=== PATIENT | female | born 1940 | race Caucasian/White ===

== ENCOUNTER → 2017-07-26 08:55 | Outpatient (CLI) | payer MEDICARE, SELFPAY ==
[2017-07-20 14:29] VITALS: BP 117/77; BMI 33.0
== END ==
PROVIDERS: Family Provider Family Medicine; PCP Family Medicine; Visit Provider Nurse Practitioner Acute Care
DX: Z98.890 Other specified postprocedural states (principal)
CPT/HCPCS: 93308; Q9957; A4216; C8924

== ENCOUNTER → 2017-07-27 20:00 | Outpatient (CLI) | payer MEDICARE, SELFPAY | PROVIDERS: Family Provider Family Medicine; PCP Family Medicine; Visit Provider Nurse Practitioner Acute Care | DX: G47.33 Obstructive sleep apnea (adult) (pediatric) (principal) | CPT/HCPCS: 95811 ==

== ENCOUNTER → 2017-08-03 08:45 | Outpatient (CLI) | payer MEDICARE, SELFPAY | PROVIDERS: Family Provider Family Medicine; PCP Family Medicine; Visit Provider Nurse Practitioner Acute Care | DX: G47.33 Obstructive sleep apnea (adult) (pediatric) (principal) | CPT/HCPCS: 98960; G0463 ==

== ENCOUNTER → 2017-10-19 07:23 | Outpatient (CLI) | payer MEDICARE, SELFPAY ==
--- NOTE | 2017-10-19 07:29 | CT_ITS ---
STUDY: CT CHEST/THORAX WITHOUT CONTRAST REASON FOR EXAM: Female, 77 years old. Nodule and shortness of breath. RADIATION DOSAGE (If Supplied By Facility): CTDIvol = ( 15.45 ) mGy, DLP = ( 526.70 ) mGycm TECHNIQUE: Transaxial imaging was performed without the administration of intravenous contrast material. Multiplanar coronal and sagittal images were reformatted. Individualized dose optimization techniques were used for this CT. COMPARISON: CT chest/thorax without IV contrast April 26, 2017. FINDINGS: 5-6 mm noncalcified nodule again seen in the right superior sulcus (series 2 image 16, series 602 image 148) with a segmental zone of prominent peripheral interstitial densities consistent with chronic change. These are also again seen in the other lung segments as well. . There is 3 mm thickening along the anterior minor fissure on series 2 image 46, series 6 on image 80, series 6 and image 83. No new site of consolidation. There is no demonstrated pleural abnormality. The heart size is upper normal. There are calcifications of the coronary arteries. Stable 1.8 x 1.7 x 0.9 cm precarinal lymph node as well as a few right paratracheal mediastinal lymph nodes measuring up to 11.5 mm greatest diameter. There are nonspecific borderline enlarged lymph nodes in the hilar regions, left infrahilar node measuring 13 mm in greatest diameter. Normal unenhanced pulmonary arteries. There is stable atherosclerotic calcification of the aortic arch and descending thoracic aorta. There are stable multi-level degenerative changes of the lower thoracic spine. Suggestion of a mid lumbar dextroscoliosis outside the [id number] There is no demonstrated abnormality of the visualized upper abdomen. CT/Chest without Contrast IMPRESSION: 1. Stable chronic peripheral interstitial changes as well as stable noncalcified nodule in the right superior sulcus. Follow-up is suggested in 18-24 months. 2. No new infiltrate or pleural effusion. 3. Stable nonspecific to borderline enlarged mediastinal and hilar lymph nodes, likely reactive. 4. Atherosclerotic calcifications of the coronary arteries and thoracic aorta again noted. Electronically Signed: Dharmesh Wasserman MD at 12:33 EDT , Service support ,
--- NOTE | 2017-10-19 10:36 | PFTCOMP ---
COMPLETE PULMONARY FUNCTION TEST INTERPRETATION Brief HPI: Patient is a 77 year old female, currently under the care of Dr. Zhou, who presents to [facility] for complete pulmonary function tests secondary to diagnosis of ILD. Respiratory therapist reports good effort and reproducible results. Interpretation: Forced expiration spirometry shows no large airways obstructive ventilatory defect with an FEV1 of 84% predicted. There is no significant bronchodilator response by ATS criteria. Spirograms are of good quality and plateau normally. The respiratory flow volume loop shows a normal pattern. Lung volumes by body plethysmography show a decreased total lung capacity at 3.5 L, 77% predicted. All other lung volumes are reduced symmetrically. Diffusion capacity by carbon monoxide is at the lower limit of normal at 63% predicted. The airway resistance is normal. Compared to previous pulmonary function tests from 04/26/2017, there has been a significant reduction in FVC and FEV1. Impression: Irreversible mild restrictive ventilatory defect with a symmetric reduction diffusing capacity consistent with patient's diagnosis of ILD. There has been some worsening over the last 6 months.
--- NOTE | 2017-10-19 10:39 | PFTCOMP_ITS ---
COMPLETE PULMONARY FUNCTION TEST INTERPRETATION Brief HPI: Patient is a 77 year old female, currently under the care of Dr. Zhou , who presents to [facility] for complete pulmonary function tests secondary to diagnosis of ILD. Respiratory therapist reports good effort and reproducible results. Interpretation: Forced expiration spirometry shows no large airways obstructive ventilatory defect with an FEV1 of 84% predicted. There is no significant bronchodilator response by ATS criteria. Spirograms are of good quality and plateau normally. The respiratory flow volume loop shows a normal pattern. Lung volumes by body plethysmography show a decreased total lung capacity at 3.5 L, 77% predicted. All other lung volumes are reduced symmetrically. Diffusion capacity by carbon monoxide is at the lower limit of normal at 63% predicted. The airway resistance is normal. Compared to previous pulmonary function tests from 04/26/2017, there has been a significant reduction in FVC and FEV1. Impression: Irreversible mild restrictive ventilatory defect with a symmetric reduction diffusing capacity consistent with patient's diagnosis of ILD. There has been some worsening over the last 6 months.
== END ==
PROVIDERS: Family Provider Family Medicine; PCP Family Medicine; Visit Provider Internal Medicine Critical Care Medicine
DX: J84.9 Interstitial pulmonary disease, unspecified (principal)
CPT/HCPCS: 71250; 94060; 94726; 94729

== ENCOUNTER 2017-12-14 08:08 | Outpatient (RCR) | payer MEDICARE, SELFPAY ==
--- NOTE | 2017-12-14 08:11 | PR.DATECOV_ITS ---
Dates of Coverage Times for Dates Of Coverage; All dates of coverage are for physician supervision /medical and scientific illustrator for during the times of 08:00 AM through 4:30 PM. Effective Feb 18, 2013 our hours will be changing to 8:00 to 4:30 on Tuesday, Tuesday and Tuesday. First Date of the Month: 12/14/17 Last Date of the Month: 12/17/17
--- NOTE | 2017-12-14 08:11 | PCM.PR.DAT ---
Dates of Coverage Times for Dates Of Coverage; All dates of coverage are for physician supervision/medical hospital sales for during the times of 08:00 AM through 4:30 PM. Effective Feb 18, 2013 our hours will be changing to 8:00 to 4:30 on Tuesday, Tuesday and Tuesday. First Date of the Month: 12/18/17 Last Date of the Month: 01/17/18
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
--- NOTE | 2017-12-14 08:32 | PR.ITP_ITS ---
General Information - General Information Admitting Diagnosis: Restrictive lunfg disease w/asthma component - PFT FEV1:: 1.51 - 80% predicted FVC:: 1.79 - 71% predicted FEV1/FVC%:: 84 - irreversible mild restricitive ventilatory defect w/reduction diffusing capacity - Education/Goals Barriers to Learning: Vision Impairment Individual Counseling: Initial Assessment: Dyspnea control techniques at rest, activity, and ADLs, Inhaled and respiratory medications, Nutrition & weight management, Safe travel Patient Goals: Breathe better: Initial Assessment, Increase endurance/stamina: Initial Assessment, Return to recreation/hobby: Initial Assessment - Be able to aslo travel & walk on trips., Improve weight: Initial Assessment Exercise - Initial Assessment - Visit Date of Eval: 12/14/17 - Problem/Goals Problems: Knowledge deficit exercise guidelines, Knowledge deficit exercise safety - Exercise Prescription Mode:: Treadmill, Rower, Airdyne, NuStep Frequency (x/week): 3 Duration:: 30 MET LEVEL:: 2 HR (bpm):: 106 - THRR 92-106 - Plan Plan and Plan to Review:: Benefits of exercise, Core components of exercise, How to measure dyspnea level, How to monitor dyspnea level, Exercise intensity, Exercise safety guideline, Home exercise guidelines, Theresa: 3-4/11-13 Disease Management - Initial - Problems/Goals-Bronchial Hygiene Bronchial Hygiene Goals:: Pt demonstrates effective cough, effective secretion clearance., Pt describes signs and symptoms of infection. - Initial Assessment SpO2:: 93 FiO2:: 21 DME:: [employer] DME Does pt report taking home meds as prescribed?: Yes Medications: Yes MDI, Yes DPI, No Spacer, N/A NEB Patient Reports:: No cough Psychosocial - Initial Assess - Problems/Goals Problems: Impaired Q.O.L. Psychosocial Goals: Improved Q.O.L. - Psychosocial Test Depression:: Impaired QOL Referred to MD for counseling:: No - Plan Reviewed screening results: Yes Instructions given regarding:: Benefits of exercise, Relaxation techniques, Training in coping strategies Tobacco - Initial Assessment - Program Goals Tobacco Program Goals: Complete smoking cessation. Attend education classes. Improve Knowledge Test score - Stage of Change Stages of Change:: Action - Learning Barriers Learning Barriers: Vision, Ready to Learn - Family Support Do you have family support?: Yes - Tobacco Use Tobacco Use: Non-smoker - Intervention Education Schedule Given:: Yes - Education Gave Education Materials For:: Pulmonary Disease, Risk Factors, Breathing Techniques, Medical Compliance, Pulmonary A&P, Exacerbation Signs & Symptoms, Stress & Relaxation Nutrition/Wt Mgmt - Initial - Problems/Goals Problems: Overweight Goals: Wt Loss 1-2 lbs per week - Weight Management Knowledge Deficit Management of:: Overweight Admit Height:: 5 ft 3 in Admit Weight:: 188 lb Admit BMI:: 33.3 - Diabetes Diabetes:: No Insulin: No Do you monitor your blood sugar at home?: No - Intervention Referral to dietitian:: Yes - Patient would like to have a strucutured diet program to lose weight gained Referral to Diabetic Clinic:: No Will attend diet classes:: Yes - Plan Nutrition Plan: Yes Review BMI or WC & identify target wt & strategies for wt control, Yes Nutrition education class:, Yes Weight control education class: Patient Health Questionnaire Initial Assessment 1. Little interest or pleasure in doing things: More than half the days 2. Feeling down, depressed, or hopeless: Not at all 3. Trouble falling or staying asleep, or sleeping too much: Several days 4. Feeling tired or having little energy: Nearly every day 5. Poor appetite or overeating: Several days 6. Feeling bad about yourself -- or that you are a failure or have let yourself or your family down: Not at all 8. Moving or speaking so slowly that other people could have noticed. Or the opposite - being so fidgety or restless that you have been moving around a lot more than usual: Not at all How difficult have these problems made it for you to do your work, take care of things at home, or get along with other people?: Somewhat difficult Total Score: 7 COPD Knowledge Test Initial COPD is a lung disease that:: Makes it hard to breathe & gets worse over time In the [place] the term COPD describes 2 main lung conditions:: Emphysema & pulmonary hypertension The most common lung irritant that causes COPD is:: Allergies Common signs and symptoms of COPD include:: An ongoing cough/cough that produces a large amount of mucus, & SOB If you have COPD, what steps can you take?: All of the above Swelling of the ankles is common in COPD:: True Fatigue [tiredness] is common in COPD:: True Wheezing is common in COPD:: True Crushing chest pain is common in COPD:: False Rapid weight loss is common in COPD:: False Breathlessness is a normal response to exercise: True Exercise should be avoided if it makes you short of breath: False All bronchodilators act within 10 minutes: True A spacer device increases the medication to the lungs: True Annual flu vaccine is recommended for pts w/lung disease: True COPD Knowledge Test Total Score:: 11 COPD Assessment Test [CAT] - Questions Never cough = 0, Cough all the time = 5: 1 No phlegm = 0, Chest full of phlegm = 5: 0 No chest tightness = 0, Chest very tight = 5: 0 No breathless w/exertion = 0, Very breathless w/exertion = 5: 5 No limitations w/activity = 0, Very limited w/activity = 5: 4 Confident leaving home = 0, Not at all confident = 5: 1 Sleep soundly = 0, Don't sleep soundly = 5: 1 Lots of energy = 0, No energy at all = 5: 5 Total CAT score:: 17 Self-Efficacy Initial Assessment We would like to know how confident you are in doing certain activities. Please select your confidence level for:: Select your confidence level for the following using the scale 1-10 where 1 is not at all confident and 10 is totally confident. Your score is the average of all 6 responses. Fatigue: How confident are you that you can keep the fatigue caused by your disease from interfering with the things you want to do? Select Number: 2 Physical Discomfort or Pain: How confident are you that you can keep the physical discomfort or pain of your disease from interfering with the things you want to do? Select Number: 2 Emotional Distress: How confident are you that you can keep the emotional distress caused by your disease from interfering with the things you want to do? Select Number: 6 Other Symptoms or Health Problems: How confident are you that you can keep other symptoms or health problems from interfering with the things you want to do? Select Number: 3 Different Tasks and Activities: How confident are you that you can do the different tasks and activities needed to manage your health condition so as to reduce your need to see a doctor? Select Number: 5 Medication: How confident are you that you can do things other than just taking medication to reduce how much your illness affects your everyday life? Select Number: 6 Total Score:: 4 Nutrition Survey - Nutrition Survey Instructions Scoring Instructions: Scoring is as follows: Yes = 1 points. No = 0 point. Patient score that is >/=12 is considered to be at potential nutritional risk and could benefit from a referral to a registered dietitian. - Nutrition Survey Initial Have you lost >10 lbs over the past 2 months without trying?: No Are you following a special diet at home for diabetes, low fat, or low salt?: Yes Are you interested in meeting with a dietitian for help understanding your diet? : Yes Do you eat less than 3 meals a day?: Yes Do you eat fatty meats (jama, sausage, ribs, etc), fried foods, desserts, large amounts of salad dressings, margarine, butter, or cheese most days?: Yes Do you have food allergies? [Enter types in comment field]: No Do you eat in restaurants more than 3 times a week?: Yes Do you season food with salt, seasoning salt, or garlic salt?: Yes Do you used canned, boxed, frozen meals, or soups, seasoning packets?: Yes - Does use salt to season only when cooking; no table salt Total Score:: 7
[2017-12-14 08:47] VITALS: BP 112/58; PULSE 85; RESP 16; TEMP 37.1; O2SAT 93; BMI 33.8
[2017-12-14 09:15] VITALS: O2SAT 93; BMI 33.3
== END 2017-12-17 23:59 ==
LOC: PR 08:08
PROVIDERS: Family Provider Family Medicine; PCP Family Medicine; Visit Provider Family Medicine
DX: J84.9 Interstitial pulmonary disease, unspecified (principal)
CPT/HCPCS: 97150; G0239

== ENCOUNTER 2018-01-13 08:00 | Outpatient (RCR) | payer MEDICARE, SELFPAY ==
[2017-12-18 01:14] VITALS: BP 112/58; PULSE 85; RESP 16; TEMP 37.1; O2SAT 93
--- NOTE | 2018-01-10 09:00 | PCM.PR.DAT ---
Dates of Coverage Times for Dates Of Coverage; All dates of coverage are for physician supervision/medical language specialist for during the times of 08:00 AM through 4:30 PM. Effective Feb 18, 2013 our hours will be changing to 8:00 to 4:30 on Tuesday, Tuesday and Tuesday. First Date of the Month: 01/18/18 Last Date of the Month: 02/17/18
--- NOTE | 2018-01-10 09:09 | PR.ITP_ITS ---
General Information - Education/Goals Patient Goals: Breathe better: 30-Day Assessment, Increase endurance/stamina: 30 -Day Assessment, Return to recreation/hobby: 30-Day Assessment Exercise - 30-Day Assessment - Exercise Prescription Mode:: Treadmill, NuStep, Arm Ergometer Frequency (x/week): 3 Duration:: 30 Aerobic Exercise [30-60 min 3-7x/week]:: Progressing Target heart rate: 92-106 Theresa-13 MET Level:: 2.5 - Home Exercise Home Exercise:: No Disease Management - 30-Day - Medications Medication list reviewed:: Yes Taking medications 100% of the time:: Met - Bronchial Hygiene Bronchial Hygiene Plan: Yes Pt demo correct for device - instructed use of SMI and IMT devices; returned demonstration Psychosocial - 30-Day - Assessment Reassessment: Management of stress & depression, Demonstrate coping strategies Tobacco - 30-Day Assessment - Program Goals Tobacco Program Goals: Complete smoking cessation. Attend education classes. Improve Knowledge Test score - Stage of Change Stages of Change:: Action - Learning Barriers Learning Barriers: Participates in education - Family Support Do you have family support?: Yes - Tobacco Use Tobacco Use: Non-smoker - Intervention Education Schedule Given:: Yes - Education Gave Education Materials For:: Pulmonary Disease, Risk Factors, Breathing Techniques, Medical Compliance, Pulmonary A&P, Exacerbation Signs & Symptoms, Stress & Relaxation Nutrition/Wt Mgmt - 30-Day - Weight Management Weight Assessment:: Wt stable Weight:: 191 lb - BMI 32.5 Weight Goals Progress:: Not progressing Patient Health Questionnaire 30-Day Re-eval Assessment 1. Little interest or pleasure in doing things: Several days 2. Feeling down, depressed, or hopeless: Not at all 3. Trouble falling or staying asleep, or sleeping too much: Not at all 4. Feeling tired or having little energy: More than half the days 5. Poor appetite or overeating: Not at all 6. Feeling bad about yourself -- or that you are a failure or have let yourself or your family down: Not at all 7. Trouble concentrating on things, such as reading the newspaper or watching television: Not at all 8. Moving or speaking so slowly that other people could have noticed. Or the opposite - being so fidgety or restless that you have been moving around a lot more than usual: Not at all Total Score: 3 COPD Assessment Test [CAT] - Questions Never cough = 0, Cough all the time = 5: 1 No phlegm = 0, Chest full of phlegm = 5: 0 No chest tightness = 0, Chest very tight = 5: 0 No breathless w/exertion = 0, Very breathless w/exertion = 5: 4 No limitations w/activity = 0, Very limited w/activity = 5: 3 Confident leaving home = 0, Not at all confident = 5: 1 Sleep soundly = 0, Don't sleep soundly = 5: 1 Lots of energy = 0, No energy at all = 5: 3 Total CAT score:: 13 Self-Efficacy 30-Day Re-eval Assessment We would like to know how confident you are in doing certain activities. Please select your confidence level for:: Select your confidence level for the following using the scale 1-10 where 1 is not at all confident and 10 is totally confident. Your score is the average of all 6 responses. Fatigue: How confident are you that you can keep the fatigue caused by your disease from interfering with the things you want to do? Select Number: 5 Physical Discomfort or Pain: How confident are you that you can keep the physical discomfort or pain of your disease from interfering with the things you want to do? Select Number: 5 Emotional Distress: How confident are you that you can keep the emotional distress caused by your disease from interfering with the things you want to do? Select Number: 7 Other Symptoms or Health Problems: How confident are you that you can keep other symptoms or health problems from interfering with the things you want to do? Select Number: 4 Different Tasks and Activities: How confident are you that you can do the different tasks and activities needed to manage your health condition so as to reduce your need to see a doctor? Select Number: 6 Medication: How confident are you that you can do things other than just taking medication to reduce how much your illness affects your everyday life? Select Number: 7 Total Score:: 5
== END 2018-01-17 23:59 ==
LOC: PR 08:00
PROVIDERS: Family Provider Family Medicine; PCP Family Medicine; Visit Provider Family Medicine
DX: J84.9 Interstitial pulmonary disease, unspecified (principal)
CPT/HCPCS: 97150; G0239

== ENCOUNTER 2018-01-23 08:31 | Outpatient (RCR) | payer MEDICARE, SELFPAY | END 2018-02-17 23:59 | LOC: NS 08:31 | PROVIDERS: Family Provider Family Medicine; PCP Family Medicine; Visit Provider Family Medicine | DX: E66.9 Obesity, unspecified (principal); R06.09 Other forms of dyspnea; J84.9 Interstitial pulmonary disease, unspecified; G47.33 Obstructive sleep apnea (adult) (pediatric); Z71.3 Dietary counseling and surveillance | CPT/HCPCS: 97802; 97803 ==

== ENCOUNTER → 2018-01-27 07:16 | Outpatient (CLI) | payer MEDICARE, SELFPAY ==
[2018-01-27 10:04] LABS: Absolute Lymphocyte Count 2.06 X10^3/ul (0.83-4.51); Basophil# 0.02 X10^3/uL; Basophil% 0.3 % (0-1); Hematocrit 41.9 % (37-47); Lymphocyte # 2.06 X10^3/ul (4.0); Lymphocyte % 34.2 % (19-41); Mean Corp Hgb Conc 33.4 g/gl (32-36); Mean Corpuscular Hgb 29.7 pg (27.0-32.0); Mean Corpuscular Volume 88.8 fL (81-99); Mean Platelet Vol. 11.1 fl (6.2-12.0); Monocyte# 0.63 X10^3/uL; Monocyte% 10.4 % (0-10); Neutrophil # 3.02 X10^3/uL (2.7-7.7); Neutrophil % 50.1 % (47-70); Platelet Count 164 K/mm3 (150-450); RBC Distribution Width CV 13.8 % (11.6-14.6); RBC Distribution Width SD 44.8 fl (35.1-43.9); Red Blood Count 4.72 M/mm3 (4.2-5.4)
[2018-01-27 10:05] LABS: POSITIVE COUNT NO; POSITIVE DIFFERENTIAL NO; POSITIVE MORPHOLOGY NO
[2018-01-27 12:20] LABS: ALB/GLOB Ratio 0.9 RATIO (0.9-2.4); AST(SGOT) 22 U/L (15-37); Alanine Aminotransfer ALT/SGPT 25 U/L (13-56); Albumin, Serum 3.6 g/dL (3.2-5.0); Alkaline Phosphatase 79 U/L (45-117); Anion Gap 8 (5-15); BUN 15 mg/dL (7-18); BUN/Creat Ratio 17.3 RATIO (10-20); Calcium,Total 8.9 mg/dL (8.5-10.1); Chloride 108 mmol/L (98-107); Cholesterol 235 mg/dL (200); Creatinine, Serum 0.87 mg/dL (0.55-1.02); EST Glomerular Filtration Rate 67 mL/min (>60); Est Glom Filt Rate - Afr Amer 81 mL/min (>60); Globulin 4.1 g/dL (2.2-4.2); Glucose 98 mg/dL (74-106); High Density Lipoprotein 52 mg/dL; Potassium 4.2 mmol/L (3.5-5.1); Protein, Total 7.7 g/dL (6.4-8.2); Sodium Level 143 mmol/L (136-145); Thyroid Stim Hormone (TSH) 1.19 uIU/mL (0.358-3.74); Triglycerides 146 mg/dL; Very Low Density Lipoprotein 29 mg/dL (5-40)
== END ==
PROVIDERS: Family Provider Family Medicine; PCP Family Medicine; Visit Provider Family Medicine
DX: E78.5 Hyperlipidemia, unspecified (principal); J45.30 Mild persistent asthma, uncomplicated; E03.9 Hypothyroidism, unspecified
CPT/HCPCS: 36415; 80053; 80061; 84443; 85025

== ENCOUNTER → 2018-02-03 10:00 | Outpatient (CLI) | payer MEDICARE, SELFPAY | PROVIDERS: Family Provider Family Medicine; PCP Family Medicine; Visit Provider Nurse Practitioner Acute Care | DX: G47.33 Obstructive sleep apnea (adult) (pediatric) (principal) ==

== ENCOUNTER 2018-02-17 08:00 | Outpatient (RCR) | payer MEDICARE, SELFPAY ==
[2018-01-18 01:09] VITALS: BP 112/58; PULSE 85; RESP 16; TEMP 37.1; O2SAT 93
--- NOTE | 2018-02-10 10:22 | PR.DATECOV_ITS ---
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 Effective Feb 18, 2013 our hours will be changing to 8:00 to 4:30 on Tuesday, Tuesday and Tuesday. First Date of the Month: 02/18/18 Last Date of the Month: 03/19/18
--- NOTE | 2018-02-10 10:27 | PR.ITP_ITS ---
Exercise - 60-Day Assessment - Current Level Mode:: Treadmill, Airdyne, NuStep, Arm Ergometer Frequency (x/week): 3 Duration:: 35 Aerobic Exercise [30-60 min 3-7x/week]:: Progressing Target heart rate: 92-106 Theresa-13 MET Level:: 3.5 - Home Exercise Home Exercise:: No Disease Management - 60-Day - Medications Medication list reviewed:: Yes Taking medications 100% of the time:: Met Medication reassessment: Yes Pt demonstrates correct technique timing for MDI, Yes Pt demonstrates correct technique timing for DPI, Yes Pt demonstrates correct technique timing for NEB, Yes Pt demonstrates correct technique timing for spacer - return use of spacer - Bronchial Hygiene Bronchial Hygiene Plan: Yes Pt demonstrates correctly for effective cough, Yes Pt demo correct for device - return use of acapella, Yes Pt demo correct for hand hygiene, Yes Pt demo correct for verbalize when to call MD Psychosocial - 60-Day - Assessment Depression reassess: Management of stress: Progressing, Management of depression : Progressing, Practicing interventions: Progressing Tobacco - 60-Day Assessment - Program Goals Tobacco Program Goals: Complete smoking cessation. Attend education classes. Improve Knowledge Test score - Stage of Change Stages of Change:: Action - Learning Barriers Learning Barriers: Participates in education - Family Support Do you have family support?: Yes - Tobacco Use Tobacco Use: Non-smoker Do you use smokeless tobacco?: No - Intervention Smoking Cessation Referral:: No Individual Education/Counseling:: No Education Schedule Given:: Yes - Education Gave Education Materials For:: Pulmonary Disease, Risk Factors, Breathing Techniques, Medical Compliance, Pulmonary A&P, Exacerbation Signs & Symptoms, Stress & Relaxation Nutrition/Wt Mgmt - 60-Day - Weight Management Weight:: 191 lb Weight Goals Progress:: Progressing Patient Health Questionnaire 60-Day Re-eval Assessment 1. Little interest or pleasure in doing things: Not at all 2. Feeling down, depressed, or hopeless: Not at all 3. Trouble falling or staying asleep, or sleeping too much: Not at all 4. Feeling tired or having little energy: Several days 5. Poor appetite or overeating: Not at all 6. Feeling bad about yourself -- or that you are a failure or have let yourself or your family down: Not at all 7. Trouble concentrating on things, such as reading the newspaper or watching television: Not at all 8. Moving or speaking so slowly that other people could have noticed. Or the opposite - being so fidgety or restless that you have been moving around a lot more than usual: Not at all 9. Thoughts that you would be better off , or of hurting yourself in some way: Not at all How difficult have these problems made it for you to do your work, take care of things at home, or get along with other people?: Not difficult at all Total Score: 1 COPD Assessment Test [CAT] - Questions Never cough = 0, Cough all the time = 5: 0 No phlegm = 0, Chest full of phlegm = 5: 0 No breathless w/exertion = 0, Very breathless w/exertion = 5: 3 No limitations w/activity = 0, Very limited w/activity = 5: 2 Confident leaving home = 0, Not at all confident = 5: 1 Sleep soundly = 0, Don't sleep soundly = 5: 1 Lots of energy = 0, No energy at all = 5: 2 Self-Efficacy 60-Day Re-eval Assessment We would like to know how confident you are in doing certain activities. Please select your confidence level for:: Select your confidence level for the following using the scale 1-10 where 1 is not at all confident and 10 is totally confident. Your score is the average of all 6 responses. Fatigue: How confident are you that you can keep the fatigue caused by your disease from interfering with the things you want to do? Select Number: 7 Physical Discomfort or Pain: How confident are you that you can keep the physical discomfort or pain of your disease from interfering with the things you want to do? Select Number: 7 Emotional Distress: How confident are you that you can keep the emotional distress caused by your disease from interfering with the things you want to do? Select Number: 9 Other Symptoms or Health Problems: How confident are you that you can keep other symptoms or health problems from interfering with the things you want to do? Select Number: 6 Different Tasks and Activities: How confident are you that you can do the different tasks and activities needed to manage your health condition so as to reduce your need to see a doctor? Select Number: 8 Medication: How confident are you that you can do things other than just taking medication to reduce how much your illness affects your everyday life? Select Number: 9 Total Score:: 7
== END 2018-02-17 23:59 ==
LOC: PR 08:00
PROVIDERS: Family Provider Family Medicine; PCP Family Medicine; Visit Provider Family Medicine
DX: J84.9 Interstitial pulmonary disease, unspecified (principal); E66.9 Obesity, unspecified; R06.09 Other forms of dyspnea; G47.33 Obstructive sleep apnea (adult) (pediatric); Z71.3 Dietary counseling and surveillance
CPT/HCPCS: 97150; 97802; G0239

== ENCOUNTER 2018-02-27 08:34 | Outpatient (RCR) | payer MEDICARE, SELFPAY | END 2018-03-19 23:59 | LOC: NS 08:34 | PROVIDERS: Family Provider Family Medicine; PCP Family Medicine; Visit Provider Family Medicine | DX: E66.9 Obesity, unspecified (principal); R06.09 Other forms of dyspnea; J84.9 Interstitial pulmonary disease, unspecified; G47.33 Obstructive sleep apnea (adult) (pediatric); Z71.3 Dietary counseling and surveillance | CPT/HCPCS: 97803 ==

== ENCOUNTER → 2018-03-06 12:07 | Outpatient (CLI) | payer MEDICARE, SELFPAY ==
--- NOTE | 2018-03-06 12:10 | BI_ITS ---
MAMMOGRAPHY - BILATERAL SCREENING REASON FOR EXAM: Female, 77 years old. Routine annual screening examination. PERTINENT HISTORY: Personal history of breast cancer. Prior left lumpectomy and radiation therapy. Aunt with breast cancer. TECHNIQUE: Digital bilateral breast jane (3D mammographic acquisition) in the CC and MLO projections. 2-D mediolateral oblique (MLO) and craniocaudad (CC) views of both breasts were obtained. CAD: Full Field Digital Mammography with Computer Added Detection was performed. COMPARISON: Comparison is made with prior study June 02, 2017 and March 01, 2016. FINDINGS: Breast Composition: There are scattered areas of fibroglandular density. Stable deformity of the left breast with architectural distortion in the upper lateral portion of the left breast secondary to prior lumpectomy. This is unchanged. Surgical clips are seen in the left axillary region. No other significant abnormalities are identified. There has been no significant change since the prior study. BI/SCREENING MAMM (CAD), BILAT IMPRESSION: Stable bilateral screening mammogram. Yearly follow-up mammogram recommended. (A) ASSESSMENT CATEGORY: BIRADS Category 2: Benign. A letter regarding these results will be sent to the patient by the facility within 30 days. Approximately 10% of breast cancers are not detected by mammography. A normal mammogram should not delay biopsy of a clinically suspicious abnormality. [id number] Electronically Signed: Oliverio Hung MD at 14:08 EDT Tel [phone], Service support ,
== END ==
PROVIDERS: Family Provider Family Medicine; PCP Family Medicine; Visit Provider Internal Medicine Hematology & Oncology
DX: Z12.31 Encounter for screening mammogram for malignant neoplasm of breast (principal); Z85.3 Personal history of malignant neoplasm of breast
CPT/HCPCS: 77063; 77067

== ENCOUNTER 2018-03-10 08:00 | Outpatient (RCR) | payer MEDICARE, SELFPAY ==
[2018-02-18 01:14] VITALS: BP 112/58; PULSE 85; RESP 16; TEMP 37.1; O2SAT 93
--- NOTE | 2018-03-14 11:42 | PR.DATECOV_ITS ---
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 Effective Feb 18, 2013 our hours will be changing to 8:00 to 4:30 on Tuesday, Tuesday and Tuesday. First Date of the Month: 03/20/18 Last Date of the Month: 04/19/18
--- NOTE | 2018-03-14 11:42 | PCM.PR.TP ---
Exercise - Final Assessment - Exercise Prescription Mode:: Treadmill, Airdyne, NuStep, Arm Ergometer Frequency (x/week): 3 Duration:: 35 Aerobic Exercise [30-60 min 3-7x/week]:: Met Further followup [see D/C Summary]:: No Target heart rate: 92-106 Mx HR 97 Theresa-13 MET Level:: 4.5 - Home Exercise Home Exercise:: Yes Frequency: daily Time (minutes):: 30 - walking other activities Disease Management - Final - Medications Medication reassessment: Yes Pt demonstrates correct technique timing for MDI, Yes Pt demonstrates correct technique timing for DPI, Yes Pt demonstrates correct technique timing for NEB, Yes Pt demonstrates correct technique timing for spacer - returned demonstration use spacer/MDI - Bronchial Hygiene Bronchial Hygiene Plan: Yes Pt demonstrates correctly for effective cough, Yes Pt demo correct for device - returned use of PEP thereapy device, Yes Pt demo correct for improved hydration, Yes Pt demo correct for hand hygiene, Yes Pt demo correct for verbalize when to call MD - verbalizes signs symptoms of exacerbation Psychosocial - Final Assess - Assessment Depression reassess: Management of stress: Met, Management of depression: Met, Practicing interventions: Met Tobacco - Final Assessment - Program Goals Tobacco Program Goals: Complete smoking cessation. Attend education classes. Improve Knowledge Test score - Stage of Change Stages of Change:: Action - Learning Barriers Learning Barriers: Participates in education, Change in behavior - Family Support Do you have family support?: Yes - Tobacco Use Tobacco Use: Non-smoker Do you use smokeless tobacco?: No - Intervention Education Schedule Given:: Yes - Education Education Goal Reached?: Yes Nutrition/Wt Mgmt - Final - Weight Management Final Weight Assessment: Wt stable Weight:: 189 lb - 2 # loss this 30-days Weight Goals Progress:: Progressing Patient Health Questionnaire Discharge Assessment 1. Little interest or pleasure in doing things: Not at all 2. Feeling down, depressed, or hopeless: Not at all 3. Trouble falling or staying asleep, or sleeping too much: Not at all 4. Feeling tired or having little energy: Not at all 5. Poor appetite or overeating: Not at all 6. Feeling bad about yourself -- or that you are a failure or have let yourself or your family down: Not at all 7. Trouble concentrating on things, such as reading the newspaper or watching television: Not at all 8. Moving or speaking so slowly that other people could have noticed. Or the opposite - being so fidgety or restless that you have been moving around a lot more than usual: Not at all 9. Thoughts that you would be better off , or of hurting yourself in some way: Not at all How difficult have these problems made it for you to do your work, take care of things at home, or get along with other people?: Not difficult at all Total Score: 0 COPD Knowledge Test Discharge COPD is a lung disease that:: Makes it hard to breathe & gets worse over time In the [place] the term COPD describes 2 main lung conditions:: Emphysema & chronic bronchitis The most common lung irritant that causes COPD is:: Cigarette smoke Common signs and symptoms of COPD include:: An ongoing cough/cough that produces a large amount of mucus, & SOB If you have COPD, what steps can you take?: All of the above Swelling of the ankles is common in COPD:: False Fatigue [tiredness] is common in COPD:: True Wheezing is common in COPD:: True Crushing chest pain is common in COPD:: False Rapid weight loss is common in COPD:: True Breathlessness is a normal response to exercise: True Exercise should be avoided if it makes you short of breath: False All bronchodilators act within 10 minutes: False A spacer device increases the medication to the lungs: True Annual flu vaccine is recommended for pts w/lung disease: True COPD Knowledge Test Total Score:: 14 COPD Assessment Test [CAT] - Questions Never cough = 0, Cough all the time = 5: 1 No phlegm = 0, Chest full of phlegm = 5: 2 No chest tightness = 0, Chest very tight = 5: 2 No breathless w/exertion = 0, Very breathless w/exertion = 5: 3 No limitations w/activity = 0, Very limited w/activity = 5: 2 Confident leaving home = 0, Not at all confident = 5: 3 Sleep soundly = 0, Don't sleep soundly = 5: 1 Lots of energy = 0, No energy at all = 5: 4 Total CAT score:: 18 Self-Efficacy Discharge Assessment We would like to know how confident you are in doing certain activities. Please select your confidence level for:: Select your confidence level for the following using the scale 1-10 where 1 is not at all confident and 10 is totally confident. Your score is the average of all 6 responses. Fatigue: How confident are you that you can keep the fatigue caused by your disease from interfering with the things you want to do? Select Number: 9 Physical Discomfort or Pain: How confident are you that you can keep the physical discomfort or pain of your disease from interfering with the things you want to do? Select Number: 10 Emotional Distress: How confident are you that you can keep the emotional distress caused by your disease from interfering with the things you want to do? Select Number: 10 Other Symptoms or Health Problems: How confident are you that you can keep other symptoms or health problems from interfering with the things you want to do? Select Number: 10 Different Tasks and Activities: How confident are you that you can do the different tasks and activities needed to manage your health condition so as to reduce your need to see a doctor? Select Number: 10 Medication: How confident are you that you can do things other than just taking medication to reduce how much your illness affects your everyday life? Select Number: 10 Total Score:: 9 Nutrition Survey - Nutrition Survey Instructions Scoring Instructions: Scoring is as follows: Yes = 1 points. No = 0 point. Patient score that is >/=12 is considered to be at potential nutritional risk and could benefit from a referral to a registered dietitian. - Nutrition Survey Discharge Have you lost >10 lbs over the past 2 months without trying?: No Are you following a special diet at home for diabetes, low fat, or low salt?: No Are you interested in meeting with a dietitian for help understanding your diet?: No Do you eat less than 3 meals a day?: No Do you eat fatty meats (jama, sausage, ribs, etc), fried foods, desserts, large amounts of salad dressings, margarine, butter, or cheese most days?: Yes - very rarely bt do eat on occasion Do you have food allergies? [Enter types in comment field]: No Do you eat in restaurants more than 3 times a week?: No Do you season food with salt, seasoning salt, or garlic salt?: No Do you used canned, boxed, frozen meals, or soups, seasoning packets?: Yes Total Score:: 2
== END 2018-03-19 23:59 ==
LOC: PR 08:00
PROVIDERS: Family Provider Family Medicine; PCP Family Medicine; Visit Provider Family Medicine
DX: J84.9 Interstitial pulmonary disease, unspecified (principal); E66.9 Obesity, unspecified; R06.09 Other forms of dyspnea; G47.33 Obstructive sleep apnea (adult) (pediatric); Z71.3 Dietary counseling and surveillance
CPT/HCPCS: 97150; 97803; G0239

== ENCOUNTER → 2018-03-23 11:02 | Outpatient (CLI) | payer MEDICARE, SELFPAY ==
--- NOTE | 2018-03-23 13:37 | PFTCOMP_ITS ---
COMPLETE PULMONARY FUNCTION TEST INTERPRETATION Brief HPI: Patient is a 77 year old female, currently under the care of Dr. Zhou, who presents to [facility] for complete pulmonary function tests secondary to diagnosis of asthma. Respiratory therapist reports good effort and reproducible results. Interpretation: Forced expiration spirometry shows no large airways obstructive ventilatory defect with an FEV1 of 84% predicted. There is no significant bronchodilator response by ATS criteria. Spirograms are of good quality and plateau normally. The respiratory flow volume loop shows a normal pattern. Lung volumes by body plethysmography show a decreased total lung capacity at 3.71 L, 82% predicted. All other lung volumes are within normal limits. Diffusion capacity by carbon monoxide is at the lower limit of normal at 68% predicted. The airway resistance is normal. Compared to previous pulmonary function tests from October 19, 2017, there has been no significant change. Impression: Mild restrictive ventilatory defect with a symmetric reduction in diffusing capacity. There is been very little change compared to previous.
== END ==
PROVIDERS: Family Provider Family Medicine; PCP Family Medicine; Referring Provider Internal Medicine Critical Care Medicine; Visit Provider Internal Medicine Critical Care Medicine
DX: J45.909 Unspecified asthma, uncomplicated (principal); R93.89 Abnormal findings on diagnostic imaging of other specified body structures
CPT/HCPCS: 94060; 94726; 94729

== ENCOUNTER → 2018-03-24 09:36 | Outpatient (CLI) | payer MEDICARE, SELFPAY | PROVIDERS: Family Provider Family Medicine; PCP Family Medicine; Visit Provider Nurse Practitioner Acute Care | DX: Z00.00 Encounter for general adult medical examination without abnormal findings (principal) ==

== ENCOUNTER 2018-03-27 08:00 | Outpatient (RCR) | payer MEDICARE, SELFPAY ==
[2018-03-20 00:57] VITALS: BP 112/58; PULSE 85; RESP 16; TEMP 37.1; O2SAT 93
== END 2018-04-19 23:59 ==
LOC: PR 08:00
PROVIDERS: Family Provider Family Medicine; PCP Family Medicine; Referring Provider Family Medicine; Visit Provider Family Medicine
DX: J84.9 Interstitial pulmonary disease, unspecified (principal); E66.9 Obesity, unspecified; R06.09 Other forms of dyspnea; G47.33 Obstructive sleep apnea (adult) (pediatric); Z71.3 Dietary counseling and surveillance
CPT/HCPCS: 97150; 97803; G0239

== ENCOUNTER 2018-04-17 14:00 | Outpatient (RCR) | payer MEDICARE, SELFPAY | END 2018-04-19 23:59 | LOC: NS 14:00 | PROVIDERS: Family Provider Family Medicine; PCP Family Medicine; Visit Provider Family Medicine | DX: E66.9 Obesity, unspecified (principal); R06.09 Other forms of dyspnea; J84.9 Interstitial pulmonary disease, unspecified; G47.33 Obstructive sleep apnea (adult) (pediatric); Z71.3 Dietary counseling and surveillance | CPT/HCPCS: 97803 ==

== ENCOUNTER 2018-05-01 15:08 | Outpatient (RCR) | payer MEDICARE, SELFPAY | END 2018-05-19 23:59 | LOC: NS 15:08 | PROVIDERS: Family Provider Family Medicine; PCP Family Medicine; Visit Provider Family Medicine | DX: E66.9 Obesity, unspecified (principal); R06.09 Other forms of dyspnea; J84.9 Interstitial pulmonary disease, unspecified; G47.33 Obstructive sleep apnea (adult) (pediatric); Z71.3 Dietary counseling and surveillance | CPT/HCPCS: 97803 ==

== ENCOUNTER 2018-05-22 12:52 | Outpatient (RCR) | payer MEDICARE, SELFPAY ==
[2018-05-20 01:05] VITALS: BMI 33.0
== END 2018-06-19 23:59 ==
LOC: NS 12:52
PROVIDERS: Family Provider Family Medicine; PCP Family Medicine; Visit Provider Family Medicine
DX: E66.9 Obesity, unspecified (principal); R06.09 Other forms of dyspnea; J84.9 Interstitial pulmonary disease, unspecified; G47.33 Obstructive sleep apnea (adult) (pediatric); Z71.3 Dietary counseling and surveillance
CPT/HCPCS: 97803

== ENCOUNTER → 2018-07-04 08:01 | Outpatient (CLI) | payer MEDICARE, SELFPAY ==
[2018-05-20 01:05] VITALS: BMI 33.0
[2018-07-04 10:20] LABS: Hemoglobin A1c 5.7 % (4.2-6.3)
[2018-07-04 10:24] LABS: Vitamin B12 529 pg/mL (211-911)
[2018-07-04 10:55] LABS: AST(SGOT) 18 U/L (15-37); Alanine Aminotransfer ALT/SGPT 27 U/L (13-56); Albumin, Serum 3.7 g/dL (3.2-5.0); Alkaline Phosphatase 70 U/L (45-117); Anion Gap 8 (5-15); BUN 15 mg/dL (7-18); BUN/Creat Ratio 19.5 RATIO (10-20); Chloride 107 mmol/L (98-107); Cholesterol 222 mg/dL (200); Creatinine, Serum 0.77 mg/dL (0.55-1.02); EST Glomerular Filtration Rate 77 mL/min (>60); Est Glom Filt Rate - Afr Amer 93 mL/min (>60); Ferritin 223 ng/mL (8-252); Free T3 2.4 pg/mL (2.18-3.98); Globulin 3.8 g/dL (2.2-4.2); Glucose 91 mg/dL (74-106); High Density Lipoprotein 57 mg/dL; Iron 99 ug/dL (50-170); Iron Binding Capacity,Total 308 ug/dL (250-450); PERCENT IRON SATURATION 32.1 % (15.0-55.0); Potassium 3.8 mmol/L (3.5-5.1); Protein, Total 7.5 g/dL (6.4-8.2); Sodium Level 141 mmol/L (136-145); Thyroid Stim Hormone (TSH) 1.07 uIU/mL (0.358-3.74); Triglycerides 192 mg/dL; Very Low Density Lipoprotein 38 mg/dL (5-40)
== END ==
PROVIDERS: Family Provider Family Medicine; PCP Family Medicine; Visit Provider Family Medicine
DX: E78.5 Hyperlipidemia, unspecified (principal); R25.1 Tremor, unspecified; E03.9 Hypothyroidism, unspecified
CPT/HCPCS: 36415; 80053; 80061; 82607; 82728; 82746; 83036; 83540; 83550; 84439; 84443; 84481

== ENCOUNTER 2018-07-18 09:30 | Outpatient (RCR) | payer MEDICARE, SELFPAY ==
[2018-05-20 01:05] VITALS: BMI 33.0
== END 2018-07-18 23:59 | disposition home or self-care (01) ==
LOC: NS 09:30
PROVIDERS: Family Provider Family Medicine; PCP Family Medicine; Visit Provider Family Medicine
DX: E66.9 Obesity, unspecified (principal); R06.09 Other forms of dyspnea; J84.9 Interstitial pulmonary disease, unspecified; G47.33 Obstructive sleep apnea (adult) (pediatric); Z71.3 Dietary counseling and surveillance
CPT/HCPCS: 97803

== ENCOUNTER 2018-11-21 06:24 | Day surgery (SDC) | payer MEDICARE, SELFPAY ==
[2018-10-25 10:37] VITALS: BMI 33.0
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
[2018-11-21] VITALS (7 sets, daily range): BP systolic 97–147; BP diastolic 54–77; PULSE 71–77; RESP 16–18; TEMP 36.4–36.8; O2SAT 97–100; BMI 32.9
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
[2018-11-21] MEDS: levoFLOXacin IV 500 MG/100 ML BAG 100 MG IV (07:30)
[2018-11-21] MEDS: Mupirocin Ointment 22gm Tube 1 APPLIC (10:15)
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
--- NOTE | 2018-11-21 10:45 | DCINST_ITS ---
You will use the following diet at home:: No restrictions Discharge Activity: May Shower - in two days. May shower in (days): 2 May resume sexual activity in: No Restrictions Weight Bearing Status: Weight bearing as tolerated Call your doctor if your incision/area has: Continuous Slow Oozing, Sudden Increased Bleeding, Increased Pain/ Swelling, Increased Redness, Foul Smelling Discharge, Swelling at the incision site Call your doctor if you observe: Fever of 101 or Higher, Coldness, Increased Pain, Shortness of breath, Chest pain, Calf discomfort, Uncontrolled pain Suture Line Care: - - apply antibiotic ointment to suture line daily. Change Dressing in (Days):: 2 - dry dressings daily. Cleanse incision/area with: - - may get incisions wet in the shower in two days. Allergies/Adverse Reactions: Allergies clindamycin Adverse Reaction (Intermediate, Verified 11/15/18 09:36) DIZZY, DIARRHEA Medications to take at Discharge Levothyroxine [Synthroid] 137 mcg PO DAILY 10/11/14 Sertraline HCl [Zoloft] 150 mg PO DAILY 10/11/14 Cholecalciferol (VIT D3) [Vitamin D3] 2,000 unit PO DAILY 07/17/15 Multivitamin [Daily Multiple Vitamin] 1 ea PO DAILY 07/17/15 Acetaminophen [Tylenol] 975 mg PO QHS 09/10/16 albuterol sulfate HFA 90 mcg/actuation aerosol inhaler 2 puff INHALATION Q4H PRN #1 device 08/23/17 Beclomethasone Diprop Inhaler [Qvar 80 Mcg Inhaler] 2 puff INHALATION BID 12/14/17 Ferrous Gluconate [Iron] 236 mg PO DAILY 12/14/17 [place]-3 Fatty Acids/Fish Oil [Fish Oil 1,000 mg Capsule] 1 ea PO DAILY 12/14/17 beclomethasone diprop 80 mcg/actuation HFA breath activated aerosol 2 puff INHALATION Q12H #10.6 g 06/16/18 Loratadine/Pseudoephedrine [Claritin-D 12 Hour Tablet] 1 each PO DAILY 11/15/18 Psyllium Husk [Fiber Therapy] 0.52 gm PO DAILY 11/15/18 Ursodiol [Sandee] 250 mg PO TID 11/15/18 Fluconazole [Diflucan] 100 mg PO DAILY #14 tab 11/21/18 Lactobacillus Acidophilus/Fos [Acidophilus Probiotic Tablet] 1 ea PO BID #60 tab 11/21/18 Levofloxacin 500 mg PO DAILY #30 tab 11/21/18 Oxycodone HCl/Acetaminophen [Percocet 5/325] 1 - 2 tab PO 4X/DAY PRN PRN 7 Days #50 tab 11/21/18 The following prescriptions were given: Fluconazole [Diflucan] 100 mg PO DAILY #14 tab Levofloxacin 500 mg PO DAILY #30 tab Oxycodone HCl/Acetaminophen [Percocet 5/325] 1 - 2 tab PO 4X/DAY PRN PRN 7 Days #50 tab PRN Reason: Pain Lactobacillus Acidophilus/Fos [Acidophilus Probiotic Tablet] 1 ea PO BID #60 tab Primary Care Physician: Roger Jernigan MD [Primary Care Provider] - Test Results: Test results from this visit will be discussed in further detail at your follow- up appointment, if applicable. Please Follow Up With: Juan Francisco Driscoll MD When: one week. call [phone] for appt. Proposed Discharge Date: 11/21/18
== END 2018-11-21 12:40 | disposition home or self-care (01) ==
LOC: SDC 06:25 → AC 06:30
PROVIDERS: Family Provider Family Medicine; PCP Family Medicine; Referring Provider Surgery; Visit Provider Surgery
PROC: (CPT 14001; principal; 2018-11-21 07:50)
DX: L98.412 Non-pressure chronic ulcer of buttock with fat layer exposed (principal); L90.5 Scar conditions and fibrosis of skin; T21.0 Burn of unspecified degree of trunk; D64.9 Anemia, unspecified; E03.9 Hypothyroidism, unspecified; M19.90 Unspecified osteoarthritis, unspecified site; J45.909 Unspecified asthma, uncomplicated; G47.33 Obstructive sleep apnea (adult) (pediatric); F32.9 Major depressive disorder, single episode, unspecified; E66.9 Obesity, unspecified; Z68.32 Body mass index [BMI] 32.0-32.9, adult; Z88.1 Allergy status to other antibiotic agents; Z79.899 Other long term (current) drug therapy; Z78.0 Asymptomatic menopausal state; Z85.3 Personal history of malignant neoplasm of breast
CPT/HCPCS: 14001; 87070; 87075; 87102; 87176; 87205; 87206; 88305; 88311; 88331; J7120; J2405

== ENCOUNTER 2018-12-05 13:53 | Outpatient (RCR) | payer MEDICARE, SELFPAY ==
[2018-11-28 10:11] VITALS: BMI 32.9
[2018-12-05 14:10] VITALS: BP 133/78; PULSE 63; RESP 18; TEMP 36.3; BMI 32.9
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
== END 2018-12-17 23:59 ==
LOC: WC 13:53
PROVIDERS: Visit Provider Nurse Practitioner Family
DX: L98.412 Non-pressure chronic ulcer of buttock with fat layer exposed (principal); L90.5 Scar conditions and fibrosis of skin; L94.2 Calcinosis cutis; L98.8 Other specified disorders of the skin and subcutaneous tissue; I27.20 Pulmonary hypertension, unspecified; Z79.899 Other long term (current) drug therapy; T21.0 Burn of unspecified degree of trunk; T79.8XXS Other early complications of trauma, sequela; X08.8XXS Exposure to other specified smoke, fire and flames, sequela
CPT/HCPCS: 99214; G0463

== ENCOUNTER → 2018-12-07 09:12 | Outpatient (CLI) | payer MEDICARE, SELFPAY ==
[2018-12-05 14:10] VITALS: BMI 32.9
--- NOTE | 2018-12-07 09:17 | RAD_ITS ---
STUDY: X-RAY CHEST REASON FOR EXAM: Female, 78 years old. Hyperbaric oxygen therapy TECHNIQUE: PA and lateral views of the chest. COMPARISON: Prior study of 03/14/2017 FINDINGS: There is a fine interstitial fibrotic pattern of the lungs predominantly involving the lung bases. There is no demonstrated pleural abnormality. Normal size heart. Normal mediastinum and thu. Normal visualized pulmonary arteries. There are calcified plaques of the aortic arch. The bones are osteopenic. There are mild degenerative changes of the thoracic spine. There is a mild thoracolumbar levoscoliosis. Normal visualized ribs, clavicles, and shoulders. There is no demonstrated abnormality of the visualized soft tissue structures of the upper abdomen. RAD/Chest PA and Lateral IMPRESSION: Fine interstitial fibrotic pattern of the lungs predominantly involving the lung bases. Calcified plaques of the aortic arch. Generalized osteopenia. Mild degenerative changes of the thoracic spine. Thoracolumbar levoscoliosis. Surgical clips are seen in the left axilla. Electronically Signed: Ramana Amato MD at 17:10 EDT , Service support ,
== END ==
PROVIDERS: Family Provider Family Medicine; PCP Family Medicine; Referring Provider Nurse Practitioner Family; Visit Provider Nurse Practitioner Family
DX: J84.10 Pulmonary fibrosis, unspecified (principal)
CPT/HCPCS: 71046

== ENCOUNTER 2019-01-01 10:15 | Outpatient (RCR) | payer MEDICARE, SELFPAY ==
[2018-12-18 01:08] VITALS: BP 133/78; PULSE 63; RESP 18; TEMP 36.3
[2018-12-18 09:16] VITALS: BP 123/76; PULSE 61; RESP 16; TEMP 36; BMI 32.9
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
[2019-01-01 11:07] VITALS: BP 156/71; PULSE 59; RESP 18; TEMP 35.6; BMI 32.9
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
[2019-01-15 08:33] VITALS: BP 132/92; PULSE 64; RESP 18; TEMP 36.4; BMI 32.9
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
== END 2019-01-17 23:59 ==
LOC: WC 10:15
PROVIDERS: Family Provider Family Medicine; PCP Family Medicine; Visit Provider Nurse Practitioner Family
DX: L98.412 Non-pressure chronic ulcer of buttock with fat layer exposed (principal); L90.5 Scar conditions and fibrosis of skin; L94.2 Calcinosis cutis; L98.8 Other specified disorders of the skin and subcutaneous tissue; T21.0 Burn of unspecified degree of trunk; T85.898A Other specified complication of other internal prosthetic devices, implants and grafts, initial encounter; X08.8XXS Exposure to other specified smoke, fire and flames, sequela
CPT/HCPCS: 11042; 11045; 99213; G0463

== ENCOUNTER → 2019-01-15 09:00 | Outpatient (CLI) | payer MEDICARE, SELFPAY ==
[2019-01-15 12:08] VITALS: BMI 32.4
== END ==
PROVIDERS: Family Provider Family Medicine; PCP Family Medicine; Referring Provider Surgery; Visit Provider Surgery
DX: L97.829 Non-pressure chronic ulcer of other part of left lower leg with unspecified severity (principal)
CPT/HCPCS: 87070; 87075; 87077; 87186; 87205

== ENCOUNTER 2019-02-12 08:30 | Outpatient (RCR) | payer MEDICARE, SELFPAY ==
[2019-01-15 12:08] VITALS: BMI 32.4
[2019-01-18 01:02] VITALS: BP 132/92; PULSE 64; RESP 18; TEMP 36.4
[2019-01-22 08:30] VITALS: BP 127/66; PULSE 63; RESP 16; TEMP 36.4; BMI 32.4
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
[2019-02-12 08:27] VITALS: BP 144/79; PULSE 60; RESP 18; TEMP 36.2; BMI 32.4
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
== END 2019-02-17 23:59 ==
LOC: WC 08:30
PROVIDERS: Family Provider Family Medicine; PCP Family Medicine; Visit Provider Nurse Practitioner Family
DX: L98.412 Non-pressure chronic ulcer of buttock with fat layer exposed (principal); L94.2 Calcinosis cutis; L90.5 Scar conditions and fibrosis of skin; L98.8 Other specified disorders of the skin and subcutaneous tissue; T21.0 Burn of unspecified degree of trunk; X08.8XXS Exposure to other specified smoke, fire and flames, sequela
CPT/HCPCS: 11042; 11045

== ENCOUNTER → 2019-03-08 12:25 | Outpatient (CLI) | payer MEDICARE, SELFPAY ==
[2018-12-28 08:46] VITALS: BMI 32.4
[2019-02-12 08:27] VITALS: BMI 32.4
[2019-02-26 08:32] VITALS: BMI 32.4
[2019-03-08 12:44] VITALS: PULSE 64; PULSE 75; PULSE 79; PULSE 83; PULSE 84; PULSE 85; PULSE 90; O2SAT 94; O2SAT 95; O2SAT 96; O2SAT 97; O2SAT 98
--- NOTE | 2019-03-08 12:46 | CPS ---
Pt had shortness of breath starting at minute 3 that continued until the end of the test. Patient state that her SOB has increased since her last 6 minute walk.
--- NOTE | 2019-03-08 14:03 | BI_ITS ---
MAMMOGRAPHY - BILATERAL SCREENING REASON FOR EXAM: Female, 78 years old. Routine annual screening examination. PERTINENT HISTORY: Personal history of breast cancer. Prior left lumpectomy with radiation therapy. Aunt with breast cancer. TECHNIQUE: Digital bilateral breast angela (3D mammographic acquisition) in the CC and MLO projections. 2-D mediolateral oblique (MLO) and craniocaudad (CC) views of both breasts were obtained. CAD: Full Field Digital Mammography with Computer Added Detection was performed. COMPARISON: Comparison is made with prior study dated March 06, 2018 and March 03, 2017. FINDINGS: Breast Composition: There are scattered areas of fibroglandular density. There are no dominant masses or suspicious calcifications. The patient is status post lumpectomy in the upper lateral aspect of the left breast with resultant architectural distortion and skin thickening. Surgical clips are seen in the left axillary region. There has been no change since prior study. No other significant abnormalities are identified. There has been no significant change since the prior study. BI/SCREEN MAMM (CAD) W/ANGELA BILAT IMPRESSION: Stable bilateral screening mammogram. Yearly follow-up mammogram recommended. (A) ASSESSMENT CATEGORY: BIRADS Category 2: Benign. A letter regarding these results will be sent to the patient by the facility within 30 days. Approximately 10% of breast cancers are not detected by mammography. A normal mammogram should not delay biopsy of a clinically suspicious abnormality. [id number] Electronically Signed: Oliverio Hung, at 15:29 EDT , Service support ,
--- NOTE | 2019-03-08 14:04 | BD_ITS ---
STUDY: DUAL ENERGY X-RAY ABSORPTIOMETRY / DXA REASON FOR EXAM: Female, 78 years old. The patient is postmenopausal. Loss of height. TECHNIQUE: Bone Mineral Density (BMD) measurements of lumbar spine and bilateral hips were obtained. COMPARISON: None. FINDINGS: Lumbar Spine (L1-L4): g/cm2 (1.271) / T-score (0.9) / Z-score (2.7) Findings are suggestive of normal bone density with a low fracture risk. Left Femur Total: g/cm2 (0.904) / T-score (-0.8) / Z-score (1.2) Left Femoral Neck: g/cm2 (0.870) / T-score (-1.2) / Z-score (1.0) Right Femur Total: g/cm2 (0.935) / T-score (-0.6) / Z-score (1.5) Right Femoral Neck: g/cm2 (1.010) / T-score (-0.2) / Z-score (2.0) BD/Dexa Bone Density Study IMPRESSION: The patient is considered osteopenic as outlined below according to World Robert Organization (WHO) criteria with a low fracture risk. Reference Information: The T-score is the number of standard deviations above or below the standard which is normal for young adults at their peak bone mineral density. The World Health Organization (WHO) interprets the T-scores as follows: Above -1 Normal bone density Between -1 and -2.5 Osteopenia Equal to / or below -2.5 Osteoporosis As a practical clinical guideline, osteopenia may be graded as follows: Mild -1 through -1.5 Moderate -1.6 through -2.0 Severe -2.1 through -2.4 The Z-score is the number of standard deviations above or below age-matched controls. A Z-score of less than -1.5 would be considered abnormal. References: 1. NIH Osteoporosis and Related Bone Diseases http://www.osteo.org 2. International Society for Clinical Densitometry http://www.iscd.org 3. National Osteoporosis Foundation http://www.nof.org Electronically Signed: Oliverio Hung, at 15:11 EDT , Service support ,
--- NOTE | 2019-03-12 08:26 | PCM.PSN.6M ---
PSN 6 Minute Walk Test - 6 Minute Walk Test 6 Minute Walk Test: 6 Minute Walk Test PSN:6-Minute Walk Test Start: 03/08/19 12:43 Freq: Status: Active Protocol: RESP.6MINW Document 03/08/19 12:44 SMB (Rec: 03/08/19 12:48 SMB [id number]) 6 Minute Walk Test Date Performed 03/08/19 Time Performed 12:31 Height 5 ft 3 in Weight: 185 lb Weight in Pounds 185.[address]: Omid Zhou Assistive device used: None Pre-test Oxygen Delivery Method Room Air Pulse Ox (%) 97 Pulse Rate (60-100 beats/min) 79 Dyspnea Theresa Scale (0-10) 0.5 Exertion Theresa Scale (6-20) 11 1st minute Oxygen Delivery Method Room Air Pulse Ox (%) 94 Pulse Rate (60-100 beats/min) 64 2nd minute Oxygen Delivery Method Room Air Pulse Ox (%) 94 Pulse Rate (60-100 beats/min) 84 3rd minute Oxygen Delivery Method Room Air Pulse Ox (%) 95 Pulse Rate (60-100 beats/min) 83 4th minute Oxygen Delivery Method Room Air Pulse Ox (%) 98 Pulse Rate (60-100 beats/min) 90 5th minute Oxygen Delivery Method Room Air Pulse Ox (%) 97 Pulse Rate (60-100 beats/min) 85 6th minute Oxygen Delivery Method Room Air Pulse Ox (%) 96 Pulse Rate (60-100 beats/min) 90 Post-test Oxygen Delivery Method Room Air Pulse Ox (%) 97 Pulse Rate (60-100 beats/min) 75 Dyspnea Theresa Scale (0-10) 3 Exertion Theresa Scale (6-20) 13 Full Laps Walked 15 Partial Lap, Number of Tiles Walked 21 Total Distance Walked (ft) 906 03/08/19 12:46 Cardiopulmonary Services by Clau Todd Pt had shortness of breath starting at minute 3 that continued until the end of the test. Patient state that her SOB has increased since her last 6 minute walk. Initialized on 03/08/19 12:46 - END OF NOTE - Interpretation Interpretation: The patient ambulated 906 feet over the course of 6 minutes beginning on room air without assistive devices or breaks. Pretesting oxygen saturation was noted to be 97% on room air. With ambulation, the janette oxygen saturation was 94%. There was no significant exertional oxygen desaturation. - Recommendations Recommendations: There is no indication for the use of supplemental oxygen at this time.
== END ==
PROVIDERS: Family Provider Family Medicine; PCP Family Medicine; Referring Provider Internal Medicine Critical Care Medicine; Visit Provider Family Medicine
DX: Z12.31 Encounter for screening mammogram for malignant neoplasm of breast (principal); Z78.0 Asymptomatic menopausal state; M85.80 Other specified disorders of bone density and structure, unspecified site; J84.9 Interstitial pulmonary disease, unspecified; Z85.3 Personal history of malignant neoplasm of breast; Z80.3 Family history of malignant neoplasm of breast
CPT/HCPCS: 77063; 77067; 77080; 94618

== ENCOUNTER 2019-03-12 08:30 | Outpatient (RCR) | payer MEDICARE, SELFPAY ==
[2019-02-18 00:51] VITALS: BP 144/79; PULSE 60; RESP 18; TEMP 36.2
[2019-02-26 08:32] VITALS: BP 138/72; PULSE 59; RESP 16; TEMP 35.9; BMI 32.4
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
[2019-03-12 08:46] VITALS: BP 143/82; PULSE 63; RESP 16; TEMP 36; BMI 32.4
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
== END 2019-03-19 23:59 ==
LOC: WC 08:30
PROVIDERS: Family Provider Family Medicine; PCP Family Medicine; Visit Provider Nurse Practitioner Family
DX: T21.0 Burn of unspecified degree of trunk (principal); X08.8XXS Exposure to other specified smoke, fire and flames, sequela; L98.412 Non-pressure chronic ulcer of buttock with fat layer exposed
CPT/HCPCS: 11042

== ENCOUNTER 2019-04-16 08:30 | Outpatient (RCR) | payer MEDICARE, SELFPAY ==
[2019-03-20 00:48] VITALS: BP 143/82; PULSE 63; RESP 16; TEMP 36
[2019-03-20 11:11] VITALS: BMI 32.8
[2019-03-26 13:57] VITALS: RESP 16; BMI 32.8
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
[2019-04-16 08:25] VITALS: BP 129/93; PULSE 61; RESP 18; TEMP 36.5; BMI 32.8
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
== END 2019-04-19 23:59 ==
LOC: WC 08:30
PROVIDERS: Family Provider Family Medicine; PCP Family Medicine; Visit Provider Nurse Practitioner Family
DX: T21.0 Burn of unspecified degree of trunk (principal); X08.8XXS Exposure to other specified smoke, fire and flames, sequela; L98.412 Non-pressure chronic ulcer of buttock with fat layer exposed; L90.5 Scar conditions and fibrosis of skin
CPT/HCPCS: 11042

== ENCOUNTER → 2019-04-20 07:50 | Outpatient (CLI) | payer MEDICARE, SELFPAY ==
[2019-04-16 08:25] VITALS: BMI 32.8
--- NOTE | 2019-04-20 07:52 | CT_ITS ---
STUDY: CT PELVIS WITH CONTRAST REASON FOR EXAM: Female, 78 years old. Left groin pain. RADIATION DOSAGE (If Supplied By Facility): CTDIvol = ( 24.54 ) mGy, DLP = ( 1108.66 ) mGycm TECHNIQUE: Transaxial imaging of the pelvis was performed without oral contrast. IV/Oral Isovue 300 100 was administered intravenously. Individualized dose optimization techniques were used for this CT. COMPARISON: None. FINDINGS: Normal urinary bladder. Small benign-appearing bilateral inguinal lymph nodes. Normal visualized small intestine. There are multiple colonic diverticula of the sigmoid colon consistent with chronic diverticulosis. There is no pelvic fluid. There is no pelvic lymphadenopathy or mass lesion. There is diffuse atherosclerotic calcification of the pelvic arteries. Normal abdominal wall. There are diffuse degenerative changes of the visualized lumbar spine. Dextroscoliosis. CT/Pelvis WITH IV Contrast IMPRESSION: Scattered sigmoid diverticula. Electronically Signed: Oliverio Hung, at 13:48 EDT , Service support ,
== END ==
PROVIDERS: Family Provider Family Medicine; PCP Family Medicine; Referring Provider Surgery; Visit Provider Surgery
DX: R10.32 Left lower quadrant pain (principal)
CPT/HCPCS: 72193; Q9967

== ENCOUNTER 2019-05-07 08:43 | Outpatient (RCR) | payer MEDICARE, SELFPAY ==
[2019-04-20 00:47] VITALS: BP 129/93; PULSE 61; RESP 18; TEMP 36.5
[2019-05-07 08:43] VITALS: BP 141/75; PULSE 67; RESP 16; TEMP 37.3; BMI 32.8
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
== END 2019-05-19 23:59 ==
LOC: WC 08:43
PROVIDERS: Family Provider Family Medicine; PCP Family Medicine; Visit Provider Nurse Practitioner Family
DX: T21.0 Burn of unspecified degree of trunk (principal); X08.8XXS Exposure to other specified smoke, fire and flames, sequela; L98.412 Non-pressure chronic ulcer of buttock with fat layer exposed
CPT/HCPCS: 11042

== ENCOUNTER → 2019-05-28 13:57 | Outpatient (CLI) | payer MEDICARE, SELFPAY ==
[2019-05-21 08:31] VITALS: BMI 32.8
[2019-05-28 15:33] LABS: Absolute Lymphocyte Count 1.93 X10^3/uL (0.83-4.51); Absolute Neutrophil Count 4.6 X10^3/uL (2.0-7.7); Basophil# 0.05 X10^3/uL; Basophil% 0.6 % (0-1); Eosinophil# 0.31 X10^3/uL; Hematocrit 42.9 % (37-47); Hemoglobin 14.1 g/dL (12.0-15.0); Lymphocyte # 1.93 X10^3/ul (4.0); Lymphocyte % 24.7 % (19-41); Mean Corp Hgb Conc 32.9 g/dL (32-36); Mean Corpuscular Hgb 29.4 pg (27.0-32.0); Mean Corpuscular Volume 89.4 fL (81-99); Mean Platelet Vol. 11.2 fl (6.2-12.0); Monocyte# 0.86 X10^3/uL; NRBC Flagged by Analyzer 0 % (0-5); Neutrophil # 4.64 X10^3/uL (2.7-7.7); Neutrophil % 59.6 % (47-70); Platelet Count 191 K/mm3 (150-450); RBC Distribution Width CV 13.2 % (11.6-14.6); RBC Distribution Width SD 43.5 fl (35.1-43.9); White Blood Count 7.8 K/mm3 (4.4-11.0)
[2019-05-28 15:55] LABS: ALB/GLOB Ratio 0.9 RATIO (0.9-2.4); AST(SGOT) 18 U/L (15-37); Alanine Aminotransfer ALT/SGPT 23 U/L (13-56); Albumin, Serum 3.5 g/dL (3.2-5.0); Alkaline Phosphatase 79 U/L (45-117); Anion Gap 3 (5-15); BUN 17 mg/dL (7-18); Calcium,Total 8.7 mg/dL (8.5-10.1); Chloride 110 mmol/L (98-107); Creatinine, Serum 0.94 mg/dL (0.55-1.02); EST Glomerular Filtration Rate 60 mL/min (>60); Est Glom Filt Rate - Afr Amer 73 mL/min (>60); Globulin 3.9 g/dL (2.2-4.2); Glucose 69 mg/dL (74-106); Magnesium 2.1 mg/dL (1.6-2.6); Potassium 4.2 mmol/L (3.5-5.1); Protein, Total 7.4 g/dL (6.4-8.2); Sodium Level 140 mmol/L (136-145)
== END ==
PROVIDERS: Family Provider Family Medicine; PCP Family Medicine; Visit Provider Family Medicine
DX: I49.3 Ventricular premature depolarization (principal)
CPT/HCPCS: 36415; 80053; 83735; 85025

== ENCOUNTER 2019-06-04 08:30 | Outpatient (RCR) | payer MEDICARE, SELFPAY ==
[2019-05-20 00:39] VITALS: BP 141/75; PULSE 67; RESP 16; TEMP 37.3
[2019-05-21 08:31] VITALS: BP 160/93; PULSE 74; RESP 18; TEMP 36; BMI 32.8
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
[2019-06-04 08:50] VITALS: BP 137/54; PULSE 69; RESP 18; TEMP 36.6; BMI 32.8
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
== END 2019-06-19 23:59 ==
LOC: WC 08:30
PROVIDERS: Family Provider Family Medicine; PCP Family Medicine; Visit Provider Nurse Practitioner Family
DX: L98.412 Non-pressure chronic ulcer of buttock with fat layer exposed (principal); T21.0 Burn of unspecified degree of trunk; X08.8XXS Exposure to other specified smoke, fire and flames, sequela; L94.2 Calcinosis cutis; T86.828 Other complications of skin graft (allograft) (autograft)
CPT/HCPCS: 11042

== ENCOUNTER 2019-06-11 06:25 | Day surgery (SDC) | payer MEDICARE, SELFPAY ==
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
[2019-06-05 15:02] VITALS: BMI 32.8
--- NOTE | 2019-06-11 | GASB_PTH ---
PATIENT: GARTH REAVES LOC: EN U#:[id number] AGE/SX: 79/F ROOM: RE06/11/[address]: Dr. Jessica Hanley MD : 1940 BED: DIS: 06/11/2019 SPEC #: [id number] RECD: 06/11/19 12:12 STATUS: JANET VINOD #: [id number] JUNIE: 06/11/19 00:[address]: Jessica Hanley DEPT: SURGICAL PATHOLOGY RECD BY: Maximo Germain ENTERED: 06/11/19 12:13 SP TYPE: Gastric Bx OTHR DR: Dr. Roger Jernigan MD Tissues: A - Gastric mucous membrane B - Gastric mucous membrane C - Sigmoid colon biopsy Procedures: Special Stain Group II Surgery Specimen Level IV Alcian Blue/PAS (control) HEADER OPERATION: Colonoscopy, EGD ([facility] [place]) PRE-OP DIAGNOSIS: Melena TISSUE SUBMITTED: A - Antrum biopsy for histo and H. pylori, B - GE junction biopsy, C - Sigmoid polyp biopsy MICROSCOPIC DIAGNOSIS A. Antrum, biopsy: Mild gastritis. See microscopic description and comment. B. GE junction, biopsy: A fragment of gastric mucosa with mild chronic inflammation and congestion. Intestinal metaplasia (goblet cell metaplasia) is not identified. A minute lymphoid aggregate, favor benign. See comment. C. Sigmoid polyp, biopsy: Fragments of colonic mucosa, no pathologic diagnosis. SJ:tona 06/12/19 COMMENT A. The results of immunohistochemistry for Helicobacter pylori will be reported separately ([id number]). B. Alcian blue/PAS stain with matched control is used in the evaluation of the specimen. MICROSCOPIC DESCRIPTION Slides are reviewed. A. The specimen shows fragments of gastric mucosa with chronic inflammatory cell infiltrates in the lamina propria consisting of lymphocytes and plasma cells, consistent with mild chronic gastritis. GROSS DESCRIPTION A - Received in fixative is one container labeled with the patient's name and designated antrum biopsy. The specimen consists of one irregular fragment of light moore soft tissue that measures 0.3 x 0.2 x 0.1 cm. The specimen is totally submitted in one cassette. B - Received in fixative is one container labeled with the patient's name and designated GE junction biopsy. The specimen consists of one irregular fragment of light moore soft tissue that measures 0.2 x 0.2 x 0.1 cm. The specimen is totally submitted in one cassette. C - Received in fixative is one container labeled with the patient's name and designated sigmoid polyp biopsy. The specimen consists of two irregular fragments of light moore soft tissue that in aggregate measure 0.4 x 0.3 x 0.1 cm. The specimen is totally submitted in one cassette. / SJ:rg 06/11/19 TC:3 CPT: 23339 x3, 10380
[2019-06-11 06:58] VITALS: BP 158/60; PULSE 65; RESP 16; TEMP 36.9; O2SAT 96; BMI 32.2
[2019-06-11] MEDS: Lactated Ringers 1,000 ML 100 ML IV (07:05)
--- NOTE | 2019-06-11 07:30 | IMM_PTH ---
PATIENT: GARTH REAVES LOC: EN U#:[id number] AGE/SX: 79/F ROOM: RE06/11/[address]: Dr. Jessica Hanley MD : 1940 BED: DIS: 06/11/2019 SPEC #: [id number] RECD: 06/11/19 12:28 STATUS: JANET REQ #: [id number] JUNIE: 06/11/19 07:[address]: Jessica Hanley DEPT: IMMUNOHISTOCHEMISTRY RECD BY: Leena Ye ENTERED: 06/11/19 12:29 SP TYPE: IMMUNO OTHR DR: Dr. Roger Jernigan MD Tissues: A - Stomach, NOS Procedures: H Pylori (initial) PHYSICIAN & INSTITUTION [place] [address] SPECIMEN INFORMATION: Tissue Source: A - Antrum biopsy Clinical Info: Melena Specimen Number: [id number] CPT code: 43257 METHODOLOGY: Deparaffinized sections of prefer/formalin-fixed tissue or PAP/DQ stained slides are incubated with monoclonal/polyclonal antibodies/oligonucleotide probes. Localization is made via biotin free immunoperoxidase method. Appropriate controls are performed and reacted as expected. Results on target cell population are indicated in the following table: RESULTS: ANTIBODY / CLONE RESULT Block A H Pylori (polyclonal) negative These tests were developed and their performance characteristics determined by [facility]. They may not have been cleared or approved by the U.S. Food and Drug Administration. The FDA has determined that such clearance or approval is not necessary. INTERPRETATION: A. Antrum biopsy: Negative for Helicobacter pylori organisms. SJ:tona 06/12/19
--- NOTE | 2019-06-11 08:13 | OP.EGD_ITS ---
Patient Name: Katelin Conley Procedure Date: 06/11/2019 7:08 AM Date of : 1940 Age: 79 Procedure: Upper GI endoscopy Indications: Melena Providers: Jessica Hanley MD Referring MD: Roger Jernigan Medicines: Monitored Anesthesia Care Patient Profile: This is an 79 year old female. Complications: No immediate complications. Procedure: Pre-Anesthesia Assessment: - Prior to the procedure, a History and Physical was performed, and patient medications and allergies were reviewed. The patient's tolerance of previous anesthesia was also reviewed. The risks and benefits of the procedure and the sedation options and risks were discussed with the patient. All questions were answered, and informed consent was obtained. Prior Anticoagulants: The patient has taken no previous anticoagulant or antiplatelet agents. ASA Grade Assessment: III - A patient with severe systemic disease. After reviewing the risks and benefits, the patient was deemed in satisfactory condition to undergo the procedure. After obtaining informed consent, the endoscope was passed under direct vision. Throughout the procedure, the patient's blood pressure, pulse, and oxygen saturations were monitored continuously. The gastroscope was introduced through the mouth, and advanced to the second part of duodenum. The upper GI endoscopy was accomplished without difficulty. The patient tolerated the procedure well. Scope In: 7:40:08 AM Scope Out: 7:44:33 AM Total Procedure Duration Time 0 hours 4 minutes 25 seconds Findings: The Z-line was variable. Biopsies were taken with a cold forceps for histology. Striped moderately erythematous mucosa without bleeding was found in the gastric antrum. Biopsies were taken with a cold forceps for histology. Biopsies were taken with a cold forceps for Helicobacter pylori cultures. The examined duodenum was normal. Impression: - Z-line variable. Biopsied. - Erythematous mucosa in the antrum. Biopsied. - Normal examined duodenum. Recommendation: - Await pathology results. - Discharge patient to home. - Resume previous diet. - Use Protonix (pantoprazole) 40 mg PO daily. - Use sucralfate tablets 1 gram PO QID for 2 weeks. - Continue present medications. Procedure Code(s): --- Professional --- 88759, Esophagogastroduodenoscopy, flexible, transoral; with biopsy, single or multiple Diagnosis Code(s): --- Professional --- K22.8, Other specified diseases of esophagus K31.89, Other diseases of stomach and duodenum K92.1, Melena (includes Hematochezia) CPT copyright 2017 [employer]. All rights reserved. The codes documented in this report are preliminary and upon tapper operator review may be revised to meet current compliance requirements. MD Jessica Crocker MD 06/11/2019 8:12:32 AM This report has been signed electronically. Number of Addenda: 0 Note Initiated On: 06/11/2019 7:08 AM
[2019-06-11 08:15] VITALS: BP 137/62; BP 158/60; PULSE 68; RESP 18; O2SAT 100
[2019-06-11 08:16] VITALS: BP 124/110; BP 158/60; PULSE 67; RESP 18; TEMP 36.4; O2SAT 97
--- NOTE | 2019-06-11 08:17 | OP.COLON_ITS ---
Patient Name: Katelin Conley Procedure Date: 06/11/2019 7:45 AM Date of : 1940 Age: 79 Procedure: Colonoscopy Indications: High risk colon cancer surveillance: Personal history of colonic polyps, Incidental - Melena Providers: Jessica Hanley MD Referring MD: Roger Jernigan Medicines: Monitored Anesthesia Care Patient Profile: This is an 79 year old female. Last Colonoscopy: 2 years. Complications: No immediate complications. Procedure: Pre-Anesthesia Assessment: - Prior to the procedure, a History and Physical was performed, and patient medications and allergies were reviewed. The patient's tolerance of previous anesthesia was also reviewed. The risks and benefits of the procedure and the sedation options and risks were discussed with the patient. All questions were answered, and informed consent was obtained. Prior Anticoagulants: The patient has taken no previous anticoagulant or antiplatelet agents. ASA Grade Assessment: III - A patient with severe systemic disease. After reviewing the risks and benefits, the patient was deemed in satisfactory condition to undergo the procedure. After I obtained informed consent, the scope was passed under direct vision. Throughout the procedure, the patient's blood pressure, pulse, and oxygen saturations were monitored continuously. The colonoscope was introduced through the anus and advanced to the cecum, identified by the appendiceal orifice, ileocecal valve and palpation. The colonoscopy was performed without difficulty. The patient tolerated the procedure well. The quality of the bowel preparation was good. Scope In: 7:47:48 AM Scope Withdrawal Time 0 hours 11 minutes 48 seconds Scope Out: 8:07:29 AM Total Procedure Duration Time 0 hours 19 minutes 41 seconds Findings: Hemorrhoids were found on perianal exam. A less than 5 mm polyp was found in the sigmoid colon. The polyp was sessile. The polyp was removed with a cold biopsy forceps. Resection and retrieval were complete. Many small-mouthed diverticula were found in the sigmoid colon and descending colon. The exam was otherwise without abnormality on direct and retroflexion views. Impression: - Hemorrhoids found on perianal exam. - One less than 5 mm polyp in the sigmoid colon, removed with a cold biopsy forceps. Resected and retrieved. - Diverticulosis in the sigmoid colon and in the descending colon. - The examination was otherwise normal on direct and retroflexion views. Recommendation: - Discharge patient to home. - Resume previous diet. - Continue present medications. - Await pathology results. - Repeat colonoscopy in 3 - 5 years for surveillance based on pathology results. Procedure Code(s): --- Professional --- 16467, Colonoscopy, flexible; with biopsy, single or multiple Diagnosis Code(s): --- Professional --- Z86.010, Personal history of colonic polyps K64.9, Unspecified hemorrhoids D12.5, Benign neoplasm of sigmoid colon K57.30, Diverticulosis of large intestine without perforation or abscess without bleeding CPT copyright 2017 [employer]. All rights reserved. The codes documented in this report are preliminary and upon maori physiotherapist review may be revised to meet current compliance requirements. MD Jessica Crocker MD 06/11/2019 8:16:45 AM This report has been signed electronically. Number of Addenda: 0 Note Initiated On: 06/11/2019 7:45 AM
[2019-06-11 08:20] VITALS: BP 138/67; BP 158/60; PULSE 66; RESP 18; O2SAT 99
[2019-06-11 08:26] VITALS: BP 144/62; BP 158/60; PULSE 65; RESP 18; TEMP 36.3; O2SAT 100
[2019-06-11 08:48] VITALS: BP 158/60
== END 2019-06-11 09:06 | disposition home or self-care (01) ==
LOC: EN 06:26 → AC 06:27
PROVIDERS: Family Provider Family Medicine; PCP Family Medicine; Referring Provider Family Medicine; Visit Provider Surgery
PROC: 0DJD8ZZ Inspection of Lower Intestinal Tract, Via Natural or Artificial Opening Endoscopic (ICD-10-PCS; CPT 45378; principal; 2019-06-11 07:25)
DX: K22.8 Other specified diseases of esophagus (principal); K29.70 Gastritis, unspecified, without bleeding; K92.1 Melena; Z86.010 Personal history of colon polyps; K64.9 Unspecified hemorrhoids; D12.5 Benign neoplasm of sigmoid colon; K57.30 Diverticulosis of large intestine without perforation or abscess without bleeding; D64.9 Anemia, unspecified; J98.4 Other disorders of lung; F32.9 Major depressive disorder, single episode, unspecified; E03.9 Hypothyroidism, unspecified; G47.33 Obstructive sleep apnea (adult) (pediatric); M19.90 Unspecified osteoarthritis, unspecified site; E66.9 Obesity, unspecified; Z68.33 Body mass index [BMI] 33.0-33.9, adult; Z79.899 Other long term (current) drug therapy; Z85.3 Personal history of malignant neoplasm of breast
CPT/HCPCS: 43239; 45380; 88305; 88313; 88342; J7120

== ENCOUNTER 2019-06-25 08:37 | Outpatient (RCR) | payer MEDICARE, SELFPAY ==
[2019-06-20 00:32] VITALS: BP 137/54; PULSE 69; RESP 18; TEMP 36.6
[2019-06-25 08:35] VITALS: BP 124/61; PULSE 63; RESP 18; TEMP 36.5; BMI 32.2
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
== END 2019-07-20 23:59 ==
LOC: WC 08:37
PROVIDERS: Family Provider Family Medicine; PCP Family Medicine; Visit Provider Nurse Practitioner Family
DX: Z09 Encounter for follow-up examination after completed treatment for conditions other than malignant neoplasm (principal); L90.5 Scar conditions and fibrosis of skin; Z79.899 Other long term (current) drug therapy
CPT/HCPCS: 99212; G0463

== ENCOUNTER → 2019-08-28 12:01 | Outpatient (CLI) | payer MEDICARE, SELFPAY ==
[2019-06-27 08:47] VITALS: BMI 32.9
[2019-08-20 13:17] VITALS: BMI 32.9
== END ==
PROVIDERS: PCP Family Medicine; Referring Provider Surgery; Visit Provider Surgery
DX: Z01.818 Encounter for other preprocedural examination (principal)

== ENCOUNTER 2019-12-04 05:54 | Day surgery (SDC) | payer MEDICARE, SELFPAY ==
[2019-11-05 10:32] VITALS: BMI 32.9
[2019-11-30 10:09] VITALS: BMI 32.9
[2019-12-03 17:13] LABS: Probe Check PASS; Specimen Processing Control PASS
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
[2019-12-04 06:17] VITALS: BP 172/78; PULSE 61; RESP 16; O2SAT 98; BMI 33.5
[2019-12-04] MEDS: Lactated Ringers 1,000 ML 100 ML IV (06:36)
[2019-12-04] MEDS: levoFLOXacin IV 500 MG/100 ML BAG 100 MG IV (07:26)
[2019-12-04] MEDS: Mupirocin Ointment 22gm Tube 1 APPLIC (08:24)
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
[2019-12-04 08:38] VITALS: BP 171/83; BP 172/78; PULSE 83; RESP 16; TEMP 36.4; O2SAT 96
[2019-12-04 08:45] VITALS: BP 168/74; BP 172/78; PULSE 82; RESP 16; O2SAT 96
--- NOTE | 2019-12-04 08:59 | PCM.DC ---
You will use the following diet at home:: No restrictions, Other - encourage nutritional supplementation with protein to help the healing process. Discharge Activity: May not drive while taking narcotic pain medications., May Shower - in two days. May shower in (days): 2 May resume sexual activity in: No Restrictions Weight Bearing Status: Weight bearing as tolerated Call your doctor if your incision/area has: Continuous Slow Oozing, Sudden Increased Bleeding, Increased Pain/ Swelling, Increased Redness, Foul Smelling Discharge, Swelling at the incision site Call your doctor if you observe: Fever of 101 or Higher, Coldness, Increased Pain, Shortness of breath, Chest pain, Calf discomfort, Uncontrolled pain Suture Line Care: - - After the operative dressing removed in two days, then apply antibiotic ointment to suture line after coming out of shower. Change Dressing in (Days):: 2 - antibiotic ointment to suture line followed by dry gauze. Cleanse incision/area with: - - may get incision wet in the shower in two days. Allergies/Adverse Reactions: Allergies clindamycin Adverse Reaction (Intermediate, Verified 11/30/19 10:08) DIZZY, DIARRHEA Medications to take at Discharge Levothyroxine [Synthroid] 137 mcg PO DAILY 10/11/14 albuterol sulfate 90 mcg/actuation aerosol inhaler 2 puff INHALATION Q4H PRN #1 device 08/23/17 Loratadine/Pseudoephedrine [Claritin-D 12 Hour Tablet] 1 ea PO DAILY PRN 11/15/18 ferrous gluconate 256 mg (28 mg iron) tablet 28 mg PO TUTH 04/13/19 sertraline 100 mg tablet 150 mg PO DAILY 04/13/19 Acetaminophen [Tylenol 8 Hour] 650 mg PO QHS 07/20/19 beclomethasone dipropionate 80 mcg/actuation HFA breath activated aerosol 2 inh INHALATION Q12H #10.6 g 09/03/19 pantoprazole 20 mg tablet,delayed release 20 mg PO DAILY #30 tab 11/05/19 Fluconazole [Diflucan] 100 mg PO DAILY #3 tab 12/04/19 Lactobacillus Acidophilus/Fos [Acidophilus Probiotic Tablet] 1 ea PO BID #15 tab 12/04/19 Oxycodone HCl/Acetaminophen [Percocet 5/325] 1 tab PO Q4H PRN PRN 7 Days #40 tab 12/04/19 levoFLOXacin tablet [Levaquin tablet] 500 mg PO DAILY #7 tab 12/04/19 The following prescriptions were given: Lactobacillus Acidophilus/Fos [Acidophilus Probiotic Tablet] 1 ea PO BID #15 tab Transmission Status: Pending to [facility] Fluconazole [Diflucan] 100 mg PO DAILY #3 tab Transmission Status: Pending to [facility] levoFLOXacin tablet [Levaquin tablet] 500 mg PO DAILY #7 tab Transmission Status: Pending to [facility] Oxycodone HCl/Acetaminophen [Percocet 5/325] 1 tab PO Q4H PRN PRN 7 Days #40 tab PRN Reason: Pain Score 4-5/10 Transmission Status: Sent to [facility] Primary Care Physician: Roger Jernigan MD [Primary Care Provider] - Test Results: Test results from this visit will be discussed in further detail at your follow-up appointment, if applicable. Please Follow Up With: Juan Francisco Driscoll MD When: one week. call [phone] for appt. Proposed Discharge Date: 12/04/19
[2019-12-04 09:00] VITALS: BP 151/61; BP 172/78; PULSE 73; RESP 16; O2SAT 97
[2019-12-04 09:14] VITALS: BP 146/55; BP 172/78; PULSE 71; RESP 16; TEMP 36.6; O2SAT 96
[2019-12-04] MEDS: oxyCODONE 5 MG Tablet PO (09:41)
[2019-12-04] MEDS: Acetaminophen 325 MG Tablet PO (09:41)
[2019-12-04 10:07] VITALS: BP 148/58; BP 172/78; PULSE 66; RESP 16; TEMP 37; O2SAT 99
== END 2019-12-04 10:14 | disposition home or self-care (01) ==
LOC: SDC 05:55 → AC 05:56
PROVIDERS: Anesthesiology; PCP Family Medicine; Referring Provider Surgery; Visit Provider Surgery
PROC: (CPT 13160; principal; 2019-12-04 07:15)
DX: L98.8 Other specified disorders of the skin and subcutaneous tissue (principal); L98.412 Non-pressure chronic ulcer of buttock with fat layer exposed; L90.5 Scar conditions and fibrosis of skin; T21.0 Burn of unspecified degree of trunk; X08.8XXS Exposure to other specified smoke, fire and flames, sequela; L94.2 Calcinosis cutis; Z11.59 Encounter for screening for other viral diseases; I44.0 Atrioventricular block, first degree; D64.9 Anemia, unspecified; E03.9 Hypothyroidism, unspecified; K21.9 Gastro-esophageal reflux disease without esophagitis; J45.909 Unspecified asthma, uncomplicated; G47.33 Obstructive sleep apnea (adult) (pediatric); M19.90 Unspecified osteoarthritis, unspecified site; F32.9 Major depressive disorder, single episode, unspecified; E66.9 Obesity, unspecified; Z68.33 Body mass index [BMI] 33.0-33.9, adult; Z88.1 Allergy status to other antibiotic agents; Z79.51 Long term (current) use of inhaled steroids; Z79.899 Other long term (current) drug therapy
CPT/HCPCS: 00300; 13160; 15002; 87070; 87075; 87102; 87176; 87205; 87206; 87635; 88304; 88331; G2023; J7120; J2405; U0003

== ENCOUNTER → 2019-12-20 08:53 | Outpatient (CLI) | payer MEDICARE, SELFPAY ==
[2019-06-27 08:47] VITALS: BMI 32.9
[2019-12-19 09:36] VITALS: BMI 33.5
--- NOTE | 2019-12-21 09:30 | PFT ---
INTRODUCTION: The patient is an 79-year-old female that presents for pulmonary function studies secondary to a diagnosis of idiopathic pulmonary fibrosis. Respiratory therapy reports good patient effort. Bronchodilators were used during testing. INTERPRETATION: Forced expiration spirometry demonstrates no evidence of a large airways obstructive ventilatory defect. There was no significant response to aerosolized bronchodilators. Spirograms are of good quality and plateau normally. Body plethysmography was performed and reveals a decreased TLC to 3.45 L, 76% of predicted, indicative of a mild restrictive ventilatory impairment. Diffusing capacity by single breath CO is reduced at 67% of predicted. IMPRESSION: Mild restrictive ventilatory impairment with symmetric reduction in diffusing capacity.
== END ==
PROVIDERS: Family Provider Family Medicine; PCP Family Medicine; Referring Provider Internal Medicine Critical Care Medicine; Visit Provider Internal Medicine Critical Care Medicine
DX: J84.9 Interstitial pulmonary disease, unspecified (principal)
CPT/HCPCS: 94060; 94726; 94729

== ENCOUNTER → 2020-02-29 08:04 | Outpatient (CLI) | payer MEDICARE, SELFPAY ==
[2020-01-16 10:31] VITALS: BMI 33.5
[2020-02-29 10:12] LABS: Hematocrit 42.6 % (37-47); Mean Corp Hgb Conc 32.9 g/dL (32-36); Mean Corpuscular Hgb 29.1 pg (27.0-32.0); Mean Corpuscular Volume 88.6 fL (81-99); Mean Platelet Vol. 11.5 fl (6.2-12.0); Platelet Count 196 K/mm3 (150-450); RBC Distribution Width CV 13.2 % (11.6-14.6); RBC Distribution Width SD 43.1 fl (35.1-43.9); Red Blood Count 4.81 M/mm3 (4.2-5.4); White Blood Count 6.9 K/mm3 (4.4-11.0)
[2020-02-29 10:34] LABS: Vitamin D,25 Hydroxy 39.3 ng/mL
[2020-02-29 10:40] LABS: ALB/GLOB Ratio 0.9 RATIO (0.9-2.4); AST(SGOT) 26 U/L (15-37); Alanine Aminotransfer ALT/SGPT 32 U/L (13-56); Albumin, Serum 3.6 g/dL (3.2-5.0); Alkaline Phosphatase 87 U/L (45-117); Anion Gap 6 (5-15); BUN 12 mg/dL (7-18); BUN/Creat Ratio 14.7 RATIO (10-20); Chloride 107 mmol/L (98-107); Cholesterol 261 mg/dL (200); Creatinine, Serum 0.82 mg/dL (0.55-1.02); EST Glomerular Filtration Rate 72 mL/min (>60); Est Glom Filt Rate - Afr Amer 87 mL/min (>60); Globulin 3.9 g/dL (2.2-4.2); Glucose 96 mg/dL (74-106); High Density Lipoprotein 45 mg/dL; Potassium 4.1 mmol/L (3.5-5.1); Protein, Total 7.5 g/dL (6.4-8.2); Sodium Level 140 mmol/L (136-145); T4 Free Direct 1.22 ng/dL (0.76-1.46); Thyroid Stim Hormone (TSH) 0.08 uIU/mL (0.358-3.74); Triglycerides 317 mg/dL; Very Low Density Lipoprotein 63 mg/dL (5-40)
== END ==
PROVIDERS: PCP Family Medicine; Referring Provider Family Medicine; Visit Provider Family Medicine
DX: E78.5 Hyperlipidemia, unspecified (principal); E03.9 Hypothyroidism, unspecified; E55.9 Vitamin D deficiency, unspecified
CPT/HCPCS: 36415; 80053; 80061; 82306; 84439; 84443; 85027

== ENCOUNTER → 2020-03-10 10:54 | Outpatient (CLI) | payer MEDICARE, SELFPAY ==
[2020-01-16 10:31] VITALS: BMI 33.5
--- NOTE | 2020-03-10 10:54 | BI_ITS ---
MAMMOGRAPHY - BILATERAL SCREENING REASON FOR EXAM: Female, 79 years old. Routine annual screening examination. PERTINENT HISTORY: Personal history of breast cancer. Prior left lumpectomy and radiation treatment. Bilateral breast reduction surgery. Aunt with breast cancer. TECHNIQUE: Digital bilateral breast angela (3D mammographic acquisition) in the CC and MLO projections. 2-D mediolateral oblique (MLO) and craniocaudad (CC) views of both breasts were obtained. CAD: Full Field Digital Mammography with Computer Added Detection was performed. COMPARISON: Comparison is made with prior examination dated 03/08/2019 and 03/06/2018. FINDINGS: Breast Composition: There are scattered areas of fibroglandular density. There are no dominant masses or suspicious calcifications. Once again, there is evidence of architectural distortion and skin thickening in the upper lateral portion of the left breast. This is in keeping with the prior lumpectomy. Surgical clips are once again seen in the left axillary region. No other significant abnormalities are identified. There has been no significant change since the prior study. BI/SCREEN MAMM (CAD) W/ANGELA BILAT IMPRESSION: Stable bilateral screening mammogram. Yearly follow-up mammogram recommended. (A) ASSESSMENT CATEGORY: BIRADS Category 2: Benign. A letter regarding these results will be sent to the patient by the facility within 30 days. Approximately 10% of breast cancers are not detected by mammography. A normal mammogram should not delay biopsy of a clinically suspicious abnormality. [id number] Electronically Signed: Oliverio Hung, at 12:37 EDT , Service support ,
== END ==
PROVIDERS: PCP Family Medicine; Referring Provider Internal Medicine Hematology & Oncology; Visit Provider Internal Medicine Hematology & Oncology
DX: Z12.31 Encounter for screening mammogram for malignant neoplasm of breast (principal); Z85.3 Personal history of malignant neoplasm of breast
CPT/HCPCS: 77063; 77067

== ENCOUNTER → 2020-05-23 08:37 | Outpatient (CLI) | payer MEDICARE, SELFPAY ==
[2020-03-17 14:18] VITALS: BMI 33.7
[2020-05-23 10:35] LABS: ALB/GLOB Ratio 0.9 RATIO (0.9-2.4); AST(SGOT) 22 U/L (15-37); Alanine Aminotransfer ALT/SGPT 31 U/L (13-56); Albumin, Serum 3.6 g/dL (3.2-5.0); Alkaline Phosphatase 90 U/L (45-117); Anion Gap 7 (5-15); BUN 13 mg/dL (7-18); BUN/Creat Ratio 15.1 RATIO (10-20); Calcium,Total 8.9 mg/dL (8.5-10.1); Chloride 109 mmol/L (98-107); Cholesterol 197 mg/dL (200); Creatinine, Serum 0.86 mg/dL (0.55-1.02); EST Glomerular Filtration Rate 67 mL/min (>60); Est Glom Filt Rate - Afr Amer 81 mL/min (>60); Globulin 3.9 g/dL (2.2-4.2); Glucose 108 mg/dL (74-106); High Density Lipoprotein 50 mg/dL; Protein, Total 7.5 g/dL (6.4-8.2); Sodium Level 140 mmol/L (136-145); T4 Total, Thyroxin 7.2 ug/dL (4.8-13.9); Thyroid Stim Hormone (TSH) 0.29 uIU/mL (0.358-3.74); Triglycerides 265 mg/dL; Very Low Density Lipoprotein 53 mg/dL (5-40)
== END ==
PROVIDERS: PCP Family Medicine; Referring Provider Family Medicine; Visit Provider Family Medicine
DX: E78.5 Hyperlipidemia, unspecified (principal)
CPT/HCPCS: 36415; 80053; 80061; 84436; 84443

== ENCOUNTER 2020-07-17 06:54 | Outpatient (RCR) | payer MEDICARE, SELFPAY ==
[2020-03-17 14:18] VITALS: BMI 33.7
== END 2020-07-17 23:59 ==
LOC: IMMUN 06:54
PROVIDERS: PCP Family Medicine; Visit Provider Family Medicine
DX: Z23 Encounter for immunization (principal)
CPT/HCPCS: 0011A; 0012A; 91301

== ENCOUNTER → 2020-09-19 12:23 | Outpatient (CLI) | payer MEDICARE, SELFPAY ==
[2020-08-21 09:06] VITALS: BMI 32.1
[2020-09-19 12:30] VITALS: PULSE 74; PULSE 80; PULSE 88; PULSE 91; PULSE 92; O2SAT 93; O2SAT 94; O2SAT 95; O2SAT 96
--- NOTE | 2020-09-20 06:05 | PCM.PSN.6M ---
PSN 6 Minute Walk Test - 6 Minute Walk Test 6 Minute Walk Test: 6 Minute Walk Test PSN:6-Minute Walk Test Start: 09/19/20 12:44 Freq: Status: Active Protocol: RESP.6MINW Document 09/19/20 12:30 [facility] (Rec: 09/19/20 12:47 [facility] [id number]) 6 Minute Walk Test Date Performed 09/19/20 Time Performed 12:30 Height 5 ft 3 in Weight: 79.379 kg Weight in Pounds 175.[address]: Omid Zhou Assistive device used: None Pre-test Oxygen Delivery Method Room Air Pulse Ox (%) 96 Pulse Rate (60-100 beats/min) 74 Dyspnea Theresa Scale (0-10) 0 Exertion Theresa Scale (6-20) 6 1st minute Oxygen Delivery Method Room Air Pulse Ox (%) 95 Pulse Rate (60-100 beats/min) 88 2nd minute Oxygen Delivery Method Room Air Pulse Ox (%) 94 Pulse Rate (60-100 beats/min) 91 Number of Rests Taken 1 3rd minute Oxygen Delivery Method Room Air Pulse Ox (%) 94 Pulse Rate (60-100 beats/min) 91 Reported Symptoms Increased Work of Breathing 4th minute Oxygen Delivery Method Room Air Pulse Ox (%) 93 Pulse Rate (60-100 beats/min) 91 Reported Symptoms Increased Work of Breathing 5th minute Oxygen Delivery Method Room Air Pulse Ox (%) 94 Pulse Rate (60-100 beats/min) 92 Reported Symptoms Increased Work of Breathing 6th minute Oxygen Delivery Method Room Air Pulse Ox (%) 94 Pulse Rate (60-100 beats/min) 92 Dyspnea Theresa Scale (0-10) 3 Exertion Theresa Scale (6-20) 13 Reported Symptoms Increased Work of Breathing Post-test Oxygen Delivery Method Room Air Pulse Ox (%) 95 Pulse Rate (60-100 beats/min) 80 Full Laps Walked 12 Partial Lap, Number of Tiles Walked 10 Total Distance Walked (ft) 718 - Interpretation Interpretation: The patient was able to ambulate 718 feet over the course of 6 minutes on room air with no assistive devices and 1 break. The patient experienced no significant desaturation or tachycardia. These findings are consistent with a musculoskeletal limitation exercise tolerance. - Recommendations Recommendations: No supplemental oxygen is indicated at this time.
== END ==
PROVIDERS: PCP Family Medicine; Referring Provider Internal Medicine Critical Care Medicine; Visit Provider Internal Medicine Critical Care Medicine
DX: J84.9 Interstitial pulmonary disease, unspecified (principal)
CPT/HCPCS: 94618

== ENCOUNTER → 2020-10-21 08:22 | Outpatient (CLI) | payer MEDICARE, SELFPAY ==
[2020-08-21 09:06] VITALS: BMI 32.1
--- NOTE | 2020-10-21 08:24 | CT_ITS ---
STUDY: CT CHEST WITHOUT CONTRAST REASON FOR EXAM: Female, 80 years old. ILD with progressive dyspnea HRCT RADIATION DOSAGE (If Supplied By Facility): CTDIvol = ( 11.62 ) mGy, DLP = ( 422.54 ) mGycm TECHNIQUE: Transaxial imaging was performed without the administration of intravenous contrast material. Multiplanar coronal and sagittal images were reformatted. Individualized dose optimization techniques were used for this CT. COMPARISON: Comparison is made with prior study dated 10/19/2017. FINDINGS: Stable increased interstitial markings in both lungs with the subpleural scarring. This is unchanged. There is no demonstrated pleural abnormality. There are calcifications of the coronary arteries. There are multiple small lymph nodes within the mediastinum, which are normal in size and morphology most compatible with reactive lymph hyperplasia. Normal hilar regions. Normal unenhanced pulmonary arteries. There is atherosclerotic calcification of the aortic arch with tortuosity and elongation of the aortic arch and descending thoracic aorta. There are multi-level degenerative changes of the thoracic spine. There is no demonstrated abnormality of the visualized upper abdomen. CT/Chest without Contrast IMPRESSION: Stable chronic interstitial scarring. Electronically Signed: Oliverio Hung MD at 13:17 EDT , Service support ,
== END ==
PROVIDERS: PCP Family Medicine; Referring Provider Internal Medicine Critical Care Medicine; Visit Provider Internal Medicine Critical Care Medicine
DX: J84.9 Interstitial pulmonary disease, unspecified (principal)
CPT/HCPCS: 71250

== ENCOUNTER → 2021-01-27 08:11 | Outpatient (CLI) | payer MEDICARE, SELFPAY ==
[2021-01-20 06:19] VITALS: BMI 31.2
[2021-01-27 10:03] LABS: Absolute Lymphocyte Count 1.99 X10^3/uL (0.83-4.51); Basophil# 0.05 X10^3/uL; Basophil% 0.8 % (0-1); Eosinophils% 6.7 % (0-5); Hematocrit 40.1 % (37-47); Hemoglobin 13.3 g/dL (12.0-15.0); Lymphocyte # 1.99 X10^3/ul (0.83-4.51); Lymphocyte % 33.3 % (19-41); Mean Corp Hgb Conc 33.2 g/dL (32-36); Mean Corpuscular Volume 90.3 fL (81-99); Mean Platelet Vol. 11.3 fl (6.2-12.0); Monocyte# 0.52 X10^3/uL; Monocyte% 8.7 % (0-10); NRBC Flagged by Analyzer 0 % (0-5); Neutrophil # 3.01 X10^3/uL (2.7-7.7); Neutrophil % 50.3 % (47-70); Platelet Count 196 K/mm3 (150-450); RBC Distribution Width CV 13.5 % (11.6-14.6); Red Blood Count 4.44 M/mm3 (4.2-5.4)
[2021-01-27 10:26] LABS: ALB/GLOB Ratio 0.9 RATIO (0.9-2.4); AST(SGOT) 18 U/L (15-37); Alanine Aminotransfer ALT/SGPT 27 U/L (13-56); Albumin, Serum 3.6 g/dL (3.2-5.0); Alkaline Phosphatase 76 U/L (45-117); Anion Gap 6 (5-15); BUN 16 mg/dL (7-18); Calcium,Total 8.9 mg/dL (8.5-10.1); Chloride 109 mmol/L (98-107); Cholesterol 190 mg/dL (200); Creatinine, Serum 0.89 mg/dL (0.55-1.02); EST Glomerular Filtration Rate 64 mL/min (>60); Est Glom Filt Rate - Afr Amer 78 mL/min (>60); Globulin 3.9 g/dL (2.2-4.2); Glucose 107 mg/dL (74-106); High Density Lipoprotein 46 mg/dL; Magnesium 2.3 mg/dL (1.6-2.6); Potassium 4.3 mmol/L (3.5-5.1); Protein, Total 7.5 g/dL (6.4-8.2); Sodium Level 140 mmol/L (136-145); T4 Free Direct 0.94 ng/dL (0.76-1.46); Thyroid Stim Hormone (TSH) 0.46 uIU/mL (0.358-3.74); Triglycerides 278 mg/dL; Very Low Density Lipoprotein 56 mg/dL (5-40)
== END ==
PROVIDERS: PCP Family Medicine; Referring Provider Family Medicine; Visit Provider Family Medicine
DX: E78.5 Hyperlipidemia, unspecified (principal); E03.9 Hypothyroidism, unspecified; K59.1 Functional diarrhea
CPT/HCPCS: 36415; 80053; 80061; 83735; 84439; 84443; 85025

== ENCOUNTER → 2021-03-11 11:24 | Outpatient (CLI) | payer MEDICARE, SELFPAY ==
[2021-01-20 06:19] VITALS: BMI 31.2
--- NOTE | 2021-03-11 11:26 | BI_ITS ---
MAMMOGRAPHY - BILATERAL SCREENING REASON FOR EXAM: Female, 80 years old. Routine annual screening examination. PERTINENT HISTORY: Personal history of breast cancer. Prior left lumpectomy with radiation therapy. Prior bilateral breast reduction surgery. Aunt with breast cancer. TECHNIQUE: Digital bilateral breast angela (3D mammographic acquisition) in the CC and MLO projections. 2-D mediolateral oblique (MLO) and craniocaudad (CC) views of both breasts were obtained. CAD: Full Field Digital Mammography with Computer Added Detection was performed. COMPARISON: Comparison is made with prior study dated 03/10/2020 and 03/08/2019. FINDINGS: Breast Composition: There are scattered areas of fibroglandular density. There are no dominant masses or suspicious calcifications. The patient is status post lumpectomy in the upper lateral aspect of the left breast with resultant postoperative scarring and breast deformity and skin thickening. This is unchanged. No other significant abnormalities are identified. There has been no significant change since the prior study. BI/SCRN MAMM (CAD)W/ANGELA BILAT IMPRESSION: Stable bilateral screening mammogram. Yearly follow-up mammogram recommended. (A) ASSESSMENT CATEGORY: BIRADS Category 2: Benign. A letter regarding these results will be sent to the patient by the facility within 30 days. Approximately 10% of breast cancers are not detected by mammography. A normal mammogram should not delay biopsy of a clinically suspicious abnormality. [id number] Electronically Signed: Oliverio Hung MD at 12:21 EDT , Service support ,
== END ==
PROVIDERS: PCP Family Medicine; Referring Provider Internal Medicine Hematology & Oncology; Visit Provider Internal Medicine Hematology & Oncology
DX: Z12.31 Encounter for screening mammogram for malignant neoplasm of breast (principal); Z85.3 Personal history of malignant neoplasm of breast
CPT/HCPCS: 77063; 77067

== ENCOUNTER → 2022-02-02 | Outpatient (CLI) | payer MEDICARE, SELFPAY ==
--- NOTE | 2022-02-02 10:49 | RAD_ITS ---
STUDY: X-RAY - LUMBOSACRAL SPINE REASON FOR EXAM: Female, 81 years old. Low back pain TECHNIQUE: 6 view(s) of the lumbosacral spine were obtained. COMPARISON: None FINDINGS: Normal lumbar lordosis. Moderate dextroscoliosis of the thoracolumbar spine is centered on L3. There is a 10 mm rightward listhesis of L4 on L5. Multilevel slight degenerative spondylolisthesis. This does not significantly change in flexion or extension. There is diffuse demineralization with multi-level endplate spondylosis. Normal disc space heights. Normal bilateral sacral ala, sacroiliac joints, and visualized sacrum. Sacral stimulator noted. Distal aortic calcification. RAD/L/S Spine w Bend Min 6 Vw IMPRESSION: Extensive degenerative change of the lumbar spine detailed above. No definite finding of dynamic instability, though evaluation is complicated by bone demineralization. Electronically Signed: Que Ventura MD at 5:57 EDT ,
[2022-02-02 12:40] LABS: Absolute Neutrophil Count 4.9 X10^3/uL (2.0-7.7); Basophil# 0.06 X10^3/uL; Basophil% 0.8 % (0-1); Eosinophil# 0.32 X10^3/uL; Hematocrit 43.5 % (37-47); Hemoglobin 14.4 g/dL (12.0-15.0); Mean Corp Hgb Conc 33.1 g/dL (32-36); Mean Corpuscular Hgb 30.3 pg (27.0-32.0); Mean Corpuscular Volume 91.6 fL (81-99); Mean Platelet Vol. 11.5 fl (6.2-12.0); Monocyte# 0.72 X10^3/uL; Monocyte% 9.1 % (0-10); NRBC Flagged by Analyzer 0 % (0-5); Neutrophil # 4.89 X10^3/uL (2.7-7.7); Neutrophil % 61.8 % (47-70); Platelet Count 191 K/mm3 (150-450); RBC Distribution Width CV 13.3 % (11.6-14.6); RBC Distribution Width SD 45.5 fl (35.1-43.9); Red Blood Count 4.75 M/mm3 (4.2-5.4); White Blood Count 7.9 K/mm3 (4.4-11.0)
[2022-02-02 13:15] LABS: Vitamin B12 421 pg/mL (211-911)
[2022-02-02 13:40] LABS: ALB/GLOB Ratio 0.9 RATIO (0.9-2.4); AST(SGOT) 20 U/L (15-37); Alanine Aminotransfer ALT/SGPT 26 U/L (13-56); Albumin, Serum 3.8 g/dL (3.2-5.0); Alkaline Phosphatase 89 U/L (45-117); Anion Gap 6 (5-15); BUN 14 mg/dL (7-18); BUN/Creat Ratio 15.4 RATIO (10-20); Calcium,Total 8.9 mg/dL (8.5-10.1); Chloride 106 mmol/L (98-107); Cholesterol 202 mg/dL (200); Creatinine, Serum 0.91 mg/dL (0.55-1.02); EST Glomerular Filtration Rate 63 mL/min (>60); Est Glom Filt Rate - Afr Amer 76 mL/min (>60); Globulin 4.3 g/dL (2.2-4.2); Glucose 91 mg/dL (74-106); High Density Lipoprotein 50 mg/dL; Iron 113 ug/dL (50-170); Protein, Total 8.1 g/dL (6.4-8.2); Sodium Level 139 mmol/L (136-145); T4 Free Direct 1.23 ng/dL (0.76-1.46); Thyroid Stim Hormone (TSH) 1.19 uIU/mL (0.358-3.74); Triglycerides 225 mg/dL; Very Low Density Lipoprotein 45 mg/dL (5-40)
== END | disposition home or self-care (01) ==
PROVIDERS: PCP Family Medicine; Referring Provider Family Medicine; Visit Provider Family Medicine
DX: E03.9 Hypothyroidism, unspecified (principal); J84.9 Interstitial pulmonary disease, unspecified; E78.5 Hyperlipidemia, unspecified; D50.0 Iron deficiency anemia secondary to blood loss (chronic); M43.16 Spondylolisthesis, lumbar region
CPT/HCPCS: 36415; 72114; 80053; 80061; 82607; 82746; 83540; 84439; 84443; 85025

== ENCOUNTER → 2022-02-04 | Outpatient (CLI) | payer MEDICARE, SELFPAY ==
--- NOTE | 2022-02-05 05:42 | PFTCOMP_ITS ---
COMPLETE PULMONARY FUNCTION TEST INTERPRETATION Brief HPI: Patient is an 81-year-old female, currently under the care of Dr. Zhuo, who presents to [facility] for complete pulmonary function tests secondary to diagnosis of interstitial lung disease. Respiratory therapist reports good effort and reproducible results. Interpretation: Forced expiration spirometry shows no large airways obstructive ventilatory defect with an FEV1 of 78% predicted. There is no significant bronchodilator response by strict ATS criteria. Spirograms are of good quality and plateau normally. The respiratory flow volume loop shows a normal pattern. Lung volumes by body plethysmography show a slightly decreased total lung capacity at 3.5 L, 78% predicted. All other lung volumes are within normal limits. Diffusion capacity by carbon monoxide is decreased at 57% predicted. The airway resistance is slightly elevated. Compared to previous pulmonary function tests from 12/20/2019, there is been a significant reduction in DLCO by 18%. Impression: Mild restrictive ventilatory defect with a disproportionate reduction in diffusing capacity with slight worsening compared to previous study.
== END | disposition home or self-care (01) ==
PROVIDERS: PCP Family Medicine; Referring Provider Internal Medicine Critical Care Medicine; Visit Provider Internal Medicine Critical Care Medicine
DX: J84.9 Interstitial pulmonary disease, unspecified (principal)
CPT/HCPCS: 94060; 94726; 94729

== ENCOUNTER → 2022-02-09 | Outpatient (CLI) | payer MEDICARE, SELFPAY ==
[2022-02-09 13:12] VITALS: PULSE 72; PULSE 77; PULSE 82; PULSE 87; PULSE 89; PULSE 90; O2SAT 93; O2SAT 94; O2SAT 95; O2SAT 96; O2SAT 97
--- NOTE | 2022-02-10 10:35 | PCM.PSN.6M ---
PSN 6 Minute Walk Test 6 Minute Walk Test 6 Minute Walk Test: 6 Minute Walk Test PSN:6-Minute Walk Test Start: 02/09/22 13:12 Freq: Status: Active Protocol: RESP.6MINW Document 02/09/22 13:12 [facility] (Rec: 02/09/22 13:16 [facility] [id number]) 6 Minute Walk Test Date Performed 02/09/22 Time Performed 13:00 Height 5 ft 3 in Weight: 179 lb Weight in Pounds 179.[address]: Omid Zhou Assistive device used: None Pre-test Oxygen Delivery Method Room Air Pulse Ox (%) 97 Pulse Rate (60-100 beats/min) 72 Dyspnea Theresa Scale (0-10) 2 Reported Symptoms Increased Work of Breathing 1st minute Oxygen Delivery Method Room Air Pulse Ox (%) 96 Pulse Rate (60-100 beats/min) 82 Dyspnea Theresa Scale (0-10) 4 Number of Rests Taken 2 Reported Symptoms Increased Work of Breathing 2nd minute Oxygen Delivery Method Room Air Pulse Ox (%) 95 Pulse Rate (60-100 beats/min) 87 Dyspnea Theresa Scale (0-10) 4 Number of Rests Taken 1 Reported Symptoms Increased Work of Breathing 3rd minute Oxygen Delivery Method Room Air Pulse Ox (%) 94 Pulse Rate (60-100 beats/min) 90 Dyspnea Theresa Scale (0-10) 5 Number of Rests Taken 1 Reported Symptoms Increased Work of Breathing 4th minute Oxygen Delivery Method Room Air Pulse Ox (%) 95 Pulse Rate (60-100 beats/min) 89 Dyspnea Theresa Scale (0-10) 5 Number of Rests Taken 1 Reported Symptoms Increased Work of Breathing 5th minute Oxygen Delivery Method Room Air Pulse Ox (%) 93 Pulse Rate (60-100 beats/min) 90 Dyspnea Theresa Scale (0-10) 5 Number of Rests Taken 1 Reported Symptoms Increased Work of Breathing 6th minute Oxygen Delivery Method Room Air Pulse Ox (%) 94 Pulse Rate (60-100 beats/min) 89 Dyspnea Theresa Scale (0-10) 7 Number of Rests Taken 1 Reported Symptoms Increased Work of Breathing Post-test Oxygen Delivery Method Room Air Pulse Ox (%) 97 Pulse Rate (60-100 beats/min) 77 Dyspnea Theresa Scale (0-10) 3 Reported Symptoms Increased Work of Breathing Full Laps Walked 9 Partial Lap, Number of Tiles Walked 14 Total Distance Walked (ft) 545 Interpretation Interpretation: The patient ambulated 545 feet over the course of 6 minutes beginning on room air without assistive devices. Pretesting oxygen saturation was noted to be 97% on room air. With ambulation, the janette oxygen saturation was 93%. This testing indicated the presence of impaired walk distance along with significant exertional oxygen desaturation. Recommendations Recommendations: There is no indication for the use of supplemental oxygen at this time. However, close interval follow-up is recommended, given the degree of oxygen desaturation noted during this study.
== END | disposition home or self-care (01) ==
LOC: PSN 12:45
PROVIDERS: PCP Family Medicine; Referring Provider Internal Medicine Critical Care Medicine; Visit Provider Internal Medicine Critical Care Medicine
DX: J84.9 Interstitial pulmonary disease, unspecified (principal)
CPT/HCPCS: 94618

== ENCOUNTER 2022-02-19 08:40 | Observation (INO) | payer MEDICARE, SELFPAY ==
[2022-02-19] VITALS (8 sets, daily range): BP systolic 86–128; BP diastolic 50–66; PULSE 65–78; RESP 14–20; TEMP 36.6–36.8; O2SAT 93–99; BMI 31.6; BMI 31.5
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
[2022-02-19 09:55] LABS: Bedside Glucose 103 mg/dL (74-106)
[2022-02-19 10:25] LABS: Bedside Glucose 100 mg/dL (74-106)
--- NOTE | 2022-02-19 11:51 | EKG12_ITS ---
Test Reason : HYPOTENSION Blood Pressure : / mmHG Vent. Rate : 068 BPM Atrial Rate : 068 BPM P-R Int : 236 ms QRS Dur : 100 ms QT Int : 450 ms P-R-T Axes : 061 003 070 degrees QTc Int : 478 ms Sinus rhythm with 1st degree A-V block Otherwise normal ECG Confirmed by TING CADENA, AYESHA ([id number]), research editor JYOTI SINGH ([id number]) on 02/23/2022 8:56:49 AM Referred By: Confirmed By:BRANDON MAGUIRE MD
[2022-02-19 12:15] LABS: Basophil# 0.05 X10^3/uL; Basophil% 0.6 % (0-1); Eosinophil# 0.23 X10^3/uL; Hematocrit 37.9 % (37-47); Hemoglobin 12.7 g/dL (12.0-15.0); Lymphocyte % 23.1 % (19-41); Mean Corp Hgb Conc 33.5 g/dL (32-36); Mean Corpuscular Volume 89.4 fL (81-99); Mean Platelet Vol. 11.7 fl (6.2-12.0); Monocyte# 0.68 X10^3/uL; Monocyte% 8.7 % (0-10); NRBC Flagged by Analyzer 0 % (0-5); Neutrophil # 4.99 X10^3/uL (2.7-7.7); Neutrophil % 64.2 % (47-70); Platelet Count 157 K/mm3 (150-450); RBC Distribution Width CV 13.4 % (11.6-14.6); RBC Distribution Width SD 43.8 fl (35.1-43.9); Red Blood Count 4.24 M/mm3 (4.2-5.4); White Blood Count 7.8 K/mm3 (4.4-11.0)
[2022-02-19 12:27] LABS: Anion Gap 6 (5-15); BUN 17 mg/dL (7-18); BUN/Creat Ratio 20.4 RATIO (10-20); Calcium,Total 8.6 mg/dL (8.5-10.1); Chloride 111 mmol/L (98-107); Creatinine, Serum 0.83 mg/dL (0.55-1.02); EST Glomerular Filtration Rate 69 mL/min (>60); Est Glom Filt Rate - Afr Amer 84 mL/min (>60); Estimated Creatinine Clearance 42.48 ml/min; Glucose 74 mg/dL (74-106); Potassium 3.9 mmol/L (3.5-5.1); Sodium Level 143 mmol/L (136-145)
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
--- NOTE | 2022-02-19 12:45 | CM.ED ---
Addendum entered by Diamond Georges 02/19/22 13:33: SKY updated [employer] Managing Broker Lizeth regarding this contact. Diamond AGUAYO Original Note: SKY was advised by the that patient will be admitted as she needs to be monitored as she took her 's medication. 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 SKY met with patient and her . Patient and her have been living in independent living at [facility] for 1 + years. Patient said that they have help at Independent Living if needed. Patient said that the help was available this morning and that is why I am here. Patient has an emergency alert button. SW reviewed [facility] or [facility] and patient said that she feels that she has good support. Patient said that she is calling her daughter, who lives in [place], and her daughter will care for patient's she was planning to come this weekend anyway. Patient's other children reside in [facility] and [facility]. No other concerns or issues voiced. Patient voiced she feels she has appropriate support and is independent at home. SKY updated MD Diamond AGUAYO
--- NOTE | 2022-02-19 12:58 | NURSING ---
106 NIKKY ACCIDENTAL INGESTION, HYPOTENSION
[2022-02-19] MEDS: 0.9% Normal Saline 1,000 ML 200 ML IV (13:38)
[2022-02-19 14:01] LABS: Bedside Glucose 88 mg/dL (74-106)
[2022-02-19 15:30] LABS: Bedside Glucose 96 mg/dL (74-106)
--- NOTE | 2022-02-19 17:06 | DCINST_ITS ---
Discharge Instructions Diet Discharge Diet: No restrictions Dressing / Incision Call your doctor if you observe: Fainting spells Follow Up Care Test Results: Test results from this visit will be discussed in further detail at your follow- up appointment, if applicable. Discharge Plan Admission Admit Date/Time: 02/19/22 12:24 Primary Reason for Your Visit: accidental ingestion of medications Attending Provider: Roger Dixon Primary Care Provider: Roger Jernigan Discharge Orders/Prescriptions Prescriptions: Continued ferrous gluconate 256 mg (28 mg iron) tablet 256 mg (28 mg iron) tablet 65 mg PO DAILY levothyroxine 125 MCG tablet 125 mcg PO DAILY pravastatin 20 MG tablet 20 mg PO DAILY magnesium 250 mg Tablet 250 mg PO DAILY solifenacin 10 mg tablet 10 mg PO QPM Label Comments: take 1 tablet by mouth once daily Vitamin D3 tablet 2,000 mg DAILY Held sertraline 100 mg tablet 150 mg PO DAILY Hold Instructions: Resume on 02/20/22. Label Comments: mood Referrals / Follow Up: Roger Jernigan MD [Primary Care Provider] - Disposition Disposition (needs filled in before D/C Order can be placed): Home, Self Care
--- NOTE | 2022-02-19 17:08 | DS.PCM_ITS ---
Providers Date of Admission: 02/19/22 Primary Care Physician: Dr. Roger Jernigan MD Reason For Visit: UNINTENTIONAL DRUG INGESTION Diagnosis Discharge Diagnosis (1) Drug ingestion, accidental: Status: Acute Code(s): T50.901A - Poisoning by unspecified drugs, medicaments and biological substances, accidental (unintentional), initial encounter Plan: Include Lisinopril 40 mg, alfuzosin 10 mg, metformin 500 mg, apixaban 2.5 mg, glimepiride 2 mg and Prozac. For the lisinopril: Blood pressure was transiently low but appears to be stable at this time. Given the large lisinopril dose I think it is prudent to monitor the patient and administer IV fluids. For the metformin and glimepiride: Monitor blood sugar every 2 hours For the Prozac: Patient does take sertraline. I have low suspicion for serotonin syndrome while she is here. IV fluids and monitor. Patient seems very remorseful about this event. Patient seems very organized and just had a lapse in judgment. I do not feel that this will be a recurrent issue for her in the future. Patient reevaluated at 1700. Patient's had no hypoglycemia, no hypotension. She denies feeling dizzy. I feel the patient can be discharged home. I have encouraged patient for today to be very liberal with her diet including eating salty foods and having sweets or ice cream. Plan Disposition: To home Medications at Discharge Home Medications ferrous gluconate 256 mg (28 mg iron) tablet 65 mg PO DAILY iron 04/13/19 sertraline 100 mg tablet 150 mg PO DAILY depression 04/13/19 levothyroxine 125 mcg tablet 125 mcg PO DAILY thyroid 03/17/20 pravastatin 20 mg tablet 20 mg PO DAILY cholesterol 03/17/20 Vitamin D3 2,000 mg DAILY supplement 02/19/22 magnesium 250 mg tablet 250 mg PO DAILY supplement 02/19/22 solifenacin 10 mg tablet 10 mg PO QPM bladder 02/19/22 Hospital Course Operations None Procedures None Summary of Care Provided Minutes Spent on Discharge: 36 Hospital Course: An 81-year-old female who accidentally took her 's medications. Patient was monitored in the hospital and had transient hypotensive in the emergency room. Patient was brought and observed. Patient had no issues and she is feeling fine. Patient is very cognizant and this was accidental but oversight as she is managing her medications plus her 's medications. I do not feel that this will be an issue moving forward. Weight / BMI Weight Weight: 80.739 kg Body Mass Index (BMI) 31.5 ABG / Lab / Microbiology Data Result Diagrams: 02/19/22 12:03 02/19/22 12:03 Laboratory: Laboratory Results - last 24 hr 02/19/22 09:34: POC Glucose 103 02/19/22 10:07: POC Glucose 100 02/19/22 12:03: WBC 7.8, RBC 4.24, Hgb 12.7, Hct 37.9, MCV 89.4, MCH 30.0, MCHC 33.5, RDW Std Deviation 43.8, RDW Coeff of Nishi 13.4, Plt Count 157, MPV 11.7, Immature Gran % (Auto) 0.400, Neut % (Auto) 64.2, Lymph % (Auto) 23.1, [place] % (Auto) 8.7, Eos % (Auto) 3.0, Baso % (Auto) 0.6, Absolute Neuts (auto) 5.0, Absolute Lymphs (auto) 1.80, Nucleated RBC % 0 02/19/22 12:03: Sodium 143, Potassium 3.9, Chloride 111 H, Carbon Dioxide 26.0, Anion Gap 6, BUN 17, Creatinine 0.83, Estim Creat Clear Calc 42.48, Est GFR ( MDRD) Af Amer 84, Est GFR (MDRD) Non-Af 69, BUN/Creatinine Ratio 20.4 H, Glucose 74, Calcium 8.6 02/19/22 13:40: POC Glucose 88 02/19/22 15:10: POC Glucose 96 D/C Instructions Discharge Diet: No restrictions Call your doctor if you observe: Fainting spells Meaningful Use Info Meaningful Use Diagnoses (Choose all that apply): None applicable Discharge Plan Admission Admit Date/Time: 02/19/22 12:24 Primary Reason for Your Visit: accidental ingestion of medications Attending Provider: Roger Dixon Primary Care Provider: Roger Jernigan Discharge Orders/Prescriptions Prescriptions: Continued ferrous gluconate 256 mg (28 mg iron) tablet 256 mg (28 mg iron) tablet 65 mg PO DAILY levothyroxine 125 MCG tablet 125 mcg PO DAILY pravastatin 20 MG tablet 20 mg PO DAILY magnesium 250 mg Tablet 250 mg PO DAILY solifenacin 10 mg tablet 10 mg PO QPM Label Comments: take 1 tablet by mouth once daily Vitamin D3 tablet 2,000 mg DAILY Held sertraline 100 mg tablet 150 mg PO DAILY Hold Instructions: Resume on 02/20/22. Label Comments: mood Referrals / Follow Up: Roger Jernigan MD [Primary Care Provider] - Disposition Disposition (needs filled in before D/C Order can be placed): Home, Self Care Charges/Coding Visit Charges OBSV E&M: 80562 Observ/hosp same date L3
== END 2022-02-19 17:40 | disposition home or self-care (01) ==
LOC: ED 12:24 → MS3 12:40
PROVIDERS: Emergency Provider Emergency Medicine; PCP Family Medicine
DX: T50.901A Poisoning by unspecified drugs, medicaments and biological substances, accidental (unintentional), initial encounter (principal); I95.9 Hypotension, unspecified; T38.3X1A Poisoning by insulin and oral hypoglycemic [antidiabetic] drugs, accidental (unintentional), initial encounter; T46.4X1A Poisoning by angiotensin-converting-enzyme inhibitors, accidental (unintentional), initial encounter; T44.8X1A Poisoning by centrally-acting and adrenergic-neuron-blocking agents, accidental (unintentional), initial encounter; Z79.899 Other long term (current) drug therapy; E03.9 Hypothyroidism, unspecified; G47.33 Obstructive sleep apnea (adult) (pediatric); M19.90 Unspecified osteoarthritis, unspecified site; J45.909 Unspecified asthma, uncomplicated; E66.9 Obesity, unspecified; Z68.31 Body mass index [BMI] 31.0-31.9, adult
CPT/HCPCS: 80048; 82962; 85025; 93005; 96360; 96361; 99218; 99285; J7030; J7040; G0378

== ENCOUNTER → 2022-03-16 | Outpatient (CLI) | payer MEDICARE, SELFPAY ==
--- NOTE | 2022-03-16 13:41 | BI_ITS ---
MAMMOGRAPHY - BILATERAL SCREENING REASON FOR EXAM: Female, 81 years old. Routine annual screening examination. PERTINENT HISTORY: Personal history of breast cancer. Prior left lumpectomy and radiation treatment. Prior bilateral breast reduction surgery. Aunt with breast cancer. TECHNIQUE: Digital bilateral breast angela (3D mammographic acquisition) in the CC and MLO projections. 2-D mediolateral oblique (MLO) and craniocaudad (CC) views of both breasts were obtained. CAD: Full Field Digital Mammography with Computer Added Detection was performed. COMPARISON: Comparison is made with prior study dated 03/11/2021 and 03/10/2020. FINDINGS: Breast Composition: There are scattered areas of fibroglandular density. Stable architectural distortion with skin thickening in the upper lateral aspect of the left breast and compared with prior lumpectomy and radiation treatment. No other significant abnormalities are identified. There has been no significant change since the prior study. BI/SCRN MAMM (CAD)W/ANGELA BILAT IMPRESSION: Stable bilateral screening mammogram. Yearly follow-up mammogram recommended. (A) ASSESSMENT CATEGORY: BIRADS Category 2: Benign. A letter regarding these results will be sent to the patient by the facility within 30 days. Approximately 10% of breast cancers are not detected by mammography. A normal mammogram should not delay biopsy of a clinically suspicious abnormality. [id number] Electronically Signed: Oliverio Hung MD at 14:26 EDT ,
== END | disposition home or self-care (01) ==
LOC: OPBI 13:40
PROVIDERS: PCP Family Medicine; Visit Provider Internal Medicine Hematology & Oncology
DX: Z12.31 Encounter for screening mammogram for malignant neoplasm of breast (principal); Z85.3 Personal history of malignant neoplasm of breast; Z80.3 Family history of malignant neoplasm of breast
CPT/HCPCS: 77063; 77067

== ENCOUNTER → 2022-03-19 | Outpatient (CLI) | payer MEDICARE, SELFPAY ==
--- NOTE | 2022-03-19 09:52 | ECHOD_ITS ---
Reason For Study: DYSPNEA/SOB Procedure This was a 2D Doppler, Color Flow transthoracic echocardiogram. The exam was of adequate technical quality. Exam performed in department. Left Ventricle Normal LV size. Left ventricular systolic function is normal. The estimated ejection fraction is 65 %. Diastolic function is indeterminate. No regional wall motion abnormalities noted. Right Ventricle Normal RV size. Normal systolic function. Atria The left atrium is moderately enlarged. Normal right atrium. No doppler evidence for ASD. Mitral Valve There is no mitral annular calcification. Normal mitral valve. Trivial mitral valve insufficiency. Tricuspid Valve Normal tricuspid valve. Mild tricuspid valve insufficiency. Right ventricular systolic pressure estimated to be 31 mmHg. Aortic Valve Trisinus/trileaflet aortic valve. Normal aortic valve. Pulmonic Valve The pulmonic valve is not well visualized. Great Vessels Normal sized aortic root. Pericardium/Pleural No pericardial effusion. MMode/2D Measurements & Calculations LVIDd: 4.0 cm IVSd: 0.96 cm Ao root diam: 3.2 cm LVIDs: 2.5 cm LVPWd: 0.86 cm RVDd: 3.3 cm FS: 39.4 % LAV(MOD-bp): 77.8 ml LVAd ap4: 20.7 cm2 SV(MOD-sp4): 26.8 ml LAV(MOD-bp) Indexed: 42.5 ml/m2 LVLd ap4: 7.1 cm LAV(MOD-sp2): 70.8 ml EDV(MOD-sp4): 49.6 ml LAV(MOD-sp4): 83.0 ml EDV(sp4-el): 51.6 ml LVAs ap4: 12.6 cm2 LVLs ap4: 6.2 cm ESV(MOD-sp4): 22.7 ml ESV(sp4-el): 21.7 ml EF(MOD-sp4): 54.1 % EF(sp4-el): 57.9 % SV(sp4-el): 29.9 ml LA A4 area: 25.3 cm2 LA dimension(2D): 3.9 cm RA A4 area: 11.7 cm2 Time Measurements MV dec time: 0.25 sec Doppler Measurements & Calculations MV E max mina: 71.6 cm/sec Lat Peak E' Mina: 9.5 cm/sec Med Peak E' Mina: 6.1 cm/sec MV A max mina: 88.7 cm/sec E/E' lat: 7.5 E/E' med: 11.7 MV E/A: 0.81 MV V2 max: 91.7 cm/sec Ao V2 max: 148.7 cm/sec MV max P.4 mmHg MV dec slope: 290.9 cm/sec2 Ao max P.9 mmHg MV V2 mean: 60.9 cm/sec Ao V2 mean: 106.1 cm/sec MV mean P.6 mmHg Ao mean P.2 mmHg MV V2 VTI: 34.3 cm Ao V2 VTI: 37.7 cm LV V1 max: 118.7 cm/sec PA V2 max: 117.2 cm/sec TR max mina: 237.8 cm/sec LV V1 max P.6 mmHg PA V2 mean: 77.4 cm/sec TR max P.6 mmHg LV V1 mean P.3 mmHg LV V1 mean: 85.8 cm/sec LV V1 VTI: 29.2 cm ECHO/Echo Complete Interpretation Summary Left ventricular systolic function is normal. The estimated ejection fraction is 65 %. The left atrium is moderately enlarged. Trivial mitral valve insufficiency. Mild tricuspid valve insufficiency. Right ventricular systolic pressure estimated to be 31 mmHg. Diastolic function is indeterminate. Ordering Physician: Janet Fraser Referring Physician: Janet Fraser Performed By: Angelia Felix RCS
== END | disposition home or self-care (01) ==
PROVIDERS: PCP Family Medicine; Referring Provider Nurse Practitioner Acute Care; Visit Provider Nurse Practitioner Acute Care
DX: R06.02 Shortness of breath (principal)
CPT/HCPCS: 93306

== ENCOUNTER → 2022-03-25 | Outpatient (CLI) | payer MEDICARE, SELFPAY ==
--- NOTE | 2022-03-25 16:01 | CT_ITS ---
INDICATION: Suspected pulmonary fibrosis. 81-year-old female. EXAMINATION: CT CHEST WITHOUT CONTRAST - TECHNIQUE: Helically acquired images were obtained of the chest. A radiation dose optimization technique was used for this scan. IV Contrast dosage and agent: None. COMPARISON: CT chest October 19, 2017. CT chest October 21, 2020. FINDINGS: LUNGS, PLEURA AND LARGE AIRWAYS: No focal breakage or effusions. No pneumothorax. Peripheral fibrosis throughout both lungs which has progressed since the prior studies. There is bronchiectasis right middle lobe, lingular segment and bilateral lower lobe . Bronchiectasis to a much lesser extent in the right upper lobe. Bronchiectasis has not significantly changed since the prior examinations. THYROID: No thyroid lesions. HEART AND PERICARDIUM: Heart size is normal. No pericardial effusion. CORONARY ARTERIES: Coronary artery calcification VESSELS: Thoracic aorta is not dilated. Scattered atherosclerotic calcification of the thoracic aorta. MEDIASTINUM AND ALAN: 1.6 x 0.8 cm pretracheal lymph node. Esophagus is unremarkable. No hiatal hernia. UPPER ABDOMEN: No acute pathology. BONES: No suspicious lytic or blastic abnormality. CT/Chest without Contrast IMPRESSION: Chronic interstitial lung disease which has progressed since the prior studies. Electronically Signed: Franklyn Malik MD at 7:05 EDT Reading Location ID and State: [id number] / , Service support ,
== END | disposition home or self-care (01) ==
LOC: CT 16:00
PROVIDERS: PCP Family Medicine; Referring Provider Nurse Practitioner Acute Care; Visit Provider Nurse Practitioner Acute Care
DX: J84.9 Interstitial pulmonary disease, unspecified (principal)
CPT/HCPCS: 71250

== ENCOUNTER → 2022-07-19 | Outpatient (CLI) | payer MEDICARE, SELFPAY ==
--- NOTE | 2022-07-19 13:56 | RAD_ITS ---
EXAM: XR CHEST, 2 VIEWS CLINICAL INDICATION: cough TECHNIQUE: Frontal and lateral views of the chest. This report was created using [employer] report generation technology. COMPARISON: December 07, 2018 FINDINGS: LUNGS AND PLEURAL SPACES: Progressively worsening fibrotic changes involving the periphery of the lungs, worse at the lung bases bilaterally. Dilated central pulmonary arteries suggest pulmonary hypertension. No dense consolidation. No pleural effusion or pneumothorax. HEART: Fullness of the cardiac silhouette as before. MEDIASTINUM: Central airways and mediastinal contour are unremarkable. BONES/JOINTS: Diffuse osteopenia. S-shaped curvature of the spine. No suspicious lytic or sclerotic lesions of bone. SOFT TISSUES: Unremarkable. VASCULATURE: Atherosclerotic calcifications of the nonenlarged thoracic aortic arch. RAD/Chest PA and Lateral IMPRESSION: 1. Since 2019, worsening fibrotic changes involving the periphery of the lungs, worse at the lung bases bilaterally. 2. No consolidating pneumonia. 3. Ancillary findings as above. Electronically Signed: Shan Hargrove MD at 23:32 EST ,
== END | disposition home or self-care (01) ==
LOC: MTRAD 13:54
PROVIDERS: PCP Family Medicine; Referring Provider Nurse Practitioner Family; Visit Provider Nurse Practitioner Family
DX: R05.9 Cough, unspecified (principal)
CPT/HCPCS: 71046

== ENCOUNTER → 2022-09-27 | Outpatient (CLI) | payer MEDICARE, SELFPAY ==
--- NOTE | 2022-09-28 05:51 | PFTCOMP_ITS ---
COMPLETE PULMONARY FUNCTION TEST INTERPRETATION Brief HPI: Patient is an 82-year-old female, currently under the care of Dr. Zhou, who presents to [facility] for complete pulmonary function tests secondary to diagnosis of ILD. Respiratory therapist reports good effort and reproducible results. Interpretation: Forced expiration spirometry shows no large airways obstructive ventilatory defect with an FEV1 of 86% predicted. There is no significant bronchodilator response by strict ATS criteria. Spirograms are of good quality and plateau normally. The respiratory flow volume loop shows a normal pattern. Lung volumes by body plethysmography show a mildly decreased total lung capacity at 3.41 L, 76% predicted. All other lung volumes are reduced symmetrically. Diffusion capacity by carbon monoxide is decreased at 63% predicted. The airway resistance is slightly elevated. Compared to previous pulmonary function tests from 02/04/2022, there has been no significant change. Impression: Mild restrictive ventilatory defect with a disproportionate reduction in diffusion capacity, but no significant change compared to January 2022
== END | disposition home or self-care (01) ==
LOC: PSN 10:36
PROVIDERS: PCP Family Medicine; Referring Provider Internal Medicine Critical Care Medicine; Visit Provider Internal Medicine Critical Care Medicine
DX: J84.9 Interstitial pulmonary disease, unspecified (principal)
CPT/HCPCS: 94060; 94726; 94729

== ENCOUNTER → 2022-09-29 | Outpatient (CLI) | payer MEDICARE, SELFPAY ==
[2022-09-29 12:53] VITALS: PULSE 74; PULSE 80; PULSE 88; PULSE 89; PULSE 93; PULSE 95; PULSE 97; O2SAT 93; O2SAT 95; O2SAT 96; O2SAT 98
--- NOTE | 2022-09-30 05:38 | PCM.PSN.6M ---
PSN 6 Minute Walk Test 6 Minute Walk Test 6 Minute Walk Test: 6 Minute Walk Test PSN:6-Minute Walk Test Start: 09/29/22 12:53 Freq: Status: Active Protocol: RESP.6MINW Document 09/29/22 12:53 LANDON (Rec: 09/29/22 12:55 LANDON [id number]) 6 Minute Walk Test Date Performed 09/29/22 Time Performed 12:30 Height 5 ft 3 in Weight: 78.925 kg Weight in Pounds 174.[address]: Omid Zhou Assistive device used: None Pre-test Oxygen Delivery Method Room Air Pulse Ox (%) 98 Pulse Rate (60-100 beats/min) 74 Dyspnea Theresa Scale (0-10) 0 Exertion Theresa Scale (6-20) 6 1st minute Oxygen Delivery Method Room Air Pulse Ox (%) 95 Pulse Rate (60-100 beats/min) 88 2nd minute Oxygen Delivery Method Room Air Pulse Ox (%) 95 Pulse Rate (60-100 beats/min) 88 3rd minute Oxygen Delivery Method Room Air Pulse Ox (%) 95 Pulse Rate (60-100 beats/min) 89 4th minute Oxygen Delivery Method Room Air Pulse Ox (%) 93 Pulse Rate (60-100 beats/min) 93 5th minute Oxygen Delivery Method Room Air Pulse Ox (%) 96 Pulse Rate (60-100 beats/min) 95 6th minute Oxygen Delivery Method Room Air Pulse Ox (%) 93 Pulse Rate (60-100 beats/min) 97 Dyspnea Theresa Scale (0-10) 5 Exertion Theresa Scale (6-20) 14 Post-test Oxygen Delivery Method Room Air Pulse Ox (%) 96 Pulse Rate (60-100 beats/min) 80 Full Laps Walked 12 Partial Lap, Number of Tiles Walked 12 Total Distance Walked (ft) 720 Interpretation Interpretation: The patient was able to ambulate 720 feet over the course of 6 minutes on room air with no assistive devices or breaks. The patient experienced significant desaturation from a baseline of 98% to as low as 93%. No significant tachycardia was noted. These findings are consistent with a musculoskeletal limitation exercise tolerance. Recommendations Recommendations: No supplemental oxygen is indicated at this time.
== END | disposition home or self-care (01) ==
LOC: PSN 12:32
PROVIDERS: PCP Family Medicine; Referring Provider Internal Medicine Critical Care Medicine; Visit Provider Internal Medicine Critical Care Medicine
DX: J84.9 Interstitial pulmonary disease, unspecified (principal)
CPT/HCPCS: 94618

== ENCOUNTER → 2022-12-01 | Outpatient (CLI) | payer MEDICARE, SELFPAY ==
[2022-12-01 10:36] LABS: Absolute Lymphocyte Count 1.65 X10^3/uL (0.83-4.51); Absolute Neutrophil Count 3.8 X10^3/uL (2.0-7.7); Basophil# 0.06 X10^3/uL; Basophil% 0.9 % (0-1); Eosinophil# 0.48 X10^3/uL; Eosinophils% 7.2 % (0-5); Hematocrit 42.5 % (37-47); Hemoglobin 13.8 g/dL (12.0-15.0); Lymphocyte # 1.65 X10^3/ul (0.83-4.51); Lymphocyte % 24.7 % (19-41); Mean Corp Hgb Conc 32.5 g/dL (32-36); Mean Corpuscular Hgb 29.4 pg (27.0-32.0); Mean Corpuscular Volume 90.4 fL (81-99); Mean Platelet Vol. 11.5 fl (6.2-12.0); Monocyte# 0.66 X10^3/uL; Monocyte% 9.9 % (0-10); NRBC Flagged by Analyzer 0 % (0-5); Neutrophil # 3.82 X10^3/uL (2.7-7.7); Platelet Count 195 K/mm3 (150-450); RBC Distribution Width CV 13.2 % (11.6-14.6); RBC Distribution Width SD 43.7 fl (35.1-43.9); White Blood Count 6.7 K/mm3 (4.4-11.0)
[2022-12-01 11:02] LABS: Vitamin D,25 Hydroxy 33.8 ng/mL
[2022-12-01 11:13] LABS: ALB/GLOB Ratio 0.9 RATIO (0.9-2.4); AST(SGOT) 20 U/L (15-37); Alanine Aminotransfer ALT/SGPT 27 U/L (13-56); Albumin, Serum 3.5 g/dL (3.2-5.0); Alkaline Phosphatase 74 U/L (45-117); Anion Gap 6 (5-15); BUN 18 mg/dL (7-18); BUN/Creat Ratio 18.8 RATIO (10-20); Calcium,Total 8.9 mg/dL (8.5-10.1); Chloride 112 mmol/L (98-107); Cholesterol 182 mg/dL (200); Creatinine, Serum 0.96 mg/dL (0.55-1.02); EST Glomerular Filtration Rate 59 mL/min (>60); Est Glom Filt Rate - Afr Amer 71 mL/min (>60); Free T3 2.4 pg/mL (2.18-3.98); Globulin 3.7 g/dL (2.2-4.2); Glucose 123 mg/dL (74-106); High Density Lipoprotein 49 mg/dL; Potassium 4.5 mmol/L (3.5-5.1); Protein, Total 7.2 g/dL (6.4-8.2); Sodium Level 142 mmol/L (136-145); T4 Free Direct 1.17 ng/dL (0.76-1.46); Thyroid Stim Hormone (TSH) 1.64 uIU/mL (0.358-3.74); Triglycerides 230 mg/dL; Very Low Density Lipoprotein 46 mg/dL (5-40)
== END | disposition home or self-care (01) ==
LOC: MFPLAB 08:50
PROVIDERS: PCP Family Medicine; Visit Provider Family Medicine
DX: G47.33 Obstructive sleep apnea (adult) (pediatric) (principal); E03.9 Hypothyroidism, unspecified; E55.9 Vitamin D deficiency, unspecified
CPT/HCPCS: 36415; 80053; 80061; 82306; 84439; 84443; 84481; 85025

== ENCOUNTER → 2022-12-07 | Outpatient (CLI) | payer MEDICARE, SELFPAY ==
--- NOTE | 2022-12-07 13:29 | BD_ITS ---
STUDY: DUAL ENERGY X-RAY ABSORPTIOMETRY / DXA REASON FOR EXAM: Female, 82 years old. [id number] TECHNIQUE: Bone Mineral Density (BMD) measurements of lumbar spine and bilateral hips were obtained. COMPARISON: Comparison is made with prior study dated March 08, 2019. FINDINGS: Lumbar Spine (L1-L4): g/cm2 (1.101) / T-score (0.5) / Z-score (3.4) Findings are suggestive of normal bone density with a low fracture risk. Left Femur Total: g/cm2 (0.777) / T-score (-1.4) / Z-score (1.0) Left Femoral Neck: g/cm2 (0.632) / T-score (-2.0) / Z-score (0.6) Right Femur Total: g/cm2 (0.823) / T-score (-1.0) / Z-score (1.3) Right Femoral Neck: g/cm2 (0.844) / T-score (0.0) / Z-score (2.5) The T-Scores on the most recent prior examination were: Lumbar Spine (L1-L4): There has been worsening of bone density since the previous examination. Left Femur Total: which represents a worsening of 7.6%. Right Femur Total: which represents a worsening of 5.6%. BD/Dexa Bone Density Study IMPRESSION: The patient is considered osteopenic as outlined below according to World Robert Organization (WHO) criteria with a moderate fracture risk. There has been worsening of bone density since the previous examination. Reference Information: The T-score is the number of standard deviations above or below the standard which is normal for young adults at their peak bone mineral density. The World Health Organization (WHO) interprets the T-scores as follows: Above -1 Normal bone density Between -1 and -2.5 Osteopenia Equal to / or below -2.5 Osteoporosis As a practical clinical guideline, osteopenia may be graded as follows: Mild -1 through -1.5 Moderate -1.6 through -2.0 Severe -2.1 through -2.4 The Z-score is the number of standard deviations above or below age-matched controls. A Z-score of less than -1.5 would be considered abnormal. References: 1. NIH Osteoporosis and Related Bone Diseases www osteo.org 2. International Society for Clinical Densitometry www iscd.org 3. National Osteoporosis Foundation www nof.org Electronically Signed: Oliverio Hung MD at 12:50 EDT ,
== END | disposition home or self-care (01) ==
LOC: OPBD 13:21
PROVIDERS: PCP Family Medicine; Referring Provider Family Medicine; Visit Provider Family Medicine
DX: M81.0 Age-related osteoporosis without current pathological fracture (principal); Z78.0 Asymptomatic menopausal state
CPT/HCPCS: 77080

== ENCOUNTER → 2023-01-07 | Outpatient (CLI) | payer MEDICARE, SELFPAY | END | disposition home or self-care (01) | LOC: SL 20:07 | PROVIDERS: PCP Family Medicine; Referring Provider Nurse Practitioner Acute Care; Visit Provider Nurse Practitioner Acute Care | DX: G47.33 Obstructive sleep apnea (adult) (pediatric) (principal) | CPT/HCPCS: 95810 ==

== ENCOUNTER → 2023-03-17 | Outpatient (CLI) | payer MEDICARE, SELFPAY ==
--- NOTE | 2023-03-17 09:49 | BI_ITS ---
MAMMOGRAPHY - BILATERAL SCREENING REASON FOR EXAM: Female, 82 years old. Routine annual screening examination. PERTINENT HISTORY: Personal history of breast cancer. History of prior left lumpectomy with radiation and chemotherapy. Prior bilateral breast reduction surgery. TECHNIQUE: Digital bilateral breast angela (3D mammographic acquisition) in the CC and MLO projections. 2-D mediolateral oblique (MLO) and craniocaudad (CC) views of both breasts were obtained. CAD: Full Field Digital Mammography with Computer Added Detection was performed. COMPARISON: Comparison is made with prior study to March 16, 2022 and March 11, 2021. FINDINGS: Breast Composition: There are scattered areas of fibroglandular density. There are no dominant masses or suspicious calcifications. Once again, the patient is status post lumpectomy in the upper lateral aspect of the left breast with resultant postoperative scarring and breast deformity with overlying skin thickening. No other significant abnormalities are identified. There has been no significant change since the prior study. BI/SCRN MAMM (CAD)W/ANGELA BILAT IMPRESSION: Stable bilateral screening mammogram. Yearly follow-up mammogram recommended. (A) ASSESSMENT CATEGORY: BIRADS Category 2: Benign. A letter regarding these results will be sent to the patient by the facility within 30 days. Approximately 10% of breast cancers are not detected by mammography. A normal mammogram should not delay biopsy of a clinically suspicious abnormality. [id number] Electronically Signed: Oliverio Hung MD at 10:48 EDT ,
== END | disposition home or self-care (01) ==
LOC: OPBI 09:48
PROVIDERS: PCP Family Medicine; Referring Provider Internal Medicine Hematology & Oncology; Visit Provider Internal Medicine Hematology & Oncology
DX: Z12.31 Encounter for screening mammogram for malignant neoplasm of breast (principal)
CPT/HCPCS: 77063; 77067

== ENCOUNTER → 2023-07-04 | Outpatient (CLI) | payer MEDICARE, SELFPAY ==
--- OUTSIDE RECORDS SUMMARY | 2023-07-04 10:24 | XMS RPT_ITS | CCD ---
Author Name Unknown Address [address] [place] [address] Organization [facility] Care Team Providers Care Community Relations Police Lieutenant Name Role Phone Juan Francisco Driscoll MD Unavailable MAX JERNIGAN Primary Care Unavailable FREDRICK VILLEGAS Admitting Unavailable FREDRICK VILLEGSA Attending Unavailable DIANN DALTON Consulting Unavailable RHIANNA JOHNSON Consulting Unavailable BROOKLYN ARREAGA Consulting Unavailable MAX JERNIGAN Primary Care Unavailable FREDRICK VILLEGAS Admitting Unavailable FREDRICK VILLEGAS Attending Unavailable MK CANELA Consulting Unavailable MAX JERNIGAN Primary Care Unavailable BROOKLYN WOOD Admitting Unavailable BROOKLYN WOOD Attending Unavailable Max Jernigan MD Primary Care Provider Allergies Allergy Classification Reported Allergen(s) Allergy Type Date of Onset Reaction(s) Facility (2 sources) clindamycin Drug Allergy 5 Diarrhea [facility] Work Phone: (1 source) levoFLOXacin Drug Allergy 7 left shoulder pain [facility] Work Phone: (1 source) Dust Propensity to adverse reactions 8 [facility] (1 source) soy beans [Other] Propensity to adverse reactions 8 [facility] Medications Completed/Discontinued Medications Medication Drug Class(es) Dates Sig (Normalized) Sig (Original) acetaminophen 325 mg oral tablet (2 sources) Start: 07-14-2016 take 1 tablet by mouth once daily TYLENOL 325 MG TABS One tablet by mouth daily ACETAMINOPHEN [id number] Austyn Edmonds MD Problems Active Problems Problem Classification Problem Date Documented Da te Episodic/Chronic Anxiety disorders (1 source) Anxiety disorder, unspecified; Translations: [ANXIETY DISORDER UNSPECIFIED] Onset: 2 Chronic Asthma (1 source) Asthma-chronic obstructive pulmonary disease overlap syndrome; Translations: [COPD with asthma] Onset: 6 07-18-2015 Chronic Cancer of breast (1 source) Carcinoma of breast ; Translations: [Malignant neoplasm of unspecified site of left female breast] Onset: 4 12-19-2012 Chronic Cancer of breast (1 source) Personal history of malignant neoplasm of breast; Translations: [PERS HX MALIGNANT NEOPLASM BREAST] Onset: 2 Episodic Cardiac dysrhythmias (1 source) Multiple premature ventricular complexes; Translations: [Ventricular premature depolarization] Onset: 6 07-18-2015 Chronic Chronic ulcer of skin (1 source) Chronic ulcer of skin; Translations: [Non-pressure chronic ulcer of buttock with fat layer exposed] Onset: 6 07-22-2015 Chronic Conduction disorders (1 source) Atrioventricular block, first degree; Translations: [Atrioventricular block, first degree] Onset: 7 07-14-2016 Chronic Deficiency and other anemia (1 source) Anemia, unspecified; Translations: [ANEMIA UNSPECIFIED] Onset: 2 Episodic Disorders of lipid metabolism (2 sources) Hyperlipidemia, unspecified; Translations: [Hypercholesterolemia] Onset: 6 07-18-2015 Chronic Esophageal disorders (1 source) Gastro-esophageal reflux disease without esophagitis; Translations: [GERD WITHOUT ESOPHAGITIS] Onset: 2 Chronic Genitourinary symptoms and ill-defined conditions (3 sources) Mixed incontinence; Translations: [Urge incontinence] Onset: 2 Chronic Mood disorders (1 source) Mood disorders; Translations: [DEPRESSION UNSPECIFIED] Onset: 2 Other aftercare (1 source) Other snf (current) drug therapy; Translations: [OTH SNF CURRENT DRUG THERAPY] Onset: 2 Episodic Other connective tissue disease (1 source) Presence of artificial knee joint, bilateral; Translations: [PRESENCE ARTIFICIAL KNEE JNT BILAT] Onset: 2 Chronic Other gastrointestinal disorders (3 sources) Full incontinence of feces; Translations: [FULL INCONTINENCE OF FECES] Onset: 2 Episodic Other gastrointestinal disorders (1 source) Incontinence of feces; Translations: [Full incontinence of feces] 05-01-2020 Episodic Other gastrointestinal disorders (1 source) Altered bowel function; Translations: [Change in bowel habit] 05-01-2020 Episodic Other skin disorders (1 source) Calcinosis cutis; Translations: [CALCINOSIS CUTIS] Onset: 2 Episodic Prolapse of female genital organs (1 source) Rectocele; Translations: [RECTOCELE] Onset: 2 Chronic Residual codes; unclassified (1 source) Obstructive sleep apnea (adult) (pediatric); Translations: [OBSTRUCTIVE SLEEP APNEA] Onset: 2 Chronic Residual codes; unclassified (1 source) Personal history of irradiation; Translations: [PERSONAL HISTORY OF IRRADIATION] Onset: 2 Episodic Thyroid disorders (1 source) Hypothyroidism, unspecified; Translations: [HYPOTHYROIDISM UNSPECIFIED] Onset: 2 Chronic Unclassified (2 sources) Body mass index (BMI) 33.0-33.9, adult; Translations: [Body mass index (BMI) 32.0-32.9, adult] Onset: 7 07-13-2016 Chronic Unclassified (1 source) Preoperative cardiovascular examination ; Translations: [Encounter for preprocedural cardiovascular examination] Onset: 7 07-14-2016 Unclassified (1 source) Screening mammography ; Translations: [Encounter for screening mammogram for malignant neoplasm of breast] Onset: 6 01-22-2016 Past or Other Problems Problem Classification Problem Date Documented Da te Episodic/Chronic Abdominal hernia (1 source) Paraesophageal hernia; Translations: [Diaphragmatic hernia without obstruction or gangrene] Onset: 6 05-19-2016 Episodic Vargas (3 sources) Burn of unspecified degree of buttock, sequela; Translations: [Late effect of vargas of other specified sites] Onset: 5 12-26-2016 Episodic Complications of surgical procedures or medical care (4 sources) Other complications of procedures, not elsewhere classified, subsequent encounter; Translations: [Other complications of procedures, not elsewhere classified, initial encounter] Onset: 6 10-06-2015 Episodic Gastrointestinal hemorrhage (1 source) Melena; Translations: [Melena] Onset: 7 02-03-2017 Episodic Medical examination/evaluation (1 source) Encounter for preprocedural cardiovascular examination; Translations: [Encounter for preprocedural cardiovascular examination] Onset: 7 07-13-2016 Episodic Open wounds of extremities (1 source) Open wound of lower limb; Translations: [Unspecified open wound, unspecified hip, initial encounter] Onset: 8 06-05-2008 Episodic Open wounds of head; neck; and trunk (1 source) Open wound of buttock with complication; Translations: [Open wound of buttock, complicated] Onset: 5 01-05-2015 Episodic Other aftercare (1 source) Encounter for other specified surgical aftercare; Translations: [Encounter for other specified surgical aftercare] Onset: 5 12-12-2014 Episodic Other gastrointestinal disorders (1 source) Dysphagia; Translations: [Dysphagia, unspecified] Onset: 6 05-19-2016 Episodic Other skin disorders (9 sources) Degenerative skin disorder; Translations: [Other specified disorders of the skin and subcutaneous tissue] Onset: 5 12-26-2016 Episodic Unclassified (2 sources) Electrocardiogram abnormal; Translations: [Abnormal electrocardiogram [ECG] [EKG]] Onset: 8 07-13-2016 Episodic Unclassified (1 source) Family history of ischemic heart disease and other diseases of the circulatory system; Translations: [Family history of ischemic heart disease and other diseases of the circulatory system] Onset: 7 07-13-2016 Episodic Results Test Name Value Interpretation Reference Range [facility] Vital Signs Date Time Vital Sign Value Performing Clinician Elie fletcher 03-31-2017 14:46-0400 BMI (Body Mass Index) 32.99 kg/m2 [facility] Work Phone: 03-31-2017 14:46-0400 Body Temperature 97.4 [degF] [facility] Work Phone: 03-31-2017 14:46-0400 BP Diastolic 79 mm[Hg] [facility] Work Phone: 03-31-2017 14:46-0400 BP Systolic 143 mm[Hg] Juan Francisco Driscoll MD [facility] Work Phone: 03-31-2017 14:46-0400 BSA (Body Surface Area) 1.9 m2 Juan Francisco Driscoll MD [facility] Work Phone: 03-31-2017 14:46-0400 Height 161.29 cm Juan Francisco Driscoll MD [facility] Work Phone: 03-31-2017 14:46-0400 Pulse (Heart Rate) 71 /min [facility] Work Phone: 03-31-2017 14:46-0400 Respiratory Rate 20 /min Juan Francisco Driscoll MD [facility] Work Phone: 03-31-2017 14:46-0400 Weight 85.82 kg Juan Francisco Driscoll MD [facility] Work Phone: 05-19-2016 10:50-0500 Height 161.29 cm Juan Francisco Driscoll MD [facility] Work Phone: 05-19-2016 10:50-0500 Weight 82.73 kg Juan Francisco Driscoll MD [facility] Work Phone: 03-05-2016 12:52-0400 Body Temperature 97.81 [degF] Juan Francisco Driscoll MD [facility] Work Phone: Encounters Encounter Date Encounter Type Care Provider Facility Start: 11-09-2021 End: 11-09-2021 ambulatory [facility] Start: 10-26-2021 End: 10-26-2021 ambulatory [facility] Delia [facility] Start: 10-22-2021 [facility]counter [facility] other [facility]ced[facility]: 10-21-2021 End: 10-22-2021 ambulatory [facility] Start: 05-01-2020 End: 05-01-2020 Subsequent hospital visit by physician Xr [facility] Procedures Date Procedure Procedure Detail Performing Clinician Start: 05-01-2020 Radiologic exam abdo men 1 view Ekta Monisha [employer] Work Phone: Start: 02-10-2017 End: 03-28-2017 Follow Up Appt 2 weeks Juan Francisco Driscoll MD Start: 01-27-2017 End: 02-03-2017 Follow Up Appt 2 weeks Juan Francisco Driscoll MD Start: 01-19-2017 End: 02-03-2017 Follow up Appt 1 week Juan Francisco Driscoll MD Start: 01-10-2017 End: 01-22-2017 Follow up Appt 1 week Juan Francisco Driscoll MD Start: 01-03-2017 End: 01-22-2017 Follow up Appt 1 week Juan Francisco Driscoll MD Start: 10-27-2016 End: 12-28-2016 Follow Up Appt Other Juan Francisco Driscoll MD Start: 07-14-2016 End: 07-14-2016 Ecg routine ecg w/least 12 lds w/i&r Austyn Edmonds MD Start: 07-14-2016 End: 07-20-2016 Echocardiography Austyn Edmonds MD Start: 07-14-2016 End: 07-20-2016 Nuclear stress test -Pina De La Rosa MD Start: 05-19-2016 End: 02-03-2017 Follow Up Appt Other Jessica Villatoro Work Phone: Start: 03-09-2016 End: 03-09-2016 *CMP Complete Metabolic Panel Wilmar Cathy Yordan ALEXANDRA Start: 12-24-2015 End: 02-06-2016 Follow Up Appt Other Juan Francisco Driscoll MD Start: 11-12-2015 End: 12-28-2016 Follow Up Appt 1 month Juan Francisco Driscoll MD Start: 10-27-2015 End: 12-28-2016 Follow up Appt 3 weeks Juan Francisco Driscoll MD Start: 10-06-2015 End: 10-27-2015 Follow up Appt 3 weeks Juan Francisco Driscoll MD Start: 09-17-2015 End: 10-27-2015 Follow up Appt 3 weeks Juan Francisco Driscoll MD Start: 09-03-2015 End: 09-07-2015 Bacteria identified in Wound by Culture Juan Francisco Driscoll MD Start: 09-03-2015 End: 10-27-2015 Follow Up Appt 2 weeks Juan Francisco Driscoll MD Start: 08-19-2015 End: 10-27-2015 Follow Up Appt 2 weeks Juan Francisco Driscoll MD Start: 08-07-2015 End: 10-27-2015 Follow Up Appt 2 weeks Juan Francisco Driscoll MD Start: 07-28-2015 End: 10-27-2015 Follow Up Appt 2 weeks Juan Francisco Driscoll MD Start: 12-19-2014 End: 01-24-2015 Follow up Appt 1 week Juan Francisco Driscoll MD Start: 12-04-2014 End: 01-24-2015 Follow Up Appt Other Juan Francisco Driscoll MD Plan of Treatment Date Care Activity Detail Author Start: 02-18-2023 Covid-19 Vaccine ( season) Covid-19 Vaccine ( season) [facility] Start: 02-18-2023 Influenza vaccination Influenza Vaccine (#1) [facility] Start: 06-20-2022 Advance Directive Discussion Advance Directive Discussion [facility] Start: 06-20-2022 Depression Assessment Depression Assessment [facility] Start: 07-21-2019 Diabetes Screening Diabetes Screening [facility] Start: 03-31-2017 End: 04-10-2017 Follow Up Appt Other Follow Up Appt Other [facility] Work Phone: Start: 03-18-2017 End: 04-10-2017 Follow Up Appt 2 weeks Follow Up Appt 2 weeks [facility] Work Phone: Start: 03-03-2017 End: 03-08-2016 *CBC with Differential *CBC with Differential [facility] Work Phone: Start: 03-03-2017 End: 03-08-2016 *CMP Complete Metabolic Panel *CMP Complete Metabolic Panel [facility] Work Phone: Start: 02-24-2017 End: 04-10-2017 Follow Up Appt 2 weeks Follow Up Appt 2 weeks [facility] Work Phone: Start: 02-10-2017 End: 03-28-2017 Follow Up Appt 2 weeks Follow Up Appt 2 weeks [facility] Work Phone: Start: 02-01-2017 End: 02-03-2017 Colonoscopy flx dx w/collj spec when pfrmd Colonoscopy [facility] Work Phone: Start: 02-01-2017 End: 02-03-2017 Esophagogastroduodenoscopy transoral diagnostic Upper gastrointestinal endoscopy [facility] Work Phone: Start: 02-01-2017 End: 02-03-2017 Follow Up Appt Other Follow Up Appt Other [facility] Work Phone: Start: 01-27-2017 End: 02-03-2017 Follow Up Appt 2 weeks Follow Up Appt 2 weeks [facility] Work Phone: Start: 01-19-2017 End: 01-19-2017 Bacterica wound culture *CUW - Culture, Wound (Aerobic) [facility] Work Phone: Start: 01-19-2017 End: 02-03-2017 Follow up Appt 1 week Follow up Appt 1 week [facility] Work Phone: Start: 01-10-2017 End: 01-22-2017 Follow up Appt 1 week Follow up Appt 1 week [facility] Work Phone: Start: 01-03-2017 End: 01-22-2017 Follow up Appt 1 week Follow up Appt 1 week [facility] Work Phone: Start: 10-27-2016 End: 12-28-2016 Follow Up Appt Other Follow Up Appt Other [facility] Work Phone: Start: 07-14-2016 End: 07-14-2016 Ecg routine ecg w/least 12 lds w/i&r EKG (In office) [facility] Work Phone: Start: 07-14-2016 End: 07-15-2016 Echocardiography Echocardiogram (complete) [facility] Work Phone: Start: 07-14-2016 End: 07-15-2016 Nuclear stress test -Lexiscan Nuclear stress test -Lexiscan [facility] Work Phone: Start: 05-19-2016 End: 05-19-2016 Esophagogastroduodenoscopy transoral diagnostic Upper gastrointestinal endoscopy [facility] Work Phone: Start: 05-19-2016 End: 02-03-2017 Follow Up Appt Other Follow Up Appt Other [facility] Work Phone: Start: 05-19-2016 End: 06-04-2016 Primary Care Physician Primary Care Physician Max Jernigan, [facility], [address] [place] [address], [address] [facility] Work Phone: Start: 03-09-2016 End: 01-21-2016 *CBC with Differential *CBC with Differential [facility] Work Phone: Start: 03-09-2016 End: 03-09-2016 *CMP Complete Metabolic Panel *CMP Complete Metabolic Panel [facility] Work Phone: Start: 03-01-2016 End: 01-22-2016 Mammogram, screening Mammogram-Bilateral, Screening, Bilateral [facility] Work Phone: Start: 12-24-2015 End: 02-06-2016 Follow Up Appt Other Follow Up Appt Other [facility] Work Phone: Start: 11-12-2015 End: 12-28-2016 Follow Up Appt 1 month Follow Up Appt 1 month [facility] Work Phone: Start: 10-27-2015 End: 12-28-2016 Follow up Appt 3 weeks Follow up Appt 3 weeks [facility] Work Phone: Start: 10-06-2015 End: 10-27-2015 Follow up Appt 3 weeks Follow up Appt 3 weeks [facility] Work Phone: Start: 09-17-2015 End: 10-27-2015 Follow up Appt 3 weeks Follow up Appt 3 weeks [facility] Work Phone: Start: 09-03-2015 End: 09-07-2015 Bacterica wound culture *CUW - Culture, Wound (Aerobic) [facility] Work Phone: Start: 09-03-2015 End: 10-27-2015 Follow Up Appt 2 weeks Follow Up Appt 2 weeks [facility] Work Phone: Start: 08-19-2015 End: 10-27-2015 Follow Up Appt 2 weeks Follow Up Appt 2 weeks [facility] Work Phone: Start: 08-07-2015 End: 10-27-2015 Follow Up Appt 2 weeks Follow Up Appt 2 weeks [facility] Work Phone: Start: 07-28-2015 End: 10-27-2015 Follow Up Appt 2 weeks Follow Up Appt 2 weeks [facility] Work Phone: Start: 03-06-2015 End: 01-23-2015 *CBC with Differential *CBC with Differential [facility] Work Phone: Start: 12-19-2014 End: 01-24-2015 Follow up Appt 1 week Follow up Appt 1 week [facility] Work Phone: Start: 12-04-2014 End: 01-24-2015 Follow Up Appt Other Follow Up Appt Other [facility] Work Phone: Start: 2003 Bone Density Screening Bone Density Screening [facility] Start: 1998 RSV Vaccine (1 - 1-dose 60+ series) RSV Vaccine (1 - 1-dose 60+ series) [facility] Start: 1957 Urine microalbumin profile DTaP,Tdap,Td Vaccine (1 - Tdap) [facility] Start: 1956 Spirometry Spirometry [facility] Patient Education Medications [facility] Work Phone: Immunizations Immunization Date Immunization Notes Care Provider Fa nicki 03-18-2021 influenza virus vacc ine, unspecified formulation Xr Twin [facility] Payers Date Payer Category Payer Medicare [employer] MEDICARE A ETNA MEDICARE PPO [id number] 2014-Present [phone] [address] [place] [address] PPO [id number] 1961 Medicare [id number] 1940 Unknown [id number] 1940 Unknown [id number] 1940 Unknown [id number] Social History Date Type Detail Facility Start: 12-16-2011 Tobacco smoking stat [facility] Never smoked tobacco [facility] Work Phone: Start: 12-16-2011 Tobacco use and exposure Smokeless tobacco non-user [facility] Work Phone: Start: 05-01-2020 Alcohol intake Current drinke r of alcohol (finding) [facility] Start: 05-01-2020 History of Social function [facility] Start: 05-01-2020 Tobacco use panel [facility] Start: 1940 Sex Assigned At Not on file [facility] Start: 04-01-2020 End: 05-01-2020 Exposure to SARS-CoV-2 (event) Not sure [facility] Clinical Notes 05-01-2020 to 05-20-2021 Maddison Jay (Rt), Tech - 05/01/2020 11:00 AM EST Note Date & Type Note Facility 05-20-2021 Note HNO ID: [id number] Author: Kim Chicas APRN.[facility] Service: ? Author Type: Nurse Practitioner Type: Progress Notes Filed: 05/20/2021 10:15 AM Note Text: HPI Katelin Reaves is a 81 year old female who presents today for CC exposure conor positive covid case on Tuesday. But was around the person for the whole prior week for thanksgiving. .Patient presents with: Acute Visit: asymptomatic; + COVID exposure PAST MEDICAL HISTORY Diagnosis Date - Esophageal reflux - Neoplasm of unspecified nature of breast LEFT - Other and unspecified hyperlipidemia - Other specified anemias - Sleep apnea - Unspecified hypothyroidism PAST SURGICAL HISTORY Procedure Laterality Date - ANALGESIA,EPIDURAL,LABOR AND x2 - CATARACT SURGERY, COMPLEX 2012 Bilateral - DANDC, DIAG AND/OR THERAPEUTIC - EGD W/O BRSH SPECIMEN W/BX 05/25/2016 - LAPS RPR PARAESPHGL HRNA INCL FUNDPLSTY W/MESH 07/20/2016 - MANOMETRY ESOPHAGEAL 06/09/2016 - PAST SURGICAL HISTORY OF RIGHT KNEE - PAST SURGICAL HISTORY OF SKIN GRAFT BACK - PAST SURGICAL HISTORY OF arthroscopic knee - PAST SURGICAL HISTORY OF bilat shoulders - PAST SURGICAL HISTORY OF scar repairs - PAST SURGICAL HISTORY OF calcium removal - PAST SURGICAL HISTORY OF TLK 2008 - PAST SURGICAL HISTORY OF 2004 Lt breast lumpectomy - REM LESIO TRUNK,ARM,LEG 1.1 -2.0CM 08/09/2008 right buttock and right thigh - REM LESIO TRUNK,ARM,LEG 1.1 -2.0CM 10-8-10 LEFT BUTTOCK - REM LESION NEC,HND,SCAL,FEET,GENITALIA 1.1-2.0CM 01/06/12 x3 - REM LESION TRUNK,ARM,LEG > 4.0CM 618-08 RIGHT THIGH - REM LESION TRUNK,ARM,LEG > 4.0CM 10-8-10 RIGHT BUTTOCK - TOTAL KNEE REPLACEMENT Right 2000 - TOTAL KNEE REPLACEMENT Left 2007 ALLERGIES Clindamycin, Dust, and Soy Beans [Other] MEDICATIONS polyethylene glycol 3350 (MIRALAX) 17 gram/dose powder Take 17 g by mouth once daily. pravastatin (PRAVACHOL) 20 mg tablet Take 20 mg by mouth once daily. azelastine (ASTELIN) 0.1% nasal spray Use 1 [place] in each nostril twice daily. levothyroxine (SYNTHROID) 137 mcg tablet Take 125 mcg by mouth daily before breakfast. Taking 125 mcg sertraline (ZOLOFT) 100 mg tablet Take 150 mg by mouth once daily. Taking 1 and 1/2 tabs daily ACETAMINOPHEN (TYLENOL ORAL) Take 650 mg by mouth as needed. Magnesium 250 mg tab Take 250 mg by mouth once daily. CHOLECALCIFEROL, VITAMIN D3, (CHOLECALCIFEROL, VITD3,, BULK,) 2,400 unit/mL liqd 5 Drops once daily. PROAIR HFA 90 mcg/actuation inhaler Inhale 1 Puff as instructed every 4 hours as needed. Multivitamin capsule Take 1 capsule by mouth once daily. FLUTICASONE PROPIONATE (FLUTICASONE NASAL) Use 2 Sprays in the nose once daily. L. gasseri-B. bifidum-B longum (Legal Egg) 1.5 billion cell cap Take 1 capsule by mouth once daily. KELP ORAL Take 1 tablet by mouth once daily. Psyllium Seed-Sucrose (METAMUCIL, SUGAR,) powd Take 1 Tablespoonful by mouth as needed. OMEGA-3/DHA/EPA/FISH OIL (FISH OIL HIGH POTENCY ORAL) Take by mouth once daily. LORATADINE/PSEUDOEPHEDRINE (CLARITIN-D 12 HOUR ORAL) Take by mouth once daily. ESTROGENS, CONJUGATED (PREMARIN VAGINAL) Use vaginally twice a week. FAMILY HISTORY Problem Relation Age of Onset - Breast Cancer Maternal Aunt - Cancer Paternal Grandmother luekemia - Cancer Maternal Grandfather stomach - Heart Mother HI - Heart Father HI Social History Tobacco Use - Smoking status: Never Smoker - Smokeless tobacco: Never Used Substance Use Topics - Alcohol use: Yes Comment: occ wine - Drug use: No ASSESSMENT/PLAN: 1. Exposure to COVID-19 virus - ICD9: V01.79, ICD10: Z20.822 - COVID WITH FLUA+B, ROUTINE Heart RRR, lungs clear all farias. Denies any symptoms at this time. covid tested per request. Kim Chicas APRN.[facility] 01-27-2021 Note HNO ID: [id number] Author: Shreyas Gene, PT Service: ? Author Type: Physical Therapist Type: Progress Notes Filed: 01/27/2021 1:44 PM Note Text: Episode Visit Count: 10 Therapist That Will Oversee The Plan Of Care: Shreyas Mills Start of Care Date: 09/25/20 Onset Date: 09/26/15 Plan of Care Certification Date: 12/17/20 Next Certification Due Date: 03/11/21 Patient Identified by Name and Date of : Yes RE[facility]ABIL[facility]ORTS THERAPY PHYSICAL THERAPY DISCONTINUANCE OF CARE PLAN OF CARE UPDATE: Assessment: Katelin Reaves is discontinued from Physical Therapy services due to Patient/Clinician mutual decision to discontinue current plan of care. Patient was made aware of a closer PFPT option and with personal factors such as primary caregiver for and long drive to current PT, both patient and PT agreeable on discharging POC at this time. See treatment section for further recommendations. Patient was seen for 10 visits from Start of Care Date: 09/25/20 to 01/27/2021 and treatment included: Neuromuscular re-education, Manual therapy and Self-residential management. I believe that patient will maintain functional gains made in this EOC with continued adherence to HEP. Goals for Episode of Care: created on 09/25/20 through 03/11/21 Updated: 01/27/21 Incontinence: Patient to demonstrate independence with HEP: MET Patient to urinate every 2-4 hours: MET, 3-4x a day Urinate 0-1 times per night: MET, 0-1x Increase strength of pelvic floor to Power: 3/5: Not Met, 2/5 to 3-/5 Endurance: 10: MET 10 reps in 10 seconds: Not Met, 6/10 relaxation coordination remaining difficult at this time Decrease pad use to 1 pads / day to show reduced need for changes from leaking: NEARLY MET most days only needing 1 pad Patient able to cough, sneeze, lift and/or exercise without leaking: MET Patient to demonstrate less leaks with urge: MET Patient reports increased water intake to 6-8 glasses / day: MET Decrease frequency of stool leakage to 1 times per month: NEARLY MET, minimal leak just 1x/week on average Patient reports increased fiber up to 25-35 grams per day to regulate bowels: MET, consistently inc firmness in stool consistency Patient demonstrates ability to perform diaphragmatic breathing / relaxation: MET Patient demonstrates ability to correctly isolate pelvic floor muscles : MET Patient reports increased ability to fully empty bladder / bowels: MET Patient reports stool of firmer consistency to combat incontinence: [facility] Goal #4: Increase pelvic muscle awareness / isolation.: [facility] Patient Goals: improve bowel incontinence SUBJECTIVE: . Patient arrives this date states that recent f/u with MD resulted in her finding that PFPT was offered at her Independent living facility. Due to convenience and need for taking care of her she feels that this may be a good option for her to further work on PF strengthening going forward. She states that she has made a lot of progress thus far. Pain: Pain Pain Level: 0 PROMIS Scales T-scores: mean of general population = 50. 5 points is clinically meaningfully difference Percentiles provide an indication of how the patient's score ranks in relation to the general population. Higher percentile rankings indicate better function/quality of life. 50th percentile is the average of the general population and indicates half of respondents had a worse score. T-scores: mean of general population = 50. 5 points is clinically meaningfully difference Percentiles provide an indication of how the patient's score ranks in relation to the general population. Higher percentile rankings indicate better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
[2023-07-04 12:27] LABS: Absolute Lymphocyte Count 1.47 X10^3/uL (0.83-4.51); Absolute Neutrophil Count 3.9 X10^3/uL (2.0-7.7); Basophil# 0.06 X10^3/uL; Basophil% 0.9 % (0-1); Eosinophil# 0.57 X10^3/uL; Eosinophils% 8.6 % (0-5); Hematocrit 44.7 % (37-47); Hemoglobin 14.1 g/dL (12.0-15.0); Lymphocyte # 1.47 X10^3/ul (0.83-4.51); Lymphocyte % 22.2 % (19-41); Mean Corp Hgb Conc 31.5 g/dL (32-36); Mean Corpuscular Hgb 28.9 pg (27.0-32.0); Mean Corpuscular Volume 91.6 fL (81-99); Mean Platelet Vol. 11.7 fl (6.2-12.0); Monocyte# 0.64 X10^3/uL; Monocyte% 9.7 % (0-10); NRBC Flagged by Analyzer 0 % (0-5); Neutrophil # 3.85 X10^3/uL (2.7-7.7); Neutrophil % 58.3 % (47-70); POSITIVE COUNT YES; Platelet Count 176 K/mm3 (150-450); RBC Distribution Width CV 13.6 % (11.6-14.6); RBC Distribution Width SD 46.2 fl (35.1-43.9); Red Blood Count 4.88 M/mm3 (4.2-5.4); White Blood Count 6.6 K/mm3 (4.4-11.0)
[2023-07-04 12:41] LABS: Differential Comment SCANNED; Differential Indicated SCAN CRITERIA MET
[2023-07-04 13:07] LABS: Vitamin B12 388 pg/mL (211-911)
[2023-07-04 14:16] LABS: ALB/GLOB Ratio 0.8 RATIO (0.9-2.4); AST(SGOT) 22 U/L (15-37); Alanine Aminotransfer ALT/SGPT 24 U/L (13-56); Albumin, Serum 3.4 g/dL (3.2-5.0); Alkaline Phosphatase 76 U/L (45-117); Anion Gap 9 (5-15); BUN 17 mg/dL (7-18); BUN/Creat Ratio 18.4 RATIO (10-20); Calcium,Total 8.8 mg/dL (8.5-10.1); Chloride 111 mmol/L (98-107); Creatinine, Serum 0.92 mg/dL (0.55-1.02); EST Glomerular Filtration Rate 61 mL/min (>60); Est Glom Filt Rate - Afr Amer 74 mL/min (>60); Ferritin 326 ng/mL (8-252); Glucose 103 mg/dL (74-106); Magnesium 2.3 mg/dL (1.6-2.6); Protein, Total 7.4 g/dL (6.4-8.2); Sodium Level 143 mmol/L (136-145)
== END | disposition home or self-care (01) ==
LOC: MFPLAB 09:56
PROVIDERS: PCP Family Medicine; Visit Provider Family Medicine
DX: R53.83 Other fatigue (principal); J84.9 Interstitial pulmonary disease, unspecified; D12.6 Benign neoplasm of colon, unspecified
CPT/HCPCS: 36415; 80053; 82607; 82728; 82746; 83735; 85025; 86140

== ENCOUNTER → 2023-09-15 | Outpatient (CLI) | payer MEDICARE, SELFPAY ==
--- NOTE | 2023-09-15 14:04 | CT_ITS ---
STUDY: CT MAXILLOFACIAL SINUSES REASON FOR EXAM: Female, 83 years old. L FACIAL PAIN RADIATION DOSAGE (If Supplied By Facility): CTDIvol = ( 33.06 ) mGy, DLP = ( 742.94 ) mGycm TECHNIQUE: The patient was scanned in a multi detector CT scanner. High resolution axial imaging was performed without the administration of intravenous contrast material. Sagittal and coronal images were reconstructed. Individualized dose optimization techniques were used for this CT. COMPARISON: None. FINDINGS: Benign-appearing submental lymph nodes. Marked degree of a facet joint osteoarthritis and hypertrophy of the C3-C4 vertebrae. FRONTAL SINUSES: Normal aeration, without mucosal inflammatory disease. ETHMOIDAL SINUSES: Normal aeration, without mucosal inflammatory disease. MAXILLARY SINUSES: Normal aeration, without mucosal inflammatory disease. There has been partial resection of the superior medial wall of the left maxillary sinus. SPHENOIDAL SINUSES: Mild opacities in the posterior aspect of the sphenoid sinuses bilaterally more prominent on the left side. There is patency of the bilateral maxillary infundibuli with normal uncinate processes, ethmoid bullae, and hiatus semilunaris. Normal bilateral middle turbinates. Normal bilateral inferior turbinates. Normal midline nasal septum. There is patency of the bilateral nasal airways. The visualized osseous structures are normal. The visualized bilateral orbital contents are normal. CT/Sinus/Facial Bone IMPRESSION: Partial opacification of the sphenoid sinuses bilaterally worse on the left side. Electronically Signed: Oliverio Hung MD at 8:56 EDT ,
== END | disposition home or self-care (01) ==
LOC: CT 14:03
PROVIDERS: PCP Family Medicine; Referring Provider Otolaryngology; Visit Provider Otolaryngology
DX: G50.1 Atypical facial pain (principal)
CPT/HCPCS: 70486

== ENCOUNTER → 2024-01-02 | Outpatient (CLI) | payer MEDICARE, SELFPAY ==
[2024-01-02 13:30] LABS: Bacteria 0 SEEN /hpf (None Seen); Mucous, Urine 0 SEEN /hpf (<or=2+); Red Blood Cells-Urine 0 SEEN /hpf (0-5); Squamous Epithelial Cells - UA 0 SEEN /hpf (5-10); White Blood Cells 0 SEEN /hpf (0-5)
[2024-01-02 13:47] LABS: Color, Urine Yellow (Yellow); Glucose, Dipstick Normal (Normal); Ketone-Dipstick 5 mg/dl (Negative); Leukocyte Esterase-Dipstick 25 /ul (Negative); Nitrite-Dipstick Negative (Negative); Occult Blood-Urine 25 /ul (Negative); Protein-Dipstick 15 mg/dl (Negative); Specific Gravity, Urine 1.015 (1.002-1.030); Urine Bilirubin Dipstick Negative (Negative); Urine Clarity Sl. Cloudy (Clear); Urine Urobilinogen 1 mg/dl (Normal)
== END | disposition home or self-care (01) ==
LOC: LABSPEC 13:21
PROVIDERS: PCP Family Medicine; Referring Provider Nurse Practitioner Family; Visit Provider Nurse Practitioner Family
DX: R30.0 Dysuria (principal)
CPT/HCPCS: 81001; 87086

== ENCOUNTER → 2024-03-06 | Outpatient (CLI) | payer MEDICARE, SELFPAY ==
[2024-03-06 15:53] LABS: T4 Free Direct 1.44 ng/dL (0.76-1.46); Thyroid Stim Hormone (TSH) 0.781 uIU/mL (0.358-3.740)
[2024-03-08 18:11] LABS: Deamidated Gliadin IgA 5 units (0-19); Deamidated Gliadin IgG 4 units (0-19); Endomysial Antibody IgA Negative (Negative); Immunoglobulin A 156 mg/dL (64-422); t-Transglutaminase IgA <2 U/mL (0-3)
== END | disposition home or self-care (01) ==
LOC: MFPLAB 11:59
PROVIDERS: PCP Family Medicine; Visit Provider Family Medicine
DX: E03.9 Hypothyroidism, unspecified (principal); R19.7 Diarrhea, unspecified
CPT/HCPCS: 36415; 82784; 83516; 84439; 84443; 86255

== ENCOUNTER → 2024-03-08 | Outpatient (CLI) | payer MEDICARE, SELFPAY ==
[2024-03-12 02:07] LABS: Pancreatic Elastase, Fecal 258 (>200)
== END | disposition home or self-care (01) ==
LOC: MFPLAB 15:50
PROVIDERS: PCP Family Medicine; Visit Provider Family Medicine
DX: R19.7 Diarrhea, unspecified (principal)
CPT/HCPCS: 82653

== ENCOUNTER → 2024-03-22 | Outpatient (CLI) | payer MEDICARE, SELFPAY ==
--- NOTE | 2024-03-22 11:47 | BI_ITS ---
MAMMOGRAPHY - BILATERAL SCREENING REASON FOR EXAM: Female, 83 years old. Routine annual screening examination. PERTINENT HISTORY: Personal history of breast cancer. Prior left lumpectomy and radiation treatment. Prior bilateral breast reduction surgery. TECHNIQUE: Digital bilateral breast angela (3D mammographic acquisition) in the CC and MLO projections. 2-D mediolateral oblique (MLO) and craniocaudad (CC) views of both breasts were obtained. CAD: Full Field Digital Mammography with Computer Added Detection was performed. COMPARISON: Comparison is made with prior study dated March 17, 2023 and March 16, 2022. FINDINGS: Breast Composition: There are scattered areas of fibroglandular density. There are no dominant masses or suspicious calcifications. Was again, the patient is status post lumpectomy in the upper lateral aspect of the left breast with resultant postoperative scarring and breast deformity. Surgical clips are seen in the left axilla. Overlying left breast skin thickening. No other significant abnormalities are identified. There has been no significant change since the prior study. BI/SCRN MAMM (CAD)W/ANGELA BILAT IMPRESSION: Stable bilateral screening mammogram. Yearly follow-up mammogram recommended. (A) ASSESSMENT CATEGORY: BIRADS Category 2: Benign. A letter regarding these results will be sent to the patient by the facility within 30 days. Approximately 10% of breast cancers are not detected by mammography. A normal mammogram should not delay biopsy of a clinically suspicious abnormality. [id number] Electronically Signed: Oliverio Hung MD at 13:19 EDT ,
== END | disposition home or self-care (01) ==
LOC: OPBI 11:47
PROVIDERS: PCP Family Medicine; Referring Provider Internal Medicine Hematology & Oncology; Visit Provider Internal Medicine Hematology & Oncology
DX: Z12.31 Encounter for screening mammogram for malignant neoplasm of breast (principal); Z85.3 Personal history of malignant neoplasm of breast
CPT/HCPCS: 77063; 77067

== ENCOUNTER → 2024-04-03 | Outpatient (CLI) | payer MEDICARE, SELFPAY | END | disposition home or self-care (01) | LOC: PSN 12:14 | PROVIDERS: PCP Family Medicine; Referring Provider Nurse Practitioner Acute Care; Visit Provider Nurse Practitioner Acute Care | DX: R06.02 Shortness of breath (principal) | CPT/HCPCS: 94060; 94726; 94729 ==

== ENCOUNTER → 2024-04-05 | Outpatient (CLI) | payer MEDICARE, SELFPAY | END | disposition home or self-care (01) | LOC: SL 10:35 | PROVIDERS: PCP Family Medicine; Referring Provider Nurse Practitioner Acute Care; Visit Provider Nurse Practitioner Acute Care | DX: G47.33 Obstructive sleep apnea (adult) (pediatric) (principal) | CPT/HCPCS: 95806 ==

== ENCOUNTER → 2024-04-19 | Outpatient (CLI) | payer MEDICARE, SELFPAY ==
[2024-04-19 12:56] VITALS: PULSE 74; PULSE 75; PULSE 76; PULSE 77; O2SAT 89; O2SAT 90; O2SAT 91; O2SAT 92; O2SAT 93
--- NOTE | 2024-04-19 13:01 | CPS ---
PATIENT HAS BACK PAIN WITH CONTINUED WALKING, SHE TOOK 2 SHORT REST PERIODS FOR THIS DURING TESTING. ENTIRE TEST DONE WITH PT ON ROOM AIR. PT WALKED 425FT.
--- NOTE | 2024-04-20 15:45 | WT_ITS ---
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 Assistive device used: None Pre-test Oxygen Delivery Method Room Air Pulse Ox (%) 92 Pulse Rate (60-100 beats/min) 75 Dyspnea Theresa Scale (0-10) 0 1st minute Oxygen Delivery Method Room Air Pulse Ox (%) 90 Pulse Rate (60-100 beats/min) 74 Dyspnea Theresa Scale (0-10) 0 Number of Rests Taken 0 2nd minute Oxygen Delivery Method Room Air Pulse Ox (%) 91 Pulse Rate (60-100 beats/min) 75 Dyspnea Theresa Scale (0-10) 0 Number of Rests Taken 0 3rd minute Oxygen Delivery Method Room Air Pulse Ox (%) 90 Pulse Rate (60-100 beats/min) 76 Dyspnea Theresa Scale (0-10) 1 Number of Rests Taken 1 4th minute Oxygen Delivery Method Room Air Pulse Ox (%) 89 Pulse Rate (60-100 beats/min) 75 Dyspnea Theresa Scale (0-10) 1 Number of Rests Taken 1 5th minute Oxygen Delivery Method Room Air Pulse Ox (%) 91 Pulse Rate (60-100 beats/min) 76 Dyspnea Theresa Scale (0-10) 1 Number of Rests Taken 0 6th minute Oxygen Delivery Method Room Air Pulse Ox (%) 90 Pulse Rate (60-100 beats/min) 77 Dyspnea Theresa Scale (0-10) 1 Number of Rests Taken 0 Post-test Oxygen Delivery Method Room Air Pulse Ox (%) 93 Pulse Rate (60-100 beats/min) 74 Dyspnea Theresa Scale (0-10) 0 Full Laps Walked 7 Partial Lap, Number of Tiles Walked 12 Total Distance Walked (ft) 425 04/19/24 13:01 Cardiopulmonary Services by rAeli Govea PATIENT HAS BACK PAIN WITH CONTINUED WALKING, SHE TOOK 2 SHORT REST PERIODS FOR THIS DURING TESTING. ENTIRE TEST DONE WITH PT ON ROOM AIR. PT WALKED 425FT. Initialized on 04/19/24 13:01 - END OF NOTE Interpretation Interpretation: The patient was noted to have a decreased baseline oxygen saturation of 92% on room air at rest. The patient then ambulated 425 feet over the course of 6 minutes on room air with the assistance of 2 breaks. Patient reports that breaks were secondary to back pain. Patient did have significant desaturation to as low as 89% with no significant tachycardia. These findings are consistent with a respiratory limitation exercise tolerance. Recommendations Recommendations: No supplemental oxygen is indicated at this time. However, patient will need to be followed closely given level of desaturation.
== END | disposition home or self-care (01) ==
LOC: PSN 12:24
PROVIDERS: PCP Family Medicine; Referring Provider Nurse Practitioner Acute Care; Visit Provider Nurse Practitioner Acute Care
DX: R06.02 Shortness of breath (principal)
CPT/HCPCS: 94618

== ENCOUNTER → 2024-04-30 | Outpatient (CLI) | payer MEDICARE, SELFPAY | END | disposition home or self-care (01) | PROVIDERS: PCP Family Medicine; Referring Provider Family Medicine; Visit Provider Family Medicine | DX: J18.9 Pneumonia, unspecified organism (principal) | CPT/HCPCS: 71046 ==

== ENCOUNTER 2024-06-08 14:32 | Emergency (ER) | payer MEDICARE, SELFPAY ==
[2024-06-08 14:33] VITALS: BP 133/100; PULSE 73; RESP 18; TEMP 36.5; O2SAT 94; BMI 28.7
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
[2024-06-08] MEDS: Diphth,Pertuss(Acell),Tet Vac 0.5 ML Vial IM (15:29)
[2024-06-08 15:32] VITALS: BP 154/80; PULSE 67; RESP 16; TEMP 36.7; O2SAT 97
== END 2024-06-08 15:45 | disposition home or self-care (01) ==
PROVIDERS: Emergency Provider Emergency Medicine; PCP Family Medicine; Visit Provider Emergency Medicine
DX: S00.33XA Contusion of nose, initial encounter (principal); S00.31XA Abrasion of nose, initial encounter; W01.0XXA Fall on same level from slipping, tripping and stumbling without subsequent striking against object, initial encounter; Z23 Encounter for immunization
CPT/HCPCS: 90471; 99282

== ENCOUNTER 2024-09-04 11:21 | Outpatient (CLI) | payer MEDICARE, SELFPAY ==
[2024-09-04 15:40] LABS: Erythrocyte Sedimentation Rate 7 mm/hr (0-30)
[2024-09-04 15:43] LABS: Absolute Lymphocyte Count 1.87 X10^3/uL (0.83-4.51); Basophil# 0.07 X10^3/uL; Basophil% 0.8 % (0-1); Eosinophil# 0.33 X10^3/uL; Eosinophils% 3.6 % (0-5); Hemoglobin 14.7 g/dL (12.0-15.0); Lymphocyte # 1.87 X10^3/ul (0.83-4.51); Lymphocyte % 20.5 % (19-41); Mean Corp Hgb Conc 32.7 g/dL (32-36); Mean Corpuscular Hgb 29.6 pg (27.0-32.0); Mean Corpuscular Volume 90.5 fL (81-99); Mean Platelet Vol. 11.6 fl (6.2-12.0); Monocyte# 0.87 X10^3/uL; Monocyte% 9.5 % (0-10); NRBC Flagged by Analyzer 0 % (0-5); Neutrophil # 5.97 X10^3/uL (2.7-7.7); Neutrophil % 65.4 % (47-70); Platelet Count 196 K/mm3 (150-450); RBC Distribution Width CV 13.6 % (11.6-14.6); RBC Distribution Width SD 45.1 fl (35.1-43.9); Red Blood Count 4.97 M/mm3 (4.2-5.4); White Blood Count 9.1 K/mm3 (4.4-11.0)
[2024-09-04 15:46] LABS: ALB/GLOB Ratio 1.2 RATIO (0.9-2.4); AST(SGOT) 18 U/L (<=31); Alanine Aminotransfer ALT/SGPT 10 U/L (<=34); Albumin, Serum 4.1 g/dL (3.4-4.8); Alkaline Phosphatase 78 U/L (35-104); Anion Gap 9 (5-15); BUN 18 mg/dL (4-19); BUN/Creat Ratio 19.3 RATIO (10-20); Calcium,Total 9.3 mg/dL (7.6-11.0); Carbon Dioxide 23.3 mmol/L (21.0-32.0); Chloride 108 mmol/L (98-108); Creatinine, Serum 0.91 mg/dL (0.70-1.20); EST Glomerular Filtration Rate 61 (>60); Globulin 3.4 g/dL (2.2-4.2); Glucose 70 mg/dL (70-99); Iron Binding Capacity,Total 246 ug/dL (250-450); Potassium 3.9 mmol/L (3.3-5.1); Protein, Total 7.5 g/dL (5.9-8.4); Sodium Level 141 mmol/L (133-145); Total Bilirubin 0.56 mg/dL (0.00-1.30); Vitamin B12 485 pg/mL (180-914)
[2024-09-04 16:08] LABS: FOLATES,SERUM (FOLIC ACID) 6.14 ng/mL (4.60-34.80)
[2024-09-04 19:16] LABS: CRP < 3.00 mg/L (0.0-3.0); Iron 82 ug/dL (50-170); Iron Binding Capacity,Unsat 164 ug/dL (228-428); PERCENT IRON SATURATION 33.3 % (13-59)
[2024-09-06 12:08] LABS: ANTINUCLEAR ANTIBODIES DIRECT Negative (Negative)
== END 2024-09-04 23:59 | disposition home or self-care (01) ==
LOC: MFPLAB 11:22
PROVIDERS: PCP Family Medicine; Referring Provider Family Medicine; Visit Provider Family Medicine
DX: J84.9 Interstitial pulmonary disease, unspecified (principal); R53.83 Other fatigue
CPT/HCPCS: 36415; 80053; 82607; 82746; 83540; 83550; 84443; 85025; 85652; 86038; 86140

== ENCOUNTER 2024-09-14 18:40 | Observation (INO) | payer MEDICARE, SELFPAY ==
[2024-09-14] VITALS (21 sets, daily range): BP systolic 102–139; BP diastolic 51–86; PULSE 85–107; RESP 18–44; TEMP 36.7–37.7; O2SAT 89–96; BMI 31.2
--- NOTE | 2024-09-14 19:16 | EKG12_ITS ---
Test Reason : DYSRHYTHMIA Blood Pressure : */* mmHG Vent. Rate : 97 BPM Atrial Rate : 97 BPM P-R Int : 186 ms QRS Dur : 106 ms QT Int : 400 ms P-R-T Axes : 58 2 80 degrees QTcB Int : 508 ms Normal sinus rhythm Cannot rule out Inferior infarct , age undetermined Abnormal ECG Confirmed by LYNN CADENA, ADA ([id number]), manager editorial BRISEYDA VEGA ([id number]) on 09/17/2024 9:22:22 AM Referred By: Confirmed By: ADA BAILEY MD
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
[2024-09-14] MEDS: Ipratropium/Albuterol Sulfate 3 ML AMPUL.NEB INHALATION (19:40)
[2024-09-14] MEDS: 0.9% Normal Saline (500mL Bag) 500 ML 1000 ML IV (19:56)
[2024-09-14] MEDS: MethylPREDNISolone 125 MG/2 ML Vial IV (19:56)
--- NOTE | 2024-09-14 20:05 | RAD_ITS ---
PROCEDURE: CHEST PA AND LATERAL 09/14/2024 REASON FOR EXAM: DYSPNEA TECHNIQUE: Frontal and lateral views of the chest. COMPARISON: 04/30/2024 FINDINGS: Patient is rotated to the left. Lower lung volume study. Coarse irregular chronic interstitial changes are similar in appearance. No significant interval change in appearance of the chest. No focal consolidation or pleural effusion identified. Cardiac and mediastinal contours appear within limits. Gaseous distention in the left upper quadrant may be stomach or possibly colon. Surgical clips again noted. RAD/Chest PA and Lateral IMPRESSION: Again note of chronic interstitial changes without acute appearing process iden tified. Gaseous distention in the left upper quadrant may be stomach or possibly colon. May benefit from nasogastric decompression, clinically correlate. Reading Location: [id number]
[2024-09-14 20:09] LABS: Absolute Neutrophil Count 12.4 X10^3/uL (2.0-7.7); Basophil# 0.02 X10^3/uL; Basophil% 0.2 % (0-1); Hematocrit 36.8 % (37-47); Lymphocyte % 1.5 % (19-41); Mean Corp Hgb Conc 35.3 g/dL (32-36); Mean Corpuscular Volume 84.8 fL (81-99); Mean Platelet Vol. 11.6 fl (6.2-12.0); Monocyte# 0.37 X10^3/uL; Monocyte% 2.8 % (0-10); NRBC Flagged by Analyzer 0 % (0-5); Neutrophil # 12.41 X10^3/uL (2.7-7.7); Neutrophil % 94.3 % (47-70); POSITIVE DIFFERENTIAL YES; Platelet Count 111 K/mm3 (150-450); RBC Distribution Width CV 13.1 % (11.6-14.6); RBC Distribution Width SD 40.6 fl (35.1-43.9); Red Blood Count 4.34 M/mm3 (4.2-5.4); White Blood Count 13.2 K/mm3 (4.4-11.0)
[2024-09-14 20:35] LABS: Anion Gap 15 (5-15); BUN 34 mg/dL (4-19); BUN/Creat Ratio 21.6 RATIO (10-20); Calcium,Total 8.6 mg/dL (7.6-11.0); Carbon Dioxide 17.9 mmol/L (21.0-32.0); Chloride 99 mmol/L (98-108); Creatinine, Serum 1.57 mg/dL (0.70-1.20); EST Glomerular Filtration Rate 32 (>60); Glucose 136 mg/dL (70-99); Potassium 3.1 mmol/L (3.3-5.1); Sodium Level 131 mmol/L (133-145)
[2024-09-14] MEDS: 0.9% Normal Saline (1000mL) 1,000 ML 999 ML IV (21:27)
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
[2024-09-14] MEDS: Potassium Chloride Oral Tablet 20 MEQ 60 MEQ PO (23:42)
[2024-09-15] VITALS (11 sets, daily range): BP systolic 103–139; BP diastolic 57–81; PULSE 62–77; RESP 16–20; TEMP 36.5–36.9; O2SAT 94–97; BMI 28.2; BMI 29.0
[2024-09-15 00:23] LABS: Magnesium 1.8 mg/dL (1.5-2.2)
[2024-09-15] MEDS: Ceftriaxone 1 GM/50 ML BAG IV ×2 (01:36→20:10)
[2024-09-15] MEDS: KCL 20MEQ in 0.9% NS 20 MEQ/1,000 ML IV.SOLN. 75 MEQ IV (01:40)
[2024-09-15] MEDS: Acetaminophen 325 MG Tablet 650 MG PO (01:43)
[2024-09-15 04:29] LABS: Absolute Lymphocyte Count 0.45 X10^3/uL (0.83-4.51); Absolute Neutrophil Count 21.3 X10^3/uL (2.0-7.7); Basophil# 0.05 X10^3/uL; Basophil% 0.2 % (0-1); Hematocrit 33.5 % (37-47); Hemoglobin 11.6 g/dL (12.0-15.0); Lymphocyte # 0.45 X10^3/ul (0.83-4.51); Mean Corp Hgb Conc 34.6 g/dL (32-36); Mean Corpuscular Volume 86.6 fL (81-99); Mean Platelet Vol. 12.1 fl (6.2-12.0); Monocyte# 0.49 X10^3/uL; Monocyte% 2.1 % (0-10); NRBC Flagged by Analyzer 0 % (0-5); Neutrophil # 21.25 X10^3/uL (2.7-7.7); Neutrophil % 93.1 % (47-70); POSITIVE DIFFERENTIAL YES; POSITIVE MORPHOLOGY YES; Platelet Count 107 K/mm3 (150-450); RBC Distribution Width CV 13.2 % (11.6-14.6); RBC Distribution Width SD 41.8 fl (35.1-43.9); Red Blood Count 3.87 M/mm3 (4.2-5.4); White Blood Count 22.8 K/mm3 (4.4-11.0)
[2024-09-15 05:31] LABS: Cholesterol 110 mg/dL (<=200); High Density Lipoprotein 40 mg/dL; Low Density Lipoprotein Calc. 47 mg/dL; Phosphorus 3.5 mg/dL (2.7-4.5); Triglycerides 114 mg/dL; Very Low Density Lipoprotein 23 mg/dL (5-40); cholesterol:hdl ratio screen 2.72
[2024-09-15 05:33] LABS: Differential Indicated SCAN CRITERIA MET
[2024-09-15 05:54] LABS: AST(SGOT) 22 U/L (<=31); Alanine Aminotransfer ALT/SGPT 12 U/L (<=34); Albumin, Serum 3.2 g/dL (3.4-4.8); Alkaline Phosphatase 84 U/L (35-104); Anion Gap 13 (5-15); BUN 34 mg/dL (4-19); BUN/Creat Ratio 22.2 RATIO (10-20); Calcium,Total 8.3 mg/dL (7.6-11.0); Carbon Dioxide 18.1 mmol/L (21.0-32.0); Chloride 102 mmol/L (98-108); Creatinine, Serum 1.51 mg/dL (0.70-1.20); EST Glomerular Filtration Rate 33 (>60); Globulin 3.2 g/dL (2.2-4.2); Glucose 202 mg/dL (70-99); Potassium 4.1 mmol/L (3.3-5.1); Protein, Total 6.4 g/dL (5.9-8.4); Sodium Level 133 mmol/L (133-145); Total Bilirubin 0.48 mg/dL (0.00-1.30)
[2024-09-15] MEDS: Enoxaparin 30 MG/0.3 ML Syringe SC (06:10)
[2024-09-15] MEDS: Levothyroxine 125 MCG Tablet PO (06:10)
--- NOTE | 2024-09-15 07:23 | PN.HOSP_ITS ---
Reason for Visit Reason for Visit: Diagnoses Obesity, class 1 (09/14/24) Dehydration (09/14/24) Hypokalemia (09/14/24) Obstructive sleep apnea (adult) (pediatric) (09/14/24) Pulmonary hypertension, unspecified (09/14/24) Moderate persistent asthma with (acute) exacerbation (09/14/24) Interstitial pulmonary disease, unspecified (09/14/24) Acute kidney failure, unspecified (09/14/24) Adverse effect of unspecified drugs, medicaments and biological substances, initial encounter (09/14/24) Subjective Subjective Breathing ok. Not on oxygen at home. Objective Data Objective Data Vital Signs: Vital Signs Temp Pulse Resp BP Pulse Ox O2 Del Method O2 Flow Rate 36.9 C 77 20 H 112/57 L 94 Nasal Cannula 2.5 09/15/24 00:54 09/15/24 00:54 09/15/24 00:54 09/15/24 00:54 09/15/24 01:28 09/15/24 01:28 09/15/24 01:28 Oxygen Flow Rate (L/min) 2.5 Oxygen Delivery Method Nasal Cannula Weight: 74.2 kg Body Mass Index (BMI) 29.0 Intake & Output: Intake and Output for Last 24 Hours 09/13/24 09/14/24 09/15/24 23:59 23:59 23:59 Intake Total 1500 / 1500 50 / 50 Balance 1500 / 1500 50 / 50 Lab / Micro Data 09/15/24 03:47 09/15/24 03:47 Labs: Laboratory Results - last 24 hr 09/14/24 19:28: WBC 13.2 H, RBC 4.34, Hgb 13.0, Hct 36.8 L, MCV 84.8, MCH 30.0, MCHC 35.3, RDW Std Deviation 40.6, RDW Coeff of Nishi 13.1, Plt Count 111 L, MPV 11.6, Immature Gran % (Auto) 1.200 H, Neut % (Auto) 94.3 H, Lymph % (Auto) 1.5 L , [place] % (Auto) 2.8, Eos % (Auto) 0.0, Baso % (Auto) 0.2, Absolute Neuts (auto) 12.4 H, Absolute Lymphs (auto) 0.20 L, Nucleated RBC % 0, Sodium 131 L, P otassium 3.1 L, Chloride 99, Carbon Dioxide 17.9 L, Anion Gap 15, BUN 34 H, C reatinine 1.57 H, Est GFR (MDRD) Non-Af 32 L, BUN/Creatinine Ratio 21.6 H, G lucose 136 H, Calcium 8.6, Magnesium 1.8 09/15/24 03:47: WBC 22.8 H, RBC 3.87 L, Hgb 11.6 L, Hct 33.5 L, MCV 86.6, MCH 30.0, MCHC 34.6, RDW Std Deviation 41.8, RDW Coeff of Nishi 13.2, Plt Count 107 L, MPV 12.1 H, Immature Gran % (Auto) 2.600 H, Neut % (Auto) 93.1 H, Lymph % (Auto) 2.0 L, [place] % (Auto) 2.1, Eos % (Auto) 0.0, Baso % (Auto) 0.2, Absolute Neuts (auto) 21.3 H, Absolute Lymphs (auto) 0.45 L, Nucleated RBC % 0, Sodium 133, Potassium 4.1, Chloride 102, Carbon Dioxide 18.1 L, Anion Gap 13, BUN 34 H, C reatinine 1.51 H, Estim Creat Clear Calc 25.80 L, Est GFR (MDRD) Non-Af 33 L, B UN/Creatinine Ratio 22.2 H, Glucose 202 H, Calcium 8.3, Phosphorus 3.5, Total Bilirubin 0.48, AST 22, ALT 12, Alkaline Phosphatase 84, Total Protein 6.4, A lbumin 3.2 L, Globulin 3.2, Albumin/Globulin Ratio 1.0, Triglycerides 114, Cholesterol 110, LDL Cholesterol, Calc 47, VLDL Cholesterol 23, HDL Cholesterol 40, Cholesterol/HDL Ratio 2.72, TSH 1.250 Micro: Microbiology 09/14/24 23:00 Mucosa - Nasopharyngeal Respiratory Panel (PCR) - Final 09/14/24 19:28 Mucosa - Nose SARS-CoV-2, Influenza & RSV (PCR) - Final Radiography Diagnostic Testing: Radiology Impression Chest X-Ray 09/14/24 20:05 IMPRESSION: Again note of chronic interstitial changes without acute appearing process identified. Gaseous distention in the left upper quadrant may be stomach or possibly colon. May benefit from nasogastric decompression, clinically correlate. Reading Location: [facility] Rhythm Strip Rhythm Strip: Sinus Rhythm Rate: 97 Ectopy: None Physical Exam Const alert and no apparent distress HEENT head/scalp atraumatic and moist oral mucous membranes Resp normal respiratory effort and no retractions Resp Narrative: bilaterally crackles. Cardio regular rate, regular rhythm, S1 normal heart sound and S2 normal heart sound GI normal to inspection, nondistended, normoactive bowel sounds, soft to palpation, non-tender and non-distended Extremity normal to inspection and full ROM Neuro Sensorium / Orientation: awake and alert Assessment & Plan Assessment/Plan (1) Acute asthma exacerbation: QUALIFIERS: Asthma persistence: persistent Asthma severity: m oderate Qualified Code(s): J45.41 - Moderate persistent asthma with (acute) exacerbation PLAN: Plus AE-ILD. CXR shows chronic changes, though it does show marked distention of the abdomen. Will check AXR. Respiratory panel negative. COVID/RSV/Influenza negative. Reviewed records from Dr. Zhou and Shannon Fraser. PLAN: Plan Chronic conditions: * hypothyroidism: levothyroxine * depression: sertraline * HLD: statin * UTI: bactrim held. CTX. VTE prophylaxis: LMWH. Charges/Coding Visit Charges Inpatient E&M: 79578 Subs Hosp L2
--- NOTE | 2024-09-15 08:05 | RAD_ITS ---
PROCEDURE: ABDOMEN SINGLE VIEW (PORTABLE) 09/15/2024 REASON FOR EXAM: 84-year-old female, ABDOMINAL DISTENTION TECHNIQUE: Single view abdomen. COMPARISON: Chest radiograph 1 day prior. FINDINGS: Bowel gas: Bowel gas pattern is normal. No evidence of bowel obstruction. Calcifications: No suspicious calcifications. Bones: There are degenerative changes of the spine. Other: Spinal stimulator with battery pack overlying the right lower quadrant. 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 RAD/Abdomen Single View (Portable) IMPRESSION: NO ACUTE FINDINGS Reading Location: [id number]
[2024-09-15] MEDS: Pantoprazole Sodium 40 MG Tablet PO (09:49)
[2024-09-15] MEDS: Multivitamin (Healthy Eyes) Capsule 1 CAP PO (09:49)
[2024-09-15] MEDS: Lactobacillis Acidophilus 1 CAP PO ×4 (09:49→20:10)
[2024-09-15] MEDS: MethylPREDNISolone 125 MG/2 ML Vial 60 MG IV ×2 (09:49→20:07)
[2024-09-15] MEDS: Pravastatin 20 MG Tablet PO (09:49)
[2024-09-15] MEDS: Sertraline 100 MG Tablet 150 MG PO (09:50)
[2024-09-15] MEDS: Zinc Sulfate 50 mg zinc (220 mg) ORAL capsule PO (09:50)
[2024-09-15] MEDS: Cholecalciferol (Vit D3) 125 MCG CAPSULE (5,000 UNITS) PO (09:50)
[2024-09-15] MEDS: 0.9% Saline Lock 10 ML Syringe IV ×3 (09:52→22:57)
--- NOTE | 2024-09-15 10:00 | CASEMGMT ---
RN CM Face to Face with patient for initial transition planning/care coordination assessment. RN CM introduced self and role at [facility]. Patient sitting in chair, alert and oriented, at bedside. Patient willing to participate in assessment and is able to answer all questions appropriately. Care providers, pharmacy, and demographics verified. Strata: 2 PCP: Delon Specialists: Isabella Zhou, automobile club information clerk; Urologist in [place] Preferred Pharmacy: [facility] Insurance: [facility] Prescription Benefit: yes Living Will/HPOA: yes, Faizan LNOK: , son, daughter Living Arrangements: Patient lives with in independent living at [facility] in a 2nd floor apartment with elevator. Patient states she is independent at home. Transportation: self, WVM, daughter DME/HHC: Patient states she has shower chair, raised toilet, cane, rollator at home. Will monitor for home oxygen, prefers [employer]. Patient has been to [facility] in the past. No previous HHC, will follow therapy. Patient wishes to discharge home, will monitor progress with therapy for possible HHC at discharge. Patient states she has no further needs or concerns at this time. CM to follow for discharge planning needs that may arise. Disposition Plan: Patient to discharge home with family support and follow-up plans in place. Will monitor for possible home oxygen and HHC. Clau WYATT, RN, CM
[2024-09-15] MEDS: Folic Acid 1 MG in 0.9% Normal Saline (50mL Bag) 50 ML 200 MG IV (11:17)
[2024-09-15] MEDS: Ferrous Sulfate 325 MG Tablet PO (12:25)
[2024-09-15] MEDS: Ascorbic Acid 500 MG Tablet 1000 MG PO ×2 (12:25→17:56)
--- NOTE | 2024-09-15 15:58 | CASEMGMT ---
AALIYAH ANDRADE reviewed progress with therapy. No therapy recommended. AALIYAH CM in to discuss needs at discharge. AALIYAH ANDRADE discussed no therapy recommended and patient declined HHC for herself but inquired about HHC for her . AALIYAH ANDRADE advised patient to follow-up with 's PCP to setup HHC. Patient voiced understanding and had no further questions.
[2024-09-15] MEDS: Tolterodine Tartrate 4 MG CAP.SA PO (20:09)
[2024-09-15] MEDS: MELATONIN 3 MG TABLET PO (22:57)
[2024-09-16] VITALS (8 sets, daily range): BP systolic 147–160; BP diastolic 78–80; PULSE 58–80; RESP 18–20; TEMP 36.3–36.4; O2SAT 90–98; BMI 29.9
[2024-09-16] MEDS: Enoxaparin 30 MG/0.3 ML Syringe SC (05:23)
[2024-09-16] MEDS: Levothyroxine 125 MCG Tablet PO (05:23)
[2024-09-16 07:13] LABS: Absolute Lymphocyte Count 0.54 X10^3/uL (0.83-4.51); Absolute Neutrophil Count 16.6 X10^3/uL (2.0-7.7); Basophil# 0.02 X10^3/uL; Basophil% 0.1 % (0-1); Hematocrit 38.1 % (37-47); Hemoglobin 12.7 g/dL (12.0-15.0); Lymphocyte # 0.54 X10^3/ul (0.83-4.51); Mean Corp Hgb Conc 33.3 g/dL (32-36); Mean Corpuscular Hgb 29.8 pg (27.0-32.0); Mean Corpuscular Volume 89.4 fL (81-99); Mean Platelet Vol. 12.3 fl (6.2-12.0); Monocyte# 0.93 X10^3/uL; Monocyte% 5.1 % (0-10); NRBC Flagged by Analyzer 0 % (0-5); Neutrophil # 16.61 X10^3/uL (2.7-7.7); Neutrophil % 91.2 % (47-70); POSITIVE DIFFERENTIAL YES; Platelet Count 135 K/mm3 (150-450); RBC Distribution Width CV 13.5 % (11.6-14.6); RBC Distribution Width SD 44.2 fl (35.1-43.9); Red Blood Count 4.26 M/mm3 (4.2-5.4); White Blood Count 18.2 K/mm3 (4.4-11.0)
[2024-09-16 07:38] LABS: Phosphorus 3.9 mg/dL (2.7-4.5)
--- NOTE | 2024-09-16 07:54 | PN.HOSP_ITS ---
Reason for Visit Reason for Visit: Diagnoses Obesity, class 1 (09/14/24) Dehydration (09/14/24) Hypokalemia (09/14/24) Obstructive sleep apnea (adult) (pediatric) (09/14/24) Pulmonary hypertension, unspecified (09/14/24) Moderate persistent asthma with (acute) exacerbation (09/14/24) Interstitial pulmonary disease, unspecified (09/14/24) Acute kidney failure, unspecified (09/14/24) Adverse effect of unspecified drugs, medicaments and biological substances, initial encounter (09/14/24) Subjective Subjective Breathing better. Objective Data Objective Data Vital Signs: Vital Signs Temp Pulse Resp BP Pulse Ox O2 Del Method O2 Flow Rate 36.3 C L 80 20 H 149/79 H 98 Room Air 2 09/16/24 05:17 09/16/24 05:17 09/16/24 05:17 09/16/24 05:17 09/16/24 05:17 09/16/24 05:23 09/15/24 20:16 Oxygen Flow Rate (L/min) 2 Oxygen Delivery Method Room Air Weight: 76.5 kg Body Mass Index (BMI) 29.9 Intake & Output: Intake and Output for Last 24 Hours 09/14/24 09/15/24 09/16/24 23:59 23:59 23:59 Intake Total 1500 / 1500 1510.2 / 1510.2 Balance 1500 / 1500 1510.2 / 1510.2 Lab / Micro Data 09/16/24 05:15 09/16/24 05:15 Labs: Laboratory Results - last 24 hr 09/16/24 05:15: WBC 18.2 H, RBC 4.26, Hgb 12.7, Hct 38.1, MCV 89.4, MCH 29.8, MCHC 33.3, RDW Std Deviation 44.2 H, RDW Coeff of Nishi 13.5, Plt Count 135 L, MPV 12.3 H, Immature Gran % (Auto) 0.600, Neut % (Auto) 91.2 H, Lymph % (Auto) 3.0 L , [place] % (Auto) 5.1, Eos % (Auto) 0.0, Baso % (Auto) 0.1, Absolute Neuts (auto) 16.6 H, Absolute Lymphs (auto) 0.54 L, Nucleated RBC % 0, Phosphorus 3.9 Micro: Microbiology 09/14/24 23:00 Mucosa - Nasopharyngeal Respiratory Panel (PCR) - Final 09/14/24 19:28 Mucosa - Nose SARS-CoV-2, Influenza & RSV (PCR) - Final Radiography Diagnostic Testing: Radiology Impression KUB X-Ray 09/15/24 08:05 IMPRESSION: NO ACUTE FINDINGS Reading Location: [facility] Rhythm Strip Rhythm Strip: Sinus Rhythm Rate: 97 Ectopy: None Physical Exam Const alert and no apparent distress HEENT head/scalp atraumatic and moist oral mucous membranes Resp normal respiratory effort, no retractions, no use of accessory muscles and clear to auscultation bilaterally Cardio regular rate, regular rhythm, S1 normal heart sound and S2 normal heart sound GI normal to inspection, nondistended, normoactive bowel sounds, soft to palpation, non-tender and non-distended Extremity normal to inspection and full ROM Neuro Sensorium / Orientation: awake and alert Assessment & Plan Assessment/Plan (1) Acute asthma exacerbation: QUALIFIERS: Asthma persistence: persistent Asthma severity: m oderate Qualified Code(s): J45.41 - Moderate persistent asthma with (acute) exacerbation PLAN: Plus AE-ILD. CXR shows chronic changes, though it does show marked distention of the abdomen. AXR unremarkable. Respiratory panel negative. COVID/RSV/Influenza negative. continue BDs and steroids. DC with 5-day course of prednisone. Ambulatory oxygen assessment: 95% at rest on room air. 90% with ambulation on room air. Therefore, no oxygen required. PLAN: Plan Chronic conditions: * hypothyroidism: levothyroxine * depression: sertraline * HLD: statin * UTI: bactrim held. CTX. VTE prophylaxis: LMWH.
[2024-09-16 07:59] LABS: Anion Gap 10 (5-15); BUN 32 mg/dL (4-19); BUN/Creat Ratio 26.3 RATIO (10-20); Calcium,Total 8.8 mg/dL (7.6-11.0); Carbon Dioxide 18.4 mmol/L (21.0-32.0); Chloride 111 mmol/L (98-108); EST Glomerular Filtration Rate 44 (>60); Estimated Creatinine Clearance 32.96 ml/min (50-250); Glucose 166 mg/dL (70-99); Sodium Level 140 mmol/L (133-145)
[2024-09-16] MEDS: Ascorbic Acid 500 MG Tablet 1000 MG PO (08:22)
[2024-09-16] MEDS: Multivitamin (Healthy Eyes) Capsule 1 CAP PO (08:23)
[2024-09-16] MEDS: Lactobacillis Acidophilus 1 CAP PO ×2 (08:23→13:37)
[2024-09-16] MEDS: Pantoprazole Sodium 40 MG Tablet PO (08:23)
[2024-09-16] MEDS: Pravastatin 20 MG Tablet PO (08:23)
[2024-09-16] MEDS: Zinc Sulfate 50 mg zinc (220 mg) ORAL capsule PO (08:24)
[2024-09-16] MEDS: MethylPREDNISolone 125 MG/2 ML Vial 60 MG IV (08:24)
[2024-09-16] MEDS: Sertraline 100 MG Tablet 150 MG PO (08:24)
[2024-09-16] MEDS: Cholecalciferol (Vit D3) 125 MCG CAPSULE (5,000 UNITS) PO (08:24)
[2024-09-16] MEDS: 0.9% Saline Lock 10 ML Syringe IV (08:27)
--- NOTE | 2024-09-16 10:19 | NURSING ---
downtime documentation 09/16/24 12am until 7am
[2024-09-16] MEDS: Ferrous Sulfate 325 MG Tablet PO (12:03)
--- NOTE | 2024-09-16 13:55 | DS.PCM_ITS ---
Providers Date of Admission: 09/14/24 Primary Care Physician: Dr. Roger Jernigan MD Reason For Visit: AE ASTHMA/ILD, RESPIRATORY INSUFFICIENCY Diagnosis Discharge Diagnosis (1) Acute asthma exacerbation: Status: Acute Code(s): J45.901 - Unspecified asthma with (acute) exacerbation Qualifiers: Asthma severity: moderate Asthma persistence: persistent Qualified Code(s): J45.41 - Moderate persistent asthma with (acute) exacerbation Plan: Plus AE-ILD. CXR shows chronic changes, though it does show marked distention of the abdomen. AXR unremarkable. Respiratory panel negative. COVID/RSV/Influenza negative. continue BDs and steroids. DC with 5-day course of prednisone. Ambulatory oxygen assessment: 95% at rest on room air. 90% with ambulation on room air. Therefore, no oxygen required. No new infiltrate, but cannot rule out underlying infection. Pt with marked leukocytosis (but no fever). Will discharge with Augmentin. Plan Chronic conditions: * hypothyroidism: levothyroxine * depression: sertraline * HLD: statin * UTI: bactrim held. CTX. VTE prophylaxis: LMWH. Medications at Discharge Home Medications sertraline 100 mg tablet 150 mg PO DAILY depression 04/13/19 levothyroxine 125 mcg tablet 125 mcg PO DAILY thyroid 03/17/20 pravastatin 20 mg tablet 20 mg PO .COMPLEX cholesterol 03/17/20 solifenacin 10 mg tablet 10 mg PO DINNER bladder 02/19/22 Oral appliance #1 ea 04/26/23 ferrous sulfate 325 mg (65 mg iron) tablet (Feosol) 325 mg PO DAILY REPLACEMENT 10/06/23 ithuhkxu-nbqkpkc-quum-lutein tablet See Rx Instructions PO DAILY REPLACEMENT 10/06/23 omeprazole 40 mg capsule,delayed release 40 mg PO QDAY STOMACH 03/26/24 fluticasone propionate 50 mcg/actuation nasal spray,suspension 1 - 2 spray intranasal DAILY ALLERGIES 09/15/24 amoxicillin 875 mg-potassium clavulanate 125 mg tablet 1 tab PO BID #10 tabs 09/16/24 prednisone 20 mg tablet 40 mg (2 x 20 mg) PO DAILY #10 tabs 09/16/24 Hospital Course Operations None Procedures None Summary of Care Provided Minutes Spent on Discharge: 32 Weight / BMI Weight Weight: 76.5 kg Body Mass Index (BMI) 29.9 ABG / Lab / Microbiology Data 09/16/24 05:15 09/16/24 05:15 Laboratory: Laboratory Results - last 24 hr 09/16/24 05:15: WBC 18.2 H, RBC 4.26, Hgb 12.7, Hct 38.1, MCV 89.4, MCH 29.8, MCHC 33.3, RDW Std Deviation 44.2 H, RDW Coeff of Nishi 13.5, Plt Count 135 L, MPV 12.3 H, Immature Gran % (Auto) 0.600, Neut % (Auto) 91.2 H, Lymph % (Auto) 3.0 L , [place] % (Auto) 5.1, Eos % (Auto) 0.0, Baso % (Auto) 0.1, Absolute Neuts (auto) 16.6 H, Absolute Lymphs (auto) 0.54 L, Nucleated RBC % 0, Sodium 140, Potassium 5.0, Chloride 111 H, Carbon Dioxide 18.4 L, Anion Gap 10, BUN 32 H, Creatinine 1.20, Estim Creat Clear Calc 32.96 L, Est GFR (MDRD) Non-Af 44 L, BUN/Creatinine Ratio 26.3 H, Glucose 166 H, Calcium 8.8, Phosphorus 3.9 Microbiology: Microbiology 09/14/24 23:00 Mucosa - Nasopharyngeal Respiratory Panel (PCR) - Final 09/14/24 19:28 Mucosa - Nose SARS-CoV-2, Influenza & RSV (PCR) - Final D/C Instructions Discharge Diet: No restrictions DC O2, CPAP, BIPAP Needs Home O2 Discharge instructions: No Meaningful Use Info Meaningful Use Meaningful Use Diagnoses (Choose all that apply): None applicable Ischemic Stroke Statin Dosing Therapy Reference: STATIN DOSE THERAPY REFERENCE: * Patients > 75 years receive moderate or high dose statin therapy. * Patients 75 years or YOUNGER should receive HIGH intensity statin dose unless contraindicated. You will be required to document reason for non-treatment if statin daily dose does not meet guidelines. HIGH DOSE STATIN THERAPY DAILY Atorvastatin > than or = to 40 mg Rosuvastatin > than or = to 20 mg Amlodipine + Atorvastatin > than or = to 2.5/40 mg Ezetimibe + Simvastatin 10/80 mg Simvastatin 80mg Discharge Plan Admission Admit Date/Time: 09/14/24 23:23 Primary Reason for Your Visit: Acute exacerbation of asthma. Attending Provider: Roger Dixon Primary Care Provider: Roger Jernigan Consulting Providers: Sha Yu Instructions Additional Instructions / Restrictions: You had an acute exacerbation of asthma complicated by your known interstitial lung disease (ILD). You responded to steroids and breathing treatments. Follow up with Janet Fraser for your follow up pulmonary appointment on 10/02/2024. Discharge Orders/Prescriptions Prescriptions: New prednisone 20 mg tablet 40 mg PO DAILY Qty: 10 0RF amoxicillin-pot clavulanate 875-125 mg tablet 1 tab PO BID Qty: 10 0RF Continued (DME) Oral appliance See Rx Instructions .ROUTE .MEDSUPPLY Qty: 1 0RF Rx Instructions: As directed ferrous sulfate [Feosol] 325 mg (65 mg iron) tablet 325 mg PO DAILY tdkcyigg-bsshsgi-uzom-lutein Tablet See Rx Instructions PO DAILY Rx Instructions: orally daily; omeprazole 40 mg capsule,delayed release(DR/EC) 40 mg PO QDAY sertraline 100 mg tablet 150 mg PO DAILY Patient Comments: mood levothyroxine 125 MCG tablet 125 mcg PO DAILY pravastatin 20 MG tablet 20 mg PO .COMPLEX Rx Instructions: 20 mg orally 1700; solifenacin 10 mg tablet 10 mg PO DINNER Patient Comments: take 1 tablet by mouth once daily fluticasone propionate 50 mcg/actuation spray,suspension 1 - 2 spray INTRANASAL DAILY Referrals / Follow Up: Roger Jernigan MD [Primary Care Provider] - Charges/Coding Visit Charges Inpatient E&M: 35476 Disch Hosp >30min
== END 2024-09-16 16:17 | disposition home or self-care (01) ==
LOC: ED 22:11 → MS3 23:54
PROVIDERS: Admitting Provider Internal Medicine; Emergency Provider Emergency Medicine; PCP Family Medicine
DX: J45.41 Moderate persistent asthma with (acute) exacerbation (principal); I27.20 Pulmonary hypertension, unspecified; J84.9 Interstitial pulmonary disease, unspecified; N17.9 Acute kidney failure, unspecified; E03.9 Hypothyroidism, unspecified; F32.A Depression, unspecified; D50.9 Iron deficiency anemia, unspecified; E66.9 Obesity, unspecified; E78.5 Hyperlipidemia, unspecified; E86.0 Dehydration; E87.6 Hypokalemia; G47.33 Obstructive sleep apnea (adult) (pediatric); R09.02 Hypoxemia; Z68.30 Body mass index [BMI] 30.0-30.9, adult; T36.8X5A Adverse effect of other systemic antibiotics, initial encounter; Z79.890 Hormone replacement therapy; Z79.899 Other long term (current) drug therapy; Z79.51 Long term (current) use of inhaled steroids; Z96.82 Presence of neurostimulator; N32.81 Overactive bladder; N39.0 Urinary tract infection, site not specified
CPT/HCPCS: 36415; 71046; 74018; 80048; 80053; 80061; 83735; 84100; 84443; 85025; 87077; 87086; 87088; 87186; 87631; 87633; 93005; 94640; 94668; 96361; 96365; 96366; 96368; 96372; 96375; 96376; 97116; 97162; 97166; 97530; 99221; 99252; 99285; A4216; G0378; G0463

== ENCOUNTER → 2024-09-14 | Outpatient (CLI) | payer MEDICARE, SELFPAY | END | disposition home or self-care (01) | LOC: LABSPEC 12:17 | PROVIDERS: PCP Family Medicine; Referring Provider Physician Assistant Surgical; Visit Provider Physician Assistant Surgical | DX: R30.0 Dysuria (principal) | CPT/HCPCS: 87086 ==

== ENCOUNTER → 2024-09-20 | Outpatient (CLI) | payer MEDICARE, SELFPAY ==
[2024-09-20 18:00] LABS: Hematocrit 45.9 % (37-47); Hemoglobin 15.2 g/dL (12.0-15.0); Mean Corp Hgb Conc 33.1 g/dL (32-36); Mean Corpuscular Hgb 29.1 pg (27.0-32.0); Mean Corpuscular Volume 87.8 fL (81-99); POSITIVE COUNT YES; POSITIVE MORPHOLOGY YES; Platelet Count 250 K/mm3 (150-450); RBC Distribution Width CV 13.5 % (11.6-14.6); RBC Distribution Width SD 43.2 fl (35.1-43.9); Red Blood Count 5.23 M/mm3 (4.2-5.4); White Blood Count 18.6 K/mm3 (4.4-11.0)
[2024-09-20 18:44] LABS: FOLATES,SERUM (FOLIC ACID) 8.14 ng/mL (4.60-34.80)
[2024-09-20 18:51] LABS: Ferritin 747 ng/mL (22-378); Vitamin B12 891 pg/mL (180-914)
[2024-09-20 18:57] LABS: AST(SGOT) 25 U/L (<=31); Alanine Aminotransfer ALT/SGPT 35 U/L (<=34); Albumin, Serum 3.5 g/dL (3.4-4.8); Alkaline Phosphatase 79 U/L (35-104); Anion Gap 11 (5-15); BUN 20 mg/dL (4-19); BUN/Creat Ratio 19.8 RATIO (10-20); Calcium,Total 8.7 mg/dL (7.6-11.0); Carbon Dioxide 23.6 mmol/L (21.0-32.0); Chloride 107 mmol/L (98-108); Creatinine, Serum 1.03 mg/dL (0.70-1.20); Differential Indicated MANUAL DIFF; EST Glomerular Filtration Rate 53 (>60); Globulin 3.5 g/dL (2.2-4.2); Glucose 148 mg/dL (70-99); Potassium 4.5 mmol/L (3.3-5.1); Sodium Level 142 mmol/L (133-145); Total Bilirubin 0.66 mg/dL (0.00-1.30)
[2024-09-20 22:07] LABS: Eosinophil 1 % (0-5); Lymphocyte 6 % (19-41); Metamyelocyte 5 % (0-1); Monocyte 3 % (0-10); Neutrophil-Segmented 85 % (47-70); Total Cells Counted 100 (MANUAL DIFF)
[2024-09-20 22:08] LABS: Platelet Estimate ADEQUATE (ADEQ); Platelet Morphology LARGE
[2024-09-20 22:09] LABS: Absolute Neutrophil Count 15.8 X10^3/uL (2.0-7.7)
[2024-09-20 22:10] LABS: Absolute Lymphocyte Count 1.11 X10^3/uL (0.83-4.51)
[2024-09-20 22:11] LABS: Pathologist Review May foll
== END | disposition home or self-care (01) ==
LOC: MFPLAB 16:51
PROVIDERS: PCP Family Medicine; Referring Provider Family Medicine; Visit Provider Family Medicine
DX: N17.9 Acute kidney failure, unspecified (principal); K92.1 Melena
CPT/HCPCS: 36415; 80053; 82607; 82728; 82746; 85025

== ENCOUNTER → 2024-12-04 | Outpatient (CLI) | payer MEDICARE, SELFPAY ==
[2024-12-04 18:04] LABS: Absolute Lymphocyte Count 1.87 X10^3/uL (0.83-4.51); Absolute Neutrophil Count 5.3 X10^3/uL (2.0-7.7); Basophil# 0.07 X10^3/uL; Basophil% 0.8 % (0-1); Eosinophil# 0.48 X10^3/uL; Eosinophils% 5.6 % (0-5); Hematocrit 42.4 % (37-47); Hemoglobin 13.8 g/dL (12.0-15.0); Lymphocyte # 1.87 X10^3/ul (0.83-4.51); Lymphocyte % 21.8 % (19-41); Mean Corp Hgb Conc 32.5 g/dL (32-36); Mean Corpuscular Hgb 29.5 pg (27.0-32.0); Mean Corpuscular Volume 90.6 fL (81-99); Mean Platelet Vol. 11.4 fl (6.2-12.0); Monocyte# 0.78 X10^3/uL; Monocyte% 9.1 % (0-10); NRBC Flagged by Analyzer 0 % (0-5); Neutrophil # 5.34 X10^3/uL (2.7-7.7); Neutrophil % 62.3 % (47-70); Platelet Count 227 K/mm3 (150-450); RBC Distribution Width CV 13.9 % (11.6-14.6); RBC Distribution Width SD 46.8 fl (35.1-43.9); Red Blood Count 4.68 M/mm3 (4.2-5.4); White Blood Count 8.6 K/mm3 (4.4-11.0)
[2024-12-04 18:37] LABS: ALB/GLOB Ratio 1.2 RATIO (0.9-2.4); AST(SGOT) 21 U/L (<=31); Alanine Aminotransfer ALT/SGPT 14 U/L (<=34); Alkaline Phosphatase 86 U/L (35-104); Anion Gap 11 (5-15); BUN 17 mg/dL (4-19); Calcium,Total 9.2 mg/dL (7.6-11.0); Chloride 105 mmol/L (98-108); Creatinine, Serum 0.97 mg/dL (0.70-1.20); EST Glomerular Filtration Rate 57 (>60); Globulin 3.3 g/dL (2.2-4.2); Glucose 114 mg/dL (70-99); Potassium 4.4 mmol/L (3.3-5.1); Protein, Total 7.3 g/dL (5.9-8.4); Sodium Level 141 mmol/L (133-145); Total Bilirubin 0.47 mg/dL (0.00-1.30)
== END | disposition home or self-care (01) ==
LOC: MFPLAB 14:36
PROVIDERS: PCP Family Medicine; Referring Provider Family Medicine; Visit Provider Family Medicine
DX: J45.30 Mild persistent asthma, uncomplicated (principal)
CPT/HCPCS: 36415; 80053; 85025

== ENCOUNTER 2024-12-20 14:04 | Outpatient (CLI) | payer MEDICARE, SELFPAY ==
--- NOTE | 2024-12-20 10:51 | LES_PTH ---
PATIENT: GARTH REAVES LOC: [facility] U#:[id number] AGE/SX: 84/F ROOM: RE12/20/[address]: Dr. Vinicius Carter MD : 1940 BED: DIS: 12/20/2024 SPEC #: [id number] RECD: 12/20/24 13:50 STATUS: JANET RELisbet #: [id number] JUNIE: 12/20/24 10:[address]: Vinicius Carter DEPT: SURGICAL PATHOLOGY RECD BY: Macho Perez ENTERED: 12/20/24 14:39 SP TYPE: Lesion OTHR DR: Dr. Roger Jernigan MD Tissues: A - Skin of buttock, NOS Procedures: Immunohistochemical Stains Surgery Specimen Level IV HEADER OPERATION: Excision right gluteal calcification PRE-OP DIAGNOSIS: Right gluteal calcification TISSUE SUBMITTED: A- Short superior, long lateral right gluteal calcification MICROSCOPIC DIAGNOSIS A. Gluteal region, right, calcific lesion, excision: - Cutaneous lymphatic malformation, benign. - Nodular fibrosis (Desmin negative) consistent with dermal scar. - Focal dystrophic calcification. MICROSCOPIC DESCRIPTION Slides are reviewed. All matched controls reacted appropriately. These tests were developed and their performance characteristics determined by [facility]. They may not have been cleared or approved by the [place] Food and Drug Administration. The FDA has determined that such clearance or approval is not necessary.? The above immunohistochemical/dualISH?markers are reviewed by the Pathologist. GROSS DESCRIPTION Received in formalin labeled with the patient's name and date of . Designated as right gluteal calcific lesion short superior long lateral is a 3.7 x 1.3 cm moore skin ellipse excised to a maximum depth of 0.2 cm and with orientation as follows:Short suture: designated as superior, redesignated as 12:00 per the grossing PA.Long suture: designated as lateral, redesignated as 3:00 per the grossing PA. There is a 0.3 x 0.3 cm slightly raised scab with surrounding blue surgical markings, located the following distances from the margins:12:00: 1.4 cm 3:00: 0.5 cm 6:00: 1.7 cm9:00: 0.3 cmDeep: 0.2 cm Ink archibald: 12:00 half (deep): Black3:00 (periphery): Green9:00 (periphery): Blue6:00 half (deep): [place] The specimen is serially sectioned from 12:00 to 6:00, and entirely submitted, sequentially submitted in 4 cassettes. [place] 12/20/2024 CPT:26732,15845
--- OUTSIDE RECORDS SUMMARY | 2024-12-20 23:18 | XMS RPT_ITS | CCD ---
[facility] Organization [facility] Care Team Providers Care Programming Internship Name Role Phone Juan Francisco Driscoll MD Unavailable MAX JERNIGAN Primary Care Unavailable SOUTH, KENDRA Admitting Unavailable SOUTH, KENDRA Attending Unavailable DIANN DALTON Consulting Unavailable EVER JOHNSON Consulting Unavailable BROOKLYN ARREAGA Consulting Unavailable MAX JERNIGAN Primary Care Unavailable SOUTH, KENDRA Admitting Unavailable SOUTH, KENDRA Attending Unavailable MK CANELA Consulting Unavailable MAX JERNIGAN Primary Care Unavailable ISRAEL, BROOKLYN E Admitting Unavailable JADE WOODIA E Attending Unavailable Dr. Max Jernigan Primary Care Provider [phone] Dr. Max Jernigan Referring Provider Dr. Omid Zhou Attending Provider Dr. Omid Zhou Referring Provider Dr. Omid Zhou Other Provider Dr. Manjit Jackson Attending Provider Dr. Clifton Salas Emergency Provider Dr. Max Dixon Attending Provider [phone] Evelio FACILITY MAINTENANCE SUPERVISOR, FACILITY MAINTENANCE SUPERVISOR-C Janet Attending Provider Dr. Yuliana Rodriguez Attending Provider Dr. Que Farmer Attending Provider Dr. Max Jernigan Primary Care Provider Dr. Max Jernigan Referring Provider Dr. Omid Zhou Attending Provider Dr. Max Jernigan Primary Care Provider [phone] Dr. Omid Zhou Referring Provider Dr. Omid Zhou Other Provider Dr. Manjit Jackson Attending Provider Dr. Max Jernigan Referring Provider Dr. Omid Zhou Attending Provider Dr. Jessica Hanley Attending Provider Delon CADENA, Max Bansal Primary Care Provider [phone] Max Jernigan Primary Care Provider [phone] Max Jernigan Referring Provider [phone] Dr. Yuliana Rodriguez Attending Provider Evelio FACILITY MAINTENANCE SUPERVISOR, FACILITY MAINTENANCE SUPERVISOR-C Janet Attending Provider Delon CADENA, Max Bansal Primary Care Provider [phone] RADHA RUIZ Attending Unavailable MAX JERNIGAN Primary Care Unavailable MAX JERNIGAN Primary Care Unavailable Dr. Max Jernigan MD Primary Care Provider Dr. Max Okeefe DO Attending Provider Dr. Max Okeefe DO Emergency Provider Dr. Max Jernigan MD Referring Provider Evelio CLEANING-C, Janet Attending Provider Dr. Max Jernigan MD Attending Provider Aleksandr Clifford Attending Provider Aleksandr Clifford Referring Provider [phone] Dr. Zaheer Savage MD Emergency Provider de Dr. Sha Queen DO Admit Provider Unavail able Dr. Sha Yu DO Attending Provider Unav ailable Dr. Sha Yu DO Other Provider Unavail able Dr. Max Dixon DO Attending Provider Dr. Max Dixon DO Other Provider Dr. Max Jernigan MD Primary Care Provider Dr. Max Jernigan MD Referring Provider [phone] Evelio FACILITY MAINTENANCE SUPERVISOR-C, Janet Attending Provider Dr. Vinicius Carter MD Attending Provider [place] FACILITY MAINTENANCE SUPERVISOR, Kirk Morgan Attending Unavailable [place] FACILITY MAINTENANCE SUPERVISOR, Kirk Morgan Referring Unavailable Jernigan, Max Primary Care Unavailable Aleksandr Clifford Attending Unavailable Aleksandr Clifford Referring Unavailable Jernigan, Max Primary Care Unavailable Jernigan, Max Referring Unavailable Fraser FACILITY MAINTENANCE SUPERVISOR, Janet Attending Unavailable Jernigan, Max Primary Care Unavailable Jernigan, Max Attending Unavailable Jernigan, Max Primary Care Unavailable Jernigan, Max Attending Unavailable Jernigan, Max Referring Unavailable Jernigan, Max Primary Care Unavailable IscjacintousYuliana Attending Unavailable Isckarus, Mansour Referring Unavailable Jernigan, Max Primary Care Unavailable Sha Yu Admitting Unavailable Sha Yu Consulting Unavailable Max Dixon Attending Unavailable Jernigan, Max Primary Care Unavailable Jernigan, Max Referring Unavailable Jernigan, Max Attending Unavailable Jernigan, Max Primary Care Unavailable Aleksandr Clifford Attending Unavailable Jernigan, Max Primary Care Unavailable Jernigan, Max Referring Unavailable Jernigan, Max Referring Unavailable Fredo Segura Attending Unavailable Jernigan, Max Primary Care Unavailable Talha YANES, Aleksandr Attending Unavailable Jernigan, Max Referring Unavailable Jernigan, Max Primary Care Unavailable Fraser FACILITY MAINTENANCE SUPERVISOR, Janet Attending Unavailable Jernigan, Max Referring Unavailable Jernigan, Max Primary Care Unavailable Fraser FACILITY MAINTENANCE SUPERVISOR, Janet Referring Unavailable Fraser FACILITY MAINTENANCE SUPERVISOR, Janet Attending Unavailable Jernigan, Max Primary Care Unavailable Max Okeefe Attending Unavailable Jernigan, Max Primary Care Unavailable Fraser FACILITY MAINTENANCE SUPERVISOR, Janet Referring Unavailable Fraser FACILITY MAINTENANCE SUPERVISOR, Janet Attending Unavailable Jernigan, Max Primary Care Unavailable Fraser FACILITY MAINTENANCE SUPERVISOR, Janet Referring Unavailable Fraser FACILITY MAINTENANCE SUPERVISOR, Janet Attending Unavailable Jernigan, Max Primary Care Unavailable Serena Hagan Attending Unavailable Serena Hagan Referring Unavailable Jernigan, Max Primary Care Unavailable Omid Zhou Attending Unavailable Fraser FACILITY MAINTENANCE SUPERVISOR, Janet Referring Unavailable Jernigan, Max Primary Care Unavailable Jernigan, Max Referring Unavailable Jernigan, Max Primary Care Unavailable Fraser FACILITY MAINTENANCE SUPERVISOR, Janet Attending Unavailable Vinicius Carter Attending Unavailable Jernigan, Max Referring Unavailable Jernigan, Max Primary Care Unavailable Vinicius Carter Attending Unavailable Jernigan, Max Referring Unavailable Jernigan, Max Primary Care Unavailable Jernigan, Max Referring Unavailable IsckarusYuliana Attending Unavailable Jernigan, Max Primary Care Unavailable Jernigan, Max Referring Unavailable Jernigan, Max Primary Care Unavailable Jernigan, Max Attending Unavailable China FACILITY MAINTENANCE SUPERVISORKirk Attending Unavailable Jernigan, Max Referring Unavailable Max Jernigan Primary Care Unavailable Manjit Jackson Attending Unavailable Evelio FACILITY MAINTENANCE SUPERVISOR, Janet Referring Unavailable Evelio FACILITY MAINTENANCE SUPERVISOR, Janet Consulting Unavailable Max Jernigan Primary Care Unavailable Sha Yu Consulting Unavailable Sha Yu Admitting Unavailable Max Dixon Attending Unavailable Max Jernigan Primary Care Unavailable Max Dixon Consulting Unavailable Sha Yu Attending Unavailable Max Jernigan Attending Unavailable Max Jernigan Primary Care Unavailable Allergies Allergy Classification Reported Allergen(s) Allergy Type Date of Onset Reaction(s) Facility (20 sources) clindamycin; Translations: [CLINDAMYCIN] Drug Allergy 08-08-19 15 Diarrhea [facility] Work Phone: (1 source) levoFLOXacin Drug Allergy 02-11-20 17 left shoulder pain [facility] Work Phone: (4 sources) Dust; Translations: [DUST] Propensity to adverse reactions 11-14-19 08 [facility] (3 sources) soy beans [Other] Propensity to adverse reactions 11-14-19 08 [facility] (1 source) OTHER; Translations: [OTHER] Propensity to adverse reactions (disorder) 11-14-19 08 [facility] (8 sources) Sulfamethoxazole Drug Allergy 09-15-19 25 Shortness of breath [facility] Comment on above: Asthma exacerbation (8 sources) Trimethoprim Drug Allergy 09-15-19 25 Shortness of breath [facility] Comment on above: Asthma exacerbation (1 source) Sulfamethoxazole Drug Allergy 12-15-19 25 [facility] (1 source) Trimethoprim Drug Allergy 12-15-19 25 [facility] Medications Current Medications Medication Drug Class(es) Dates Sig (Normalized) Sig (Original) 8 hr acetaminophen 650 mg extended release oral tablet (20 sources) Start: 07-20-2019 take 650 mg by mouth at bedtime Acetaminophen Active 650 MG PO AT BEDTIME July 20, 2019 1:00am Start: 09-10-2016 End: 06-27-2019 Acetaminophen 325 MG tablet Discontinued 1000 mg PO AT BEDTIME September 10, 2016 12:00am June 27, 2019 9:56am Start: 09-10-2016 End: 06-27-2019 take 1000 mg by mouth at bedtime Acetaminophen Discontinued 1000 MG PO AT BEDTIME September 10, 2016 12:00am June 27, 2019 9:56am Start: 07-14-2016 take 1 tablet by main th once daily TYLENOL 325 MG TABS One tablet by mouth daily ACETAMINOPHEN [id number] Austyn Edmonds MD ACETAMINOPHEN (T YLENOL ORAL) Take 650 mg by mouth as needed. Active Comment on above: Take 650 mg by mouth as needed. [id number] 200 actuat albuterol 0.09 mg/actuat metered dose inhaler (20 sources) beta2-Adrenergic Agonist Start: 12-25-2019 take 1 puff(s) by inhalation every four hours Albuterol Sulfate Active 2 PUFF INHALATION Q4H December 25, 2019 12:00am administer with spacer Start: 08-23-2017 End: 12-26-2019 Albuterol Sulfate 8.5 GM HFA aerosol inhaler Discontinued 2 NMA INHALATION Q4H as needed for shortness of breath or wheezing 1 August 23, 2017 3:01pm December 26, 2019 10:49am Start: 08-23-2017 End: 12-26-2019 take 1 puff(s) by inhalation every four hours Albuterol Sulfate Discontinued 2 PUFF INHALATION Q4H August 23, 2017 3:01pm December 26, 2019 10:49am Start: 07-14-2016 PROAIR HFA 108 (90 Base) MCG/ACT AERS inhale as needed ALBUTEROL SULFATE [id number] Austyn Edmonds MD Start: 12-06-2014 End: 08-23-2017 Albuterol Sulfate 8.5 GM HFA aerosol inhaler Discontinued 1 NMA INHALATION NEEDED as needed for Wheezing December 06, 2014 12:00am August 23, 2017 3:02pm Start: 12-06-2014 End: 08-23-2017 Albuterol Sulfate Discontinu ed 1 PUFF INHALATION NEEDED December 06, 2014 12:00am August 23, 2017 3:02pm Start: 05-28-2014 take 1 puff(s) by in halation every four hours as needed PROAIR HFA 90 mcg/actuation inhaler Inhale 1 Puff as instructed every 4 hours as needed. 05/28/2014 Active Comment on above: Inhale 1 Puff as ins tructed every 4 hours as needed. CHOLECALCIFEROL, VITAMIN D3, (CHOLECALCIFEROL, VITD3,, BULK,) 2,400 unit/mL liqd (3 sources) CHOLECALCIFEROL, VITAMIN D3, (CHOLECALCIFEROL, VITD3,, BULK,) 2,400 unit/mL liqd 5 Drops once daily. Active CHOLECALCIFEROL, VITAMIN D3, (CHOLECALCIFEROL, VITD3,, BULK,) 2,400 unit/mL liqd 5 Drops once daily. 0 Active Comment on above: 5 Drops once daily. doxycycline hyclate 100 mg oral capsule (1 source) Tetracycline-class Drug Start: 12-20-2024 take 1 capsule by mouth twice daily Doxycycline Hyclate 100 mg capsule Active 100 mg PO TWICE A DAY 10 5 0 December 20, 2024 12:00am December 24, 2024 12:00am estrogens, conjugated (jail) (5 sources) Estrogen ESTROGENS, CONJUGATED (PREMARIN VAGINAL) Use vaginally twice a week. Active ESTROGENS, CONJU GATED (PREMARIN VAGINAL) Use vaginally twice a week. 0 Active End: 07-13-2016 PREMARIN 0.625 MG/GM CREA Ap ply twice weekly ESTROGENS, CONJUGATED [id number] Ysabel Cornelius LPN Comment on above: Use vaginally twice a week. ferrous sulfate 325 mg oral tablet (9 sources) Start: take 1 tablet by mouth once daily Ferrous Sulfate (Feosol) 325 mg (65 mg iron) tablet Active 325 mg PO DAILY October 06, 2023 12:00am REPLACEMENT fluticasone propionate 0.05 mg/actuat metered dose nasal spray (20 sources) Corticosteroid Start: Fluticasone Propionate 50 mcg/actuation spray,suspension Active 1 - 2 NMA INTRANASAL DAILY September 15, 2024 12:00am ALLERGIES Start: 11-23-2022 End: 10-06-2023 Fluticasone Propionate 50 mc g/actuation spray,suspension Discontinued 2 NMA INTRANASAL November 23, 2022 12:00am October 06, 2023 2:53pm Start: 11-23-2022 Fluticasone Pr opionate Active 2 SPRAY INTRANASAL November 23, 2022 12:00am Start: 08-21-2020 take 1 spray(s) nasa l route once daily Fluticasone Propionate (Flonase Allergy Relief) 50 mcg/actuation spray,suspension Active 2 SPRAY INTRANASAL daily 15.8 August 21, 2020 1:00am administer into each nostril Start: 07-14-2016 FLUTICASONE TN OPIONATE 50 MCG/ACT SUSP (0.05mg/inh) 2 sprays each nostril once a day FLUTICASONE PROPIONATE [id number] Austyn Edmonds MD FLUTICASONE PROP IONATE (FLUTICASONE NASAL) Use 2 Sprays in the nose once daily. Active FLUTICASONE PROP IONATE (FLUTICASONE NASAL) Use 2 Sprays in the nose once daily. 0 Active Comment on above: Use 2 Sprays in the nose once daily. Fluticasone Prop 100 mcg (3 sources) Start: 03-17-2020 Fluticasone Prop 100 mcg Active 100 MCG NASAL DAILY March 17, 2020 12:00am Ezwhbmwprld-Pzevycqdg-D ilanter (4 sources) Start: 10-03-2024 Fluticasone-Umeclidin- Vilanter (Trelegy Ellipta) 200-62.5-25 mcg blister with device Active 1 NMA INHALATION daily October 03, 2024 12:00am Ipratropium (4 sources) Anticholinergic Start: 11-23-2022 Ipratropium [place] Active 2 SPRAY INTRANASAL November 22, 2022 11:00pm Start: 11-23-2022 Ipratropium Br omide Active 2 SPRAY INTRANASAL November 23, 2022 12:00am KELP ORAL (3 sources) take 1 tablet by mouth once bella y KELP ORAL Take 1 tablet by mouth once daily. Active take 1 tablet by mouth once bella y KELP ORAL Take 1 tablet by mouth once daily. 0 Active Comment on above: Take 1 tablet by main th once daily. L. gasseri-B. bifidum-B longum ([employer]) 1.5 billion cell cap (3 sources) L. gasseri-B. bi fidum-B longum ([employer]) 1.5 billion cell cap Take 1 capsule by mouth once daily. Active L. gasseri-B. bi fidum-B longum ([employer]) 1.5 billion cell cap Take 1 capsule by mouth once daily. 0 Active Comment on above: Take [address] [facility] once daily. Lactobac Acidoph-Fructooligos (17 sources) Start: 12-04-2019 Lactobac Acidoph-Fructooligos Active 1 EACH PO TWICE A DAY December 04, 2019 12:00am Start: 11-21-2018 End: 04-13-2019 Lactobac Acidoph-Fructooligo s Discontinued 1 EACH PO TWICE A DAY 60 November 20, 2018 11:00pm April 13, 2019 12:25pm Start: 11-21-2018 End: 04-13-2019 Lactobac Acidoph-Fructooligo s Discontinued 1 EACH PO TWICE A DAY 60 November 21, 2018 12:00am April 13, 2019 1:25pm Lactobacillus Combination No.9 (Adult 50 Plus Probiotic) 4 billion cell capsule (4 sources) Start: 10-02-2024 take 4 capsules by mouth once daily Lactobacillus Combination No.9 (Adult 50 Plus Probiotic) 4 billion cell capsule Active 4000 NMA PO daily October 02, 2024 12:00am administer with a meal 12 hr loratadine 5 mg / pseudoephedrine sulfate 120 mg extended release oral tablet (8 sources) alpha-Adrenerg ic Agonist Start: 11-15-2018 Loratadine-Pseudoep hedrine Active 1 EACH PO DAILY November 15, 2018 12:00am LORATADINE/PSEUD OEPHEDRINE (CLARITIN-D 12 HOUR ORAL) Take by mouth once daily. Active LORATADINE/PSEUD OEPHEDRINE (CLARITIN-D 12 HOUR ORAL) Take by mouth once daily. 0 Active End: 07-13-2016 take 1 tablet by mouth once daily CLARITIN-D 24 HOUR 10-240 MG [id number] O ne tablet by mouth daily LORATADINE-PSEUDOEPHEDRINE [id number] Ysabel Cornelius LPN Comment on above: Take by mouth once d aily. miSOPROStol 0.1 mg oral tablet (4 sources) Prostaglandin E1 Analog Start: 5 take 1 tablet by mouth three times daily Misoprostol 100 mcg tablet Active 100 ug PO THREE TIMES A DAY October 02, 2024 12:00am Agwjsrvd-Xxivsca-Hjk n-Lutein tablet (9 sources) Start: 4 Pxfgxjke-Rddsfnx-Lh on-Lutein tablet Active 0 PO DAILY October 06, 2023 12:00am REPLACEMENT orally daily; Start: 10-06-2023 Multivit-Merchandise [employer] by-Wwel-Bqsifn tablet Active 0 PO DAILY October 06, 2023 12:00am orally daily; Start: 10-06-2023 Multivit-Merchandise Executive fg-Sbbz-Qjmzic tablet Active {tbl} PO October 06, 2023 12:00am Multivitamin capsule (3 sources) take 1 capsule by mo uth once daily Multivitamin capsule Take 1 capsule by mouth once daily. Active take 1 capsule by mouth once amol ly Multivitamin capsule Take 1 capsule by mouth once daily. 0 Active Comment on above: Take 1 capsule by mo uth once daily. OMEGA-3/DHA/EPA/FISH OIL (FISH OIL HIGH POTENCY ORAL) (3 sources) OMEGA-3/DHA/EPA/ FISH OIL (FISH OIL HIGH POTENCY ORAL) Take by mouth once daily. Active OMEGA-3/DHA/EPA/ FISH OIL (FISH OIL HIGH POTENCY ORAL) Take by mouth once daily. 0 Active Comment on above: Take by mouth once d aily. omeprazole 40 mg delayed release oral capsule (10 sources) Proton Pump Inhibitor Start: 03-26-2024 take 1 capsule by mouth once daily Omeprazole 40 mg capsule,delayed release(DR/EC) Active 40 mg PO daily March 26, 2024 12:00am STOMACH Start: 07-14-2016 take 1 tablet by main once daily OMEPRAZOLE 40 MG CPDR One tablet by mouth daily OMEPRAZOLE [id number] Austyn Edmonds MD Oral appliance (11 sources) Start: 04-26-2023 Oral appliance Active 0 .ROUTE .MEDSUPPLY 1 0 April 26, 2023 1:00am Obstructive sleep apnea syndrome Obstructive sleep apnea (adult) (pediatric) As directed Start: 04-26-2023 Oral appliance Active 0 .ROUTE .MEDSUPPLY April 26, 2023 1:00am As directed Start: 04-26-2023 Oral appliance Active 0 .ROUTE .MEDSUPPLY April 26, 2023 12:00am As directed polyethylene glycol 3350 16512 mg powder for oral solution (2 sources) Osmotic Laxative Start: 05-23-2020 polyethylene glycol 3350 (MIRALAX) 17 gram/dose powder Take 17 g by mouth once daily. 850 g 1 05/23/2020 Active Comment on above: Take 17 g by mouth o nce daily. pravastatin sodium 20 mg oral tablet (20 sources) HMG-CoA Reductase Inhibitor Start: 03-17-2020 Pravastatin 20 MG tablet Active 20 mg PO .COMPLEX March 17, 2020 12:00am cholesterol 20 mg orally 1700; Comment on above: Take 20 mg by mouth once daily. Psyllium Seed-Sucrose (METAMUCIL, SUGAR,) powd (3 sources) Psyllium Seed-Stein crose (METAMUCIL, SUGAR,) powd Take 1 Tablespoonful by mouth as needed. Active Psyllium Seed-Stein crose (METAMUCIL, SUGAR,) powd Take 1 Tablespoonful by mouth as needed. 0 Active Comment on above: Take 1 Tablespoonful by mouth as needed. sertraline 100 mg oral tablet (20 sources) Serotonin Reuptake Inhibitor Start: 07-13-2016 SERTRALINE HCL 100 MG TABS One and one halg tablet by mouth daily SERTRALINE HCL [id number] Elisa Shields RN Start: 10-11-2014 End: 04-13-2019 Sertraline 100 mg tablet Act karin 150 mg PO DAILY April 13, 2019 1:26pm depression Start: 10-11-2014 End: 04-13-2019 take 150 mg by mouth once daily Sertraline Active 150 MG PO DAILY April 13, 2019 1:26pm On Hold: Resume on 02/20/22. take 0.5 tablet by m outh once daily sertraline (ZOLOFT) 100 mg tablet Take 150 mg by mouth once daily. Taking 1 and 1/2 tabs daily Active End: 05-19-2016 take 1 tablet by mouth once daily ZOLOFT 100 MG TABS One tablet by mouth daily SERTRALINE HCL [id number] Fabian Isabel Comment on above: Take 150 mg by mouth once daily. Taking 1 and 1/2 tabs daily solifenacin succinate 10 mg oral tablet (20 sources) Cholinergic Muscarinic Antagonist Start: 02-20-20 End: 04-11-20 take 1 tablet by mouth at dinner Solifenacin 10 mg tablet Active 10 mg PO WITH DINNER February 19, 2022 12:00am bladder Comment on above: Take 1 tablet by main th every afternoon. levothyroxine sodium 0.125 mg oral tablet (20 sources) l-Thyroxine Start: 03-17-20 take 1 tablet by mouth once daily Levothyroxine 125 MCG tablet Active 125 ug PO DAILY March 17, 2020 12:00am thyroid levothyroxine (S YNTHROID) 137 mcg tablet Take 125 mcg by mouth daily before breakfast. Taking 125 mcg Active take 1 tablet by mouth once bella y SYNTHROID 137 MCG TABS One tablet by mouth daily LEVOTHYROXINE SODIUM [id number] Ysabel Cornelius LPN Comment on above: Take 125 mcg by mout h daily before breakfast. Taking 125 mcg Completed/Discontinued Medications Medication Drug Class(es) Dates Sig (Normalized) Sig (Original) acetaminophen 325 mg / oxyCODONE hydrochloride 5 mg oral tablet (20 sources) Opioid Agonist Start: 12-04-2019 End: 12-11-2019 Oxycodone-Acetaminoph en 1 TABLET tablet Discontinued 1 {tbl} PO EVERY 4 HOURS NEEDED as needed for Pain Score 4-5/10 40 7 0 December 04, 2019 December 10, 2019 12:00am December 11, 2019 12:02am Other acute postprocedural pain 40 tabs (forty) Start: 12-04-2019 End: 12-11-2019 take 1 tablet by mouth every four hours as needed Oxycodone-Acetaminophen Discontinued 1 TABLET PO EVERY 4 HOURS NEEDED 40 7 December 04, 2019 December 11, 2019 12:02am 40 tabs (forty) Start: 11-21-2018 End: 11-28-2018 Oxycodone-Acetaminophen 1 TA BLET tablet Discontinued 1 - 2 {tbl} PO 4 TIMES DAILY NEEDED as needed for Pain 50 7 0 November 21, 2018 10:39am November 27, 2018 12:00am November 28, 2018 12:07am Other acute postprocedural pain 50 tabs (fifty) Start: 11-21-2018 End: 11-28-2018 take 1 tablet by mouth four times daily as needed Oxycodone-Acetaminophen Discontinued 1 - 2 TABLET PO 4 TIMES DAILY NEEDED 50 7 November 21, 2018 10:39am November 28, 2018 12:07am 50 tabs (fifty) Start: 09-17-2015 End: 11-12-2015 take 1 tablet by mouth twice daily as needed for pain PERCOCET 5-325 MG TABS One tablet by mouth twice daily as needed for pain OXYCODONE-ACETAMINOPHEN [id number] Juan Francisco Driscoll MD Start: 12-11-2014 End: 08-19-2015 take 1-2 tablets by mouth four times daily as needed for pain PERCOCET 5-325 MG TABS one to two tablet s by mouth four times daily as needed for pain OXYCODONE-ACETAMINOPHEN [id number] Екатерина Staton LPN amoxicillin (2 sources) Penicillin-class Antibacterial take 1 tablet by mouth four times daily AMOXICILLIN CAPS One tablet by mouth four times daily AMOXICILLIN CAPS [id number] Fabian Isabel End: 07-13-2016 take 1 tablet by mouth four times daily AMOXICILLIN CAPS One tablet by mouth four times daily AMOXICILLIN CAPS [id number] Elisa Shields RN amoxicillin 875 mg / clavulanate 125 mg oral tablet (20 sources) Penicillin-class Antibacterial Start: 09-16-2024 End: 10-02-2024 Amoxicillin-Pot Clavulanate 875-125 mg tablet Discontinued 1 {tbl} PO TWICE A DAY 10 September 16, 2024 12:00am October 02, 2024 1:25pm Start: 04-23-2024 End: 07-20-2024 Amoxicillin-Pot Clavulanate 875-125 mg tablet Discontinued 1 {tbl} PO TWICE A DAY 20 0 April 23, 2024 1:00am July 20, 2024 2:30pm Start: 12-30-2023 End: 01-09-2024 Amoxicillin-Pot Clavulanate 875-125 mg tablet Discontinued 1 {tbl} PO Q12H 20 10 0 December 30, 2023 12:00am January 08, 2024 12:00am January 09, 2024 12:05am Acute sinusitis, unspecified ascorbic acid 500 mg oral tablet (2 sources) End: 03-05-2016 take 1 tablet by mouth once daily VITAMIN C 500 MG TABS One tablet by mouth daily ASCORBIC ACID [id number] Wilmar Farr DO azelastine hydrochloride 0.137 mg/actuat metered dose nasal spray (20 sources) Histamine-1 Receptor Antagonist Start: 11-23-2022 End: 10-06-2023 Azelastine 137 mcg (0.1 %) aerosol,spray Discontinued 2 NMA INTRANASAL November 23, 2022 12:00am October 06, 2023 2:52pm Start: 11-23-2022 Azelastine Act karin 2 SPRAY INTRANASAL November 23, 2022 12:00am Start: 02-14-2020 End: 08-21-2020 Azelastine 0.15 % (205.5 mcg ) spray,non-aerosol Discontinued 1 NMA INTRANASAL TWICE A DAY 19 05February 15, 2020 2:38pm August 21, 2020 10:40am Chronic obstructive pulmonary disease, unspecified administer into each nostril Start: 02-14-2020 End: 08-21-2020 take 1 spray(s) nasal route twice daily Azelastine Discontinued 1 SPRAY INTRANASAL TWICE A DAY February 15, 2020 2:38pm August 21, 2020 10:40am administer into each nostril Comment on above: Use 1 [place] in each nostril twice daily. breath-actuated 120 actuat beclomethasone dipropionate 0.08 mg/actuat metered dose inhaler (20 sources) Corticosteroid Start: 020 End: 020 take 80 ug by inhalation every twelve hours Beclomethasone Dipropionate (Qvar Redihaler) 80 mcg/actuation HFA aerosol breath activated Discontinued 2 NMA INHALATION Q12H 10.6 6 September 03, 2019 12:00am December 25, 2019 9:44am Start: 06-16-2018 End: 03-14-2019 take 80 ug by inhalation every twelve hours Beclomethasone Dipropionate (Qvar Redihaler) 80 mcg/actuation HFA aerosol breath activated Discontinued 2 NMA INHALATION Q12H 10.6 6 February 01, 2019 10:36am March 14, 2019 11:08am Start: 06-16-2018 End: 03-14-2019 take 1 puff(s) by inhalation every twelve hours Beclomethasone Dipropionate (Qvar Redihaler) 80 mcg/actuation HFA aerosol breath activated Discontinued 2 PUFF INHALATION Q12H 10.6 February 01, 2019 10:36am March 14, 2019 11:08am Start: 12-14-2017 End: 09-03-2019 Beclomethasone Dipropionate 1 PUFF inhaler Discontinued 2 NMA INHALATION TWICE A DAY December 14, 2017 12:00am September 03, 2019 10:53am lungs Start: 12-14-2017 End: 09-03-2019 take 1 puff(s) by inhalation twice daily Beclomethasone Dipropionate Discontinued 2 PUFF INHALATION TWICE A DAY December 14, 2017 12:00am September 03, 2019 10:53am Start: 08-24-2017 End: 06-16-2018 take 80 ug by inhalation every twelve hours Beclomethasone Dipropionate (Qvar Redihaler) 80 mcg/actuation HFA aerosol breath activated Discontinued 2 NMA INHALATION Q12H 10.6 6 August 24, 2017 1:00am June 16, 2018 2:15pm Start: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 concentration (MCHC) determinationOrdered By: Max Jernigan on 12-04-2024 MCHC (RBC) [Mass/Vol] 32.5 g/dL 32-36 [facility] Mean platelet volume determi nationOrdered By: Max Jernigan on 12-04-2024 Platelet mean volume (Bld) [Entitic vol] 11.4 fL 6.2-12.0 [facility] Monocyte percentageOrdered B y: Max Jernigan on 12-04-2024 Monocytes/100 WBC (Bld) 9.1 % 0-10 [facility] Neutrophil percentageOrdered By: Max Jernigan on 12-04-2024 Neutrophils/100 WBC (Bld) 62.3 % 47-70 [facility] Nucleated red blood cell per centageOrdered By: Max Jernigan on 12-04-2024 Nucleated RBC/100 WBC (Bld) [Ratio] 0 % 0-5 [facility] Platelet countOrdered By: Cameron Jernigan on 12-04-2024 Platelets (Bld) [#/Vol] 227 10*3/uL 150-450 [facility] Potassium measurement (mass/ volume)Ordered By: Max Jernigan on 12-04-2024 Potassium (Unsp spec) [Mass/Vol] 4.4 mmol/L 3.3-5.1 [facility] RBC Auto (Bld) [#/Vol]Ordere d By: Max Jernigan on 12-04-2024 RBC (Bld) [#/Vol] 4.68 10*6/uL 4.2-5.4 [facility] Serum creatinine measurement (mass/volume)Ordered By: Max Jernigan on 12-04-2024 Creatinine [Mass/Vol] 0.97 mg/dL 0.70-1.20 [facility] Serum globulin measurementOr dered By: Max Jernigan on 12-04-2024 Globulin (S) [Mass/Vol] 3.3 g/dL 2.2-4.2 [facility] Serum glucose measurement (m ass/volume)Ordered By: Max Jernigan on 12-04-2024 Glucose [Mass/Vol] 114 mg/dL High 70-99 [facility] Serum or plasma alanine lyon otransferase (ALT) measurementOrdered By: Max Jernigan on 12-04-2024 ALT [Catalytic activity/Vol] 14 U/L <35 [facility] Serum or plasma albumin sonny urement (mass/volume)Ordered By: Max Jernigan on 12-04-2024 Albumin [Mass/Vol] 4.0 g/dL 3.4-4.8 [facility] Serum or plasma albumin/glob ulin mass ratioOrdered By: Max Jernigan on 12-04-2024 Albumin/Globulin [Mass ratio] 1.2 {ratio} 0.9-2.4 [facility] Serum or plasma alkaline anhtony sphatase measurementOrdered By: Max Jernigan on 12-04-2024 ALP [Catalytic activity/Vol] 86 U/L 35-104 [facility] Serum or plasma calcium sonny urement (mass/volume)Ordered By: Max Jernigan on 12-04-2024 Calcium [Mass/Vol] 9.2 mg/dL 7.6-11.0 [facility] Serum or plasma urea nitroge n measurement (mass/volume)Ordered By: Max Jernigan on 06-17-2025 Urea nitrogen [Mass/Vol] 17 mg/dL 4-19 [facility] Sodium levelOrdered By: Max Jernigan on 12-04-2024 Sodium [Moles/Vol] 141 mmol/L 133-145 [facility] Total proteinOrdered By: Lesvia rosa isela Delon on 12-04-2024 Protein [Mass/Vol] 7.3 g/dL 5.9-8.4 [facility] White blood cell (WBC) count Ordered By: Max Jernigan on 12-04-2024 WBC (Bld) [#/Vol] 8.6 10*3/uL 4.4-11.0 [facility] CBC W/Diff, Automatedon 09-19 PATH REV Reviewed Normal [facility] Comment on above: Result Comment: SEE REPORT IN PATIENT'S EMR AMENDED REPORT 10/09/24 1130 PATH REV previously reported as: October Performed By: #### L 100.0100 #### [facility] [address] [place], [address] Pulmonary Visit Reporton Pulmonary Visit Report [facility] [place] [address] [place] [address] OFFICE VISIT Date of Service: 10/02/24 MR#: [id number] Acct: [id number] Name: GARTH CONLEY Rep #: [id number] : 1940 Provider: HOA Fraser Age/Sex: 84/F [place] [facility] [place] Status: Signed Assessment and Plan Assessment and Plan (1) Asthma: Status: Chronic Qualifiers: Asthma complication type: uncomplicated Asthma persistence: intermittent Asthma severity: mild Qualified Code(s): J45.20 - Mild intermittent asthma, uncomplicated Plan: Deteriorated. The patient has had an exacerbation of her asthma since last office visit. She is now on some type of a daily inhaler, but she cannot recall the name of it. When she returns home, she will contact the office to give us an update on that inhaler. I have asked her to continue compliance with until her follow-up in 3 months. No additional testing at this time. I did encourage her to rinse her mouth out after each use. She conveys understanding. (2) MICHELLE (obstructive sleep apnea): Status: Chronic Plan: Deteriorated. At the last office visit it was suggested that the patient would benefit from an adjustment to her oral device. I asked her to contact the dentist and request an office visit. She did so, however was dismissed by the office staff. She believes she has an appointment for follow- up in November. I will attempted to contact the office myself with my concerns. We will follow-up here in the office in December to evaluate any changes that were made. I have asked her to continue to utilize the oral appliance as is until she is able to be seen by Gutierrez kendall. She is agreeable with this plan. (3) Interstitial lung disease: Status: Chronic Plan: Symptomatically stable. Continue to monitor. Consider repeating a 6-minute walk test or office walk test at the follow-up visit. Plan Details Follow Up: 12/18/24 ([facility]) HPI HPI Comments Details: This patient presents to the office today for follow-up of her obstructive sleep apnea and mild asthma. She is ambulatory and currently on room air. She was hospitalized at [facility] from September 14 through September 16, 2024 for acute exacerbation of asthma/ILD/respiratory insufficiency. She reported to the emergency department with complaints of shortness of breath. Chest x-ray only showed chronic changes. Respiratory panel was negative. She was treated with bronchodilators and systemic corticosteroids. She was discharged on 5-day course of prednisone and Augmentin. She did require supplemental oxygen while hospitalized, however was ambulated prior to being discharged and did not require additional supplemental oxygen. She is using an inhaler prescribed by her PCP. She can not recall the name. It is a moore disc. She uses nasal Saline daily. She is not on an antihistamine. She gets weekly allergy shots under the direction of ENT. She was advised to have an adjustment of her oral device after the last office visit. She was not able to convey this to the dentist office. She is only able to tolerate the oral device about half of the night. She was able to wear it all night last night. She was hospitalized last week for a UTI. She is having difficulty with dry mouth. She does have shortness of breath on exertion. The shortness of breath she had in the hospital has gotten better. She denies any cough, sputum production or hemoptysis. She is having some sinus drainage. She is not having any wheezing, chest tightness, chest pain or palpitations. She denies any fever, chills or body aches. Intake Vital Signs 07/20/24 13:30 10/02/24 08:07 Height 5 ft 3 in 5 ft 3 in Weight: 157 lb BMI 27.8 BP 100/62 Blood Pressure Location Rt brachial Position Sitting Respiration 20 H Pulse 68 Pulse Source Monitor Temp 97.1 F L Temperature Source Temporal Artery Pulse Oximetry (%) 96 Oxygen Delivery Method room air Intake Visit Reasons: 3 M FU Chief Complaint: Cystitis 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 Accompanied by: Self Allergies clindamycin Adverse Reaction (Intermediate, Verified 10/02/24 13:24) DIZZY, DIARRHEA sulfamethoxazole (From Bactrim) Adverse Reaction (Verified 10/02/24 13:24) Shortness of breath trimethoprim (From Bactrim) Adverse Reaction (Verified 10/02/24 13:24) Shortness of breath Medications ???Medication ???Instructions ???Recorded ???Confirmed ???Type sertraline 100 mg tablet 150 mg PO DAILY depression 9 10/02/24 History levothyroxine 125 mcg tablet 125 mcg PO DAILY thyroid 03/17/20 10/02/24 History pravastatin 20 mg tablet 20 mg PO .COMPLEX cholesterol 02/1910/02/24 History solifenacin 10 mg tablet 10 mg PO DINNER bladder 02/19/22 0 10/02/24 History Oral appliance #1 ea 04/26/23 10/02/24 R (more content not included)... Normal [facility] Absolute lymphocyte countOrd ered By: Max Jernigan on 09-20-2024 Lymphocytes Auto (Unsp spec) [#/Vol] 1.11 10*3/uL 0.83-4.51 [facility] Absolute neutrophil countOrd ered By: Max Jernigan on 09-20-2024 Neutrophils (Bld) [#/Vol] 15.8 10*3/uL High 2.0-7.7 [facility] Anion gap in Serum or Plasma Ordered By: Max Jernigan on 09-20-2024 Anion gap [Moles/Vol] 11 mmol/L 5-15 [facility] BUN/creatinine ratioOrdered By: Max Jernigan on 09-20-2024 Urea nitrogen/Creatinine [Mass ratio] 19.8 mg/mg 10-20 [facility] Bilirubin, totalOrdered By: Max Jernigan on 09-20-2024 Bilirubin [Mass/Vol] 0.66 mg/dL 0.00-1.30 [facility] Blood eosinophils/100 leukoc ytesOrdered By: Max Jernigan on 09-20-2024 Eosinophils/100 WBC (Bld) 1 % 0-5 [facility] Blood lymphocytes/100 leukoc ytesOrdered By: Max Jernigan on 09-20-2024 Lymphocytes/100 WBC (Bld) 6 % Low 19-41 [facility] Blood metamyelocytes/100 amanda kocytesOrdered By: Max Jernigan on 09-20-2024 Metamyelocytes/100 WBC (Bld) 5 % High 0-1 [facility] Blood monocytes/100 leukocyt esOrdered By: Max Jernigan on 09-20-2024 Monocytes/100 WBC (Bld) 3 % 0-10 [facility] Blood segmented neutrophils/ 100 leukocytesOrdered By: Max Jernigan on 09-20-2024 Segmented neutrophils/100 WBC (Bld) 85 % High 47-70 [facility] Carbon dioxide, total [Moles /volume] in Central venous bloodOrdered By: Max Jernigan on 09-20-2024 CO2 [Moles/Vol] 23.6 mmol/L 21.0-32.0 [facility] Cells counted Molgen (Bld/Ti ss) [#]Ordered By: Max Jernigan on 09-20-2024 Differential Total Cells Counted 100 MANUAL DIFF [facility] Chloride assayOrdered By: Cameron Jernigan on 09-20-2024 Chloride [Moles/Vol] 107 mmol/L 98-108 [facility] Comprehensive Metabolic Prof ilon 09-20-2024 Albumin [Mass/Vol] 3.5 g/dL Normal 3.4-4.8 [facility] Comment on above: Performed By: #### L 100.0100 #### [facility] [address] [place], [place] [address] [place], [address] Albumin/Globulin [Mass ratio] 1.0 {ratio} Normal 0.9-2.4 [facility] Comment on above: Performed By: #### L 100.0100 #### [facility] [address] [place], [address] ALK PHOS 79 U/L Normal 35-104 [facility] Comment on above: Performed By: #### L 100.0100 #### [facility] [address] [place], [address] ALT [Catalytic activity/Vol] 35 U/L Normal <=34 [facility] Comment on above: Performed By: #### L 100.0100 #### [facility] [address] [place], [address] AST [Catalytic activity/Vol] 25 U/L Normal <=31 [facility] Comment on above: Performed By: #### L 100.0100 #### [facility] [address] [place], [address] Bilirubin [Mass/Vol] 0.66 mg/dL Normal 0.00-1.30 [facility] Comment on above: Performed By: #### L 100.0100 #### [facility] [address] [place], [address] BUN/CRE 19.8 RATIO Normal 10-20 [facility] Comment on above: Performed By: #### L 100.0100 #### [facility] [address] [place], [address] Calcium [Mass/Vol] 8.7 mg/dL Normal 7.6-11.0 [facility] Comment on above: Performed By: #### L 100.0100 #### [facility] [address] [place], [address] Chloride [Moles/Vol] 107 mmol/L Normal 98-108 [facility] Comment on above: Performed By: #### L 100.0100 #### [facility] [address] [place], [address] CO2 [Moles/Vol] 23.6 mmol/L Normal 21.0-32.0 [facility] Comment on above: Performed By: #### L 100.0100 #### [facility] [address] [place], [address] Creatinine [Mass/Vol] 1.03 mg/dL Normal 0.70-1.20 [facility] Comment on above: Performed By: #### L 100.0100 #### [facility] [address] [place], [address] GAP 11 Normal 5-15 [facility] Comment on above: Performed By: #### L 100.0100 #### [facility] [address] [place], [address] GFR/1.73 sq M.predicted among non-blacks MDRD (S/P/Bld) [Vol rate/Area] 53 mL/min/{1.73_m2} Low >60 [facility] Comment on above: Result Comment: mL/m in/1.73m2 CKD-EPI Creatinine Equation (2020) Performed By: #### L 100.0100 #### [facility] [address] [place], [address] Globulin (S) [Mass/Vol] 3.5 g/dL Normal 2.2-4.2 [facility] Comment on above: Performed By: #### L 100.0100 #### [facility] [address] [place], [address] Glucose [Mass/Vol] 148 mg/dL High 70-99 [facility] Comment on above: Performed By: #### L 100.0100 #### [facility] [address] [place], [address] Potassium [Moles/Vol] 4.5 mmol/L Normal 3.3-5.1 [facility] Comment on above: Performed By: #### L 100.0100 #### [facility] [address] [place], [place], [id number] ([address] Sodium [Moles/Vol] 142 mmol/L Normal 133-145 [facility] Comment on above: Performed By: #### L 100.0100 #### [facility] [address] [place], [address] T PROT 7.0 g/dL Normal 5.9-8.4 [facility] Comment on above: Performed By: #### L 100.0100 #### [facility] [address] [place], [place], [id number] (214) Urea nitrogen [Mass/Vol] 20 mg/dL High 4-19 [facility] Comment on above: Performed By: #### L 100.0100 #### [facility] [address] [place], [place], [phone] ([address] Erythrocyte distribution wid th (RBC) [Ratio]Ordered By: Max Jernigan on 09-20-2024 Erythrocyte distribution width (RBC) [Entitic vol] 43.2 fL 35.1-43.9 [facility] Erythrocyte distribution wid th ratioOrdered By: Max Jernigan on 09-20-2024 Erythrocyte distribution width (RBC) [Ratio] 13.5 % 11.6-14.6 [facility] Erythrocyte distribution wid th standard deviationOrdered By: Max Jernigan on 09-20-2024 Erythrocyte distribution width (RBC) [Ratio] 43.2 fl 35.1-43.9 [facility] Ferritinon 09-20-2024 Ferritin [Mass/Vol] 747 ng/mL High 22-378 [facility] Comment on above: Performed By: #### L 100.0100 #### [facility] [address] [place], [place], [id number] ([address] Folate [Moles/Vol]Ordered By : Max Jernigan on 09-20-2024 Serum Folate 8.14 ng/mL 4.60-34.80 [facility] Folate [Moles/volume] in Ser um or PlasmaOrdered By: Max Jernigan on 09-20-2024 Folate [Moles/Vol] 8.14 ng/mL 4.60-34.80 [facility] Folates,Serum (Folic Acid)on 09-20-2024 FOLATES,SERUM 8.14 ng/mL Normal 4.60-34.80 [facility] Comment on above: Order Comment: N Performed By: #### L 100.0100 #### [facility] [address] [place], [address] GFR/1.73 sq M.predicted shaka g non-blacks MDRD (S/P/Bld) [Vol rate/Area]Ordered By: Max Jernigan on 09-20-2024 Estimated GFR (MDRD) Non-Af Amer 53 Low >60 [facility] Comment on above: mL/min/1.73m2 CKD-EP I Creatinine Equation (2020) Glomerular filtration rate ( GFR) estimation/1.73 sq m using serum, plasma, or whole bOrdered By: Max Jernigan on 09-20-2024 GFR/1.73 sq M.predicted among non-blacks MDRD (S/P/Bld) [Vol rate/Area] 53 mL/min/{1.73_m2} Low >60 [facility] Comment on above: mL/min/1.73m2 CKD-EP I Creatinine Equation (2020) Hematocrit Auto (Bld) [Volum e fraction]Ordered By: Max Jernigan on 09-20-2024 Hematocrit (Bld) [Volume fraction] 45.9 % 37-47 [facility] Hemoglobin measurementOrdere d By: Max Jernigan on 09-20-2024 Hemoglobin (Bld) [Mass/Vol] 15.2 g/dL High 12.0-15.0 [facility] Laboratory - Chemistry and C hemistry - challengeOrdered By: Max Jernigan on 09-20-2024 AST [Catalytic activity/Vol] 25 U/L <32 [facility] Lymphocytes Auto (Unsp spec) [#/Vol]Ordered By: Max Jernigan on 09-20-2024 Lymphocytes (Bld) [#/Vol] 1.11 10*3/uL 0.83-4.51 [facility] MCV (mean corpuscular volume ) determinationOrdered By: Max Jernigan on 09-20-2024 MCV (RBC) [Entitic vol] 87.8 fL 81-99 [facility] Mean corpuscular hemoglobin (MCH) determinationOrdered By: Max Jernigan on 09-20-2024 MCH (RBC) [Entitic mass] 29.1 pg 27.0-32.0 [facility] Mean corpuscular hemoglobin concentration (MCHC) determinationOrdered By: Max Jernigan on 09-20-2024 MCHC (RBC) [Mass/Vol] 33.1 g/dL 32-36 [facility] Mean platelet volume determi nationOrdered By: Max Jernigan on 09-20-2024 Platelet mean volume (Bld) [Entitic vol] 11.0 fL 6.2-12.0 [facility] Neutrophil percentageOrdered By: Max Jernigan on 09-20-2024 Neutrophils (%) (Auto) Not Reportable [facility] Pathologist review Mathew (Unsp spec) [Interp]Ordered By: Max Jernigan on 09-20-2024 Differential Pathologist's Review May foll [facility] Platelet countOrdered By: Cameron Jernigan on 09-20-2024 Platelets (Bld) [#/Vol] 250 10*3/uL 150-450 [facility] Platelet estimateOrdered By: Max Jernigan on 09-20-2024 Platelets LM Ql (Bld) ADEQUATE ADEQ [facility] Platelet morphologyOrdered B y: Max Jernigan on 09-20-2024 Platelet morphology finding Nom (Bld) LARGE [facility] Platelet morphology finding Nom (Bld)Ordered By: Max Jernigan on 09-20-2024 Platelet Morphology Comment LARGE [facility] Platelets LM Ql (Bld)Ordered By: Max Jernigan on 09-20-2024 Platelet Est[facility] Potassium (Unsp spec) [Mass/ Vol]Ordered By: Max Jernigan on 09-20-2024 Potassium [Moles/Vol] 4.5 mmol/L 3.3-5.1 [facility] Potassium measurement (mass/ volume)Ordered By: Max Jernigan on 09-20-2024 Potassium (Unsp spec) [Mass/Vol] 4.5 mmol/L 3.3-5.1 [facility] RBC Auto (Bld) [#/Vol]Ordere d By: Max Jernigan on 09-20-2024 RBC (Bld) [#/Vol] 5.23 10*6/uL 4.2-5.4 [facility] Review by pathologistOrdered By: Max Jernigan on 09-20-2024 Pathologist review Mathew (Unsp spec) [Interp] Reviewed [facility] Comment on above: Previous reported re sult: Becca nino Edited by: ILIANA on 10/09/24:1130SEE REPORT IN PATIENT'S EMR AMENDED REPORT 10/09/24 1130 PATH REV previously reported as: Becca nino Segmented neutrophils/100 WB C (Bld)Ordered By: Max Jernigan on 09-20-2024 Neutrophils/100 WBC (Bld) 85 % High 47-70 [facility] Serum creatinine measurement (mass/volume)Ordered By: Max Jernigan on 09-20-2024 Creatinine [Mass/Vol] 1.03 mg/dL 0.70-1.20 [facility] Serum globulin measurementOr dered By: Max Jernigan on 09-20-2024 Globulin (S) [Mass/Vol] 3.5 g/dL 2.2-4.2 [facility] Serum glucose measurement (m ass/volume)Ordered By: Max Jernigan on 09-20-2024 Glucose [Mass/Vol] 148 mg/dL High 70-99 [facility] Serum or plasma alanine lyon otransferase (ALT) measurementOrdered By: Max Jernigan on 09-20-2024 ALT [Catalytic activity/Vol] 35 U/L <35 [facility] Serum or plasma albumin sonny urement (mass/volume)Ordered By: Max Jernigan on 09-20-2024 Albumin [Mass/Vol] 3.5 g/dL 3.4-4.8 [facility] Serum or plasma albumin/glob ulin mass ratioOrdered By: Max Jernigan on 09-20-2024 Albumin/Globulin [Mass ratio] 1.0 {ratio} 0.9-2.4 [facility] Serum or plasma alkaline anthony sphatase measurementOrdered By: Max Jernigan on 09-20-2024 ALP [Catalytic activity/Vol] 79 U/L 35-104 [facility] Serum or plasma calcium sonny urement (mass/volume)Ordered By: Max Jernigan on 09-20-2024 Calcium [Mass/Vol] 8.7 mg/dL 7.6-11.0 [facility] Serum or plasma ferritin reta surement (mass/volume)Ordered By: Max Jernigan on 09-20-2024 Ferritin [Mass/Vol] 747 ng/mL High 22-378 [facility] Serum or plasma urea nitroge n measurement (mass/volume)Ordered By: Max Jernigan on 09-20-2024 Urea nitrogen [Mass/Vol] 20 mg/dL High 4-19 [facility] Sodium levelOrdered By: Max Jernigan on 09-20-2024 Sodium [Moles/Vol] 142 mmol/L 133-145 [facility] Total cell countOrdered By: Max Jernigan on 09-20-2024 Cells counted Molgen (Bld/Tiss) [#] 100 MANUAL DIFF [facility] Total proteinOrdered By: Lesvia Jernigan on 09-20-2024 Protein [Mass/Vol] 7.0 g/dL 5.9-8.4 [facility] Vitamin B12on 09-20-2024 Cobalamin (Vitamin B12) [Mass/Vol] 891 pg/mL Normal 180-914 [facility] Comment on above: Performed By: #### L 100.0100 #### [facility] Laboratory [address] [place] [address], [address] Vitamin B12 ser/plasOrdered By: Max Jernigan on 09-20-2024 Cobalamin (Vitamin B12) [Mass/Vol] 891 pg/mL 180-914 [facility] White blood cell (WBC) count Ordered By: Max Jernigan on 09-20-2024 WBC (Bld) [#/Vol] 18.6 10*3/uL High 4.4-11.0 [facility] Absolute lymphocyte countOrd ered By: Max Dixon on 09-16-2024 Lymphocytes Auto (Unsp spec) [#/Vol] 0.54 10*3/uL Low 0.83-4.51 [facility] Absolute neutrophil countOrd ered By: Max Dixon on 09-16-2024 Neutrophils (Bld) [#/Vol] 16.6 10*3/uL High 2.0-7.7 [facility] Anion gap in Serum or Plasma Ordered By: Max Dixon on 09-16-2024 Anion gap [Moles/Vol] 10 mmol/L 5-15 [facility] Automated lymphocyte count a s percentage of total leukocytesOrdered By: Max Dixon on 09-16-2024 Lymphocytes/100 WBC Auto (Unsp spec) 3.0 % Low 19-41 [facility] BUN/creatinine ratioOrdered By: Max Dixon on 09-16-2024 Urea nitrogen/Creatinine [Mass ratio] 26.3 mg/mg High 10-20 [facility] Basic Metabolic Profile (BMP )on 09-16-2024 BUN/CRE 26.3 RATIO High 10-20 [facility] Comment on above: Performed By: #### L 500.2500, L501.2300 #### [facility] Laboratory [address] [place], [address] Calcium [Mass/Vol] 8.8 mg/dL Normal 7.6-11.0 [facility] Comment on above: Performed By: #### L 500.2500, L501.2300 #### [facility] [address] [place], [address] Chloride [Moles/Vol] 111 mmol/L High 98-108 [facility] Comment on above: Performed By: #### L 500.2500, L501.2300 #### [facility] [address] [place], [address] CO2 [Moles/Vol] 18.4 mmol/L Low 21.0-32.0 [facility] Comment on above: Performed By: #### L 500.2500, L501.2300 #### [facility] [address] [place], [address] Creatinine [Mass/Vol] 1.20 mg/dL Normal 0.70-1.20 [facility] Comment on above: Performed By: #### L 500.2500, L501.2300 #### [facility] [address] [place], [address] ECRCL 32.96 ml/min Low 50-250 [facility] Comment on above: Performed By: #### L 500.2500, L501.2300 #### [facility] [address] [place], [address] GAP 10 Normal 5-15 [facility] Comment on above: Performed By: #### L 500.2500, L501.2300 #### [facility] Laboratory [address] [place], [address] GFR/1.73 sq M.predicted among non-blacks MDRD (S/P/Bld) [Vol rate/Area] 44 mL/min/{1.73_m2} Low >60 [facility] Comment on above: Result Comment: mL/m in/1.73m2 CKD-EPI Creatinine Equation (2020) Performed By: #### L 500.2500, L501.2300 #### [facility] [address] [place], [address] Glucose [Mass/Vol] 166 mg/dL High 70-99 [facility] Comment on above: Performed By: #### L 500.2500, L501.2300 #### [facility] [address] [place], [address] Potassium [Moles/Vol] 5.0 mmol/L Normal 3.3-5.1 [facility] Comment on above: Result Comment: Hemo lysis present, Results??could be affected. ?? Performed By: #### L 500.2500, L501.2300 #### [facility] [address] [place], [address] Sodium [Moles/Vol] 140 mmol/L Normal 133-145 [facility] Comment on above: Performed By: #### L 500.2500, L501.2300 #### [facility] [address] [place], [address] Urea nitrogen [Mass/Vol] 32 mg/dL High 4-19 [facility] Comment on above: Performed By: #### L 500.2500, L501.2300 #### [facility] [address] [place], [address] Basophil percentageOrdered B y: Max Castrochad on 09-16-2024 Basophils/100 WBC (Bld) 0.1 % 0-1 [facility] CBC W/Diff, Automatedon 08-20 0-2024 Absolute Lymph 0.54 X10 3/uL Low 0.83-4.51 [facility] Comment on above: Performed By: #### L 100.0100 #### [facility] [address] [place], [address] Absolute Neut 16.6 X10 3/uL High 2.0-7.7 [facility] Comment on above: Performed By: #### L 100.0100 #### [facility] [address] [place], [address] Basophils/100 WBC (Bld) 0.1 % Normal 0-1 [facility] Comment on above: Performed By: #### L 100.0100 #### [facility] [address] [place], [address] Eosinophils/100 WBC (Bld) 0.0 % Normal 0-5 [facility] Comment on above: Performed By: #### L 100.0100 #### [facility] [address] [place], [address] Erythrocyte distribution width (RBC) [Ratio] 13.5 % Normal 11.6-14.6 [facility] Comment on above: Performed By: #### L 100.0100 #### [facility] [address] [place], [address] Hematocrit (Bld) [Volume fraction] 38.1 % Normal 37-47 [facility] Comment on above: Performed By: #### L 100.0100 #### [facility] [address] [place], [address] Hemoglobin (Bld) [Mass/Vol] 12.7 g/dL Normal 12.0-15.0 [facility] Comment on above: Performed By: #### L 100.0100 #### [facility] [address] [place], [address] IG% 0.600 Normal 0.0-0.9 [facility] Comment on above: Result Comment: IG% - Immature Granulocytes (promyelocytes, myelocytes and metamyelocytes) > 1% indicates that a LEFT SHIFT is Present. Performed By: #### L 100.0100 #### [facility] [address] [place], [address] Lymphocytes/100 WBC (Bld) 3.0 % Low 19-41 [facility] Comment on above: Performed By: #### L 100.0100 #### [facility] [address] [place], [address] MCH (RBC) [Entitic mass] 29.8 pg Normal 27.0-32.0 [facility] Comment on above: Performed By: #### L 100.0100 #### [facility] [address] [place], [address] MCHC (RBC) [Mass/Vol] 33.3 g/dL Normal 32-36 [facility] Comment on above: Performed By: #### L 100.0100 #### [facility] [address] [place], [address] MCV (RBC) [Entitic vol] 89.4 fL Normal 81-99 [facility] Comment on above: Performed By: #### L 100.0100 #### [facility] [address] [place], [address] Monocytes/100 WBC (Bld) 5.1 % Normal 0-10 [facility] Comment on above: Performed By: #### L 100.0100 #### [facility] [address] [place], [address] Neutrophils/100 WBC (Bld) 91.2 % High 47-70 [facility] Comment on above: Performed By: #### L 100.0100 #### [facility] [address] [place], [address] Nucleated RBC (Bld) [#/Vol] 0 10*3/uL Normal 0-5 [facility] Comment on above: Performed By: #### L 100.0100 #### [facility] [address] [place], [address] Platelet mean volume (Bld) [Entitic vol] 12.3 fL High 6.2-12.0 [facility] Comment on above: Performed By: #### L 100.0100 #### [facility] [address] [place], [address] Platelets (Bld) [#/Vol] 135 10*3/uL Low 150-450 [facility] Comment on above: Performed By: #### L 100.0100 #### [facility] [address] [place], [address] RBC (Bld) [#/Vol] 4.26 10*6/uL Normal 4.2-5.4 [facility] Comment on above: Performed By: #### L 100.0100 #### [facility] [address] [place], [address] RDW SD 44.2 fl High 35.1-43.9 [facility] Comment on above: Performed By: #### L 100.0100 #### [facility] [address] [place], [address] WBC (Bld) [#/Vol] 18.2 10*3/uL High 4.4-11.0 [facility] Comment on above: Performed By: #### L 100.0100 #### [facility] [address] [place], [address] Carbon dioxide, total [Moles /volume] in Central venous bloodOrdered By: Max Dixon on 09-16-2024 CO2 [Moles/Vol] 18.4 mmol/L Low 21.0-32.0 [facility] Chloride assayOrdered By: Cameron Dixon on 09-16-2024 Chloride [Moles/Vol] 111 mmol/L High 98-108 [facility] Eosinophil percentageOrdered By: Max Dixon on 09-16-2024 Eosinophils/100 WBC (Bld) 0.0 % 0-5 [facility] Erythrocyte distribution wid th ratioOrdered By: Max Dixon on 09-16-2024 Erythrocyte distribution width (RBC) [Ratio] 13.5 % 11.6-14.6 [facility] Erythrocyte distribution wid th standard deviationOrdered By: Max Dixon on 09-16-2024 Erythrocyte distribution width (RBC) [Entitic vol] 44.2 fL High 35.1-43.9 [facility] Erythrocyte distribution width (RBC) [Ratio] 44.2 fl High 35.1-43.9 [facility] Estimation of creatinine erik aranceOrdered By: Max Dixon on 09-16-2024 Estimated Creatinine Clearance Calc 32.96 ml/min Low 50-250 [facility] GFR/1.73 sq M.predicted shaka g non-blacks MDRD (S/P/Bld) [Vol rate/Area]Ordered By: Max Dixon on 09-16-2024 Estimated GFR (MDRD) Non-Af Amer 44 Low >60 [facility] Comment on above: mL/min/1.73m2 CKD-EP I Creatinine Equation (2020) Glomerular filtration rate ( GFR) estimation/1.73 sq m using serum, plasma, or whole bOrdered By: Max Dixon on 09-16-2024 GFR/1.73 sq M.predicted among non-blacks MDRD (S/P/Bld) [Vol rate/Area] 44 mL/min/{1.73_m2} Low >60 [facility] Comment on above: mL/min/1.73m2 CKD-EP I Creatinine Equation (2020) Hematocrit Auto (Bld) [Volum e fraction]Ordered By: Max Dixon on 09-16-2024 Hematocrit (Bld) [Volume fraction] 38.1 % 37-47 [facility] Hemoglobin measurementOrdere d By: Max Dixon on 09-16-2024 Hemoglobin (Bld) [Mass/Vol] 12.7 g/dL 12.0-15.0 [facility] Immature granulocytes/100 WB C Auto (Bld)Ordered By: Max Dixon on 09-16-2024 Immature granulocytes/100 WBC (Bld) 0.600 % 0.0-0.9 [facility] Comment on above: IG% - Immature Granu locytes (promyelocytes, myelocytes and metamyelocytes) > 1% indicates that a LEFT SHIFT is Present. Lymphocytes Auto (Unsp spec) [#/Vol]Ordered By: Max Dixon on 09-16-2024 Lymphocytes (Bld) [#/Vol] 0.54 10*3/uL Low 0.83-4.51 [facility] Lymphocytes/100 WBC Auto (Un sp spec)Ordered By: Max Dixon on 09-16-2024 Lymphocytes/100 WBC (Bld) 3.0 % Low 19-41 [facility] MCV (mean corpuscular volume ) determinationOrdered By: Max Dixon on 09-16-2024 MCV (RBC) [Entitic vol] 89.4 fL 81-99 [facility] Mean corpuscular hemoglobin (MCH) determinationOrdered By: Max Dixon on 09-16-2024 MCH (RBC) [Entitic mass] 29.8 pg 27.0-32.0 [facility] Mean corpuscular hemoglobin concentration (MCHC) determinationOrdered By: Max Dixon on 09-16-2024 MCHC (RBC) [Mass/Vol] 33.3 g/dL 32-36 [facility] Mean platelet volume determi nationOrdered By: Max Dixon on 09-16-2024 Platelet mean volume (Bld) [Entitic vol] 12.3 fL High 6.2-12.0 [facility] Monocyte percentageOrdered B y: Max Dixon on 09-16-2024 Monocytes/100 WBC (Bld) 5.1 % 0-10 [facility] Neutrophil percentageOrdered By: Max Dixon on 09-16-2024 Neutrophils/100 WBC (Bld) 91.2 % High 47-70 [facility] Nucleated red blood cell per centageOrdered By: Max Dixon on 09-16-2024 Nucleated RBC/100 WBC (Bld) [Ratio] 0 % 0-5 [facility] Phosphoruson 09-16-2024 Phosphate [Mass/Vol] 3.9 mg/dL Normal 2.7-4.5 [facility] Comment on above: Performed By: #### L 500.2500, L501.2300 #### [facility] [address] [place], [address] Platelet countOrdered By: Cameron Dixon on 09-16-2024 Platelets (Bld) [#/Vol] 135 10*3/uL Low 150-450 [facility] Potassium (Unsp spec) [Mass/ Vol]Ordered By: Max Dixon on 09-16-2024 Potassium [Moles/Vol] 5.0 mmol/L 3.3-5.1 [facility] Comment on above: Hemolysis present, R esults could be affected. Potassium measurement (mass/ volume)Ordered By: Max Dixon on 09-16-2024 Potassium (Unsp spec) [Mass/Vol] 5.0 mmol/L 3.3-5.1 [facility] Comment on above: Hemolysis present, R esults could be affected. RBC Auto (Bld) [#/Vol]Ordere d By: Max Dixon on 09-16-2024 RBC (Bld) [#/Vol] 4.26 10*6/uL 4.2-5.4 [facility] Serum creatinine measurement (mass/volume)Ordered By: Max Dixon on 09-16-2024 Creatinine [Mass/Vol] 1.20 mg/dL 0.70-1.20 [facility] Serum glucose measurement (m ass/volume)Ordered By: Max Dixon on 09-16-2024 Glucose [Mass/Vol] 166 mg/dL High 70-99 [facility] Serum or plasma calcium sonny urement (mass/volume)Ordered By: Max Dixon on 09-16-2024 Calcium [Mass/Vol] 8.8 mg/dL 7.6-11.0 [facility] Serum or plasma urea nitroge n measurement (mass/volume)Ordered By: Max Dixon on 09-16-2024 Urea nitrogen [Mass/Vol] 32 mg/dL High 4-19 [facility] Serum phosphorus measurement Ordered By: Sha Queen on 09-16-2024 Phosphorus Level 3.9 mg/dL 2.7-4.5 [facility] Sodium levelOrdered By: Max Dixon on 09-16-2024 Sodium [Moles/Vol] 140 mmol/L 133-145 [facility] Urine Cultureon 09-16-2024 [facility] Escherichia coli Flushing Count >100,000 Escherichia coli: REACTION Ampicillin Islt SUSI <=2 Ampicillin+Sulbac Islt SUSI <=2 S Cefepime Islt SUSI <=0.12 S cefTRIAXone Islt SUSI <=0.25 S Ciprofloxacin Islt SUSI <=0.06 S B-Lactamase Extended Susc Islt NEG Gentamicin Islt SUSI <=1 S levoFLOXacin Islt SUSI <=0.12 S Meropenem Islt SUSI <=0.25 S Nitrofurantoin Islt SUSI <=16 S Pip+Tazo Islt SUSI <=4 S TMP SMX Islt SUSI <=20 S Normal [facility] Comment on above: Performed By: #### L 501.9520, L506.0400, L3410.2350 #### [facility] Laboratory [address] [place] [address]. [place], [address] White blood cell (WBC) count Ordered By: Max Dixon on 09-16-2024 WBC (Bld) [#/Vol] 18.2 10*3/uL High 4.4-11.0 [facility] Abdomen Single View (Portabl e)on 09-15-2024 Abdomen Single View (Portable) [facility] Imaging Services [address] [place], [place] [id number] Abdomen Single View (Portable) MR#: [id number] Acct: [id number] Name: GARTH CONLEY Rep #: [id number] : 1940 F 84 From: [place], [place] PCP: Dr. Max Jernigan MD Status: ADM IN Study: Abdomen Single View (Portable) Date of Exam: 0 09/15/24 Exam# [id number] Ordering Dr: Max Dixon DO PROCEDURE: ABDOMEN SINGLE VIEW (PORTABLE) 09/15/2024 REASON FOR EXAM: 84-year-old female, ABDOMINAL DISTENTION TECHNIQUE: Single view abdomen. COMPARISON: Chest radiograph 1 day prior. FINDINGS: Bowel gas: Bowel gas pattern is normal. No evidence of bowel obstruction. Calcifications: No suspicious calcifications. Bones: There are degenerative changes of the spine. Other: Spinal stimulator with battery pack overlying the right lower quadrant. 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 RAD/Abdomen Single View (Portable) IMPRESSION: NO ACUTE FINDINGS Reading Location: [facility] CC: Dr. Max Dixon DO; Dr. Max Jernigan MD Perforating Machine Operator: Signed Normal [facility] Bilirubin, totalOrdered By: Sha Queen on 09-15-2024 Bilirubin [Mass/Vol] 0.48 mg/dL 0.00-1.30 [facility] CBC W/Diff, Automatedon 08-19 Absolute Lymph 0.45 X10 3/uL Low 0.83-4.51 [facility] Comment on above: Performed By: #### L 501.9520, L506.0400, L3410.2350 #### [facility] [address] [place], [address] Absolute Neut 21.3 X10 3/uL High 2.0-7.7 [facility] Comment on above: Performed By: #### L 501.9520, L506.0400, L3410.2350 #### [facility] Laboratory [address] [place], [address] Basophils/100 WBC (Bld) 0.2 % Normal 0-1 [facility] Comment on above: Performed By: #### L 501.9520, L506.0400, L3410.2350 #### [facility] Laboratory [address] [place], [address] Eosinophils/100 WBC (Bld) 0.0 % Normal 0-5 [facility] Comment on above: Performed By: #### L 501.9520, L506.0400, L3410.2350 #### [facility] [address] [place], [address] Erythrocyte distribution width (RBC) [Ratio] 13.2 % Normal 11.6-14.6 [facility] Comment on above: Performed By: #### L 501.9520, L506.0400, L3410.2350 #### [facility] [address] [place], [address] Hematocrit (Bld) [Volume fraction] 33.5 % Low 37-47 [facility] Comment on above: Performed By: #### L 501.9520, L506.0400, L3410.2350 #### [facility] [address] [place], [address] Hemoglobin (Bld) [Mass/Vol] 11.6 g/dL Low 12.0-15.0 [facility] Comment on above: Performed By: #### L 501.9520, L506.0400, L3410.2350 #### [facility] [address] [place], [address] IG% 2.600 High 0.0-0.9 [facility] Comment on above: Result Comment: IG% - Immature Granulocytes (promyelocytes, myelocytes and metamyelocytes) > 1% indicates that a LEFT SHIFT is Present. Performed By: #### L 501.9520, L506.0400, L3410.2350 #### [facility] [address] [place], [address] Lymphocytes/100 WBC (Bld) 2.0 % Low 19-41 [facility] Comment on above: Performed By: #### L 501.9520, L506.0400, L3410.2350 #### [facility] [address] [place], [address] MCH (RBC) [Entitic mass] 30.0 pg Normal 27.0-32.0 [facility] Comment on above: Performed By: #### L 501.9520, L506.0400, L3410.2350 #### [facility] [address] [place], [address] MCHC (RBC) [Mass/Vol] 34.6 g/dL Normal 32-36 [facility] Comment on above: Performed By: #### L 501.9520, L506.0400, L3410.2350 #### [facility] [address] [place], [address] MCV (RBC) [Entitic vol] 86.6 fL Normal 81-99 [facility] Comment on above: Performed By: #### L 501.9520, L506.0400, L3410.2350 #### [facility] [address] [place], [address] Monocytes/100 WBC (Bld) 2.1 % Normal 0-10 [facility] Comment on above: Performed By: #### L 501.9520, L506.0400, L3410.2350 #### [facility] [address] [place], [address] Neutrophils/100 WBC (Bld) 93.1 % High 47-70 [facility] Comment on above: Performed By: #### L [id number], L506.0400, L3410.2350 #### [facility] [address] [place], [address] Nucleated RBC (Bld) [#/Vol] 0 10*3/uL Normal 0-5 [facility] Comment on above: Performed By: #### L [id number], L506.0400, L3410.2350 #### [facility] [address] [place], [address] Platelet mean volume (Bld) [Entitic vol] 12.1 fL High 6.2-12.0 [facility] Comment on above: Performed By: #### L [id number], L506.0400, L3410.2350 #### [facility] [address] [place], [address] Platelets (Bld) [#/Vol] 107 10*3/uL Low 150-450 [facility] Comment on above: Performed By: #### L [id number], L506.0400, L3410.2350 #### [facility] [address] [place], [address] RBC (Bld) [#/Vol] 3.87 10*6/uL Low 4.2-5.4 [facility] Comment on above: Performed By: #### L [id number], L506.0400, [id number] #### [facility] [address] [place], [address] RDW SD 41.8 fl Normal 35.1-43.9 [facility] Comment on above: Performed By: #### L [id number], L506.0400, [id number] #### [facility] [address] [place], [address] WBC (Bld) [#/Vol] 22.8 10*3/uL High 4.4-11.0 [facility] Comment on above: Performed By: #### L [id number], L506.0400, L3410.2350 #### [facility] [address] [place], [address] Calculated very low density lipoprotein (VLDL) cholesterol measurementOrdered By: Sha Queen on 09-15-2024 Calculated very low density lipoprotein (VLDL) cholesterol measurement 23 mg/dL - [facility] VLDL Cholesterol 23 mg/dL - [facility] Comprehensive Metabolic Prof ilon 09-15-2024 Albumin [Mass/Vol] 3.2 g/dL Low 3.4-4.8 [facility] Comment on above: Performed By: #### L 501.9520, L506.0400, L3410.2350 #### [facility] [address] [place], [address] Albumin/Globulin [Mass ratio] 1.0 {ratio} Normal 0.9-2.4 [facility] Comment on above: Performed By: #### L [id number], L506.0400, L3410.2350 #### [facility] [address] [place], [address] ALK PHOS 84 U/L Normal 35-104 [facility] Comment on above: Performed By: #### L [id number], L506.0400, [id number] #### [facility] [address] [place], [address] ALT [Catalytic activity/Vol] 12 U/L Normal <=34 [facility] Comment on above: Performed By: #### L [id number], L506.0400, L3410.2350 #### [facility] [address] [place], [address] AST [Catalytic activity/Vol] 22 U/L Normal <=31 [facility] Comment on above: Performed By: #### L [id number], L506.0400, L3410.2350 #### [facility] [address] [place], [address] Bilirubin [Mass/Vol] 0.48 mg/dL Normal 0.00-1.30 [facility] Comment on above: Performed By: #### L [id number], L506.0400, L3410.2350 #### [facility] [address] [place], [address] BUN/CRE 22.2 RATIO High 10-20 [facility] Comment on above: Performed By: #### L [id number], L506.0400, L3410.2350 #### [facility] [address] [place], [address] Calcium [Mass/Vol] 8.3 mg/dL Normal 7.6-11.0 [facility] Comment on above: Performed By: #### L [id number], L506.0400, L3410.2350 #### [facility] [address] [place], [address] Chloride [Moles/Vol] 102 mmol/L Normal 98-108 [facility] Comment on above: Performed By: #### L [id number], L506.0400, [id number] #### [facility] [address] [place], [address] CO2 [Moles/Vol] 18.1 mmol/L Low 21.0-32.0 [facility] Comment on above: Performed By: #### L [id number], L506.0400, L3410.2350 #### [facility] [address] [place], [address] Creatinine [Mass/Vol] 1.51 mg/dL High 0.70-1.20 [facility] Comment on above: Performed By: #### L [id number], L506.0400, L3410.2350 #### [facility] [address] [place], [address] ECRCL 25.80 ml/min Low 50-250 [facility] Comment on above: Performed By: #### L [id number], L506.0400, L3410.2350 #### [facility] [address] [place], [address] GAP 13 Normal 5-15 [facility] Comment on above: Performed By: #### L [id number], L506.0400, L3410.2350 #### [facility] [address] [place], [address] GFR/1.73 sq M.predicted among non-blacks MDRD (S/P/Bld) [Vol rate/Area] 33 mL/min/{1.73_m2} Low >60 [facility] Comment on above: Result Comment: mL/m in/1.73m2 CKD-EPI Creatinine Equation (2020) Performed By: #### L [id number], L506.0400, L3410.2350 #### [facility] [address] [place], [address] Globulin (S) [Mass/Vol] 3.2 g/dL Normal 2.2-4.2 [facility] Comment on above: Performed By: #### L [id number], L506.0400, L3410.2350 #### [facility] [address] [place], [address] Glucose [Mass/Vol] 202 mg/dL High 70-99 [facility] Comment on above: Performed By: #### L [id number], L506.0400, L3410.2350 #### [facility] [address] [place], [address] Potassium [Moles/Vol] 4.1 mmol/L Normal 3.3-5.1 [facility] Comment on above: Performed By: #### L [id number], L506.0400, L3410.2350 #### [facility] [address] [place], [address] Sodium [Moles/Vol] 133 mmol/L Normal 133-145 [facility] Comment on above: Performed By: #### L [id number], L506.0400, L3410.2350 #### [facility] [address] [place], [address] T PROT 6.4 g/dL Normal 5.9-8.4 [facility] Comment on above: Performed By: #### L [id number], L506.0400, L3410.2350 #### [facility] [address] [place], [address] Urea nitrogen [Mass/Vol] 34 mg/dL High 4-19 [facility] Comment on above: Performed By: #### L [id number], L506.0400, L3410.2350 #### [facility] [address] [place], [address] LDL calc ser/plasOrdered By: Sha Queen on 09-15-2024 Cholesterol in LDL [Mass/Vol] 47 mg/dL [facility] Comment on above: Rwdcpuumfg=894-241 m g/dL & Higher Ujll=966 mg/dL or greater LDL Cholesterol, Calculated 47 mg/dL [facility] Comment on above: Auomcuoqhv=884-724 m g/dL & Higher Cotr=137 mg/dL or greater Laboratory - Chemistry and C hemistry - challengeOrdered By: Sha Queen on 09-15-2024 AST [Catalytic activity/Vol] 22 U/L <32 [facility] Lipid Profileon 03-29-2025 CHOL:HDL 2.72 Normal [facility] Comment on above: Performed By: #### L [id number], L506.0400, L3410.2350 #### [facility] [address] [place], [address] Cholesterol [Mass/Vol] 110 mg/dL Normal <=200 [facility] Comment on above: Result Comment: Chol esterol level, Desirable <200 mg/dL Borderline high cholesterol 200-239 mg/dL High cholesterol >=240 mg/dL Recommendations of the NCEP Adult Treatment Panel for the following risk-cutoff thresholds for the [place] population. Performed By: #### L 501.9520, L506.0400, L3410.2350 #### [facility] [address] [place], [address] Cholesterol in HDL [Mass/Vol] 40 mg/dL Normal [facility] Comment on above: Result Comment: Ching onal Cholesterol Education Program (NCEP) guidelines: <40 mg/dL: Low HDL-cholesterol (major risk factor for CHD) >= 60 mg/dL: High HDL-cholesterol (negative risk factor for CHD) HDL-cholesterol is affected by a number of factors, e.g. smoking, exercise, hormones, sex and age. Performed By: #### L 501.9520, L506.0400, L3410.2350 #### [facility] [address] [place], [address] Cholesterol in LDL [Mass/Vol] 47 mg/dL Normal [facility] Comment on above: Result Comment: Bord huhroz=502-741 mg/dL Higher Rgpu=091 mg/dL or greater Performed By: #### L [id number], L506.0400, L3410.2350 #### [facility] [address] [place], [address] Cholesterol in VLDL [Mass/Vol] 23 mg/dL Normal 5-40 [facility] Comment on above: Performed By: #### L [id number], L506.0400, L3410.2350 #### [facility] [address] [place], [address] Triglyceride [Mass/Vol] 114 mg/dL Normal [facility] Comment on above: Result Comment: The drugs N-Acetylcysteine and Metamizole may falsely depress this assay. Normal range: <150 mg/dL Borderline High: 150-199 mg/dL High: 200-499 mg/dL Very High: >500 mg/dL Performed By: #### L [id number], L506.0400, L3410.2350 #### [facility] [address] [place], [address] Magnesiumon 09-15-2024 Magnesium [Mass/Vol] 1.8 mg/dL Normal 1.5-2.2 [facility] Comment on above: Performed By: #### L [id number], L506.0400, L3410.2350 #### [facility] [address] [place], [address] Phosphoruson 09-15-2024 Phosphate [Mass/Vol] 3.5 mg/dL Normal 2.7-4.5 [facility] Comment on above: Performed By: #### L [id number], L506.0400, L3410.2350 #### [facility] [address] [place], [address] RESPIRATORY PANEL MOLECULARo n 09-15-2024 RP PANEL ADENOVIRUS Not Detected INFLUENZA A Not Detected INFLUENZA A (SUBTYPE H1) Not Detected INFLUENZA A (SUBTYPE H3) Not Detected INFLUENZA B Not Detected HUMAN METAPHNEUMO Not Detected PARAINFLUENZA 1 Not Detected PARAINFLUENZA 2 Not Detected PARAINFLUENZA 3 Not Detected PARAINFLUENZA 4 Not Detected RHINOVIRUS Not Detected RSV A Not Detected RSV B Not Detected Normal [facility] Comment on above: Performed By: #### L 501.9520, L506.0400, L3410.2350 #### [facility] [address] [place], [address] Screening total cholesterol/ high density lipoprotein (HDL) cholesterol ratioOrdered By: Sha Queen on 09-15-2024 Cholesterol.total/Cho lesterol in HDL [Mass ratio] 2.72 {ratio} [facility] Serum globulin measurementOr dered By: Sha Queen on 09-15-2024 Globulin (S) [Mass/Vol] 3.2 g/dL 2.2-4.2 [facility] Serum or plasma alanine lyon otransferase (ALT) measurementOrdered By: Sha Queen on 09-15-2024 ALT [Catalytic activity/Vol] 12 U/L <35 [facility] Serum or plasma albumin sonny urement (mass/volume)Ordered By: Sha Queen on 09-15-2024 Albumin [Mass/Vol] 3.2 g/dL Low 3.4-4.8 [facility] Serum or plasma albumin/glob ulin mass ratioOrdered By: Sha Queen on 09-15-2024 Albumin/Globulin [Mass ratio] 1.0 {ratio} 0.9-2.4 [facility] Serum or plasma alkaline anthony sphatase measurementOrdered By: Sha Queen on 09-15-2024 ALP [Catalytic activity/Vol] 84 U/L 35-104 [facility] Serum or plasma cholesterol in HDL measurement (mass/volume)Ordered By: Sha Queen on 09-15-2024 Cholesterol in HDL [Mass/Vol] 40 mg/dL >40 [facility] Comment on above: National Cholesterol Education Program (NCEP) guidelines:<40 mg/dL: Low HDL-cholesterol (major risk factor for CHD)>= 60 mg/dL: High HDL-cholesterol (negative risk factor for CHD)HDL-cholesterol is affected by a number of factors, e.g. smoking, exercise, hormones, sex and age. Serum or plasma cholesterol measurement (mass/volume)Ordered By: Sha Queen on 09-15-2024 Cholesterol [Mass/Vol] 110 mg/dL <201 [facility] Comment on above: Cholesterol level, D esirable <200 mg/dLBorderline high cholesterol 200-239 mg/dLHigh cholesterol >=240 mg/dLRecommendations of the NCEP Adult Treatment Panel for the following risk-cutoff thresholds for the [place] population. TSH DL <= 0.005 mIU/L QnOrde red By: Sha Queen on 09-15-2024 Thyroid Stimulating Hormone (TSH) 1.250 uIU/mL 0.300-4.20 0 [facility] TSH Qn 1.250 uIU/mL 0.300-4.20 0 [facility] Thyroid Stim Hormone (TSH)on 09-15-2024 TSH 1.250 uIU/mL Normal 0.300-4.20 0 [facility] Comment on above: Performed By: #### L [id number], L506.0400, L3410.2350 #### [facility] [address] [place], [place], [address] Total proteinOrdered By: Gerald Queen on 09-15-2024 Protein [Mass/Vol] 6.4 g/dL 5.9-8.4 [facility] Triglycerides measurementOrd ered By: Sha Queen on 09-15-2024 Triglyceride [Mass/Vol] 114 mg/dL <199 [facility] Comment on above: The drugs N-Acetylcy steine and Metamizole may falsely depress this assay. Normal range: <150 mg/dLBorderline High: 150-199 mg/dLHigh: 200-499 mg/dLVery High: >500 mg/dL 12 Lead EKGon 09-14-2024 12 Lead EKG [facility] Cardiovascular Services [address] [place] [address] 12 Lead EKG 09/14/241953 MR#: [id number] Acct: [id number] Name: GARTH CONLEY Rep #: [id number] : 1940 84 From: Austyn Edmonds MD Attending Dr: Dr. Max Dixon, DO Status: DIS IN Ordering Dr: Zaheer Savage MD Date: 09/14/24 Location: [facility]3 Sex: F C Admitted: 09/14/24 Test Reason : DYSRHYTHMIA Blood Pressure : */* mmHG Vent. Rate : 97 BPM Atrial Rate : 97 BPM P-R Int : 186 ms QRS Dur : 106 ms QT Int : 400 ms P-R-T Axes : 58 2 80 degrees QTcB Int : 508 ms Normal sinus rhythm Cannot rule out Inferior infarct , age undetermined Abnormal ECG Confirmed by AUSTYN EDMONDS MD ([id number]), pictures editor BRISEYDA VEGA ([id number]) on 09/17/2024 9:22:22 AM Referred By: Confirmed By: AUSTYN EDMONDS MD 09/17/24921 Date Austyn Edmonds MD CC: Dr. Max Dixon DO; Dr. Max Jernigan MD; Dr. Zaheer Savage MD Signed Normal [facility] Absolute neutrophil countOrd ered By: Zaheer Savage on 09-14-2024 Neutrophils (Bld) [#/Vol] 12.4 10*3/uL High 2.0-7.7 [facility] Anion gap in Serum or Plasma Ordered By: Zaheer Savage on 09-14-2024 Anion gap [Moles/Vol] 15 mmol/L 5-15 [facility] BUN/creatinine ratioOrdered By: Zaheer Savage on 09-14-2024 Urea nitrogen/Creatinine [Mass ratio] 21.6 mg/mg High 10-20 [facility] Basic Metabolic Profile (BMP )on 09-14-2024 BUN/CRE 21.6 RATIO High 10- [facility] Comment on above: Performed By: #### L 503.0106, L506.0200 #### [facility] [address] [place], [address] Calcium [Mass/Vol] 8.6 mg/dL Normal 7.6-11.0 [facility] Comment on above: Performed By: #### L 503.0106, L506.0200 #### [facility] [address] [place], [address] Chloride [Moles/Vol] 99 mmol/L Normal 98-108 [facility] Comment on above: Performed By: #### L 503.0106, L506.0200 #### [facility] [address] [place], [address] CO2 [Moles/Vol] 17.9 mmol/L Low 21.0-32.0 [facility] Comment on above: Performed By: #### L 503.0106, L506.0200 #### [facility] [address] [place], [address] Creatinine [Mass/Vol] 1.57 mg/dL High 0.70-1.20 [facility] Comment on above: Performed By: #### L 503.0106, L506.0200 #### [facility] [address] [place], [address] GAP 15 Normal 5-15 [facility] Comment on above: Performed By: #### L 503.0106, L506.0200 #### [facility] [address] [place], [address] GFR/1.73 sq M.predicted among non-blacks MDRD (S/P/Bld) [Vol rate/Area] 32 mL/min/{1.73_m2} Low >60 [facility] Comment on above: Result Comment: mL/m in/1.73m2 CKD-EPI Creatinine Equation (2020) Performed By: #### L 503.0106, L506.0200 #### [facility] [address] [place], [address] Glucose [Mass/Vol] 136 mg/dL High 70-99 [facility] Comment on above: Performed By: #### L 503.0106, L506.0200 #### [facility] [address] [place], [address] Potassium [Moles/Vol] 3.1 mmol/L Low 3.3-5.1 [facility] Comment on above: Performed By: #### L 503.0106, L506.0200 #### [facility] [address] [place], [address] Sodium [Moles/Vol] 131 mmol/L Low 133-145 [facility] Comment on above: Performed By: #### L 503.0106, L506.0200 #### [facility] [address] [place], [address] Urea nitrogen [Mass/Vol] 34 mg/dL High 4-19 [facility] Comment on above: Performed By: #### L 503.0106, L506.0200 #### [facility] [address] [place], [address] Basophil percentageOrdered B y: Zaheer Savage on 09-14-2024 Basophils/100 WBC (Bld) 0.2 % 0-1 [facility] CBC W/Diff, Automatedon 08-19 Absolute Lymph 0.20 X10 3/uL Low 0.83-4.51 [facility] Comment on above: Performed By: #### L 503.0106, L506.0200 ####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 leukocyt esOrdered By: Dr. Jernigan on 12-01-2022 Monocytes/100 WBC (Bld) 9.9 % 0-10 [facility] Blood platelet mean volumeOr dered By: Dr. Jernigan on 12-01-2022 Platelet mean volume (Bld) [Entitic vol] 11.5 fL 6.2-12.0 [facility] Determination of erythrocyte mean corpuscular volume (MCV)Ordered By: Dr. Jernigan on 12-01-2022 MCV (RBC) [Entitic vol] 90.4 fL 81-99 [facility] Hematocrit Auto (Bld) [Volum e fraction]Ordered By: Dr. Jernigan on 12-01-2022 Hematocrit (Bld) [Volume fraction] 42.5 % 37-47 [facility] Laboratory - Chemistry and C hemistry - challengeOrdered By: Dr. Jernigan on 12-01-2022 ALP [Catalytic activity/Vol] 74 U/L 45-117 [facility] ALT [Catalytic activity/Vol] 27 U/L 13-56 [facility] CO2 [Moles/Vol] 24.0 mmol/L 21.0-32.0 [facility] Free T4 [Mass/Vol] 1.17 ng/dL 0.76-1.46 [facility] Globulin (S) [Mass/Vol] 3.7 g/dL 2.2-4.2 [facility] Urea nitrogen/Creatinine [Mass ratio] 18.8 mg/mg 10-20 [facility] Laboratory - Hematology and Cell countsOrdered By: Dr. Jernigan on 12-01-2022 Erythrocyte distribution width (RBC) [Entitic vol] 43.7 fL 35.1-43.9 [facility] Erythrocyte distribution width (RBC) [Ratio] 13.2 % 11.6-14.6 [facility] Immature granulocytes/100 WBC (Bld) 0.300 % 0.0-0.9 [facility] Comment on above: IG% - Immature Granu locytes (promyelocytes, myelocytes and metamyelocytes) > 1% indicates that a LEFT SHIFT is Present. MCH (RBC) [Entitic mass] 29.4 pg 27.0-32.0 [facility] Nucleated RBC/100 WBC (Bld) [Ratio] 0 % 0-5 [facility] MCHC Auto (RBC) [Mass/Vol]Or dered By: Dr. Jernigan on 12-01-2022 MCHC (RBC) [Mass/Vol] 32.5 g/dL 32-36 [facility] No Panel InformationOrdered By: Dr. Jernigan on 12-01-2022 Estimated GFR (MDRD) Amer 71 mL/min >60 [facility] Comment on above: GFR Calc Estimated GFR (MDRD) Non-Af Amer 59 mL/min >60 [facility] Comment on above: Non- GFR Calc Free Triiodothyronine (T3) pg/dL 2.4 pg/mL 2.18-3.98 [facility] Thyroid Stimulating Hormone (TSH) 1.64 uIU/mL 0.358-3.74 [facility] Vitamin D 25-Hydroxy 33.8 ng/mL [facility] Comment on above: Vitamin D 25(OH) Sta tus Range Deficiency <20 ng/mL (50nmol/L) Insufficiency 20 - 30 ng/mL (50 - 75 nmol/L) Sufficiency 30 - 100 ng/mL (75 - 250 nmol/L) Toxicity >100 ng/mL (>250 nmol/L) Platelets bldOrdered By: Dr. Jernigan on 12-01-2022 Platelets (Bld) [#/Vol] 195 10*3/uL 150-450 [facility] Serum or plasma albumin sonny urement (mass/volume)Ordered By: Dr. Jernigan on 12-01-2022 Albumin [Mass/Vol] 3.5 g/dL 3.2-5.0 [facility] Serum or plasma albumin/glob ulin mass ratioOrdered By: Dr. Jernigan on 12-01-2022 Albumin/Globulin [Mass ratio] 0.9 {ratio} 0.9-2.4 [facility] Serum or plasma calcium sonny urement (mass/volume)Ordered By: Dr. Jernigan on 12-01-2022 Calcium [Mass/Vol] 8.9 mg/dL 8.5-10.1 [facility] Serum or plasma cholesterol in HDL measurement (mass/volume)Ordered By: Dr. Jernigan on 12-01-2022 Cholesterol in HDL [Mass/Vol] 49 mg/dL >40 [facility] Comment on above: The drugs N-Acetylcy steine and Metamizole may falsely depress this assay. Reference Range HDL <40 mg/dL Low HDL Cholesterol HDL >or= 60 mg/dL High HDL Cholesterol Serum or plasma cholesterol in VLDL measurement (mass/volume)Ordered By: Dr. Jernigan on 12-01-2022 Cholesterol in VLDL [Mass/Vol] 46 mg/dL 5-40 [facility] Serum or plasma creatinine m easurement (mass/volume)Ordered By: Dr. Jernigan on 12-01-2022 Creatinine [Mass/Vol] 0.96 mg/dL 0.55-1.02 [facility] Comment on above: The validity of the calculated GFR & GFRAA in patients over 70 years has not been determined. Clinical correlation is essential. Serum or plasma low density lipoprotein (LDL) cholesterol measurement (mass/volume)Ordered By: Dr. Jernigan on 12-01-2022 Cholesterol in LDL [Mass/Vol] 87 mg/dL 0-130 [facility] Serum or plasma urea nitroge n measurement (mass/volume)Ordered By: Dr. Jernigan on 12-01-2022 Urea nitrogen [Mass/Vol] 18 mg/dL 7-18 [facility] Thin prep Papanicolaou smear with manual screeningOrdered By: Dr. Jernigan on 12-01-2022 Thin prep Papanicolaou smear with manual screening 20 U/L 15-37 [facility] Thin prep Papanicolaou smear with manual screening 6 5-15 [facility] Absolute lymphocyte counton 02-19-2022 Lymphocytes Auto (Unsp spec) [#/Vol] 1.80 10*3/uL 0.83-4.51 [facility] Work Phone: Basophil percentageon 2021 Basophils/100 WBC (Bld) 0.6 % 0-1 [facility] Work Phone: Chloride [Moles/Vol] 111 mmol/L 98-107 [facility] Work Phone: Eosinophils/100 WBC (Bld) 3.0 % 0-5 [facility] Work Phone: Glucose [Mass/Vol] 74 mg/dL 74-106 [facility] Work Phone: Neutrophils (Bld) [#/Vol] 5.0 10*3/uL 2.0-7.7 [facility] Work Phone: Neutrophils/100 WBC (Bld) 64.2 % 47-70 [facility] Work Phone: Potassium [Moles/Vol] 3.9 mmol/L 3.5-5.1 [facility] Work Phone: Sodium [Moles/Vol] 143 mmol/L 136-145 [facility] Work Phone: WBC (Bld) [#/Vol] 7.8 10*3/uL 4.4-11.0 [facility] Work Phone: Blood erythrocytes count (nu mber/volume)on 02-19-2022 RBC (Bld) [#/Vol] 4.24 10*6/uL 4.2-5.4 [facility] Work Phone: Blood hemoglobin measurement (mass/volume)on 02-19-2022 Hemoglobin (Bld) [Mass/Vol] 12.7 g/dL 12.0-15.0 [facility] Work Phone: Blood lymphocytes/100 leukoc yteson 02-19-2022 Lymphocytes/100 WBC (Bld) 23.1 % 19-41 [facility] Work Phone: Blood monocytes/100 leukocyt eson 02-19-2022 Monocytes/100 WBC (Bld) 8.7 % 0-10 [facility] Work Phone: Blood platelet mean volumeon 02-19-2022 Platelet mean volume (Bld) [Entitic vol] 11.7 fL 6.2-12.0 [facility] Work Phone: Determination of erythrocyte mean corpuscular volume (MCV)on 02-19-2022 MCV (RBC) [Entitic vol] 89.4 fL 81-99 [facility] Work Phone: Glucose Glucometer (BldC) [M ass/Vol]on 02-19-2022 Glucose [Mass/Vol] 96 mg/dL 74-106 [facility] Work Phone: Comment on above: MANAGEMENT OF PATIEN T CARE PER NURSING PROTOCOL Glucose [Mass/Vol] 100 mg/dL 74-106 [facility] Work Phone: Comment on above: MANAGEMENT OF PATIEN T CARE PER NURSING PROTOCOL Hematocrit Auto (Bld) [Volum e fraction]on 02-19-2022 Hematocrit (Bld) [Volume fraction] 37.9 % 37-47 [facility] Work Phone: Laboratory - Chemistry and C hemistry - challengeon 02-19-2022 CO2 [Moles/Vol] 26.0 mmol/L 21.0-32.0 [facility] Work Phone: Urea nitrogen/Creatinine [Mass ratio] 20.4 mg/mg 10-20 [facility] Work Phone: Laboratory - Hematology and Cell countson 02-19-2022 Erythrocyte distribution width (RBC) [Entitic vol] 43.8 fL 35.1-43.9 [facility] Work Phone: Erythrocyte distribution width (RBC) [Ratio] 13.4 % 11.6-14.6 [facility] Work Phone: Immature granulocytes/100 WBC (Bld) 0.400 % 0.0-0.9 [facility] Work Phone: Comment on above: IG% - Immature Granu locytes (promyelocytes, myelocytes and metamyelocytes) > 1% indicates that a LEFT SHIFT is Present. MCH (RBC) [Entitic mass] 30.0 pg 27.0-32.0 [facility] Work Phone: Nucleated RBC/100 WBC (Bld) [Ratio] 0 % 0-5 [facility] Work Phone: MCHC Auto (RBC) [Mass/Vol]on 02-19-2022 MCHC (RBC) [Mass/Vol] 33.5 g/dL 32-36 [facility] Work Phone: No Panel Informationon 02-19 Estimated Creatinine Clearance Calc 42.48 ml/min [facility] Work Phone: Estimated GFR (MDRD) Amer 84 mL/min >60 [facility] Work Phone: Comment on above: GFR Calc Estimated GFR (MDRD) Non-Af Amer 69 mL/min >60 [facility] Work Phone: Comment on above: Non- GFR Calc Platelets bldon 02-19-2022 Platelets (Bld) [#/Vol] 157 10*3/uL 150-450 [facility] Work Phone: Serum or plasma calcium sonny urement (mass/volume)on 02-19-2022 Calcium [Mass/Vol] 8.6 mg/dL 8.5-10.1 [facility] Work Phone: Serum or plasma creatinine m easurement (mass/volume)on 02-19-2022 Creatinine [Mass/Vol] 0.83 mg/dL 0.55-1.02 [facility] Work Phone: Comment on above: The validity of the calculated GFR & GFRAA in patients over 70 years has not been determined. Clinical correlation is essential. Serum or plasma urea nitroge n measurement (mass/volume)on 02-19-2022 Urea nitrogen [Mass/Vol] 17 mg/dL 7-18 [facility] Work Phone: Thin prep Papanicolaou smear with manual screeningon 02-19-2022 Thin prep Papanicolaou smear with manual screening 6 5-15 [facility] Work Phone: Absolute lymphocyte counton 02-02-2022 Lymphocytes Auto (Unsp spec) [#/Vol] 1.90 10*3/uL 0.83-4.51 [facility] Work Phone: Basophil percentageon 2021 Basophils/100 WBC (Bld) 0.8 % 0-1 [facility] Work Phone: [phone] Bilirubin [Mass/Vol] 0.70 mg/dL 0.20-1.00 [facility] Work Phone: [phone] Comment on above: For patients on eltr ombopag therapy, use of Dimension [place] TBIL is not recommended. Chloride [Moles/Vol] 106 mmol/L 98-107 [facility] Work Phone: [phone] Cholesterol [Mass/Vol] 202 mg/dL <200 [facility] Work Phone: [phone] Comment on above: <200 mg/dL Desirable 200-240 mg/dL Borderline >240 mg/dL High Risk Eosinophils/100 WBC (Bld) 4.0 % 0-5 [facility] Work Phone: [phone] Glucose [Mass/Vol] 91 mg/dL 74-106 [facility] Work Phone: [phone] Neutrophils (Bld) [#/Vol] 4.9 10*3/uL 2.0-7.7 [facility] Work Phone: [phone] Neutrophils/100 WBC (Bld) 61.8 % 47-70 [facility] Work Phone: [phone] Potassium [Moles/Vol] 4.0 mmol/L 3.5-5.1 [facility] Work Phone: [phone] Protein [Mass/Vol] 8.1 g/dL 6.4-8.2 [facility] Work Phone: Sodium [Moles/Vol] 139 mmol/L 136-145 [facility] Work Phone: [phone] Triglyceride [Mass/Vol] 225 mg/dL <199 [facility] Work Phone: [phone] Comment on above: The drugs N-Acetylcy steine and Metamizole may falsely depress this assay.Serum Triglycerides Reference Interval Normal <150 mg/dL Borderline high 150 - 199 mg/dL High 200 - 499 mg/dL Very High > or = 500 mg/dL WBC (Bld) [#/Vol] 7.9 10*3/uL 4.4-11.0 [facility] Work Phone: Blood erythrocytes count (nu mber/volume)on 02-02-2022 RBC (Bld) [#/Vol] 4.75 10*6/uL 4.2-5.4 [facility] Work Phone: Blood hemoglobin measurement (mass/volume)on 02-02-2022 Hemoglobin (Bld) [Mass/Vol] 14.4 g/dL 12.0-15.0 [facility] Work Phone: Blood lymphocytes/100 leukoc yteson 02-02-2022 Lymphocytes/100 WBC (Bld) 24.0 % 19-41 [facility] Work Phone: Blood monocytes/100 leukocyt eson 02-02-2022 Monocytes/100 WBC (Bld) 9.1 % 0-10 [facility] Work Phone: Blood platelet mean volumeon 02-02-2022 Platelet mean volume (Bld) [Entitic vol] 11.5 fL 6.2-12.0 [facility] Work Phone: [phone] Determination of erythrocyte mean corpuscular volume (MCV)on 02-02-2022 MCV (RBC) [Entitic vol] 91.6 fL 81-99 [facility] Work Phone: Hematocrit Auto (Bld) [Volum e fraction]on 02-02-2022 Hematocrit (Bld) [Volume fraction] 43.5 % 37-47 [facility] Work Phone: Iron measurement (mass/mass) on 02-02-2022 Iron (Unsp spec) [Mass/Mass] 113 ug/dL 50-170 [facility] Work Phone: Laboratory - Chemistry and C hemistry - challengeon 02-02-2022 ALP [Catalytic activity/Vol] 89 U/L 45-117 [facility] Work Phone: ALT [Catalytic activity/Vol] 26 U/L 13-56 [facility] Work Phone: CO2 [Moles/Vol] 27.0 mmol/L 21.0-32.0 [facility] Work Phone: [phone] Cobalamin (Vitamin B12) [Mass/Vol] 421 pg/mL 211-911 [facility] Work Phone: [phone] Free T4 [Mass/Vol] 1.23 ng/dL 0.76-1.46 [facility] Work Phone: [phone] Globulin (S) [Mass/Vol] 4.3 g/dL 2.2-4.2 [facility] Work Phone: [phone] Urea nitrogen/Creatinine [Mass ratio] 15.4 mg/mg 10-20 [facility] Work Phone: [phone] Laboratory - Hematology and Cell countson 02-02-2022 Erythrocyte distribution width (RBC) [Entitic vol] 45.5 fL 35.1-43.9 [facility] Work Phone: [phone] Erythrocyte distribution width (RBC) [Ratio] 13.3 % 11.6-14.6 [facility] Work Phone: [phone] Immature granulocytes/100 WBC (Bld) 0.300 % 0.0-0.9 [facility] Work Phone: Comment on above: IG% - Immature Granu locytes (promyelocytes, myelocytes and metamyelocytes) > 1% indicates that a LEFT SHIFT is Present. MCH (RBC) [Entitic mass] 30.3 pg 27.0-32.0 [facility] Work Phone: [phone] Nucleated RBC/100 WBC (Bld) [Ratio] 0 % 0-5 [facility] Work Phone: [phone] MCHC Auto (RBC) [Mass/Vol]on 02-02-2022 MCHC (RBC) [Mass/Vol] 33.1 g/dL 32-36 [facility] Work Phone: [phone] No Panel Informationon 02-02 Estimated GFR (MDRD) Amer 76 mL/min >60 [facility] Work Phone: Comment on above: GFR Calc Estimated GFR (MDRD) Non-Af Amer 63 mL/min >60 [facility] [facility] Work Phone: Comment on above: Non- GFR Calc Thyroid Stimulating Hormone (TSH) 1.19 uIU/mL 0.358-3.74 [facility] Work Phone: Platelets bldon 02-02-2022 Platelets (Bld) [#/Vol] 191 10*3/uL 150-450 [facility] Work Phone: Serum or plasma albumin sonny urement (mass/volume)on 02-02-2022 Albumin [Mass/Vol] 3.8 g/dL 3.2-5.0 [facility] Work Phone: Serum or plasma albumin/glob ulin mass ratioon 02-02-2022 Albumin/Globulin [Mass ratio] 0.9 {ratio} 0.9-2.4 [facility] Work Phone: Serum or plasma calcium sonny urement (mass/volume)on 02-02-2022 Calcium [Mass/Vol] 8.9 mg/dL 8.5-10.1 [facility] Work Phone: Serum or plasma cholesterol in HDL measurement (mass/volume)on 02-02-2022 Cholesterol in HDL [Mass/Vol] 50 mg/dL >40 [facility] Work Phone: Comment on above: The drugs N-Acetylcy steine and Metamizole may falsely depress this assay. Reference Range HDL <40 mg/dL Low HDL Cholesterol HDL >or= 60 mg/dL High HDL Cholesterol Serum or plasma cholesterol in VLDL measurement (mass/volume)on 02-02-2022 Cholesterol in VLDL [Mass/Vol] 45 mg/dL 5-40 [facility] Work Phone: Serum or plasma creatinine m easurement (mass/volume)on 02-02-2022 Creatinine [Mass/Vol] 0.91 mg/dL 0.55-1.02 [facility] Work Phone: Comment on above: The validity of the calculated GFR & GFRAA in patients over 70 years has not been determined. Clinical correlation is essential. Serum or plasma folate measu rement (mass/volume)on 02-02-2022 Folate [Mass/Vol] 13.00 ng/mL 3.1-55.4 [facility] Work Phone: Comment on above: Slight Hemolysis, Re sult may be falsely increased. Serum or plasma low density lipoprotein (LDL) cholesterol measurement (mass/volume)on 02-02-2022 Cholesterol in LDL [Mass/Vol] 107 mg/dL 0-130 [facility] Work Phone: Serum or plasma urea nitroge n measurement (mass/volume)on 02-02-2022 Urea nitrogen [Mass/Vol] 14 mg/dL 7-18 [facility] Work Phone: Thin prep Papanicolaou smear with manual screeningon 02-02-2022 Thin prep Papanicolaou smear with manual screening 20 U/L 15-37 [facility] Work Phone: Thin prep Papanicolaou smear with manual screening 6 5-15 [facility] Work Phone: Operative Reporton 2 Operative Report [facility] ITAL [address], [place] [address] RECORD OF PROCEDURE PATIENT NAME: GARTH CONLEY DATE OF : 1940 [facility] REC #: [id number] PT LOCATION: OR PACU PT TYPE: OPS AGE: 81 SEX: F ADMISSION DATE: 11/09/2021 DATE OF SERVICE: 11/09/2021 SURGEON: Kendra García MD ESTIMATED BLOOD LOSS: Minimal. DRAINS: None. PATHOLOGY: Skin calcification. PREPROCEDURE DIAGNOSIS: 1. Fecal incontinence. 2. Urge urinary incontinence. 3. Skin calcification. POSTPROCEDURE DIAGNOSIS: 1. Fecal incontinence. 2. Urge urinary incontinence. 3. Skin calcification. NAME OF PROCEDURE: 1. Stage II sacral neuromodulation with placement of permanent generator. 2. Excision of skin calcification. FINDINGS: Normal impedance. Approximately 0.5-cm skin calcification the right flank. DESCRIPTION OF PROCEDURE: Patient was properly identified and placed in prone position per OR protocol. Anesthesia was administered. Patient was prepped and draped in the usual sterile fashion using ChloraPrep for prep solution. Local injection of 1% lidocaine and 0.5% Marcaine was administered. The previous incision was opened using blunt dissection and the neurostimulator test connection was identified and elevated. The sutures holding the protective boot were cut and the protective boot was retracted. The setscrews were exposed and loosened with a hex wrench. The boot was removed and discarded. The percutaneous extension was cut and removed from the field. The subcutaneous pocket anterior to the muscle surface was enlarged and hemostasis was established. The lead was cleansed of body fluid. The lead was inserted into the header of the InterStim II Neurostimulator until the blue tip was visualized at the distal window. The single set screw was tightened. The neurostimulator pulse generator was placed into the subcutaneous pocket with the etched identification side placed upwards and the extension wrapped counterclockwise around the pulse generator. The programming head was placed over the implanted neurostimulator. The impedance was verified to insure adequate lead placement and if parameters were within normal limits. Impedances were checked and confirmed to be within normal limits, greater than 50 and less than 4,000. The wound was closed with 3-0 Vicryl subcutaneous suture and 4-0 Monocryl subcuticular suture. The wound was covered with Steri-Strips, gauze and Tegaderm. On the right flank the patient was noted to have a 0.5-cm skin calcification. An elliptical incision was made around the calcification using a 15-blade scalpel. The calcification was excised and sent to Pathology. Excellent hemostasis was noted. The incision was closed with a subcutaneous 3-0 Vicryl suture interrupted stitch and a subcuticular 3-0 Vicryl suture. This was then closed with Dermabond, and Steri-Strip was placed over the incision and then a Tegaderm bandage. Estimated blood loss was minimal. The patient was transferred to the PACU in satisfactory condition. COMPLICATIONS: None. CONDITION: Stable. MD GIORGIO Johnson/[id number] SSI File#: [id number] CC: Kendra García MD [facility] Surgical Pathology Depar tmenton 11-09-2021 [facility] Surgical Pathology Department Name GARTH CONLEY Pathologist: BARRY LA M.D. Date of Procedure: 11/09/2021 Date Received: 11/09/2021 Date Reported 11/25/2021 Submitting Physician: KENDRA GARCÍA MD Location: [facility] Copy To/Referring/Attending: MAX JERNIGAN MD Other External # [id number] FINAL DIAGNOSIS A. SKIN. SITE NOT STATED, BIOPSY: -- DERMAL FIBROSIS, CHRONIC INFLAMMATION AND CALCIFICATION, SEE COMMENT COMMENT: The underlying etiology of this process is unclear. Clinical correlation is suggested. product safety consultant: Dr. Sammie Godwin. Electronically Signed Out By BARRY LA M.D./KGB By the signature on this report, the individual or group listed as making the Final Interpretation/Diagnosis certifies that they have reviewed this case. Diagnostic interpretation performed at [facility] [address] [place] [address] Clinical History: skin calcification Specimens Submitted As: A: SKIN CALCIFICATION Other Case Numbers [id number] Gross Description: Received in formalin, labeled with the patient's name and hospital number and skin calcification, consists of multiple yellow-moore, hard and segments of soft tissue aggregating to 1.5 x 1.2 x 0.3 cm. The specimen is submitted in toto in one cassette, following decalcification. MJR mjr/11/11/2021 [facility] Department of Pathology [address] [place] [address] Comment on above: Performed By: #### U HCS #### [facility] Surgical Pathology Department [address] [place] [address] Operative Reporton 2 Operative Report [facility] [address] [place] [id number] RECORD OF PROCEDURE PATIENT NAME: GARTH CONLEY DATE OF : 1940 MED REC #: [id number] PT LOCATION: OR PACU PT TYPE: OPS AGE: 81 SEX: F ADMISSION DATE: 10/26/2021 DATE OF SERVICE: 10/26/2021 SURGEON: Kendra García MD 1ST MANUAL WRITER: Hieu Montoya ESTIMATED BLOOD LOSS: Minimal. DRAINS: None. PREPROCEDURE DIAGNOSIS: 1. Fecal incontinence. 2. Rectocele. 3. Stress urinary incontinence. POSTPROCEDURE DIAGNOSIS: 1. Fecal incontinence. 2. Rectocele. 3. Stress urinary incontinence. NAME OF PROCEDURE: Stage 1 sacral neuromodulation, posterior colporrhaphy, midurethral sling and cystoscopy. FINDINGS: Motor response at all 4 electrodes. DESCRIPTION OF PROCEDURE: Patient was properly identified and placed in prone position per OR protocol. MAC anesthesia was administered. Pillows were placed under lower abdomen to flatten sacrum and under shins to allow the toes to dangle freely. Patient was prepped and draped in usual sterile fashion using ChloraPrep solution. The C-arm was moved into PA position to provide fluoroscopy visual and the midline of the vertebrae, SI notches and medial foraminal borders were marked. The C-arm was moved to lateral position to image the area from sacral promontory to the coccyx. Local injection of 0.5% Marcaine and epinephrine was administered. A 3.5-inch sized needle was introduced on the patients right approximately 2 cm above SI notch and 1.5 cm lateral to vertebral midline, feeling for foraminal margins until the S3 foramen was identified and penetrated. The depth of the needle was confirmed and adjusted fluoroscopically. Proper needle position direct observation of the lifting of the perineum o bellowing and observation of plantar flexion of the great toe utilizing the external test stimulator box. The needle stylet was removed and a directional guide wire was placed and confirmed fluoroscopically. The foramen needle was removed. An incision was made peripherally to the directional guide wire through the fascial layer. The dilator and introducer sheath was placed over the directional guide wire and directed into the foramen until the opaque marker of the dilator was seen on the anterior rim of the sacrum. The dilator obturator was unlocked and removed. The lead was then placed through the introducer sheath to the first white line. Position was checked fluoroscopically. The lead was then further introduced until 3 electrodes were visible below the sacrum. Each electrode was tested for visualization of violeta and plantar flexion of the great toe. After satisfactory positioning was confirmed, under continuous fluoroscopy, the introducer sheath was retracted, deploying lead tines into the perisacral tissue. Further incision was made into subcutaneous tissue posterior to the iliac crest and blunt dissection was continued until the gluteal fascia was identified and hemostasis was achieved. A tunneling tool and tube was placed from the lead subcutaneously to the incised pocket site. The tunneling tool was removed and the lead was fed through the tube and pulled out at the pocket site. The lead was cleansed of bodily fluids and a boot was placed over the lead. The lead was inserted into the temporary extension and the metal bands were aligned. The 4 setscrews were tightened with the hex wrench. The boot was pushed over the connection and 0 silk ties were sutured to the boot grooves on either side of the connection. A tunnel was made subcutaneously and exited to a puncture site 7 cm above buttock incision. The extension cable was placed through the straw and exposed. The extension cable connector was connected to the extension cable. The wounds were closed with 3-0 Vicryl subcutaneously and 4-0 Monocryl subcuticular suture. Skin glue was also applied to the incision. Counts were correct. Steri-strips, gauze 4x4s and a Tegaderm bandage were placed over incision and under cable connector. Tegaderm was placed over entire site to cover incision, wire and cable connection. Estimated blood loss was minimal. A self-retaining retractor was used to retract the labia and vagina for adequate visualization and exposure. The vaginal epithelium overlying the posterior vaginal wall was grasped with two Allis clamps, injected with 0.5% Marcaine with epinephrine and a midline incision was made over the herniation of the posterior vaginal wall. The underlying rectovaginal fascia was dissected off the overlying vaginal epithelium until the herniation of the rectovaginal fascia was completely exposed. Hemostasis was achieved with electrosurgical cautery. The herniation was repaired in the traditional fashion using imbricating horizontal mattress sutures of 2-O PDS on a CT-1 needle. Once the herniation was completely repaired, the redundant vaginal epithelium w (more content not included)... Normal [facility] Basic Metabolic Panelon 05-0 Anion gap [Moles/Vol] 12 mmol/L Normal 8-15 [facility] Comment on above: Performed By: #### B MP #### [facility] [address] [place] [address] Calcium [Mass/Vol] 9.7 mg/dL Normal 8.6-10.6 [facility] Comment on above: Performed By: #### B MP #### [facility] [address] [place] [address]458 Chloride [Moles/Vol] 106 mmol/L Normal 98-107 [facility] Comment on above: Performed By: #### B MP #### [facility] [address] [place] [address] 24515 CO2 [Moles/Vol] 22 mmol/L Normal 22-29 [facility] Comment on above: Performed By: #### B MP #### [facility] [address] [place] [address]34 Creatinine [Mass/Vol] 0.9 mg/dL Normal 0.5-1.2 [facility] Comment on above: Performed By: #### B MP #### [facility] [address] [place] [address] 22920 eGFR -Amer >=60 Normal >=60 [facility] Comment on above: Performed By: #### B MP #### [facility] [address] [place] [address] 49051 GFR/1.73 sq M.predicted among non-blacks MDRD (S/P/Bld) [Vol rate/Area] mL/min/{1.73_m2} Normal >=60 [facility] Comment on above: Performed By: #### B MP #### [facility] [address] [place] [address] 11762 Glucose [Mass/Vol] 79 mg/dL Normal 74-109 [facility] Comment on above: Performed By: #### B MP #### [facility] [address] [place] [address] 26174 Potassium [Moles/Vol] 4.7 mmol/L Normal 3.4-5.1 [facility] Comment on above: Performed By: #### B MP #### [facility] [address] [place] [address] 51201 Sodium [Moles/Vol] 140 mmol/L Normal 136-145 [facility] Comment on above: Performed By: #### B MP #### [facility] [address] [place] [address] 34431 Urea nitrogen [Mass/Vol] 19 mg/dL Normal 6-23 [facility] Comment on above: Performed By: #### B MP #### [facility] [address] [place] [address] 06517 CBC with Diffon 10-21-2021 BA# 0.0 x(10)3/cumm Normal 0.0-0.1 [facility] Comment on above: Performed By: #### C BCDIFF #### [facility] [address] [place] [address] 99829 Basophils/100 WBC (Bld) 0.5 % Normal 0.0-1.0 [facility] Comment on above: Performed By: #### C BCDIFF #### [facility] [address] [place] [address] 52362 EO# 0.3 x(10)3/cumm Normal 0.0-0.4 [facility] Comment on above: Performed By: #### C BCDIFF #### [facility] [address] [place] [address] 45374 Eosinophils/100 WBC (Bld) 3.3 % Normal 0.0-6.1 [facility] Comment on above: Performed By: #### C BCDIFF #### [facility] [address] [place] [address] 39495 Erythrocyte distribution width (RBC) [Ratio] 13.6 % Normal 11.1-15.3 [facility] Comment on above: Performed By: #### C BCDIFF #### [facility] [address] [place] [address] 43174 Hematocrit (Bld) [Volume fraction] 41.6 % Normal 34.6-45.0 [facility] Comment on above: Performed By: #### C BCDIFF #### [facility] [address] [place] [address] 97938 Hemoglobin (Bld) [Mass/Vol] 14.2 g/dL Normal 11.5-15.5 [facility] Comment on above: Performed By: #### C BCDIFF #### [facility] [address] [place] [address] 69240 LY# 1.9 x(10)3/cumm Normal 0.8-2.9 [facility] Comment on above: Performed By: #### C BCDIFF #### [facility] [address] [place] [address] 94707 Lymphocytes/100 WBC (Bld) 22.8 % Normal 12.2-42.6 [facility] Comment on above: Performed By: #### C BCDILEIGH #### [facility] [address] [place] [address] 25074 MCH (RBC) [Entitic mass] 29.9 pg Normal 27.2-33.6 [facility] Comment on above: Performed By: #### C BCDILEIGH #### [facility] [address] [place] [address] 47101 MCHC (RBC) [Mass/Vol] 34.2 g/dL Normal 32.9-35.3 [facility] Comment on above: Performed By: #### C BCDILEIGH #### [facility] [address] [place] [address] 20009 MCV (RBC) [Entitic vol] 87.5 fL Normal 81.3-96.7 [facility] Comment on above: Performed By: #### C BCDIFF #### [facility] [address] [place] [address] 84856 MO# 0.9 x(10)3/cumm High 0.2-0.8 [facility] Comment on above: Performed By: #### C BCDILEIGH #### [facility] [address] [place] [address] 67273 Monocytes/100 WBC (Bld) 11.0 % Normal 3.3-11.6 [facility] Comment on above: Performed By: #### C BCDILEIGH #### [facility] [address] [place] [address] 23627 NE# 5.2 x(10)3/cumm Normal 1.3-7.4 [facility] Comment on above: Performed By: #### C BCDIFF #### [facility] [address] [place] [address] 51992 Neutrophils/100 WBC (Bld) 62.4 % Normal 44.9-78.8 [facility] Comment on above: Performed By: #### C BCDIFF #### [facility] [address] [place] [address] 74944 Platelet mean volume (Bld) [Entitic vol] 9.3 fL Normal 6.4-10.0 [facility] Comment on above: Performed By: #### C BCDIFF #### [facility] [address] [place] [address] 33732 PLT 194 x(10)3/cumm Normal 138-367 [facility] Comment on above: Performed By: #### C BCDIFF #### [facility] [address] [place] [address] 97675 Plt Morph Normal [facility] Comment on above: Performed By: #### C BCDIFF #### [facility] [address] [place] [address] 51832 RBC 4.75 X(10)6/cumm Normal 3.90-5.10 [facility] Comment on above: Performed By: #### C BCDIFF #### [facility] [address] [place] [address] 64260 RBC Morph cont Normal [facility] Comment on above: Performed By: #### C BCDIFF #### [facility] [address] [place] [address] 46603 RBC morphology finding Nom (Bld) Normal [facility] Comment on above: Performed By: #### C BCDIFF #### [facility] [address] [place] [address] 25139 WBC 8.3 x(10)3/cumm Normal 3.6-10.3 [facility] Comment on above: Performed By: #### C BCDIFF #### [facility] [address] [place] [address] [facility] Comment on above: Performed By: #### C BCGERDA #### [facility] [address] [place] [address] CNTHERAPYon 01-27-2021 CNTHERAPY OT/PT/Speech Visit ( AKPTB) GARTH CONLEY ([id number]) 1940 [address] [place]* Date Time Provider Department 01/27/21 12:00 PM SHREYAS GARZA Date Time Provider Department Center 01/27/2021 12:00 PM [id number], JORDAN [facility] Reason for Visit: PT Discharge [752] Visit Diagnoses:Incontinence of feces, unspecified fecal incontinence type [R15.9] Pelvic floor dysfunction [M62.89] Allergies As of Date: 01/27/2021 Noted Allergy Reaction CLINDAMYCIN 08/08/2014 6 - Diarrhea Comments: Dizziness and diarrhea DUST 11/14/2007 soy beans [Other] 11/14/2007 Date Reviewed: 09/24/2020 Reviewed by: Dorothy Rivas MA - Fully Assessed Prescriptions as of 01/27/2021 - polyethylene glycol 3350 (MIRALAX) 17 gram/dose powder Take 17 g by mouth once daily. - pravastatin (PRAVACHOL) 20 mg tablet Take 20 mg by mouth once daily. - azelastine (ASTELIN) 0.1% nasal spray Use 1 [place] in each nostril twice daily. - levothyroxine (SYNTHROID) 137 mcg tablet Take 125 mcg by mouth daily before breakfast. Taking 125 mcg - sertraline (ZOLOFT) 100 mg tablet Take 150 mg by mouth once daily. Taking 1 and 1/2 tabs daily - FLUTICASONE PROPIONATE (FLUTICASONE NASAL) Use 2 Sprays in the nose once daily. - ACETAMINOPHEN (TYLENOL ORAL) Take 650 mg by mouth as needed. - L. gasseri-B. bifidum-B longum ([employer]) 1.5 billion cell cap Take 1 capsule by mouth once daily. - KELP ORAL Take 1 tablet by mouth once daily. - Magnesium 250 mg tab Take 250 mg by mouth once daily. - CHOLECALCIFEROL, VITAMIN D3, (CHOLECALCIFEROL, VITD3,, BULK,) 2,400 unit/mL liqd 5 Drops once daily. - Psyllium Seed-Sucrose (METAMUCIL, SUGAR,) powd Take 1 Tablespoonful by mouth as needed. - PROAIR HFA 90 mcg/actuation inhaler Inhale 1 Puff as instructed every 4 hours as needed. - OMEGA-3/DHA/EPA/FISH OIL (FISH OIL HIGH POTENCY ORAL) Take by mouth once daily. - LORATADINE/PSEUDOEPHEDRINE (CLARITIN-D 12 HOUR ORAL) Take by mouth once daily. - ESTROGENS, CONJUGATED (PREMARIN VAGINAL) Use vaginally twice a week. - Multivitamin capsule Take 1 capsule by mouth once daily. Progress Notes: Shreyas Garza, PT 01/27/2021 1:44 PM Signed Episode Visit Count: 10 Therapist That Will Oversee The Plan Of Care: Shreyas Garza Start of Care Date: 09/25/20 Onset Date: 09/26/15 Plan of Care Certification Date: 12/17/20 Next Certification Due Date: 03/11/21 Patient Identified by Name and Date of : Yes [facility] PHYSICAL THERAPY DISCONTINUANCE OF CARE PLAN OF CARE UPDATE: Assessment: Garth Conley is discontinued from Physical Therapy services due [...] treatment included: Neuromuscular re-education, Manual therapy and Self-long-term management. I believe that patient will maintain [...] that PFPT was offered at her [facility] (more content not included)... Normal [facility] CNTHERAPYon 01-22-2021 CNTHERAPY OT/PT/Speech Visit ( AKPTB) GARTH CONLEY ([id number]) 1940 [place]* Date Time Provider Department 01/22/21 3:30 PM SHREYAS GARZA Date Time Provider Department Center 01/22/2021 3:30 PM [id number] GARZA [facility] Reason for Visit: Physical Therapy [503] Visit Diagnoses:Incontinence of feces, unspecified fecal incontinence type [R15.9] Pelvic floor dysfunction [M62.89] Allergies As of Date: 01/22/2021 Noted Allergy Reaction CLINDAMYCIN 08/08/2014 6 - Diarrhea Comments: Dizziness and diarrhea DUST 11/14/2007 soy beans [Other] 11/14/2007 Date Reviewed: 09/24/2020 Reviewed by: Dorothy Riavs MA - Fully Assessed Prescriptions as of 01/22/2021 - polyethylene glycol 3350 (MIRALAX) 17 gram/dose powder Take 17 g by mouth once daily. - pravastatin (PRAVACHOL) 20 mg tablet Take 20 mg by mouth once daily. - azelastine (ASTELIN) 0.1% nasal spray Use 1 [place] in each nostril twice daily. - levothyroxine (SYNTHROID) 137 mcg tablet Take 125 mcg by mouth daily before breakfast. Taking 125 mcg - sertraline (ZOLOFT) 100 mg tablet Take 150 mg by mouth once daily. Taking 1 and 1/2 tabs daily - FLUTICASONE PROPIONATE (FLUTICASONE NASAL) Use 2 Sprays in the nose once daily. - ACETAMINOPHEN (TYLENOL ORAL) Take 650 mg by mouth as needed. - L. gasseri-B. bifidum-B longum ([employer]) 1.5 billion cell cap Take 1 capsule by mouth once daily. - KELP ORAL Take 1 tablet by mouth once daily. - Magnesium 250 mg tab Take 250 mg by mouth once daily. - CHOLECALCIFEROL, VITAMIN D3, (CHOLECALCIFEROL, VITD3,, BULK,) 2,400 unit/mL liqd 5 Drops once daily. - Psyllium Seed-Sucrose (METAMUCIL, SUGAR,) powd Take 1 Tablespoonful by mouth as needed. - PROAIR HFA 90 mcg/actuation inhaler Inhale 1 Puff as instructed every 4 hours as needed. - OMEGA-3/DHA/EPA/FISH OIL (FISH OIL HIGH POTENCY ORAL) Take by mouth once daily. - LORATADINE/PSEUDOEPHEDRINE (CLARITIN-D 12 HOUR ORAL) Take by mouth once daily. - ESTROGENS, CONJUGATED (PREMARIN VAGINAL) Use vaginally twice a week. - Multivitamin capsule Take 1 capsule by mouth once daily. Progress Notes: Shreyas Garza, PT 01/22/2021 4:24 PM Signed Episode Visit Count: 9 Therapist That Will Oversee The Plan Of Care: Shreyas Garza Start of Care Date: 09/25/20 Onset Date: 09/26/15 Plan of Care Certification Date: 12/17/20 Next Certification Due Date: 03/11/21 Patient Identified by Name and Date of : Yes REHABILITATION AND SPORTS THERAPY PHYSICAL THERAPY TREATMENT NOTE ASSESSMENT: Garth Conley demonstrated improvements in rectum sensitivity with digital [...] of warm fluids and coffee on gastrocolic refle (more content not included)... Normal [facility] CNTHERAPYon 12-30-2020 CNTHERAPY OT/PT/Speech Visit ( AKPTB) JEAN PAULGARTH Lex ([id number]) 1940 [place]* Date Time Provider Department 12/30/20 2:45 PM SHREYAS GARZA Date Time Provider Department Center 12/30/2020 2:45 PM [id number], JORDAN AKPTB [facility] Reason for Visit: Physical Therapy [503] Visit Diagnoses:Incontinence of feces, unspecified fecal incontinence type [R15.9] Pelvic floor dysfunction [M62.89] Allergies As of Date: 12/30/2020 Noted Allergy Reaction CLINDAMYCIN 08/08/2014 6 - Diarrhea Comments: Dizziness and diarrhea DUST 11/14/2007 soy beans [Other] 11/14/2007 Date Reviewed: 09/24/2020 Reviewed by: Dorothy Rivas MA - Fully Assessed Prescriptions as of 12/30/2020 - polyethylene glycol 3350 (MIRALAX) 17 gram/dose powder Take 17 g by mouth once daily. - pravastatin (PRAVACHOL) 20 mg tablet Take 20 mg by mouth once daily. - azelastine (ASTELIN) 0.1% nasal spray Use 1 [place] in each nostril twice daily. - levothyroxine (SYNTHROID) 137 mcg tablet Take 125 mcg by mouth daily before breakfast. Taking 125 mcg - sertraline (ZOLOFT) 100 mg tablet Take 150 mg by mouth once daily. Taking 1 and 1/2 tabs daily - FLUTICASONE PROPIONATE (FLUTICASONE NASAL) Use 2 Sprays in the nose once daily. - ACETAMINOPHEN (TYLENOL ORAL) Take 650 mg by mouth as needed. - L. gasseri-B. bifidum-B longum ([employer]) 1.5 billion cell cap Take 1 capsule by mouth once daily. - KELP ORAL Take 1 tablet by mouth once daily. - Magnesium 250 mg tab Take 250 mg by mouth once daily. - CHOLECALCIFEROL, VITAMIN D3, (CHOLECALCIFEROL, VITD3,, BULK,) 2,400 unit/mL liqd 5 Drops once daily. - Psyllium Seed-Sucrose (METAMUCIL, SUGAR,) powd Take 1 Tablespoonful by mouth as needed. - PROAIR HFA 90 mcg/actuation inhaler Inhale 1 Puff as instructed every 4 hours as needed. - OMEGA-3/DHA/EPA/FISH OIL (FISH OIL HIGH POTENCY ORAL) Take by mouth once daily. - LORATADINE/PSEUDOEPHEDRINE (CLARITIN-D 12 HOUR ORAL) Take by mouth once daily. - ESTROGENS, CONJUGATED (PREMARIN VAGINAL) Use vaginally twice a week. - Multivitamin capsule Take 1 capsule by mouth once daily. Progress Notes: Shreyas Garza, PT 12/30/2020 3:44 PM Signed Episode Visit Count: 8 Therapist That Will Oversee The Plan Of Care: Shreyas Garza Start of Care Date: 09/25/20 Onset Date: 09/26/15 Plan of Care Certification Date: 12/17/20 Next Certification Due Date: 03/11/21 Patient Identified by Name and Date of : Yes REHABILITATION AND SPORTS THERAPY PHYSICAL THERAPY TREATMENT NOTE ASSESSMENT: Garth Conley demonstrated improvements in levator ani and EAS [...] IAS sensory input 7: *PFM long holds (more content not included)... Normal [facility] CNTHERAPYon 12-23-2020 CNTHERAPY OT/PT/Speech Visit ( AKPTB) GARTH CONLEY ([id number]) 1940 [place]* Date Time Provider Department 12/23/20 2:45 PM SHREYAS GARZA Date Time Provider Department Center 12/23/2020 2:45 PM [id number] GARZA [facility] Reason for Visit: Physical Therapy [503] Visit Diagnoses:Incontinence of feces, unspecified fecal incontinence type [R15.9] Pelvic floor dysfunction [M62.89] Allergies As of Date: 12/23/2020 Noted Allergy Reaction CLINDAMYCIN 08/08/2014 6 - Diarrhea Comments: Dizziness and diarrhea DUST 11/14/2007 soy beans [Other] 11/14/2007 Date Reviewed: 09/24/2020 Reviewed by: Dorothy Rivas MA - Fully Assessed Prescriptions as of 12/23/2020 - polyethylene glycol 3350 (MIRALAX) 17 gram/dose powder Take 17 g by mouth once daily. - pravastatin (PRAVACHOL) 20 mg tablet Take 20 mg by mouth once daily. - azelastine (ASTELIN) 0.1% nasal spray Use 1 [place] in each nostril twice daily. - levothyroxine (SYNTHROID) 137 mcg tablet Take 125 mcg by mouth daily before breakfast. Taking 125 mcg - sertraline (ZOLOFT) 100 mg tablet Take 150 mg by mouth once daily. Taking 1 and 1/2 tabs daily - FLUTICASONE PROPIONATE (FLUTICASONE NASAL) Use 2 Sprays in the nose once daily. - ACETAMINOPHEN (TYLENOL ORAL) Take 650 mg by mouth as needed. - L. gasseri-B. bifidum-B longum ([employer]) 1.5 billion cell cap Take 1 capsule by mouth once daily. - KELP ORAL Take 1 tablet by mouth once daily. - Magnesium 250 mg tab Take 250 mg by mouth once daily. - CHOLECALCIFEROL, VITAMIN D3, (CHOLECALCIFEROL, VITD3,, BULK,) 2,400 unit/mL liqd 5 Drops once daily. - Psyllium Seed-Sucrose (METAMUCIL, SUGAR,) powd Take 1 Tablespoonful by mouth as needed. - PROAIR HFA 90 mcg/actuation inhaler Inhale 1 Puff as instructed every 4 hours as needed. - OMEGA-3/DHA/EPA/FISH OIL (FISH OIL HIGH POTENCY ORAL) Take by mouth once daily. - LORATADINE/PSEUDOEPHEDRINE (CLARITIN-D 12 HOUR ORAL) Take by mouth once daily. - ESTROGENS, CONJUGATED (PREMARIN VAGINAL) Use vaginally twice a week. - Multivitamin capsule Take 1 capsule by mouth once daily. Progress Notes: Shreyas Garza, PT 12/23/2020 7:06 PM Signed Episode Visit Count: 7 Therapist That Will Oversee The Plan Of Care: Shreyas Garza Start of Care Date: 09/25/20 Onset Date: 09/26/15 Plan of Care Certification Date: 12/17/20 Next Certification Due Date: 03/11/21 Patient Identified by Name and Date of : Yes REHABILITATION AND SPORTS THERAPY PHYSICAL THERAPY TREATMENT NOTE ASSESSMENT: Garth Conley demonstrated improvements in IAS responsiveness to TC/pressure [...] *Anal contract/relax 3x10, 3-5 sec holds 7: *P (more content not included)... Normal [facility] CNTHERAPYon 12-17-2020 CNTHERAPY OT/PT/Speech Visit ( AKPTB) CONLEYGARTH ([id number]) 1940 [place]* Date Time Provider Department 12/17/20 3:15 PM SHREYAS GARZA Date Time Provider Department Center 12/17/2020 3:15 PM [id number] GARZA [facility] Reason for Visit: PT Progress Note [1596] Primary Visit Diagnosis:Pelvic floor dysfunction [M62.89] Other Visit Diagnosis:Incontinence of feces, unspecified fecal incontinence type [R15.9] Allergies As of Date: 12/17/2020 Noted Allergy Reaction CLINDAMYCIN 08/08/2014 6 - Diarrhea Comments: Dizziness and diarrhea DUST 11/14/2007 soy beans [Other] 11/14/2007 Date Reviewed: 09/24/2020 Reviewed by: Dorothy Rivas MA - Fully Assessed Prescriptions as of 12/17/2020 Sig: POLYETHYLENE GLYCOL 3350 17 G* Take 17 g by mouth once daily. PRAVASTATIN 20 MG TABLET Take 20 mg by mouth once bella* AZELASTINE 137 MCG (0.1 %) NA* Use 1 [place] in each nostril t* LEVOTHYROXINE 137 MCG TABLET Take 125 mcg by mouth daily b* SERTRALINE 100 MG TABLET Take 150 mg by mouth once amol* FLUTICASONE NASAL Use 2 Sprays in the nose once* TYLENOL ORAL Take 650 mg by mouth as neede* LACTOBACILLS GASSERI-BIFIDOBA* Take 1 capsule by mouth once * Patient not taking: Reported on 09/24/2020 KELP ORAL Take 1 tablet by mouth once d* Patient not taking: Reported on 09/24/2020 MAGNESIUM 250 MG TABLET Take 250 mg by mouth once amol* CHOLECALCIFEROL (VITAMIN D3) * 5 Drops once daily. PSYLLIUM SEED (SUGAR) ORAL PO* Take 1 Tablespoonful by mouth* PROAIR HFA 90 MCG/ACTUATION A* Inhale 1 Puff as instructed e* FISH OIL HIGH POTENCY ORAL Take by mouth once daily. Patient not taking: Reported on 09/24/2020 * CLARITIN-D 12 HOUR ORAL Take by mouth once daily. * PREMARIN VAGINAL Use vaginally twice a week. Patient not taking: Reported on 09/24/2020 * MULTIVITAMIN CAPSULE Take 1 capsule by mouth once * Progress Notes: Srheyas Gene, PT 12/17/2020 4:39 PM Signed Episode Visit Count: 6 Therapist That Will Oversee The Plan Of Care: Shreyas Garza Start of Care Date: 09/25/20 Onset Date: 09/26/15 Plan of Care Certification Date: 12/17/20 Next Certification Due Date: 03/11/21 Patient Identified by Name and Date of : Yes REHABILITATION AND SPORTS THERAPY PHYSICAL THERAPY PROGRESS REPORT PLAN OF CARE UPDATE: Assessment: Garth Conley exhibits difficulty with EAS sphinter strength and [...] Patient to be seen for Therapeutic exercise (82724);Neuromusc (more content not included)... Normal [facility] CNTHERAPYon 11-26-2020 CNTHERAPY OT/PT/Speech Visit ( AKPTB) GARTH CONLEY ([id number]) 1940 [place]* Date Time Provider Department 11/26/20 11:00 AM SHREYAS GARZA Date Time Provider Department Center 11/26/2020 11:00 AM [id number], JORDAN AKPTB [facility] Reason for Visit: Physical Therapy [503] Visit Diagnoses:Incontinence of feces, unspecified fecal incontinence type [R15.9] Pelvic floor dysfunction [M62.89] Allergies As of Date: 11/26/2020 Noted Allergy Reaction CLINDAMYCIN 08/08/2014 6 - Diarrhea Comments: Dizziness and diarrhea DUST 11/14/2007 soy beans [Other] 11/14/2007 Date Reviewed: 09/24/2020 Reviewed by: Dorothy Rivas MA - Fully Assessed Prescriptions as of 11/26/2020 Sig: POLYETHYLENE GLYCOL 3350 17 G* Take 17 g by mouth once daily. PRAVASTATIN 20 MG TABLET Take 20 mg by mouth once bella* AZELASTINE 137 MCG (0.1 %) NA* Use 1 [place] in each nostril t* LEVOTHYROXINE 137 MCG TABLET Take 125 mcg by mouth daily b* SERTRALINE 100 MG TABLET Take 150 mg by mouth once amol* FLUTICASONE NASAL Use 2 Sprays in the nose once* TYLENOL ORAL Take 650 mg by mouth as neede* LACTOBACILLS GASSERI-BIFIDOBA* Take 1 capsule by mouth once * Patient not taking: Reported on 09/24/2020 KELP ORAL Take 1 tablet by mouth once d* Patient not taking: Reported on 09/24/2020 MAGNESIUM 250 MG TABLET Take 250 mg by mouth once amol* CHOLECALCIFEROL (VITAMIN D3) * 5 Drops once daily. PSYLLIUM SEED (SUGAR) ORAL PO* Take 1 Tablespoonful by mouth* PROAIR HFA 90 MCG/ACTUATION A* Inhale 1 Puff as instructed e* FISH OIL HIGH POTENCY ORAL Take by mouth once daily. Patient not taking: Reported on 09/24/2020 * CLARITIN-D 12 HOUR ORAL Take by mouth once daily. * PREMARIN VAGINAL Use vaginally twice a week. Patient not taking: Reported on 09/24/2020 * MULTIVITAMIN CAPSULE Take 1 capsule by mouth once * Progress Notes: Shreyas Garza, PT 11/26/2020 12:40 PM Signed Episode Visit Count: 5 Therapist That Will Oversee The Plan Of Care: Shreyas Garza Start of Care Date: 09/25/20 Onset Date: 09/26/15 Plan of Care Certification Date: 09/25/20 Next Certification Due Date: 12/18/20 Patient Identified by Name and Date of : Yes REHABILITATION AND SPORTS THERAPY PHYSICAL THERAPY TREATMENT NOTE ASSESSMENT: Garth Conley demonstrated good understanding of TrA activation and [...] education as noted. Santana: Ellie: Neuromuscular Re-education (58606): 1:1 time:40 minutes (3 units: 38-52 mins) Total time / Length of visit: 40 minutes Shreyas Garza PT Normal [facility] CNTHERAPYon 11-07-2020 CNTHERAPY OT/PT/Speech Visit ( MARTHAB) GARTH CONLEY ([id number]) 1940 [place]* Date Time Provider Department 11/07/20 11:45 AM SHREYAS GARZA Date Time Provider Department Center 11/07/2020 11:45 AM [id number] GARZA [facility] Reason for Visit: Physical Therapy [503] Primary Visit Diagnosis:Pelvic floor dysfunction [M62.89] Other Visit Diagnosis:Incontinence of feces, unspecified fecal incontinence type [R15.9] Allergies As of Date: 11/07/2020 Noted Allergy Reaction CLINDAMYCIN 08/08/2014 6 - Diarrhea Comments: Dizziness and diarrhea DUST 11/14/2007 soy beans [Other] 11/14/2007 Date Reviewed: 09/24/2020 Reviewed by: Dorothy Rivas MA - Fully Assessed Prescriptions as of 11/07/2020 Sig: POLYETHYLENE GLYCOL 3350 17 G* Take 17 g by mouth once daily. PRAVASTATIN 20 MG TABLET Take 20 mg by mouth once bella* AZELASTINE 137 MCG (0.1 %) NA* Use 1 [place] in each nostril t* LEVOTHYROXINE 137 MCG TABLET Take 125 mcg by mouth daily b* SERTRALINE 100 MG TABLET Take 150 mg by mouth once amol* FLUTICASONE NASAL Use 2 Sprays in the nose once* TYLENOL ORAL Take 650 mg by mouth as neede* LACTOBACILLS GASSERI-BIFIDOBA* Take 1 capsule by mouth once * Patient not taking: Reported on 09/24/2020 KELP ORAL Take 1 tablet by mouth once d* Patient not taking: Reported on 09/24/2020 MAGNESIUM 250 MG TABLET Take 250 mg by mouth once amol* CHOLECALCIFEROL (VITAMIN D3) * 5 Drops once daily. PSYLLIUM SEED (SUGAR) ORAL PO* Take 1 Tablespoonful by mouth* PROAIR HFA 90 MCG/ACTUATION A* Inhale 1 Puff as instructed e* FISH OIL HIGH POTENCY ORAL Take by mouth once daily. Patient not taking: Reported on 09/24/2020 * CLARITIN-D 12 HOUR ORAL Take by mouth once daily. * PREMARIN VAGINAL Use vaginally twice a week. Patient not taking: Reported on 09/24/2020 * MULTIVITAMIN CAPSULE Take 1 capsule by mouth once * Progress Notes: Shreyas Garza, PT 11/07/2020 12:36 PM Signed Episode Visit Count: 4 Therapist That Will Oversee The Plan Of Care: Shreyas Garza Start of Care Date: 09/25/20 Onset Date: 09/26/15 Plan of Care Certification Date: 09/25/20 Next Certification Due Date: 12/18/20 Patient Identified by Name and Date of : Yes REHABILITATION AND SPORTS THERAPY PHYSICAL THERAPY TREATMENT NOTE ASSESSMENT: Garth Conley demonstrated improvements in pelvic floor strength/endurance evident [...] education as noted. Billing: Ellie: Neuromuscular Re-education (14597): 1:1 time:40 minutes (3 units: 38-52 mins) Total time / Length of visit: 40 minutes Shreyas Garza PT Normal [facility] CNTHERAPYon 10-24-2020 CNTHERAPY OT/PT/Speech Visit ( AKPTB) JEAN PAULGARTH ([id number]) 1940 [place]* Date Time Provider Department 10/24/20 10:15 AM SHREYAS GARZA Date Time Provider Department Center 10/24/2020 10:15 AM [id number] GARZA [facility] Reason for Visit: Physical Therapy [503] Visit Diagnoses:Incontinence of feces, unspecified fecal incontinence type [R15.9] Pelvic floor dysfunction [M62.89] Allergies As of Date: 10/24/2020 Noted Allergy Reaction CLINDAMYCIN 08/08/2014 6 - Diarrhea Comments: Dizziness and diarrhea DUST 11/14/2007 soy beans [Other] 11/14/2007 Date Reviewed: 09/24/2020 Reviewed by: Dorothy Rivas MA - Fully Assessed Prescriptions as of 10/24/2020 Sig: POLYETHYLENE GLYCOL 3350 17 G* Take 17 g by mouth once daily. PRAVASTATIN 20 MG TABLET Take 20 mg by mouth once bella* AZELASTINE 137 MCG (0.1 %) NA* Use 1 [place] in each nostril t* LEVOTHYROXINE 137 MCG TABLET Take 125 mcg by mouth daily b* SERTRALINE 100 MG TABLET Take 150 mg by mouth once amol* FLUTICASONE NASAL Use 2 Sprays in the nose once* TYLENOL ORAL Take 650 mg by mouth as neede* LACTOBACILLS GASSERI-BIFIDOBA* Take 1 capsule by mouth once * Patient not taking: Reported on 09/24/2020 KELP ORAL Take 1 tablet by mouth once d* Patient not taking: Reported on 09/24/2020 MAGNESIUM 250 MG TABLET Take 250 mg by mouth once amol* CHOLECALCIFEROL (VITAMIN D3) * 5 Drops once daily. PSYLLIUM SEED (SUGAR) ORAL PO* Take 1 Tablespoonful by mouth* PROAIR HFA 90 MCG/ACTUATION A* Inhale 1 Puff as instructed e* FISH OIL HIGH POTENCY ORAL Take by mouth once daily. Patient not taking: Reported on 09/24/2020 * CLARITIN-D 12 HOUR ORAL Take by mouth once daily. * PREMARIN VAGINAL Use vaginally twice a week. Patient not taking: Reported on 09/24/2020 * MULTIVITAMIN CAPSULE Take 1 capsule by mouth once * Progress Notes: Shreyas Garza, PT 10/24/2020 11:41 AM Signed Episode Visit Count: 3 Therapist That Will Oversee The Plan Of Care: Shreyas Garza Start of Care Date: 09/25/20 Onset Date: 09/26/15 Plan of Care Certification Date: 09/25/20 Next Certification Due Date: 12/18/20 Patient Identified by Name and Date of : Yes REHABILITATION AND SPORTS THERAPY PHYSICAL THERAPY TREATMENT NOTE ASSESSMENT: Garth Conley demonstrated improvements in pelvic floor activation coordination [...] education as noted. Billing: Ellie: Neuromuscular Re-education (36993): 1:1 time:39 minutes (3 units: 38-52 mins) Total time / Length of visit: 40 minutes Shreyas Garza PT Normal [facility] CNTHERAPYon 10-17-2020 CNTHERAPY OT/PT/Speech Visit ( JOSEPTB) GARTH CONLEY ([id number]) 1940 [place]* Date Time Provider Department 10/17/20 11:45 AM SHREYAS GARZA Date Time Provider Department Center 10/17/2020 11:45 AM [id number] GARZA [facility] Reason for Visit: Physical Therapy [503] Visit Diagnoses:Incontinence of feces, unspecified fecal incontinence type [R15.9] Pelvic floor dysfunction [M62.89] Allergies As of Date: 10/17/2020 Noted Allergy Reaction CLINDAMYCIN 08/08/2014 6 - Diarrhea Comments: Dizziness and diarrhea DUST 11/14/2007 soy beans [Other] 11/14/2007 Date Reviewed: 09/24/2020 Reviewed by: Dorothy Rivas MA - Fully Assessed Prescriptions as of 10/17/2020 Sig: POLYETHYLENE GLYCOL 3350 17 G* Take 17 g by mouth once daily. PRAVASTATIN 20 MG TABLET Take 20 mg by mouth once bella* AZELASTINE 137 MCG (0.1 %) NA* Use 1 [place] in each nostril t* LEVOTHYROXINE 137 MCG TABLET Take 125 mcg by mouth daily b* SERTRALINE 100 MG TABLET Take 150 mg by mouth once amol* FLUTICASONE NASAL Use 2 Sprays in the nose once* TYLENOL ORAL Take 650 mg by mouth as neede* LACTOBACILLS GASSERI-BIFIDOBA* Take 1 capsule by mouth once * Patient not taking: Reported on 09/24/2020 KELP ORAL Take 1 tablet by mouth once d* Patient not taking: Reported on 09/24/2020 MAGNESIUM 250 MG TABLET Take 250 mg by mouth once amol* CHOLECALCIFEROL (VITAMIN D3) * 5 Drops once daily. PSYLLIUM SEED (SUGAR) ORAL PO* Take 1 Tablespoonful by mouth* PROAIR HFA 90 MCG/ACTUATION A* Inhale 1 Puff as instructed e* FISH OIL HIGH POTENCY ORAL Take by mouth once daily. Patient not taking: Reported on 09/24/2020 * CLARITIN-D 12 HOUR ORAL Take by mouth once daily. * PREMARIN VAGINAL Use vaginally twice a week. Patient not taking: Reported on 09/24/2020 * MULTIVITAMIN CAPSULE Take 1 capsule by mouth once * Progress Notes: Shreyas Garza, PT 10/17/2020 12:42 PM Signed Episode Visit Count: 2 Therapist That Will Oversee The Plan Of Care: Shreyas Garza Start of Care Date: 09/25/20 Onset Date: 09/26/15 Plan of Care Certification Date: 09/25/20 Next Certification Due Date: 12/18/20 Patient Identified by Name and Date of : Yes REHABILITATION AND SPORTS THERAPY PHYSICAL THERAPY TREATMENT NOTE ASSESSMENT: Garth Conley demonstrated improvements in pelvic floor control and [...] past Tuesday she reports a complete blow out, for first time in a year. She [...] education as noted. Billing: Ellie: Manual Therapy (45729): 1:1 time: 15 minutes (1 unit: 8-22 mins) Neuromuscul (more content not included)... Normal [facility] CNTHERAPYon 09-25-2020 CNTHERAPY OT/PT/Speech Visit ( AKPTB) GARTH CONLEY ([id number]) 1940 [place]* Date Time Provider Department 09/25/20 10:15 AM SHREYAS GARZA (PT) AKPTB Date Time Provider Department Center 09/25/2020 10:15 AM [id number], JORDAN (P*AKPTB [facility] Reason for Visit: PT Eval [727] Primary Visit Diagnosis:Pelvic floor dysfunction [M62.89] Other Visit Diagnosis:Incontinence of feces, unspecified fecal incontinence type [R15.9] Allergies As of Date: 09/25/2020 Noted Allergy Reaction CLINDAMYCIN 08/08/2014 6 - Diarrhea Comments: Dizziness and diarrhea DUST 11/14/2007 soy beans [Other] 11/14/2007 Date Reviewed: 09/24/2020 Reviewed by: Dorothy Rivas MA - Fully Assessed Prescriptions as of 09/25/2020 Sig: POLYETHYLENE GLYCOL 3350 17 G* Take 17 g by mouth once daily. PRAVASTATIN 20 MG TABLET Take 20 mg by mouth once bella* AZELASTINE 137 MCG (0.1 %) NA* Use 1 [place] in each nostril t* LEVOTHYROXINE 137 MCG TABLET Take 125 mcg by mouth daily b* SERTRALINE 100 MG TABLET Take 150 mg by mouth once amol* FLUTICASONE NASAL Use 2 Sprays in the nose once* TYLENOL ORAL Take 650 mg by mouth as neede* LACTOBACILLS GASSERI-BIFIDOBA* Take 1 capsule by mouth once * Patient not taking: Reported on 09/24/2020 KELP ORAL Take 1 tablet by mouth once d* Patient not taking: Reported on 09/24/2020 MAGNESIUM 250 MG TABLET Take 250 mg by mouth once amol* CHOLECALCIFEROL (VITAMIN D3) * 5 Drops once daily. PSYLLIUM SEED (SUGAR) ORAL PO* Take 1 Tablespoonful by mouth* PROAIR HFA 90 MCG/ACTUATION A* Inhale 1 Puff as instructed e* FISH OIL HIGH POTENCY ORAL Take by mouth once daily. Patient not taking: Reported on 09/24/2020 * CLARITIN-D 12 HOUR ORAL Take by mouth once daily. * PREMARIN VAGINAL Use vaginally twice a week. Patient not taking: Reported on 09/24/2020 * MULTIVITAMIN CAPSULE Take 1 capsule by mouth once * Progress Notes: Shreyas Garza, PT 09/26/2020 9:58 AM Signed Episode Visit Count: 1 Therapist That Will Oversee The Plan Of Care: Shreyas Garza Start of Care Date: 09/25/20 Onset Date: 09/26/15 Plan of Care Certification Date: 09/25/20 Next Certification Due Date: 12/18/20 Patient Identified by Name and Date of : Yes REHABILITATION AND SPORTS THERAPY PHYSICAL THERAPY EVALUATION PLAN OF CARE: Assessment: Garth Conley presents with the chief complaint of bowel [...] Planned: 12 Planned Treatment Interventions: Therapeutic exercise (61832);Neuromuscular re-education (67442);Manual therapy (86707);Therapeutic activities (20527);Self-long-term management (71780);E-Stim Unattended (04150) PLAN FOR NEXT VISIT: internal manual PRN, focus on PFM coordination and strengthening program progression Patient demonstrates good understanding of plan of care and treatment. The above goals and plan of c (more content not included)... Normal [facility] XR ABDOMEN 1V SUPINEon 05-01 [facility] Office Visit: postop surgery 12/28/1603-31-2017 Alcoholism counseling (procedure) no Invalid Interpretation Code [facility] Work Phone: [phone] Dietary management education, guidance, and counseling (procedure) yes Invalid Interpretation Code [facility] Work Phone: [phone] Documentation of current medications (procedure) Done Invalid Interpretation Code [facility] Work Phone: [phone] Fall risk assessment No Invalid Interpretation Code [facility] Work Phone: [phone] Tobacco smoking status NHIS Never Invalid Interpretation Code [facility] Work Phone: [phone] Tobacco use CPHS Never smoker Invalid Interpretation Code [facility] Work Phone: [phone] Microbiology: Culture, Wound on 01-22-2017 CUW Trimethoprim/Sulfame tho $ <=20 S Invalid Interpretation Code [facility] Work Phone: [phone] Clinical Lists Update: [facility] Noteon 07-20-2016 Left ventricular Ejection fraction 65 % Invalid Interpretation Code [facility] Work Phone: [phone] Replaced Document: Lucero METZ Observationson 07-14-2016 EKG QRS axis 15 deg Invalid Interpretation Code [facility] Work Phone: [phone] Interpretation Sinus Rhythm -Hugh septal infarct -age undetermined. ABNORMAL Invalid Interpretation Code [facility] Work Phone: [phone] P [place] 47 deg Invalid Interpretation Code [facility] Work Phone: [phone] TN Interval 218 ms Invalid Interpretation Code [facility] Work Phone: [phone] Pulse (Heart Rate) 69 /min Invalid Interpretation Code [facility] Work Phone: [phone] QRS Duration 104 ms Invalid Interpretation Code [facility] Work Phone: [phone] QT Interval new path ms Invalid Interpretation Code [facility] Work Phone: [phone] QTc Gutierrez 437 ms Invalid Interpretation Code [facility] Work Phone: [phone] T [place] 61 deg Invalid Interpretation Code [facility] Work Phone: [phone] Lab Report: CBC W/Diff, Auto - EPLAB Onlyon 03-05-2016 Basophils/100 WBC Auto (Bld) 1.3 % High 0-1 [facility] Work Phone: Eosinophils/100 leukocytes 2.5 % Invalid Interpretation Code 0-5 [facility] Work Phone: Erythrocytes (RBC) 5.07 10*6/uL Invalid Interpretation Code 4.2-5.4 [facility] Work Phone: Hematocrit (HCT) 45.5 % Invalid Interpretation Code 37-47 [facility] Work Phone: Hemoglobin mass conc (Bld) 15.3 g/dL High 12.0-15.0 [facility] Pl[facility] Surgery Work Phone: Lymphocytes/100 leukocytes 24.7 % Invalid Interpretation Code 19-41 [facility] Work Phone: MCH 30.2 pg Invalid Interpretation Code 27.0-32.0 [facility] Work Phone: MCHC mass conc (RBC) 33.7 g/dL Invalid Interpretation Code 32-36 [facility] Work Phone: MCV 89.7 fL Invalid Interpretation Code 81-99 [facility] Work Phone: Monocytes/100 leukocytes 11.8 % High 0-10 [facility] Work Phone: Neutrophils/100 WBC Auto (Bld) 59.6 % Invalid Interpretation Code 47-70 [facility] Work Phone: Platelets 265 10*3/mm3 Invalid Interpretation Code 150-450 [facility] Work Phone: WBC (Leukocytes) 8.3 10*3/uL Invalid Interpretation Code 4.4-11.0 [facility] Work Phone: Absolute Neut 5.0 X10 3/UL Invalid Interpretation Code 2.0-7.7 [facility] Work Phone: Erythrocyte distribution width Auto Ratio (RBC) 12.7 % Invalid Interpretation Code 11.6-14.6 [facility] Work Phone: [phone] Lymphocytes 2.06 X10 3/UL Invalid Interpretation Code 0.83-4.51 [facility] Work Phone: [phone] PMV by Lillian 7.7 fL Invalid Interpretation Code 6.2-12.0 [facility] Work Phone: [phone] Lab Report: Comprehensive [facility] Profilon 03-05-2016 Alanine aminotransferase (ALT) 28 U/L Invalid Interpretation Code 12-78 [facility] Work Phone: [phone] Albumin 3.6 g/dL Invalid Interpretation Code 3.4-5.0 [facility] Work Phone: [phone] Albumin/Globulin Ratio 0.9 {ratio} Invalid Interpretation Code 0.9-2.4 [facility] Work Phone: [phone] Alkaline phosphatase (ALP) 82 U/L Invalid Interpretation Code 50-136 [facility] Work Phone: [phone] Anion gap 7 mmol/L Invalid Interpretation Code 5-15 [facility] Work Phone: [phone] Aspartate aminotransferase (AST) 21 U/L Invalid Interpretation Code 15-37 [facility] Work Phone: [phone] Bilirubin (total) 0.60 mg/dL Invalid Interpretation Code 0.20-1.00 [facility] Work Phone: [phone] BUN/Creatinine Ratio 19.1 RATIO Invalid Interpretation Code 10-20 [facility] Work Phone: [phone] Calcium 8.7 mg/dL Invalid Interpretation Code 8.5-10.1 [facility] Work Phone: [phone] Chloride 111 mmol/L High 98-107 [facility] Work Phone: [phone] CO2 26.0 mmol/L Invalid Interpretation Code 21.0-32.0 [facility] Work Phone: [phone] Creatinine 0.84 mg/dL Invalid Interpretation Code 0.55-1.20 [facility] Work Phone: [phone] eGFR (non-black) 70 mL/min/{1.73_m2} Invalid Interpretation Code >60 [facility] Work Phone: [phone] eGFR (non-black) 85 mL/min/{1.73_m2} Invalid Interpretation Code >60 [facility] Work Phone: [phone] Globulin 4.0 g/dL High 2.3-3.5 [facility] Work Phone: [phone] Glucose mass conc 74 mg/dL Invalid Interpretation Code 70-110 [facility] Work Phone: [phone] Potassium molar conc 3.9 mmol/L Invalid Interpretation Code 3.5-5.1 [facility] Work Phone: [phone] Protein 7.6 g/dL Invalid Interpretation Code 6.4-8.2 [facility] Work Phone: [phone] Sodium 144 mmol/L Invalid Interpretation Code 136-145 [facility] Work Phone: [phone] Urea nitrogen 16 mg/dL Invalid Interpretation Code 7-18 [facility] Work Phone: [phone] Office Visit: 1 year f/u - H x of Breast Ca - PHQ9 Completeon 03-05-2016 Adult depression screening assessment Adult depression screening assessment Invalid Interpretation Code [facility] Work Phone: [phone] Office Visit: Consult Paraes ophageal herniaon 02-23-2016 Breast Mammogram screening Normal Bilateral Invalid Interpretation Code [facility] Work Phone: [phone] Lab Report: Urinalysis, Rout ine (Dipstick)on 07-22-2015 Bilirubin Ql (U) Negative Invalid Interpretation Code Negative [facility] Work Phone: [phone] NITRITE UR Negative Invalid Interpretation Code Negative [facility] Work Phone: [phone] OCCULT BLOOD-UR 25 High Negative [facility] Work Phone: [phone] specific gravity, urine 1.010 Invalid Interpretation Code 1.002-1.03 0 [facility] Work Phone: [phone] Urine, clarity Sl. Cloudy Invalid Interpretation Code Clear [facility] Work Phone: [phone] Urine, color Yellow Invalid Interpretation Code Yellow [facility] Work Phone: [phone] Urine, glucose presence Normal mg/dl Invalid Interpretation Code Normal [facility] Work Phone: [phone] Urine, ketones presence Negative Invalid Interpretation Code Negative [facility] Work Phone: [phone] Urine, leukocyte esterase presence 100 High Negative [facility] Work Phone: [phone] Urine, pH 7.0 [pH] Invalid Interpretation Code 5.0 - 8.0 [facility] Work Phone: [phone] Urine, protein Negative Invalid Interpretation Code Negative [facility] Work Phone: [phone] UROBILI Normal mg/dl Invalid Interpretation Code Normal [facility] Work Phone: [phone] Lab Report: CBC W/Diff, Auto matedon 03-06-2015 Absolute Neut 3.6 X10 3/UL Invalid Interpretation Code 2.0-7.7 [facility] Work Phone: [phone] Immature granulocytes/100 WBC (Bld) 0.000 % Invalid Interpretation Code 0.0-0.9 [facility] Work Phone: [phone] Lymphocytes 1.90 X10 3/UL Invalid Interpretation Code 0.83-4.51 [facility] Work Phone: [phone] RDW SD 44.7 fL High 35.1-43.9 [facility] Work Phone: [phone] Lab Report: Basic Metabolic Profile (BMP)on 12-10-2014 Creatinine 35.99 mL/min Invalid Interpretation Code [facility] Work Phone: [phone] Lab Report: Prealbuminon Prealbumin 21.3 mg/dL Invalid Interpretation Code 20.0-40.0 [facility] Work Phone: [phone] Office Visit: Consult Paraes ophageal herniaon 06-24-2014 General categories [Interpretation] of Cervical or vaginal smear or scraping by Cyto stain Normal Invalid Interpretation Code [facility] Work Phone: [phone] Lab Report: LIVERon 04-02-20 14 Bilirubin (direct) 0.14 mg/dL Normal 0.00-0.30 [facility] Work [facility]: Lab Report: GAME - copyon IgG 1113 mg/dL Normal 700-1600 [facility] Work Phone: Lab Report: METHYL - copyon 02-01-2013 METHYL 181 nmol/L Normal 73-376 [facility] Work Phone: [phone] Lab Report: CRPon 01-25-2013 C reactive protein (CRP) 7.52 mg/L High 0.0-3.0 [facility] Work Phone: [phone] Lab Report: SEDon 01-25-2013 Erythrocyte sedimentation rate 10 mm/h Normal 0-30 [facility] Work Phone: [phone] Lab Report: TSHon 01-25-2013 Thyroid stimulating hormone (TSH) 2.34 u[iU]/mL Normal 0.358-3.74 [facility] Work Phone: [phone] Replaced Document: LIPIDon 0 01-25-2013 Cholesterol 265 mg/dL High 200 [facility] Work Phone: [phone] HDL Cholesterol 53 mg/dL Normal [facility] Work Phone: [phone] LDL Cholesterol 168 mg/dL High 0-130 [facility] Work Phone: [phone] Triglyceride 220 mg/dL High [facility] Work Phone: [phone] low density lipoproteins 44 mg/dL High 5-40 [facility] Work Phone: Replaced Document: PHOSon PHOS 4.0 mg/dL Normal 2.5-4.9 [facility] Work Phone: Office Visit: Consult Paraes ophageal herniaon 06-22-2004 Colonoscopy (procedure) Colonoscopy (procedure) Invalid Interpretation Code [facility] Work Phone: Vital Signs Date Time Vital Sign Value Performing Clinician Facility 12-20-2024 10:29-0400 Body height 160.[address] Max Jernigan MD Work Phone: [facility] 12-20-2024 10:29040 Body temperature 98.4 [degF] Dr. Max Jernigan MD Work Phone: [facility] 12-20-2024 10:29-0400 Diastolic blood pressure 81 mm[Hg] Dr. Max Jernigan MD Work Phone: [facility] 12-20-2024 10:29-0400 Heart rate 62 /min Dr. Max Jernigan MD Work Phone: [facility] 12-20-2024 10:29-0400 Respiratory rate 18 /min Dr. Max Jernigan MD Work Phone: [facility] 12-20-2024 10:29-0400 SaO2% (BldA) [Mass fraction] 92 % Dr. Max Jernigan MD Work Phone: [facility] 12-20-2024 10:29-0400 Systolic blood pressure 140 mm[Hg] Dr. Max Jernigan MD Work Phone: 1(531)288-241842 [address] 12-14-2024 15:17-0400 Diastolic blood pressure 74 mm[Hg] Dr. Max Jernigan MD Work Phone: 4(103)765-946942 [address] 12-14-2024 15:17-0400 Heart rate 70 /min Dr. Max Jeringan MD Work Phone: 0(257)390-966144 [place] [address] 12-14-2024 15:17-0400 Respiratory rate 18 /min Dr. Max Jernigan MD Work Phone: 8(107)998-418844 [place] [address] 12-14-2024 15:17-0400 SaO2% (BldA) [Mass fraction] 90 % Dr. Max Jernigan MD Work Phone: [facility] 12-14-2024 15:17-0400 Systolic blood pressure 110 mm[Hg] Dr. Max Jernigan MD Work Phone: [facility] 12-06-2024 15:11-0400 Diastolic blood pressure 72 mm[Hg] Dr. Max Jernigan MD Work Phone: [facility] 12-06-2024 15:11-0400 Heart rate 69 /min Dr. Max Jernigan MD Work Phone: [facility] 12-06-2024 15:11-0400 Respiratory rate 18 /min Dr. Max Jernigan MD Work Phone: [facility] 12-06-2024 15:11-0400 SaO2% (BldA) [Mass fraction] 89 % Dr. Max Jernigan MD Work Phone: 2(250)808-690682 [place] [address] 12-06-2024 15:11-0400 Systolic blood pressure 124 mm[Hg] Dr. Max Jernigan MD Work Phone: 7(430)044-978582 [place] [address] 10-02-2024 08:07-0400 Body mass index (BMI) [Ratio] 27.8 kg/m2 Dr. Max Jernigan MD Work Phone: 2(267)006-915782 [place] [address] 10-02-2024 08:07-0400 Body temperature 97.1 [degF] Dr. Max Jernigan MD Work Phone: 4(301)436-480382 [place] [address] 10-02-2024 08:07-0400 Body weight 71.[address] Max Jernigan MD Work Phone: 6(077)639-533582 [place] [address] 10-02-2024 08:07-0400 Diastolic blood pressure 62 mm[Hg] Dr. Max Jernigan MD Work Phone: 8(669)421-433182 [place] [address] 10-02-2024 08:07-0400 Heart rate 68 /min Dr. Max Jernigan MD Work Phone: 6(302)697-635082 [place] [address] 10-02-2024 08:07-0400 Respiratory rate 20 /min Dr. Max Jernigan MD Work Phone: 7(823)577-441182 [place] [address] 10-02-2024 08:07-0400 SaO2% (BldA) [Mass fraction] 96 % Dr. Max Jernigan MD Work Phone: 7(891)239-069582 [place] [address] 10-02-2024 08:07-0400 Systolic blood pressure 100 mm[Hg] Dr. Max Jernigan MD Work Phone: 9(566)950-427382 [place] [address] 09-16-2024 15:12-0400 Body temperature 97.4 [degF] Dr. Max Jernigan MD Work Phone: 5(717)845-587882 [place] [address] 09-16-2024 15:12-0400 Diastolic blood pressure 80 mm[Hg] Dr. Max Jernigan MD Work Phone: 9(728)041-197382 [place] [address] 09-16-2024 15:12-0400 Heart rate 68 /min Dr. Max Jernigan MD Work Phone: 3(677)675-096844 [place] [address] 09-16-2024 15:12-0400 Respiratory rate 18 /min Dr. Max Jernigan MD Work Phone: 8(045)659-561782 [place] [address] 09-16-2024 15:12-0400 SaO2% (BldA) [Mass fraction] 94 % Dr. Max Jernigan MD Work Phone: 3(511)560-614382 [place] [address] 09-16-2024 15:12-0400 Systolic blood pressure 147 mm[Hg] Dr. Max Jernigan MD Work Phone: 4(404)343-928982 [place] [address] 09-16-2024 08:30-0400 Inhaled oxygen flow rate 2 L/min Dr. Max Jernigan MD Work Phone: 4(294)812-307482 [place] [address] 09-16-2024 06:00-0400 Body mass index (BMI) [Ratio] 29.9 kg/m2 Dr. Max Jernigan MD Work Phone: 7(612)643-019944 [place] [address] 09-16-2024 06:00-0400 Body weight 76.[address] Max Jernigan MD Work Phone: 2(326)532-182682 [place] [address] 09-15-2024 00:38-0400 Body height 160.[address] Max Jernigan MD Work Phone: 6(144)302-593582 [place] [address] 09-14-2024 23:00-0400 Heart rate 85 /min Dr. Max Jernigan MD Work Phone: 2(220)000-607982 [place] [address] 09-14-2024 23:00-0400 Respiratory rate 36 /min Dr. Max Jernigan MD Work Phone: 9(468)297-281582 [place] [address] 09-14-2024 22:37-0400 Body temperature 99.8 [degF] Dr. Max Jernigan MD Work Phone: 9(545)718-469744 [place] [address] 09-14-2024 22:37-0400 Diastolic blood pressure 64 mm[Hg] Dr. Max Jerngian MD Work Phone: 2(848)463-426082 [place] [address] 09-14-2024 22:37-0400 Systolic blood pressure 118 mm[Hg] Dr. Max Jernigan MD Work Phone: 3(728)517-056844 [place] [address] 09-14-2024 22:00-0400 Inhaled oxygen flow rate 2 L/min Dr. Max Jernigan MD Work Phone: 1(049)653-083744 [place] [address] 09-14-2024 21:29-0400 Body mass index (BMI) [Ratio] 30 kg/m2 Dr. Max Jernigan MD Work Phone: 1(126)524-603644 [place] [address] 09-14-2024 21:29-0400 Body weight [address] Max Jernigan MD Work Phone: 4(092)581-616182 [place] [address] 09-14-2024 18:46-0400 Body height 160.[address] Max Jernigan MD Work Phone: 2(237)447-153282 [place] [address] 09-14-2024 10:29-0400 Body temperature 98.8 [degF] Dr. Max Jernigan MD Work Phone: 6(041)100-993544 [place] [address] 09-14-2024 10:29-0400 Diastolic blood pressure 52 mm[Hg] Dr. Max Jernigan MD Work Phone: 3(403)707-601944 [place] [address] 09-14-2024 10:29-0400 Heart rate 83 /min Dr. Max Jernigan MD Work Phone: 4(585)076-931944 [place] [address] 09-14-2024 10:29-0400 Respiratory rate 30 /min Dr. Max Jernigan MD Work Phone: 6(635)570-323544 [place] [address] 09-14-2024 10:29-0400 SaO2% (BldA) [Mass fraction] 94 % Dr. Max Jernigan MD Work Phone: 5(364)017-865144 [place] [address] 09-14-2024 10:29-0400 Systolic blood pressure 94 mm[Hg] Dr. Max Jernigan MD Work Phone: 1(746)734-091544 [place] [address] 07-20-2024 13:30-0500 Body height 160.[address] Max Jernigan MD Work Phone: 1(673)215-389944 [place] [address] 07-20-2024 13:30-0500 Body mass index (BMI) [Ratio] 29 kg/m2 Dr. Max Jernigan MD Work Phone: 3(095)689-815082 [place] [address] 07-20-2024 13:30-0500 Body temperature 97.4 [degF] Dr. Mxa Jernigan MD Work Phone: 8(307)357-495082 [place] [address] 07-20-2024 13:30-0500 Body weight 74.[address] Max Jernigan MD Work Phone: 6(922)492-745782 [place] [address] 07-20-2024 13:30-0500 Diastolic blood pressure 90 mm[Hg] Dr. Max Jernigan MD Work Phone: 0(929)594-363382 [place] [address] 07-20-2024 13:30-0500 Heart rate 73 /min Dr. Max Jernigan MD Work Phone: 4(039)870-402182 [place] [address] 07-20-2024 13:30-0500 Respiratory rate 18 /min Dr. Max Jernigan MD Work Phone: 1(175)371-637682 [place] [address] 07-20-2024 13:30-0500 SaO2% (BldA) [Mass fraction] 96 % Dr. Max Jernigan MD Work Phone: 3(051)501-381882 [place] [address] 07-20-2024 13:30-0500 Systolic blood pressure 131 mm[Hg] Dr. Max Jernigan MD Work Phone: 8(604)085-291882 [place] [address] 06-08-2024 15:32-0500 Body temperature 98 [degF] Dr. Max Jernigan MD Work Phone: 7(569)209-134782 [place] [address] 06-08-2024 15:32-0500 Diastolic blood pressure 80 mm[Hg] Dr. Max Jernigan MD Work Phone: 4(512)342-348882 [place] [address] 06-08-2024 15:32-0500 Heart rate 67 /min Dr. Max Jernigan MD Work Phone: 6(582)271-148982 [place] [address] 06-08-2024 15:32-0500 Respiratory rate 16 /min Dr. Max Jernigan MD Work Phone: 0(949)121-518582 [place] [address] 06-08-2024 15:32-0500 SaO2% (BldA) [Mass fraction] 97 % Dr. Max Jernigan MD Work Phone: [facility] 06-08-2024 15:32-0500 Systolic blood pressure 154 mm[Hg] Dr. Max Jernigan MD Work Phone: [facility] 06-08-2024 14:33-0500 Body mass index (BMI) [Ratio] 28.7 kg/m2 Dr. Max Jernigan MD Work Phone: [facility] 06-08-2024 14:33-0500 Body weight 73.[address] Max Jernigan MD Work Phone: [facility] 10-07-2023 17:50-0400 Body temperature 97.9 [degF] Rosalva Rodriguez RESEARCH COORDINATOR.RN DIABETES Work Phone: [facility] 10-07-2023 17:50-0400 Body weight 79 kg Rosalva Rodriguez RESEARCH COORDINATOR.RN DIABETES Work Phone: [facility] 10-07-2023 17:50-0400 Diastolic blood pressure 84 mm[Hg] Rosalva Rodriguez RESEARCH COORDINATOR.RN DIABETES Work Phone: [facility] 10-07-2023 17:50-0400 Heart rate 68 /min Rosalva Rodriguez RESEARCH COORDINATOR.RN DIABETES Work Phone: [facility] 10-07-2023 17:50-0400 Respiratory rate 22 /min Rosalva Rodriguez RESEARCH COORDINATOR.RN DIABETES Work Phone: [facility] 10-07-2023 17:50-0400 SaO2% (BldA) [Mass fraction] 95 % Rosalva Rodriguez RESEARCH COORDINATOR.RN DIABETES Work Phone: [facility] 10-07-2023 17:50-0400 Systolic blood pressure 133 mm[Hg] Rosalva Rodriguez RESEARCH COORDINATOR.RN DIABETES Work Phone: [facility] 04-26-2023 08:05-0500 Body height 160.[address] Max Jernigan Work Phone: [facility] 04-26-2023 08:05-0500 Body mass index (BMI) [Ratio] 31.1 kg/m2 Dr. Max Jernigan Work Phone: [facility] 04-26-2023 08:05-0500 Body temperature 97.3 [degF] Dr. Max Jerngian Work Phone: [facility] 04-26-2023 08:05-0500 Body weight 79.[address] Max Jernigan Work Phone: [facility] 04-26-2023 08:05-0500 Diastolic blood pressure 80 mm[Hg] Dr. Max Jernigan Work Phone: [facility] 04-26-2023 08:05-0500 Heart rate 73 /min Dr. Max Jernigan Work Phone: [facility] 04-26-2023 08:05-0500 SaO2% (BldA) [Mass fraction] 97 % Dr. Max Jernigan Work Phone: [facility] 04-26-2023 08:05-0500 Systolic blood pressure 136 mm[Hg] Dr. Max Jernigan Work Phone: [facility] 03-24-2023 14:03-0400 Body mass index (BMI) [Ratio] 31.6 kg/m2 Dr. Max Jernigan Work Phone: [facility] 03-24-2023 14:03-0400 Body temperature 97.8 [degF] Dr. Max Jernigan Work Phone: [facility] 03-24-2023 14:03-0400 Body weight 80.[address] Max Jernigan Work Phone: [facility] 03-24-2023 14:03-0400 Diastolic blood pressure 70 mm[Hg] Dr. Max Jernigan Work Phone: [facility] 03-24-2023 14:03-0400 Heart rate 77 /min Dr. Max Jeringan Work Phone: [facility] 03-24-2023 14:03-0400 Respiratory rate 18 /min Dr. Max Jernigan Work Phone: 0(348)862-787944 [place] [address] 03-24-2023 14:03-0400 SaO2% (BldA) [Mass fraction] 93 % Dr. Max Jernigan Work Phone: [facility] 03-24-2023 14:03-0400 Systolic blood pressure 109 mm[Hg] Dr. Max Jernigan Work Phone: 3(263)732-636344 [place] [address] 12-07-2022 13:23-0400 Body height 160.[address] Max Jernigan Work Phone: 2(426)166-516882 [place] [address] 11-26-2022 14:27-0400 Body height 160.[address] Max Jernigan Work Phone: 1(283)817-996782 [place] [address] 11-26-2022 14:27-0400 Body mass index (BMI) [Ratio] 31.5 kg/m2 Dr. Max Jernigan Work Phone: 6(787)469-666082 [place] [address] 11-26-2022 14:27-0400 Body weight 80.[address] Max Jernigan Work Phone: 3(024)874-145182 [place] [address] 11-26-2022 14:27-0400 Diastolic blood pressure 66 mm[Hg] Dr. Max Jernigan Work Phone: 6(282)656-786882 [place] [address] 11-26-2022 14:27-0400 Heart rate 67 /min Dr. Max Jernigan Work Phone: 5(021)023-033682 [place] [address] 11-26-2022 14:27-0400 Systolic blood pressure 135 mm[Hg] Dr. Max Jernigan Work Phone: 4(055)977-546442 [address] 11-23-2022 06:34-0400 Body mass index (BMI) [Ratio] 31.1 kg/m2 Dr. Max Jernigan Work Phone: 8(793)114-017444 [place] [address] 11-23-2022 06:34-0400 Body temperature 97.4 [degF] Dr. Max Jernigan Work Phone: 5(677)895-492744 [place] [address] 11-23-2022 06:34-0400 Body weight 79.[address] Max Jernigan Work Phone: 7(701)762-166544 [place] [address] 11-23-2022 06:34-0400 Diastolic blood pressure 56 mm[Hg] Dr. Max Jernigan Work Phone: [facility] 11-23-2022 06:34-0400 Heart rate 88 /min Dr. Max Jernigan Work Phone: [facility] 11-23-2022 06:34-0400 Respiratory rate 20 /min Dr. Max Jernigan Work Phone: 9(189)356-400082 [place] [address] 11-23-2022 06:34-0400 SaO2% (BldA) [Mass fraction] 92 % Dr. Max Jernigan Work Phone: 5(605)625-689542 [address] 11-23-2022 06:34-0400 Systolic blood pressure 124 mm[Hg] Dr. Max Jernigan Work Phone: 1(048)866-636582 [place] [address] 09-29-2022 12:53-0400 Body height 160.[address] Max Jernigan Work Phone: 8(094)202-716682 [place] [address] 09-29-2022 12:53-0400 Body weight 78.[address] Max Jernigan Work Phone: 8(440)485-153782 [place] [address] 09-29-2022 12:53-0400 Heart rate 74 /min Dr. Max Jernigan Work Phone: 7(585)723-111682 [place] [address] 09-29-2022 12:53-0400 SaO2% (BldA) [Mass fraction] 98 % Dr. Max Jernigan Work Phone: 2(944)327-109382 [place] [address] 05-26-2022 13:42-0500 Body height 157.[address] Max Jernigan Work Phone: 7(516)311-413142 [address] 05-26-2022 13:42-0500 Body mass index (BMI) [Ratio] 33.6 kg/m2 Dr. Max Jernigan Work Phone: 8(161)295-134382 [place] [address] 05-26-2022 13:42-0500 Body temperature 95.9 [degF] Dr. Max Jernigan Work Phone: 2(787)070-578182 [place] [address] 05-26-2022 13:42-0500 Body weight 83.[address] Max Jernigan Work Phone: [facility] 05-26-2022 13:42-0500 Diastolic blood pressure 77 mm[Hg] Dr. Max Jernigan Work Phone: [facility] 05-26-2022 13:42-0500 Heart rate 72 /min Dr. Max Jernigan Work Phone: [facility] 05-26-2022 13:42-0500 Respiratory rate 20 /min Dr. Max Jernigan Work Phone: [facility] 05-26-2022 13:42-0500 SaO2% (BldA) [Mass fraction] 92 % Dr. Max Jernigan Work Phone: [facility] 05-26-2022 13:42-0500 Systolic blood pressure 136 mm[Hg] Dr. Max Jernigan Work Phone: [facility] 03-18-2022 11:35-0400 Body height 160.[address] Max Jernigan Work Phone: [facility] Work Phone: 03-18-2022 11:35-0400 Body mass index (BMI) [Ratio] 31.1 kg/m2 Dr. Max Jernigan Work Phone: [facility] Work Phone: 03-18-2022 11:35-0400 Body temperature 97.6 [degF] Dr. Max Jernigan Work Phone: [facility] Work Phone: 03-18-2022 11:35-0400 Body weight 79.[address] Max Jernigan Work Phone: [facility] Work Phone: 03-18-2022 11:35-0400 Diastolic blood pressure 66 mm[Hg] Dr. Max Jernigan Work Phone: [facility] Work Phone: 03-18-2022 11:35-0400 Heart rate 61 /min Dr. Max Jernigan Work Phone: [facility] Work Phone: 03-18-2022 11:35-0400 Respiratory rate 16 /min Dr. Max Jernigan Work Phone: [facility] Work Phone: 03-18-2022 11:35-0400 SaO2% (BldA) [Mass fraction] 96 % Dr. Max Jernigan Work Phone: [facility] Work Phone: 03-18-2022 11:35-0400 Systolic blood pressure 122 mm[Hg] Dr. Max Jernigan Work Phone: [facility] Work Phone: 03-08-2022 13:16-0400 Body mass index (BMI) [Ratio] 31.6 kg/m2 Dr. Max Jernigan Work Phone: [facility] Work Phone: 03-08-2022 13:16-0400 Body temperature 98.6 [degF] Dr. Max Jernigan Work Phone: [facility] Work Phone: 03-08-2022 13:16-0400 Body weight 80.[address] Max Jernigan Work Phone: [facility] Work Phone: 03-08-2022 13:16-0400 Diastolic blood pressure 64 mm[Hg] Dr. Max Jernigan Work Phone: [facility] Work Phone: 03-08-2022 13:16-0400 Heart rate 74 /min Dr. Max Jernigan Work Phone: [facility] Work Phone: 03-08-2022 13:16-0400 Respiratory rate 17 /min Dr. Max Jernigan Work Phone: [facility] Work Phone: 03-08-2022 13:16-0400 SaO2% (BldA) [Mass fraction] 94 % Dr. Max Jernigan Work Phone: [facility] Work Phone: 03-08-2022 13:16-0400 Systolic blood pressure 113 mm[Hg] Dr. Max Jernigan Work Phone: [facility] Work Phone: 02-19-2022 13:30-0400 Body temperature 97.9 [degF] Dr. Max Jernigan Work Phone: [facility] Work Phone: 02-19-2022 13:30-0400 Diastolic blood pressure 51 mm[Hg] Dr. Max Jernigan Work Phone: [facility] Work Phone: 02-19-2022 13:30-0400 Heart rate 72 /min Dr. Max Jernigan Work Phone: [facility] Work Phone: 02-19-2022 13:30-0400 Respiratory rate 18 /min Dr. Max Jernigan Work Phone: [facility] Work Phone: 02-19-2022 13:30-0400 SaO2% (BldA) [Mass fraction] 98 % Dr. Max Jernigan Work Phone: [facility] Work Phone: 02-19-2022 13:30-0400 Systolic blood pressure 105 mm[Hg] Dr. Max Jernigan Work Phone: [facility] Work Phone: 02-19-2022 13:19-0400 Body height 160.[address] Max Jernigan Work Phone: [facility] Work Phone: 02-19-2022 13:19-0400 Body mass index (BMI) [Ratio] 31.5 kg/m2 Dr. Max Jernigan Work Phone: [facility] Work Phone: 02-19-2022 13:19-0400 Body weight 80.[address] Max Jernigan Work Phone: [facility] Work Phone: 02-19-2022 12:35-0400 Body temperature 98 [degF] Dr. Max Jernigan Work Phone: [facility] Work Phone: 02-19-2022 12:35-0400 Diastolic blood pressure 56 mm[Hg] Dr. Max Jernigan Work Phone: [facility] Work Phone: 02-19-2022 12:35-0400 Heart rate 78 /min Dr. Max Jernigan Work Phone: [facility] Work Phone: 02-19-2022 12:35-0400 Respiratory rate 15 /min Dr. Max Jernigan Work Phone: [facility] Work Phone: 02-19-2022 12:35-0400 SaO2% (BldA) [Mass fraction] 98 % Dr. Max Jernigan Work Phone: [facility] Work Phone: 02-19-2022 12:35-0400 Systolic blood pressure 111 mm[Hg] Dr. Max Jernigan Work Phone: [facility] Work Phone: 02-19-2022 08:41-0400 Body height 160.[address] Max Jernigan Work Phone: [facility] Work Phone: 02-19-2022 08:41-0400 Body mass index (BMI) [Ratio] 31.6 kg/m2 Dr. Max Jernigan Work Phone: [facility] Work Phone: 02-19-2022 08:41-0400 Body weight 81.[address] Max Jernigan Work Phone: [facility] Work Phone: 02-09-2022 13:12-0400 Body height 160.[address] Max Jerniagn Work Phone: [facility] Work Phone: 02-09-2022 13:12-0400 Body weight 81.[address] Max Jernigan Work Phone: [facility] Work Phone: 02-09-2022 13:12-0400 Heart rate 72 /min Dr. Max Jernigan Work Phone: [facility] Work Phone: 02-09-2022 13:12-0400 SaO2% (BldA) [Mass fraction] 97 % Dr. Max Jernigan Work Phone: [facility] Work Phone: 01-21-2022 10:17-0400 Body height 157.[address] Max Jernigan Work Phone: [facility] Work Phone: 01-21-2022 10:17-0400 Body mass index (BMI) [Ratio] 32.1 kg/m2 Dr. Max Jernigan Work Phone: [facility] Work Phone: 01-21-2022 10:17-0400 Body temperature 97.3 [degF] Dr. Max Jernigan Work Phone: [facility] Work Phone: 01-21-2022 10:17-0400 Body weight 79.[address] Max Jernigan Work Phone: [facility] Work Phone: 01-21-2022 10:17-0400 Diastolic blood pressure 72 mm[Hg] Dr. Max Jernigan Work Phone: [facility] Work Phone: 01-21-2022 10:17-0400 Heart rate 78 /min Dr. Max Jernigan Work Phone: [facility] Work Phone: 01-21-2022 10:17-0400 Respiratory rate 16 /min Dr. Max Jernigan Work Phone: [facility] Work Phone: 01-21-2022 10:17-0400 SaO2% (BldA) [Mass fraction] 92 % Dr. Max Jernigan Work Phone: [facility] Work Phone: 01-21-2022 10:17-0400 Systolic blood pressure 143 mm[Hg] Dr. Max Jernigan Work Phone: [facility] Work Phone: 03-31-2017 14:46-0400 BMI (Body Mass Index) 32.99 kg/m2 Juan Francisco Driscoll MD [facility] Work Phone: 03-31-2017 14:46-0400 Body Temperature 97.4 [degF] Juan Francisco Driscoll MD [facility] Work Phone: 03-31-2017 14:46-0400 BP Diastolic 79 mm[Hg] Juan Francisco Driscoll MD [facility] Work Phone: 03-31-2017 14:46-0400 BP Systolic 143 mm[Hg] Juan Francisco Driscoll MD [facility] Work Phone: 03-31-2017 14:46-0400 BSA (Body Surface Area) 1.9 m2 Juan Francisco Driscoll MD [facility] Work Phone: 03-31-2017 14:46-0400 Height 161.29 cm Juan Francisco Driscoll MD [facility] Work Phone: 03-31-2017 14:46-0400 Pulse (Heart Rate) 71 /min Juan Francisco Driscoll MD [facility] Work Phone: 03-31-2017 14:46-0400 Respiratory Rate 20 /min Juan Francisco Driscoll MD [facility] Work Phone: 03-31-2017 14:46-0400 Weight 85.82 kg Juan Francisco Driscoll MD [facility] Work Phone: 05-19-2016 10:50-0500 Height 161.29 cm Juan Francisco Driscoll MD [facility] Work Phone: 05-19-2016 10:50-0500 Weight 82.73 kg Juan Francisco Driscoll MD [facility] Work Phone: 03-05-2016 12:52-0400 Body Temperature 97.81 [degF] Juan Francisco Driscoll MD [facility] Work Phone: Encounters Encounter Date Encounter Type Care Provider Facility Start: 12-20-2024 End: 12-20-[address] Max Jernigan MD Work Phone: -[facility] Start: 12-20-2024 End: 12-20-[address] Vinicius Carter MD -[facility] Work Phone: Start: 12-14-2024 End: 12-14-[address] Vinicius Carter MD -[facility] Work Phone: Start: 12-14-2024 End: 12-14-[address] Max Jernigan MD Work Phone: -[facility] Start: 12-06-2024 End: 12-06-[address] Vinicius Carter MD -[facility] Work Phone: Start: 12-06-2024 End: 12-06-[address] Max Jernigan MD Work Phone: [facility] Work Phone: Start: 12-04-2024 End: 12-04-[address] Max Jernigan MD Work Phone: [facility] Work Phone: Start: 12-04-2024 End: 12-04-[address] Max Jernigan MD -[facility] Start: 12-04-2024 End: 12-04-2024 ambulatory Max Jernigan Facility:[facility] Start: 10-02-2024 End: 10-02-2024 Patient encounter procedure Janet Fraser FACILITY MAINTENANCE SUPERVISORRuddyC -[facility] Work Phone: Start: 10-02-2024 End: 10-02-2024 ambulatory Max Jernigan Facility:[facility] Start: 09-20-2024 End: 09-20-[address] Max Jernigan MD Work Phone: [facility] Work Phone: Start: 09-20-2024 End: 09-20-[address] Max Jernigan MD -Laboratory, [facility] Start: 09-20-2024 End: 09-20-2024 ambulatory Max Jernigan Facility:[facility] Start: 09-16-2024 Non-patient / Non-visit Dr. Max Zaragoza [facility] Work Phone: Start: 09-15-2024 Non-patient / Non-visit Dr. Max Zaragoza [facility] Work Phone: Start: 09-14-2024 ambulatory Sha Galvin ty:[facility] Start: 09-14-2024 End: 09-16-2024 Evaluation and management of inpatient Dr. Sha Yu DO -Medical Surgical 3 Work Phone: Start: 09-14-2024 End: 09-14-[address] Max Jernigan MD Work Phone: [facility] Work Phone: Start: 09-14-2024 End: 09-14-2024 Patient encounter procedure Aleksandr YANES -Laboratory, Specimen Work Phone: Start: 09-14-2024 End: 09-14-2024 Patient encounter procedure Aleksandr YANES -[facility] Work Phone: Start: 09-14-2024 End: 09-14-2024 ambulatory Aleksandr YANES Facility[facility] Start: 09-14-2024 End: 09-14-2024 ambulatory Aleksandr YANSE Facility:[facility] Start: 09-04-2024 End: 09-04-[address] Max Jernigan MD -Laboratory, [facility] Start: 09-04-2024 End: 09-04-[address] Max Jernigan MD Work Phone: [facility] Work Phone: Start: 07-20-2024 End: 07-20-2024 Patient encounter procedure Janet Fraser FACILITY MAINTENANCE SUPERVISOR-C -[facility] Work Phone: Start: 07-20-2024 End: 07-20-2024 ambulatory Max Jernigan Facility:[facility] Start: 06-08-2024 End: 06-08-2024 Emergency department patient visit Dr. Max Okeefe DO -Emergency Department Work Phone: Start: 04-30-2024 End: 04-30-2024 ambulatory Serena Hgaan Facility:[facility] Start: 04-23-2024 End: 04-23-2024 ambulatory Max Jernigan Facility:[facility] Start: 04-20-2024 ambulatory Manjit Jackson Facility:[facility] Start: 04-19-2024 End: 04-19-2024 ambulatory Janet Fraser FACILITY MAINTENANCE SUPERVISOR Facility:[facility] Start: 04-16-2024 End: 04-16-2024 ambulatory Radha Joseph RN DIABETES Work Phone: [facility] Comment on above: OAB (overactive blad kely) (Primary Dx) Start: 04-16-2024 End: 04-16-2024 Telemedicine consultation with patient Radha Ruiz RN DIABETES Work Phone: [facility] Start: 04-16-2024 End: 04-16-2024 ambulatory RADHA RUIZ Facility:[facility] Start: 04-05-2024 End: 04-05-2024 ambulatory Janet Fraser FACILITY MAINTENANCE SUPERVISOR Facility:[facility] Start: 04-03-2024 ambulatory Omid Zhou Facility:[facility] Start: 04-03-2024 End: 04-03-2024 ambulatory Janet Fraser FACILITY MAINTENANCE SUPERVISOR Facility:[facility] Start: 03-27-2024 End: 03-27-2024 ambulatory Max Jernigan Facility:[facility] Start: 03-26-2024 End: 03-26-2024 ambulatory Janet Fraser FACILITY MAINTENANCE SUPERVISOR Facility:[facility] Start: 03-22-2024 End: 03-22-2024 ambulatory Yuliana Rodriguez Facility:[facility] Start: 03-08-2024 End: 03-08-2024 ambulatory Max Jernigan Facility:[facility] Start: 03-06-2024 End: 03-06-2024 ambulatory Max Jernigan Facility:[facility] Start: 01-02-2024 End: 01-02-2024 ambulatory Kirk Atkinson FACILITY MAINTENANCE SUPERVISOR Facility[facility] Start: 01-02-2024 End: 01-02-2024 ambulatory Kirk Atkinson FACILITY MAINTENANCE SUPERVISOR Facility:[facility] Start: 12-30-2023 End: 12-30-2023 ambulatory Aleksandr Palencia PA Facility[facility] Start: 10-07-2023 End: 10-07-2023 ambulatory MAX JERNIGAN Facility:[facility] Start: 10-07-2023 End: 10-07-2023 Patient encounter procedure Rosalva Rodriguez APRN.RN DIABETES Work Phone: [facility] Comment on above: Accidental medicatio n error, initial encounter (Primary Dx) Start: 09-15-2023 End: 09-15-2023 ambulatory [facility] Work Phone: Start: 09-15-2023 End: 09-15-2023 Patient encounter procedure [facility], [facility] Work Phone: Start: 07-04-2023 End: 07-04-[address] Max Jernigan Work Phone: [facility] Work Phone: Start: 07-04-2023 End: 07-04-[address] Max Jernigan Work Phone: [facility] Start: 04-26-2023 End: 04-26-[address] Max Jernigan Work Phone: [facility]-Pulmonary Medicine [facility] Work Phone: Start: 03-24-2023 End: 03-24-[address] Max Jernigan Work Phone: [facility] Work Phone: Start: 03-17-2023 End: 03-17-[address] Max Jernigan Work Phone: [facility]-Outpatient Breast Imaging Work Phone: Start: 12-07-2022 End: 12-07-[address] Max Jernigan Work Phone: [facility] Work Phone: Start: 12-07-2022 End: 12-07-[address] Max Jernigan Work Phone: [facility]-Outpatient Bone Densitometry Start: 12-01-2022 End: 12-01-[address] Max Jernigan Work Phone: [facility] Work Phone: Start: 12-01-2022 End: 12-01-[address] Max Jernigan Work Phone: [facility] Start: 11-26-2022 End: 11-26-[address] Max Jernigan Work Phone: [facility] Start: 11-23-2022 End: 11-23-[address] Max Jernigan Work Phone: [facility]-Pulmonary Medicine [facility] Start: 09-30-2022 Non-patient / Non-visit Dr. Cameron Jernigan Work Phone: [facility] Start: 09-29-2022 End: 09-29-[address] Max Jernigan Work Phone: [facility]-Pulmonary Services/Neurology Start: 09-28-2022 Non-patient / Non-visit Dr. Cameron Jernigan Work Phone: [facility] Start: 09-27-2022 End: 09-27-[address] Max Jernigan Work Phone: [facility] Work Phone: Start: 09-27-2022 End: 09-27-[address] Max Jernigan Work Phone: [facility]-Pulmonary Services/Neurology Start: 07-19-2022 End: 07-19-[address] Max Jernigan Work Phone: [facility] Work Phone: Start: 07-19-2022 End: 07-19-[address] Max Jernigan Work Phone: [facility] Start: 05-26-2022 End: 05-26-[address] Max Jernigan Work Phone: [facility]-Pulmonary Medicine [facility] Start: 03-25-2022 End: 03-25-[address] Max Jernigan Work Phone: [facility] Work Phone: Start: 03-25-2022 End: 03-25-[address] Max Jernigan Work Phone: [facility] Start: 03-19-2022 Non-patient / Non-visit Dr. Cameron Jernigan Work Phone: [facility] Start: 03-19-2022 End: 03-19-[address] Max Jernigan Work Phone: [facility] Work Phone: Start: 03-19-2022 End: 03-19-[address] Max Jernigan Work Phone: [facility]-Cardiovascular Services Start: 03-18-2022 End: 03-18-[address] Max Jernigan Work Phone: [facility] Start: 03-16-2022 End: 03-16-[address] Max Jernigan Work Phone: [facility] Work Phone: Start: 03-16-2022 End: 03-16-[address] Max Jernigan Work Phone: [facility]-Outpatient Breast Imaging Start: 03-08-2022 End: 03-08-[address] Max Jernigan Work Phone: [facility]-Pulmonary Medicine [facility] Start: 02-19-2022 Non-patient / Non-visit Dr. Cameron Jernigan Work Phone: [facility] Start: 02-19-2022 End: 02-19-2022 Evaluation and management of inpatient Dr. Max Jernigan Work Phone: [facility]-Medical Surgical 3 Start: 02-19-2022 End: 02-19-[address] Max Jernigan Work Phone: [facility] Work Phone: Start: 02-10-2022 Non-patient / Non-visit Dr. Cameron Jernigan Work Phone: [facility] Start: 02-09-2022 End: 02-09-[address] Max Jernigan Work Phone: [facility] Work Phone: Start: 02-09-2022 End: 02-09-[address] Max Jernigan Work Phone: [facility]-Pulmonary Services/Neurology Start: 02-05-2022 Non-patient / Non-visit Dr. Cameron Jernigan Work Phone: [facility] Start: 02-04-2022 End: 02-04-[address] Max Jernigan Work Phone: [facility] Work Phone: Start: 02-04-2022 End: 02-04-[address] Max Jernigan Work Phone: [facility]-Pulmonary Services/Neurology Start: 02-02-2022 End: 02-02-[address] Max Jernigan Work Phone: [facility] Start: 01-21-2022 End: 01-21-[address] Max Jernigan Work Phone: [facility]-Pulmonary Medicine [facility] Start: 11-09-2021 End: 11-09-2021 ambulatory [facility] Start: 10-26-2021 End: 10-26-2021 ambulatory BROOKLYN L WHITLEY [facility] Start: 10-22-2021 Encounter for other preprocedural examination BROOKLYN Kenny ISRAEL [facility] Start: 10-21-2021 End: 10-22-2021 ambulatory [facility] Start: 05-01-2020 End: 05-01-2020 Subsequent hospital visit by physician Xr [facility] Comment on above: 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 Max Jernigan MD Work Phone: Start: 09-16-[address] Max Jernigan MD Work Phone: Start: 09-16-2024 Serum inorganic phos phate measurement Dr. Max Jernigan MD Work Phone: Start: 09-15-2024 Plain X-ray abdomen Dr. Max Jernigan MD Work Phone: Start: 09-14-2024 X-ray of chest, PA a nd lateral views Dr. Max Jernigan MD Work Phone: Start: 09-14-[address] Max Jernigan MD Work Phone: Start: 09-14-2024 SARS-CoV-2, Influenz a & RSV (PCR) Dr. Max Jernigan MD Work Phone: Start: 09-14-[address] Max Jernigan MD Work Phone: Start: 09-04-[address] Lesvia Jernigan MD Work Phone: Comment on above: Performed at: [address] [id number] Director: Trell Treadwell PhD, Phone: [phone] Start: 09-04-2024 Total iron binding capacity measurement Dr. Max Jernigan MD Work Phone: Start: 09-15-2023 CT of face Start: 03-17-2023 Screening mammography Shauna Jernigan Work Phone: Start: 07-19-2022 Plain chest X-ray Dr. Kenny Jernigan Work Phone: Start: 03-25-2022 CT of chest without contrast Dr. Max Jernigan Work Phone: Start: 03-16-2022 Screening mammography Shauna Jernigan Work Phone: Start: 02-02-2022 Complete x-ray serie s of lumbar spine with bending views Dr. Max Jernigan Work Phone: Start: 05-01-2020 Radiologic exam abdo men 1 view Ekta Monisha RESEARCH COORDINATOR.RN DIABETES Work Phone: Start: 02-10-2017 End: 03-28-2017 Follow [...] Start: 07-14-2016 End: 07-20-2016 Nuclear stress test -Semajiscan Austyn Edmonds MD Start: 05-19-2016 End: 02-03-2017 Follow Up Appt Other Jessica Villatoro Work Phone: Start: 03-09-2016 End: 03-09-2016 *CMP Complete Metabolic Panel Wilmar Farr DO Start: 12-24-2015 End: 02-06-2016 Follow Up Appt [...] Up Appt Other Juan Francisco Driscoll MD section Dr. Max august Work Phone: History of operative procedure on knee History of arthroplasty of right knee Dr. Max Jernigan Work Phone: Plan of Treatment Date Care Activity Detail Author Start: 11-26-2032 Urine microalbumin profile DTaP,Tdap,Td Vaccine (2 - Td or Tdap) [facility] Start: 09-16-2024 Patient discharge [facility] Start: 09-15-2024 Application of intermittent pneumatic compression device [facility] Start: 09-15-2024 End: 09-15-2024 Following clinical pathway protocol [facility] Start: 09-15-2024 Assessment of risk of venous thromboembolism [facility] Start: 09-15-2024 Inhalation therapy procedure [facility] Start: 09-15-2024 Insertion of catheter into peripheral vein [facility] Start: 09-15-2024 Measuring intake and output [facility] Start: 09-15-2024 Oxygen therapy [facility] Start: 09-15-2024 Providing care according to standard [facility] Start: 09-15-2024 Provision of activity privileges [facility] Start: 09-15-2024 Referral to occupational therapist [facility] Start: 09-15-2024 Referral to service [facility] Start: 09-15-2024 [facility] Start: 09-14-2024 Verification routine [facility] Start: 09-14-2024 Admission procedure [facility] Start: 09-14-2024 Hospital admission, emergency, from emergency room, medical nature [facility] Start: 09-14-2024 Taking nasal swab [facility] Start: 09-14-2024 [facility] Start: 09-14-2024 Bacteria identified in Urine by Culture Urine Culture [facility] Start: 09-14-2024 Respiratory Panel (PCR) Respiratory Panel (PCR) [facility] Start: 09-14-2024 [facility] Start: 06-08-2024 [facility] Start: 02-19-2024 Covid-19 Vaccine () Covid-19 Vaccine () [facility] Start: 06-20-2023 Advance Directive Discussion Advance Directive Discussion [facility] Start: 06-20-2023 Behavioral Health Screening Behavioral Health Screening [facility] Start: 04-26-2023 Patient referral [facility] Work Phone: Start: 02-18-2023 Covid-19 Vaccine ( season) Covid-19 Vaccine () [facility] Start: 02-18-2023 Influenza vaccination Influenza Vaccine (#1) [facility] Start: 12-07-2022 Dual energy X-ray absorptiometry Dexa Bone Density Study [facility] Start: 06-20-2022 Advance Directive Discussion Advance Directive Discussion [facility] Start: 06-20-2022 Depression Assessment Depression Assessment [facility] Start: 02-19-2022 [facility] Work Phone: Start: 02-19-2022 Patient discharge [facility] Work Phone: Start: 02-19-2022 [facility] Work Phone: Start: 02-19-2022 Following clinical pathway protocol [facility] Work Phone: Start: 02-19-2022 Assessment of risk of venous thromboembolism [facility] Work Phone: Start: 02-19-2022 Care regimes management [facility] Work Phone: Start: 02-19-2022 Insertion of catheter into peripheral vein [facility] Work Phone: Start: 02-19-2022 Providing care according to standard [facility] Work Phone: Start: 02-19-2022 Provision of activity privileges [facility] Work Phone: Start: 02-19-2022 End: 02-19-2022 [facility] Work Phone: Start: 02-19-2022 Admission procedure [facility] Work Phone: Start: 07-21-2019 Diabetes Screening Diabetes Screening [facility] Start: 03-31-2017 End: 04-10-2017 Follow Up Appt Other Follow Up Appt Other [facility] Work Phone: Start: 03-18-2017 End: 04-10-2017 Follow Up Appt 2 weeks Follow Up Appt 2 weeks [facility] Work Phone: Start: 03-03-2017 End: 03-08-2016 *CBC with Differential *CBC with Differential [facility] Work Phone: Start: 03-03-2017 End: 03-08-2016 *CMP Complete Metabolic Panel *CMP Complete Metabolic Panel [facility] Work Phone: Start: 02-24-2017 End: 04-10-2017 Follow Up Appt 2 weeks Follow Up Appt 2 weeks [facility] Work Phone: Start: 02-10-2017 End: 03-28-2017 Follow Up Appt 2 weeks Follow Up Appt 2 weeks [facility] Work Phone: Start: 02-01-2017 End: 02-03-2017 Colonoscopy flx dx w/collj spec when pfrmd Colonoscopy [facility] Work Phone: Start: 02-01-2017 End: 02-03-2017 Esophagogastroduodenoscopy transoral diagnostic Upper gastrointestinal endoscopy [facility] Work Phone: Start: 02-01-2017 End: 02-03-2017 Follow Up Appt Other Follow Up Appt Other [facility] Work Phone: Start: 01-27-2017 End: 02-03-2017 Follow Up Appt 2 weeks Follow Up Appt 2 weeks [facility] Work Phone: Start: 01-19-2017 End: 01-19-2017 Bacterica wound culture *CUW - Culture, Wound (Aerobic) [facility] Work Phone: Start: 01-19-2017 End: 02-03-2017 Follow up Appt 1 week Follow up Appt 1 week [facility] Work Phone: Start: 01-10-2017 End: 01-22-2017 Follow up Appt 1 week Follow up Appt 1 week [facility] Work Phone: Start: 01-03-2017 End: 01-22-2017 Follow up Appt 1 week Follow up Appt 1 week [facility] Work Phone: Start: 10-27-2016 End: 12-28-2016 Follow Up Appt Other Follow Up Appt Other [facility] Work Phone: Start: 07-14-2016 End: 07-14-2016 Ecg routine ecg w/least 12 lds w/i&r EKG (In office) [facility] Work Phone: Start: 07-14-2016 End: 07-15-2016 Echocardiography Echocardiogram (complete) [facility] Work Phone: Start: 07-14-2016 End: 07-15-2016 Nuclear stress test -Lexiscan Nuclear stress test -Lexiscan [facility] Work Phone: Start: 05-19-2016 End: 05-19-2016 Esophagogastroduodenoscopy transoral diagnostic Upper gastrointestinal endoscopy [facility] Work Phone: Start: 05-19-2016 End: 02-03-2017 Follow Up Appt Other Follow Up Appt Other [facility] Work Phone: Start: 05-19-2016 End: 06-04-2016 Primary Care Physician Primary Care Physician Max Jernigan, [facility], [address] [place] [address], [place], [address] [facility] Work Phone: Start: 03-09-2016 End: 01-21-2016 *CBC with Differential *CBC with Differential [facility] Work Phone: Start: 03-09-2016 End: 03-09-2016 *CMP Complete Metabolic Panel *CMP Complete Metabolic Panel [facility] Work Phone: Start: 03-01-2016 End: 01-22-2016 Mammogram, screening Mammogram-Bilateral, Screening, Bilateral [facility] Work Phone: Start: 12-24-2015 End: 02-06-2016 Follow Up Appt Other Follow Up Appt Other [facility] Work Phone: Start: 11-12-2015 End: 12-28-2016 Follow Up Appt 1 month Follow Up Appt 1 month [facility] Work Phone: Start: 10-27-2015 End: 12-28-2016 Follow up Appt 3 weeks Follow up Appt 3 weeks [facility] Work Phone: Start: 10-06-2015 [...] 2 weeks Follow Up Appt 2 weeks [facility] Work Phone: Start: 08-19-2015 End: 10-27-2015 Follow Up Appt 2 weeks Follow Up Appt 2 weeks [facility] Work Phone: Start: 08-07-2015 End: 10-27-2015 Follow Up Appt 2 weeks Follow Up Appt 2 weeks [facility] Work Phone: Start: 07-28-2015 End: 10-27-2015 Follow Up Appt 2 weeks Follow Up Appt 2 weeks [facility] Work Phone: Start: 03-06-2015 End: 01-23-2015 *CBC with Differential *CBC with Differential [facility] Work Phone: Start: 12-19-2014 End: 01-24-2015 Follow up Appt 1 week Follow up Appt 1 week [facility] Work Phone: Start: 12-04-2014 End: 01-24-2015 Follow Up Appt Other Follow Up Appt Other [facility] Work Phone: Start: 2013 RSV Vaccine (1 - 1-dose 75+ series) RSV Vaccine (1 - 1-dose 75+ series) [facility] Start: 2003 Bone Density Screening Bone Density Screening [facility] Start: 2003 Screening for osteoporosis Bone Density Screening [facility] Start: 1998 RSV Vaccine (1 - 1-dose 60+ series) RSV Vaccine (1 - 1-dose 60+ series) [facility] Start: 1957 Urine microalbumin profile DTaP,Tdap,Td Vaccine (1 - Tdap) [facility] Start: 1956 Anxiety Screening Anxiety Screening [facility] Start: 1956 Depression Screening Depression Screening [facility] Start: 1956 Spirometry Spirometry [facility] CT Chest WO contrast [facility] Work Phone: Exercise tolerance test [facility] Work Phone: Exercise tolerance test [facility] Magnesium measurement [place] [facility] Measurement of respi ratory function [facility] Patient Education [facility] Work Phone: Patient referral [facility] Work Phone: Respiratory pathogen s DNA and RNA panel - Respiratory specimen by ROXI with probe detection [facility] Urine culture [facility] Immunizations Immunization Date Immunization Notes Care Provider Fa cili 06-08-2024 tetanus toxoid, redu viviana diphtheria toxoid, and acellular pertussis vaccine, adsorbed Dr. Max Jernigan MD Work Phone: [facility] 03-26-2024 Seasonal trivalent influenza vaccine, adjuvanted, preservative free Dr. Max Jernigan MD Work Phone: [facility] 03-18-2021 influenza virus vaccine, unspecified formulation Xr Twin [facility] 08-14-2020 Covid (Moderna) Dr. Max Griffith Work Phone: [facility] 07-17-2020 Blasid (Moderna) Dr. Max Griffith Work Phone: [facility] 03-13-2020 influenza, injectabl e, quadrivalent, preservative free Dr. Max Jernigan Work Phone: [facility] 03-13-2020 influenza, seasonal, injectable Dr. Max Jernigan Work Phone: [facility] 03-20-[address] Max Jernigan Work Phone: [facility] Payers Date Payer Category Payer Self-pay [id number] 2014 Medicare [id number] 1959 Medicare [id number] 1940 Unknown [id number] 2.16.8 40.1.039749.3.579.2.598 1940 Unknown [id number] 2.16.8 40.1.336149.3.579.2.598 1938 Unknown [id number] .16.8 40.1.371786.3.579.2.598 Unknown [id number] 2.16.8 40.1.736441.3.579.2.462 Unknown [id number] 2.16.8 40.1.722389.3.579.2.462 Unknown [id number] 2.16.8 40.1.574013.3.579.2.462 Unknown [id number] 2.16.8 40.1.319244.3.579.2.462 Unknown [id number] 2.16.8 40.1.308738.3.579.2.462 Unknown [id number] 2.16.8 40.1.908661.3.579.2.462 Unknown [id number] 2.16.8 40.1.100293.3.579.2.462 Unknown [id number] 2.16.8 40.1.899028.3.579.2.462 Unknown [id number] 2.16.8 40.1.703949.3.579.2.462 Unknown [id number] 2.16.8 40.1.965982.3.579.2.462 Unknown [id number] 2.16.8 40.1.796880.3.579.2.462 Unknown [id number] 2.16.8 40.1.114516.3.579.2.462 Unknown [id number] 2.16.8 40.1.648660.3.579.2.462 Unknown [id number] 2.16.8 40.1.879703.3.579.2.462 Unknown [id number] 2.16.8 40.1.883886.3.579.2.462 Unknown [id number] 2.16.8 40.1.604316.3.579.2.462 Unknown [id number] 2.16.8 40.1.446484.3.579.2.462 Unknown [id number] 2.16.8 40.1.737983.3.579.2.462 Unknown [id number] 2.16.8 40.1.244280.3.579.2.462 Unknown [id number] 2.16.8 40.1.866566.3.579.2.462 Unknown [id number] 2.16.8 40.1.681049.3.579.2.462 Unknown [id number] 2.16.8 40.1.660659.3.579.2.462 Unknown [id number] 2.16.8 40.1.855656.3.579.2.462 Unknown [id number] 2.16.8 40.1.804142.3.579.2.462 Unknown [id number] 2.16.8 40.1.617792.3.579.2.462 Unknown [id number] 2.16.8 40.1.295123.3.579.2.462 Unknown [id number] 2.16.8 40.1.241000.3.579.2.462 Unknown [id number] 2.16.8 40.1.743174.3.579.2.462 Unknown [id number] 2.16.8 40.1.483277.3.579.2.462 Social History Date Type Detail Facility Start: 01-21-2022 End: 04-26-2023 Tobacco smoking status MOIS Unknown if ever smoked [facility] Start: 03-17-2020 Non-smoker [facility] Start: 1940 Sex Assigned At Female W [facility] Start: 12-16-2011 End: 09-15-2024 Tobacco smoking status MOIS Never smoked tobacco [facility] Work Phone: Start: 12-16-2011 Tobacco use and exposure Smokeless tobacco non-user [facility] Work Phone: Start: 05-01-2020 End: 04-16-2024 Alcohol intake Current drinker of alcohol (finding) [facility] Start: 05-01-2020 End: 05-26-2020 History of Social function [facility] Start: 05-01-2020 End: 05-26-2020 Tobacco use panel [facility] Start: 1940 Sex Assigned At Not on file [facility] Start: 04-01-2020 End: 05-01-2020 Exposure to SARS-CoV-2 (event) Not sure [facility] Start: 08-07-2015 Occasional [facility] Start: 08-07-2015 None;- [facility] Start: 08-07-2015 Spouse/ Signif icant Other [facility] National Score (1-100), lower number is lower risk Not on file [facility] Start: 09-13-2024 End: 09-26-2024 Sex Female (finding) [facility] Medical Equipment Procedure Code Equipment Code Equipment Origin al Text Equipment Identifier Dates AMNIOFILL, 250MG FDA Start: 12-04-2019 AMNIOFILL, 250MG FDA Start: 12-04-2019 AMNIOFILL, 250MG FDA Start: 12-04-2019 AMNIOFILL, 250MG FDA Start: 12-04-2019 AMNIOFILL, 250MG FDA Start: 12-04-2019 AMNIOFILL, 250MG FDA Start: 12-04-2019 AMNIOFILL, 250MG FDA Start: 12-04-2019 AMNIOFILL, 250MG FDA Start: 12-04-2019 AMNIOFILL, 250MG FDA Start: 12-04-2019 AMNIOFILL, 250MG FDA Start: 12-04-2019 AMNIOFILL, 250MG FDA Start: 12-04-2019 AMNIOFILL, 250MG FDA Start: 12-04-2019 AMNIOFILL, 250MG FDA Start: 12-04-2019 AMNIOFILL, 250MG FDA Start: 12-04-2019 AMNIOFILL, 250MG FDA Start: 12-04-2019 AMNIOFILL, 250MG FDA Start: 12-04-2019 AMNIOFILL, 250MG FDA Start: 12-04-2019 AMNIOFILL, 250MG FDA Start: 12-04-2019 AMNIOFILL, 250MG FDA Start: 12-04-2019 AMNIOFILL, 250MG FDA Start: 12-04-2019 AMNIOFILL, 250MG FDA Start: 12-04-2019 AMNIOFILL, 250MG FDA Start: 12-04-2019 AMNIOFILL, 250MG FDA Start: 12-04-2019 Goals Date Patient Goal Desired Activity /State Functional Status Date Assessment Result Facility 09-16-2024 Functional status Ambulates [facility] Work Phone: 02-19-2022 Functional status Up ad mahendra [facility] Work Phone: Mental Status Date Assessment Result Facility 09-16-2024 Cognitive function Voice/Name [facility] Work Phone: 09-16-2024 Cognitive function Appropriate;Cooperativ e [facility] Work Phone: 02-19-2022 Cognitive function Voice/Name [facility] Work Phone: 02-19-2022 Cognitive function Level Of Cons ciousness Awake;Alert;Appropriate;Follow s Commands [facility] Work Phone: Clinical Notes 05-01-2020 to 09-16-2024 Note Date & Type Note Facility 09-16-2024 Discharge summary Note Date/Time September 16, 2024 2:02pm [facility] Medical Records Department [address] [place] [address] Discharge Summary 09/16/24 1355 MR#: [id number] Acct: [id number] Name: GARTH CONLEY Rep #:[id number] : 1940 84 From: Max Dixon DO PCP: Dr. Max Jernigan MD Status:ADM IN Location: [place] [id number] Providers Date of Admission: 09/14/24 Primary Care Physician: Dr. Max Jernigan MD Reason For Visit: AE ASTHMA/ILD, RESPIRATORY INSUFFICIENCY Diagnosis Discharge Diagnosis (1) Acute asthma exacerbation: Status: Acute Code(s): J45.901 - Unspecified asthma with (acute) exacerbation Qualifiers: Asthma severity: moderate Asthma persistence: persistent Qualified Code(s): J45.41 - Moderate persistent asthma with (acute) exacerbation Plan: Plus AE-ILD. CXR shows chronic changes, though it does show marked distention of the abdomen.AXR unremarkable. Respiratory panel negative. COVID/RSV/Influenza negative. continue BDs and steroids. DC with 5-day course of prednisone. Ambulatory oxygen assessment: 95% at rest on room air. 90% with ambulation on room air. Therefore, no oxygen required. No new infiltrate, but cannot rule out underlying infection. Pt with marked leukocytosis (but no fever). Will discharge with Augmentin. Plan Chronic conditions: * hypothyroidism: levothyroxine * depression: sertraline * HLD: statin * UTI: bactrim held. CTX. VTE prophylaxis: LMWH. Medications at Discharge Home Medications sertraline 100 mg tablet 150 mg PO DAILY depression 04/13/19 levothyroxine 125 mcg tablet 125 mcg PO DAILY thyroid 03/17/20 pravastatin 20 mg tablet 20 mg PO .COMPLEX cholesterol 03/17/20 solifenacin 10 mg tablet 10 mg PO DINNER bladder 02/19/22 Oral appliance #1 ea 04/26/23 ferrous sulfate 325 mg (65 mg iron) tablet (Feosol) 325 mg PO DAILY REPLACEMENT 10/06/23 siklouab-svfbylc-omag-lutein tablet See Rx Instructions PO DAILY REPLACEMENT 10/06/23 omeprazole 40 mg capsule,delayed release 40 mg PO QDAY STOMACH 03/26/24 fluticasone propionate 50 mcg/actuation nasal spray,suspension 1 - 2 spray intranasal DAILY ALLERGIES 09/15/24 amoxicillin 875 mg-potassium clavulanate 125 mg tablet 1 tab PO BID #10 tabs 09/16/24 prednisone 20 mg tablet 40 mg (2 x 20 mg) PO DAILY #10 tabs 09/16/24 Hospital Course Operations None Procedures None Summary of Care Provided Minutes Spent on Discharge: 32 Weight / BMI Weight Weight: 76.5 kg Body Mass Index (BMI) 29.9 ABG / Lab / Microbiology Data 09/16/24 05:15 09/16/24 05:15 Laboratory: Laboratory Results - last 24 hr 09/16/24 05:15: WBC 18.2 H, RBC 4.26, Hgb 12.7, Hct 38.1, MCV 89.4, MCH 29.8, MCHC 33.3, RDW Std Deviation 44.2 H, RDW Coeff of Nishi 13.5, Plt Count 135 L, MPV12.3 H, Immature Gran % (Auto) 0.600, Neut % (Auto) 91.2 H, Lymph % (Auto) 3.0 L, [place] % (Auto) 5.1, Eos % (Auto) 0.0, Baso % (Auto) 0.1, Absolute Neuts (auto) 16.6 H, Absolute Lymphs (auto) 0.54 L, Nucleated RBC % 0, Sodium 140, Potassium 5.0, Chloride 111 H, Carbon Dioxide 18.4 L, Anion Gap 10, BUN 32 H, Creatinine 1.20, Estim Creat Clear Calc 32.96 L, Est GFR (MDRD) Non-Af 44 L, BUN/CreatinineRatio 26.3 H, Glucose 166 H, Calcium 8.8, Phosphorus 3.9 Microbiology: Microbiology 09/14/24 23:00 Mucosa - Nasopharyngeal Respiratory Panel (PCR) - Final 09/14/24 19:28 Mucosa - Nose SARS-CoV-2, Influenza & RSV (PCR) - Final D/C Instructions Discharge Diet: No restrictions DC O2, CPAP, BIPAP Needs Home O2 Discharge instructions: No Meaningful Use Info Meaningful Use Meaningful Use Diagnoses (Choose all that apply): None applicable Ischemic Stroke Statin Dosing Therapy Reference: STATIN DOSE THERAPY REFERENCE: * Patients > 75 years receive moderate or high dose statin therapy. * Patients 75 years or YOUNGER should receive HIGH intensity statin dose unless contraindicated. You will be required to document reason for non-treatment if statin daily dose does not meet guidelines. HIGH DOSE STATIN THERAPY DAILY Atorvastatin > than or = to 40 mg Rosuvastatin > than or = to 20 mg Amlodipine + Atorvastatin > than or = to 2.5/40 mg Ezetimibe + Simvastatin 10/80 mg Simvastatin 80mg Discharge Plan Admission Admit Date/Time: 09/14/24 23:23 Primary Reason for Your Visit: Acute exacerbation of asthma. Attending Provider: Max Dixon Primary Care Provider: Max Jernigan Consulting Providers: Sha Yu Instructions Additional Instructions / Restrictions: You had an acute exacerbation of asthma complicated by your known interstitial lung disease (ILD). You responded to steroids and breathing treatments. Follow up with Janet Fraser for your follow up pulmonary appointment on 10/02/2024. Discharge Orders/Prescriptions Prescriptions: New prednisone 20 mg tablet 40 mg PO DAILY Qty: 10 0RF amoxicillin-pot clavulanate 875-125 mg tablet 1 tab PO BID Qty: 10 0RF Continued (DME) Oral appliance See Rx Instructions .ROUTE .MEDSUPPLY Qty: 1 0RF Rx Instructions: As directed ferrous sulfate [Feosol] 325 mg (65 mg iron) tablet 325 mg PO DAILY lmctshsc-eydzvan-eubb-lutein Tablet See Rx Instructions PO DAILY Rx Instructions: orally daily; omeprazole 40 mg capsule,delayed release(DR/EC) 40 mg PO QDAY sertraline 100 mg tablet 150 mg PO DAILY Patient Comments: mood levothyroxine 125 MCG tablet 125 mcg PO DAILY pravastatin 20 MG tablet 20 mg PO .COMPLEX Rx Instructions: 20 mg orally 1700; solifenacin 10 mg tablet 10 mg PO DINNER Patient Comments: take 1 tablet by mouth once daily fluticasone propionate 50 mcg/actuation spray,suspension 1 - 2 spray INTRANASAL DAILY Referrals / Follow Up: Max Jernigan MD [Primary Care Provider] - Charges/Coding Visit Charges Inpatient E&M: 55573 Disch Hosp >30min 09/16/24 1402 <Electronically signed by Max Dixon DO> Cosigner Signature (if applicable): CC: Dr. Max Dixon DO; Dr. Max Jernigan MD~ Signed [facility] Work Phone: 1(356) 763-506603-30-2025 Progress note Author Max Dixon [facility] Note Date/Time September 16, 2024 1:5 5pm [facility] Medical Records Department [address] [place] [address] Progress Note - Hospitalist 09/16/24 0754 MR#: [id number] Acct: [id number] Name: GARTH CONLEY Rep #:[id number] : 1940 84 From: Max Dixon DO PCP: Dr. Max Jernigan MD Status:ADM IN Location: [place] [address] Reason for Visit Reason for Visit: Diagnoses Obesity, class 1 (09/14/24) Dehydration (09/14/24) Hypokalemia (09/14/24) Obstructive sleep apnea (adult) (pediatric) (09/14/24) Pulmonary hypertension, unspecified (09/14/24) Moderate persistent asthma with (acute) exacerbation (09/14/24) Interstitial pulmonary disease, unspecified (09/14/24) Acute kidney failure, unspecified (09/14/24) Adverse effect of unspecified drugs, medicaments and biological substances, initial encounter (09/14/24) Subjective Subjective Breathing better. Objective Data Objective Data Vital Signs: Vital Signs Temp Pulse Resp BP Pulse Ox O2 Del Method O2 Flow Rate 36.3 C L 80 20 H 149/79 H 98 Room Air 2 09/16/24 05:17 09/16/24 05:17 09/16/24 05:17 09/16/24 05:17 09/16/24 05:17 09/16/24 05:23 09/15/24 20:16 Oxygen Flow Rate (L/min) 2 Oxygen Delivery Method Room Air Weight: 76.5 kg Body Mass Index (BMI) 29.9 Intake & Output: Intake and Output for Last 24 Hours 09/14/24 09/15/24 09/16/24 23:59 23:59 23:59 Intake Total 1500 / 1500 1510.2 / 1510.2 Balance 1500 / 1500 1510.2 / 1510.2 Lab / Micro Data 09/16/24 05:15 09/16/24 05:15 Labs: Laboratory Results - last 24 hr 09/16/24 05:15: WBC 18.2 H, RBC 4.26, Hgb 12.7, Hct 38.1, MCV 89.4, MCH 29.8, MCHC 33.3, RDW Std Deviation 44.2 H, RDW Coeff of Nishi 13.5, Plt Count 135 L, MPV12.3 H, Immature Gran % (Auto) 0.600, Neut % (Auto) 91.2 H, Lymph % (Auto) 3.0 L, [place] % (Auto) 5.1, Eos % (Auto) 0.0, Baso % (Auto) 0.1, Absolute Neuts (auto) 16.6 H, Absolute Lymphs (auto) 0.54 L, Nucleated RBC % 0, Phosphorus 3.9 Micro: Microbiology 09/14/24 23:00 Mucosa - Nasopharyngeal Respiratory Panel (PCR) - Final 09/14/24 19:28 Mucosa - Nose SARS-CoV-2, Influenza & RSV (PCR) - Final Radiography Diagnostic Testing: Radiology Impression KUB X-Ray 09/15/24 08:05 IMPRESSION: NO ACUTE FINDINGS Reading Location: [facility] Rhythm Strip Rhythm Strip: Sinus Rhythm Rate: 97 Ectopy: None Physical Exam Const alert and no apparent distress HEENT head/scalp atraumatic and moist oral mucous membranes Resp normal respiratory effort, no retractions, no use of accessory muscles and clearto auscultation bilaterally Cardio regular rate, regular rhythm, S1 normal heart sound and S2 normal heart sound GI normal to inspection, nondistended, normoactive bowel sounds, soft to palpation,non-tender and non-distended Extremity normal to inspection and full ROM Neuro Sensorium / Orientation: awake and alert Assessment & Plan Assessment/Plan (1) Acute asthma exacerbation: QUALIFIERS: Asthma persistence: persistent Asthma severity: moderate Qualified Code(s): J45.41 - Moderate persistent asthma with (acute) exacerbation PLAN: Plus AE-ILD. CXR shows chronic changes, though it does show marked distention of the abdomen.AXR unremarkable. Respiratory panel negative. COVID/RSV/Influenza negative. continue BDs and steroids. DC with 5-day course of prednisone. Ambulatory oxygen assessment: 95% at rest on room air. 90% with ambulation on room air. Therefore, no oxygen required. PLAN: Plan Chronic conditions: * hypothyroidism: levothyroxine * depression: sertraline * HLD: statin * UTI: bactrim held. CTX. VTE prophylaxis: LMWH. 09/16/24 135 <Electronically signed by Max Dixon DO> Cosigner Signature (if applicable): CC: ~ Signed [facility] Work Phone: 1(289) 421-749303-30-2025 Discharge summary [facility] Medical Records Department [address] [place] [id number] Discharge Summary 09/16/24 1355 MR#: [id number] Acct: [id number] Name: GARTH CONLEY Rep #:[id number] : 1940 84 From: Max Dixon DO PCP: Dr. Max Jernigan MD Status:ADM IN Location: [place] [address] Providers Date of Admission: 09/14/24 Primary Care Physician: Dr. Max Jernigan MD Reason For Visit: AE ASTHMA/ILD, RESPIRATORY INSUFFICIENCY Diagnosis Discharge Diagnosis (1) Acute asthma exacerbation: Status: Acute Code(s): J45.901 - Unspecified asthma with (acute) exacerbation Qualifiers: Asthma severity: moderate Asthma persistence: persistent Qualified Code(s): J45.41 - Moderate persistent asthma with (acute) exacerbation Plan: Plus AE-ILD. CXR shows chronic changes, though it does show marked distention of the abdomen.AXR unremarkable. Respiratory panel negative. COVID/RSV/Influenza negative. continue BDs and steroids. DC with 5-day course of prednisone. Ambulatory oxygen assessment: 95% at rest on room air. 90% with ambulation on room air. Therefore, no oxygen required. No new infiltrate, but cannot rule out underlying infection. Pt with marked leukocytosis (but no fever). Will discharge with Augmentin. Plan Chronic conditions: * hypothyroidism: levothyroxine * depression: sertraline * HLD: statin * UTI: bactrim held. CTX. VTE prophylaxis: LMWH. Medications at Discharge Home Medications sertraline 100 mg tablet 150 mg PO DAILY depression 04/13/19 levothyroxine 125 mcg tablet 125 mcg PO DAILY thyroid 03/17/20 pravastatin 20 mg tablet 20 mg PO .COMPLEX cholesterol 03/17/20 solifenacin 10 mg tablet 10 mg PO DINNER bladder 02/19/22 Oral appliance #1 ea 04/26/23 ferrous sulfate 325 mg (65 mg iron) tablet (Feosol) 325 mg PO DAILY REPLACEMENT 10/06/23 vihbzqhf-zjghfro-cspd-lutein tablet See Rx Instructions PO DAILY REPLACEMENT 10/06/23 omeprazole 40 mg capsule,delayed release 40 mg PO QDAY STOMACH 03/26/24 fluticasone propionate 50 mcg/actuation nasal spray,suspension 1 - 2 spray intranasal DAILY ALLERGIES 09/15/24 amoxicillin 875 mg-potassium clavulanate 125 mg tablet 1 tab PO BID #10 tabs 09/16/24 prednisone 20 mg tablet 40 mg (2 x 20 mg) PO DAILY #10 tabs 09/16/24 Hospital Course Operations None Procedures None Summary of Care Provided Minutes Spent on Discharge: 32 Weight / BMI Weight Weight: 76.5 kg Body Mass Index (BMI) 29.9 ABG / Lab / Microbiology Data 09/16/24 05:15 09/16/24 05:15 Laboratory: Laboratory Results - last 24 hr 09/16/24 05:15: WBC 18.2 H, RBC 4.26, Hgb 12.7, Hct 38.1, MCV 89.4, MCH 29.8, MCHC 33.3, RDW Std Deviation 44.2 H, RDW Coeff of Nishi 13.5, Plt Count 135 L, MPV12.3 H, Immature Gran % (Auto) 0.600, Neut % (Auto) 91.2 H, Lymph % (Auto) 3.0 L, [place] % (Auto) 5.1, Eos % (Auto) 0.0, Baso % (Auto) 0.1, Absolute Neuts (auto) 16.6 H, Absolute Lymphs (auto) 0.54 L, Nucleated RBC % 0, Sodium 140, Potassium 5.0, Chloride 111 H, Carbon Dioxide 18.4 L, Anion Gap 10, BUN 32 H, Creatinine 1.20, Estim Creat Clear Calc 32.96 L, Est GFR (MDRD) Non-Af 44 L, BUN/CreatinineRatio 26.3 H, Glucose 166 H, Calcium 8.8, Phosphorus 3.9 Microbiology: Microbiology 09/14/24 23:00 Mucosa - Nasopharyngeal Respiratory Panel (PCR) - Final 09/14/24 19:28 Mucosa - Nose SARS-CoV-2, Influenza & RSV (PCR) - Final D/C Instructions Discharge Diet: No restrictions DC O2, CPAP, BIPAP Needs Home O2 Discharge instructions: No Meaningful Use Info Meaningful Use Meaningful Use Diagnoses (Choose all that apply): None applicable Ischemic Stroke Statin Dosing Therapy Reference: STATIN DOSE THERAPY REFERENCE: * Patients > 75 years receive moderate or high dose statin therapy. * Patients 75 years or YOUNGER should receive HIGH intensity statin dose unless contraindicated. You will be required to document reason for non-treatment if statin daily dose does not meet guidelines. HIGH DOSE STATIN THERAPY DAILY Atorvastatin > than or = to 40 mg Rosuvastatin > than or = to 20 mg Amlodipine + Atorvastatin > than or = to 2.5/40 mg Ezetimibe + Simvastatin 10/80 mg Simvastatin 80mg Discharge Plan Admission Admit Date/Time: 09/14/24 23:23 Primary Reason for Your Visit: Acute exacerbation of asthma. Attending Provider: Max Dixon Primary Care Provider: Max Jernigan Consulting Providers: Sha Yu Instructions Additional Instructions / Restrictions: You had an acute exacerbation of asthma complicated by your known interstitial lung disease (ILD). You responded to steroids and breathing treatments. Follow up with Janet Fraser for your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 patient was counseled on the importance of kegel exercises for urge control. She was given a handout on OAB, bladder training and pelvic floor exercises. - CONTINUE SOLIFENACIN 10 MG TABLET - SHE WILL CALL OFFICE TO SCHEDULE VISIT FOR INTERSTIM INTERROGATION Total Time Spent: 12 minutes [facility]ha Ruiz [facility] History of Present illness Narrative* Radha Ruiz APRN.CNP - 04/16/2024 4:32 PM EDT TELEVISIT PROGRESS NOTE This is a telephone encounter initiated for an established patient, parent or guardian not originating from a related Evaluation & Management service provided within the previous 7 days nor leading to an Evaluation & Management service or procedure within the next 24 hours or soonest available appointment. Patient name and birthday verified: Yes Location of patient: home Persons Present: patient DATE OF SERVICE: 04/16/2024 REASON FOR TELEVISIT: med refill Called patient today for virtual follow up. She states things are going well. She started Solifenacin 08/2021. It doesn't help completely but it does help her symptoms. Denies side effects. She has an interstim in place but isn't sure if it is working. Hasn't been interrogated or reprogrammed since 2021. She would like to come into office to evaluation. HISTORY REVIEWED (electronic chart updated): - medical history - medications - allergies Data Reviewed: Most recent labs and imaging results. SUBJECTIVE: Patient with OAB OBJECTIVE: Deferred for televisit ASSESSMENT/PLAN: 1. OAB (overactive bladder) - ICD9: 596.51, ICD10: N32.81 We discussed the patient's options for her OAB which include expectant management, behavioral modification and bladder training, pelvic floor rehabilitation, anticholinergic medications, Myrbetriq (aB3 adrenergic agonist), or a combination of these treatment modalities. We also discussed the option of sacroneuromodulation (Interstim), UrgentPC, REVI or Intravesical Botox. We discussed the importance of decreasing/eliminating her caffeine intake to help improve her urgency and frequency. The patient was counseled on the importance of kegel exercises for urge control. She was given a handout on OAB, bladder training and pelvic floor exercises. - CONTINUE SOLIFENACIN 10 MG TABLET - SHE WILL CALL OFFICE TO SCHEDULE VISIT FOR INTERSTIM INTERROGATION Total Time Spent: 12 minutes Radha Ruiz APRN.BUFFY documented in this encounterC[facility]19-[facility]24 NoteHNO ID: [id number] Author: ROSALVA RODRIGUEZ APRN.CNP Service: ? Author Type: Nurse Practitioner Type: Progress Notes Filed: 10/07/2023 18:26 Note Text: This note was created using ioSaferiter. Subjective Garth Conley is a 83 year old female. 83 year old female with PMH hypercholesterolemia, COPD, overactive bladder, and thyroid presents for complaints of medication errors. Acute onset at 5pm today She is in charge of medicines for her and herself. I took them and realized they were meant for my The medicines she took were: Amlodopine 5 mg Flomax 0.5 mg Atorvastatin Eliquis 2.5 mg Centrum Silver She denies side effects I feel fine Denies lightheaded, dizziness, feelings of near syncope Denies CP. Denies dyspnea. Denies SOB Denies N/V/D The history is provided by the patient. No japanese interpreter was used. Illness The current episode started today. The onset was sudden. The problem occurs continuously. The problem has been unchanged. The problem is mild. Nothing relieves the symptoms. Nothing aggravates the symptoms. Pertinent negatives include no orthopnea, no fever, no decreased vision, no double vision, no eye itching, no photophobia, no abdominal pain, no diarrhea, no nausea, no vomiting, no congestion, no ear discharge, no ear pain, no headaches, no hearing loss, no mouth sores, no rhinorrhea, no sore throat, no stridor, no swollen glands, no muscle aches, no neck pain, no cough, no wheezing, no rash, no eye discharge, no eye pain and no eye redness. 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 Other and unspecified hyperlipidemia Other specified anemias Sleep apnea Unspecified hypothyroidism PAST SURGICAL HISTORY Procedure Laterality Date ANALGESIA,EPIDURAL,LABOR AND x2 ARTHRP KNE CONDYLEANDPLATU MEDIALANDLAT COMPARTMENTS Right 2000 ARTHRP KNE CONDYLEANDPLATU MEDIALANDLAT COMPARTMENTS Left 2007 CATARACT SURGERY, COMPLEX 2012 Bilateral DILATION AND CURETTAGE DXAND/THER NONOBSTETRIC EGD TRANSORAL BIOPSY SINGLE/MULTIPLE 05/25/2016 ESOPHAGEAL MOTILITY STUDY W/INTERPANDRPT 06/09/2016 LAPS RPR PARAESPHGL HRNA INCL FUNDPLSTY W/MESH 07/20/2016 PAST SURGICAL HISTORY OF RIGHT KNEE PAST SURGICAL HISTORY OF SKIN GRAFT BACK PAST SURGICAL HISTORY OF arthroscopic knee PAST SURGICAL HISTORY OF bilat shoulders PAST SURGICAL HISTORY OF scar repairs PAST SURGICAL HISTORY OF calcium removal PAST SURGICAL HISTORY OF TLK 2008 PAST SURGICAL HISTORY OF 2004 Lt breast lumpectomy REM LESIO TRUNK,ARM,LEG 1.1 -2.0CM 08/09/2008 right buttock and right thigh REM LESIO TRUNK,ARM,LEG 1.1 -2.0CM 03-27-10 LEFT BUTTOCK REM LESION NEC,HND,SCAL,FEET,GENITALIA 1.1-2.0CM 01/06/12 x3 REM LESION TRUNK,ARM,LEG > 4.0CM 08 RIGHT THIGH REM LESION TRUNK,ARM,LEG > 4.0CM 10-8-10 RIGHT BUTTOCK ALLERGIES Clindamycin, Dust, and Soy Beans [Other] MEDICATIONS solifenacin 10 mg tablet Take 1 tablet by mouth every afternoon. pravastatin (PRAVACHOL) 20 mg tablet Take 20 mg by mouth once daily. azelastine (ASTELIN) 0.1% nasal spray Use 1 [place] in each nostril twice daily. levothyroxine (SYNTHROID) 137 mcg tablet Take 125 mcg by mouth daily before breakfast. Taking 125 mcg sertraline (ZOLOFT) 100 mg tablet Take 150 mg by mouth once daily. Taking 1 and 1/2 tabs daily Multivitamin capsule Take 1 capsule by mouth once daily. polyethylene glycol 3350 (MIRALAX) 17 gram/dose powder Take 17 g by mouth once daily. (Patient not taking: Reported on 10/07/2023) FLUTICASONE PROPIONATE (FLUTICASONE NASAL) Use 2 Sprays in the nose once daily. (Patient not taking: Reported on 05/20/2021 ) ACETAMINOPHEN (TYLENOL ORAL) Take 650 mg by mouth as needed. (Patient not taking: Reported on 10/07/2023) L. gasseri-B. bifidum-B longum (Secure Software) 1.5 billion cell cap Take 1 capsule by mouth once daily. (Patient not taking: Reported on 09/24/2020 ) KELP ORAL Take 1 tablet by mouth once daily. (Patient not taking: Reported on 09/24/2020 ) Magnesium 250 mg tab Take 250 mg by mouth once daily. CHOLECALCIFEROL, VITAMIN D3, (CHOLECALCIFEROL, VITD3,, BULK,) 2,400 unit/mL liqd 5 Drops once daily. (Patient not taking: Reported on 10/07/2023) Psyllium Seed-Sucrose (METAMUCIL, SUGAR,) powd Take 1 Tablespoonful by mouth as needed. (Patient not taking: Reported on 05/20/2021 ) PROAIR HFA 90 mcg/actuation inhaler Inhale 1 Puff as instructed every 4 hours as needed. (Patient not taking: Reported on 10/07/2023) OMEGA-3/DHA/EPA/FISH OIL (FISH OIL HIGH POTENCY ORAL) Take by mouth once daily. (Patient not taking: Reported on 09/24/2020 ) LORATADINE/PSEUDOEPHEDRINE (CLARITIN-D 12 HOUR ORAL) Take by mouth once daily. (Patient not taking: Reported on 05/20/2021 ) ESTROGENS, CONJUGATED (PREMARIN VAGINAL) Use vaginally twice a week. (Patient not taking: Reported on 09/24/2020 ) (more content not included)...[facility]04-[facility] History of Present illness Narrative* Rosalva Rodriguez APRN.RN DIABETES - 10/07/2023 6:05 PM EDT This note was created using Videology. Subjective Garth Conley is a 83 year old female. 83 year old female with PMH hypercholesterolemia, COPD, overactive bladder, and thyroid presents for complaints of medication errors. Acute onset at 5pm today She is in charge of medicines for her and herself. I took them and realized they were meant for my The medicines she took were: Amlodopine 5 mg Flomax 0.5 mg Atorvastatin Eliquis 2.5 mg Centrum Silver She denies side effects I feel fine Denies lightheaded, dizziness, feelings of near syncope Denies CP. Denies dyspnea. Denies SOB Denies N/V/D The history is provided by the patient. No japanese interpreter was used. Illness The current episode started today. The onset was sudden. The problem occurs continuously. The problem has been unchanged. The problem is mild. Nothing relieves the symptoms. Nothing aggravates the symptoms. Pertinent negatives include no orthopnea, no fever, no decreased vision, no double vision, no eye itching, no photophobia, no abdominal pain, no diarrhea, no nausea, no vomiting, no congestion, no ear discharge, no ear pain, no headaches, no hearing loss, no mouth sores, no rhinorrhea, no sore throat, no stridor, no swollen glands, no muscle aches, no neck pain, no cough, no wheezing, no rash, no eye discharge, no eye pain and no eye redness. 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 Other and unspecified hyperlipidemia Other specified anemias Sleep apnea Unspecified hypothyroidism PAST SURGICAL HISTORY Procedure Laterality Date ANALGESIA,EPIDURAL,LABOR & x2 ARTHRP KNE CONDYLE&PLATU MEDIAL&LAT COMPARTMENTS Right 2001 ARTHRP KNE CONDYLE&PLATU MEDIAL&LAT COMPARTMENTS Left 2007 CATARACT SURGERY, COMPLEX 2013 Bilateral DILATION & CURETTAGE DX&/THER NONOBSTETRIC EGD TRANSORAL BIOPSY SINGLE/MULTIPLE 05/25/2016 ESOPHAGEAL MOTILITY STUDY W/INTERP&RPT 06/09/2016 LAPS RPR PARAESPHGL HRNA INCL FUNDPLSTY W/MESH 07/20/2016 PAST SURGICAL HISTORY OF RIGHT KNEE PAST SURGICAL HISTORY OF SKIN GRAFT BACK PAST SURGICAL HISTORY OF arthroscopic knee PAST SURGICAL HISTORY OF bilat shoulders PAST SURGICAL HISTORY OF scar repairs PAST SURGICAL HISTORY OF calcium removal PAST SURGICAL HISTORY OF TLK 2008 PAST SURGICAL HISTORY OF 2004 Lt breast lumpectomy REM LESIO TRUNK,ARM,LEG 1.1 -2.0CM 08/09/2008 right buttock and right thigh REM LESIO TRUNK,ARM,LEG 1.1 -2.0CM 10-8-10 LEFT BUTTOCK REM LESION NEC,HND,SCAL,FEET,GENITALIA 1.1-2.0CM 01/06/12 x3 REM LESION TRUNK,ARM,LEG > 4.0CM 618-08 RIGHT THIGH REM LESION TRUNK,ARM,LEG > 4.0CM 10-8-10 RIGHT BUTTOCK ALLERGIES Clindamycin, Dust, and Soy Beans [Other] MEDICATIONS solifenacin 10 mg tablet Take 1 tablet by mouth every afternoon. pravastatin (PRAVACHOL) 20 mg tablet Take 20 mg by mouth once daily. azelastine (ASTELIN) 0.1% nasal spray Use 1 [place] in each nostril twice daily. levothyroxine (SYNTHROID) 137 mcg tablet Take 125 mcg by mouth daily before breakfast. Taking 125 mcg sertraline (ZOLOFT) 100 mg tablet Take 150 mg by mouth once daily. Taking 1 and 1/2 tabs daily Multivitamin capsule Take 1 capsule by mouth once daily. polyethylene glycol 3350 (MIRALAX) 17 gram/dose powder Take 17 g by mouth once daily. (Patient not taking: Reported on 10/07/2023) FLUTICASONE PROPIONATE (FLUTICASONE NASAL) Use 2 Sprays in the nose once daily. (Patient not taking: Reported on 05/20/2021 ) ACETAMINOPHEN (TYLENOL ORAL) Take 650 mg by mouth as needed. (Patient not taking: Reported on 10/07/2023) L. gasseri-B. bifidum-B longum (Secure Software) 1.5 billion cell cap Take 1 capsule by mouth once daily. (Patient not taking: Reported on 09/24/2020 ) KELP ORAL Take 1 tablet by mouth once daily. (Patient not taking: Reported on 09/24/2020 ) Magnesium 250 mg tab Take 250 mg by mouth once daily. CHOLECALCIFEROL, VITAMIN D3, (CHOLECALCIFEROL, VITD3,, BULK,) 2,400 unit/mL liqd 5 Drops once daily. (Patient not taking: Reported on 10/07/2023) Psyllium Seed-Sucrose (METAMUCIL, SUGAR,) powd Take 1 Tablespoonful by mouth as needed. (Patient not taking: Reported on 05/20/2021 ) PROAIR HFA 90 mcg/actuation inhaler Inhale 1 Puff as instructed every 4 hours as needed. (Patient not taking: Reported on 10/07/2023) OMEGA-3/DHA/EPA/FISH OIL (FISH OIL HIGH POTENCY ORAL) Take by mouth once daily. (Patient not taking: Reported on 09/24/2020 ) LORATADINE/PSEUDOEPHEDRINE (CLARITIN-D 12 HOUR ORAL) Take by mouth once daily. (Patient not taking:Reported on 05/20/2021 ) ESTROGENS, CONJUGATED (PREMARIN VAGINAL) Use vaginally twice a week. (Patient not taking: Reported on 09/24/2020 ) FAMILY HISTORY Problem Relation Age of Onset Breast Cancer Maternal Aunt Cancer Paternal Grandmother luekemia Cancer Maternal Grandfather stomach Heart Mother ID Heart Father ID Social History Tobacco Use Smoking status: Never Smokeless tobacco: Never Substance Use Topics Alcohol use: Yes Comment: occ wine Drug use: No Review of Systems Constitutional: Negative for activity change, appetite change, chills and fever. HENT: Negative for congestion, ear discharge, ear pain, hearing loss, mouth sores, rhinorrhea and sore throat. Eyes: Negative for double vision, photophobia, pain, discharge, redness and itching. Respiratory: Negative for apnea, cough, chest tightness, wheezing and stridor. Cardiovascular: Negative for chest pain, palpitations, orthopnea and leg swelling. Gastrointestinal: Negative for abdominal pain, diarrhea, nausea and vomiting. Musculoskeletal: Negative for back pain, myalgias and neck pain. Skin: Negative for color change, pallor and rash. Allergic/Immunologic: Negative for environmental allergies, food allergies and immunocompromised state. Neurological: Negative for dizziness, tremors, seizures, syncope, facial asymmetry, speech difficulty, weakness, light-headedness, numbness and headaches. Hematological: Negative for adenopathy. Does not bruise/bleed easily. Psychiatric/Behavioral: Negative for agitation and behavioral problems. Objective BP 133/84 Pulse 68 Temp 36.6 C (97.9 F) Resp 22 Wt 79 kg (174 lb 2.6 oz) SpO2 95% BMI 31.85 kg/m Physical Exam Vitals and nursing note reviewed. Constitutional: General: She is not in acute distress. Appearance: Normal appearance. She is normal weight. She is not ill-appearing, toxic-appearing or diaphoretic. Comments: Pleasant. Smiling Non toxic HENT: Head: Normocephalic and atraumatic. Right Ear: Ear canal and external ear normal. Left Ear: Ear canal and external ear normal. Nose: Nose normal. No congestion or rhinorrhea. Mouth/Throat: Mouth: Mucous membranes are moist. Pharynx: No oropharyngeal exudate or posterior oropharyngeal erythema. Eyes: General: Right eye: No discharge. Left eye: No discharge. Extraocular Movements: Extraocular movements intact. Conjunctiva/sclera: Conjunctivae normal. Pupils: Pupils are equal, round, and reactive to light. Cardiovascular: Rate and Rhythm: Normal rate and regular rhythm. Pulses: Normal pulses. Heart sounds: Normal heart sounds. No murmur heard. No friction rub. Pulmonary: Effort: Pulmonary effort is normal. No respiratory distress. Breath sounds: Normal breath sounds. No stridor. No wheezing, rhonchi or rales. Chest: Chest wall: No tenderness. Abdominal: General: Abdomen is flat. There is no distension. Palpations: Abdomen is soft. There is no mass. Tenderness: There is no abdominal tenderness. There is no right CVA tenderness, left CVA tenderness, guarding or rebound. Hernia: No hernia is present. Musculoskeletal: General: No swelling, tenderness, deformity or signs of injury. Normal range of motion. Cervical back: Normal range of motion and neck supple. No rigidity. Right lower leg: No edema. Left lower leg: No edema. Lymphadenopathy: Cervical: No cervical adenopathy. Skin: General: Skin is warm and dry. Capillary Refill: Capillary refill takes less than 2 seconds. Coloration: Skin is not jaundiced or pale. Findings: No bruising, erythema, lesion or rash. Neurological: General: No focal deficit present. Mental Status: She is alert and oriented to person, place, and time. Cranial Nerves: No cranial nerve deficit. Sensory: No sensory deficit. Motor: No weakness. Coordination: Coordination normal. Gait: Gait normal. Psychiatric: Mood and Affect: Mood normal. Behavior: Behavior normal. Thought Content: Thought content normal. Judgment: Judgment normal. Assessment and Plan ASSESSMENT/PLAN: 1. Accidental medication error, initial encounter - ICD9: 977.9, E858.9, ICD10: T50.901A Occurred @ 1700 today The medicines she took were: Amlodopine 5 mg Flomax 0.5 mg Atorvastatin Eliquis 2.5 mg Centrum Silver Denies sx She is hemodynamically stable Reached out to poison control center. Spoke with Radha Lemus No interventions recommended. Low risk for adverse events per Poison Control Encouraged safety with medicines for patient. Discussed red flags and reasons to seek ED Rosalva Rodriguez APRN.RN DIABETES documented in this [facility]04-11-2023 Procedure [facility]08-10-2021 NoteHNO ID: [id number] Author: Shreyas Garza PT Service: ? Author Type: Physical Therapist Type: Progress Notes Filed: 01/27/2021 1:44 PM Note Text: Episode Visit Count: 10 Therapist That Will Oversee The Plan Of Care: Shreyas Garza Start of Care Date: 09/25/20 Onset Date: 09/26/15 Plan of Care Certification Date: 12/17/20 Next Certification Due Date: 03/11/21 Patient Identified by Name and Date of : Yes REHABILITATION AND SPORTS THERAPY PHYSICAL THERAPY DISCONTINUANCE OF CARE PLAN OF CARE UPDATE: Assessment: Garth Conley is discontinued from Physical Therapy services due [...] treatment included: Neuromuscular re-education, Manual therapy and Self-long-term management. I believe that patient will maintain [...] this date states that recent f/u with resulted in her finding that PFPT was [...] control better; depends on how much I drink) Nocturia (times per night): 1 Daytime Frequency [...] fast reps) [employer] (more content not included)...[facility] 01-22-2021 NoteHNO ID: [id number] Author: Shreyas Garza PT Service: ? Author Type: Physical Therapist Type: Progress Notes Filed: 01/22/2021 4:24 PM Note Text: Episode Visit Count: 9 Therapist That Will Oversee The Plan Of Care: Shreyas Garza Start of Care Date: 09/25/20 Onset Date: 09/26/15 Plan of Care Certification Date: 12/17/20 Next Certification Due Date: 03/11/21 Patient Identified by Name and Date of : Yes REHABILITATION AND SPORTS THERAPY PHYSICAL THERAPY TREATMENT NOTE ASSESSMENT: Garth Conley demonstrated improvements in rectum sensitivity with digital [...] time/Length of visit 45 minutes Neuromuscular Re-education (47102): 1:1 time:35 minutes (2 units: 23-37 mins) Self Care/ Home Mgmt (89792): 1:1 time: 10 minutes (1 unit: 8-22 mins) Shreyas Garza [facility]07-13-2021 NoteHNO ID: [id number] Author: Shreyas Garza, PT Service: ? Author Type: Physical Therapist Type: Progress Notes Filed: 12/30/2020 3:44 PM Note Text: Episode Visit Count: 8 Therapist That Will Oversee The Plan Of Care: Shreyas Garza Start of Care Date: 09/25/20 Onset Date: 09/26/15 Plan of Care Certification Date: 12/17/20 Next Certification Due Date: 03/11/21 Patient Identified by Name and Date of : Yes REHABILITATION AND SPORTS THERAPY PHYSICAL THERAPY TREATMENT NOTE ASSESSMENT: Garth Conley demonstrated improvements in levator ani and EAS [...] education as noted. Billing: Ellie: Neuromuscular Re-education ([id number]): 1:1 time:40 minutes (3 units: 38-52 mins) Total time / Length of visit: 43 minutes Shreyas Garza [facility]07-06-2021 NoteHNO ID: [id number] Author: Shreyas Garza PT Service: ? Author Type: Physical Therapist Type: Progress Notes Filed: 12/23/2020 7:06 PM Note Text: Episode Visit Count: 7 Therapist That Will Oversee The Plan Of Care: Shreyas Garza Start of Care Date: 09/25/20 Onset Date: 09/26/15 Plan of Care Certification Date: 12/17/20 Next Certification Due Date: 03/11/21 Patient Identified by Name and Date of : Yes REHABILITATION AND SPORTS THERAPY PHYSICAL THERAPY TREATMENT NOTE ASSESSMENT: Garth Conley demonstrated improvements in IAS responsiveness to TC/pressure [...] tactile cueing. Patient education as noted. Billing: [place]: Neuromuscular Re-education (57738): 1:1 time:39 minutes (3 units: 38-52 mins) Total time / Length of visit: 40 minutes Shreyas Garza [facility]06-30-2021 NoteHNO ID: [id number] Author: Shreyas Garza PT Service: ? Author Type: Physical Therapist Type: Progress Notes Filed: 12/17/2020 4:39 PM Note Text: Episode Visit Count: 6 Therapist That Will Oversee The Plan Of Care: Shreyas Garza Start of Care Date: 09/25/20 Onset Date: 09/26/15 Plan of Care Certification Date: 12/17/20 Next Certification Due Date: 03/11/21 Patient Identified by Name and Date of : Yes REHABILITATION AND SPORTS THERAPY PHYSICAL THERAPY PROGRESS REPORT PLAN OF CARE UPDATE: Assessment: Garth Conley exhibits difficulty with EAS sphinter strength and [...] Patient to be seen for Therapeutic exercise (60247);Neuromuscular re-education (96656);Manual therapy (05786);Therapeutic activities (22836);Self-long-term management (55233) PLAN FOR NEXT VISIT: continued EAS stregthening [...] Urgency: Yes (though impr (more content not included)...[facility]06-09-2021 NoteHNO ID: [id number] Author: Shreyas Garza, PT Service: ? Author Type: Physical Therapist Type: Progress Notes Filed: 11/26/2020 12:40 PM Note Text: Episode Visit Count: 5 Therapist That Will Oversee The Plan Of Care: Shreyas Garza Start of Care Date: 09/25/20 Onset Date: 09/26/15 Plan of Care Certification Date: 09/25/20 Next Certification Due Date: 12/18/20 Patient Identified by Name and Date of : Yes REHABILITATION AND SPORTS THERAPY PHYSICAL THERAPY TREATMENT NOTE ASSESSMENT: Garth Conley demonstrated good understanding of TrA activation and [...] education as noted. Billing: Ellie: Neuromuscular Re-education (82038): 1:1 time:40 minutes (3 units: 38-52 mins) Total time / Length of visit: 40 minutes Shreyas Garza [facility]05-21-2021 NoteHNO ID: [id number] Author: Shryeas Garza PT Service: ? Author Type: Physical Therapist Type: Progress Notes Filed: 11/07/2020 12:36 PM Note Text: Episode Visit Count: 4 Therapist That Will Oversee The Plan Of Care: Shreyas Garza Start of Care Date: 09/25/20 Onset Date: 09/26/15 Plan of Care Certification Date: 09/25/20 Next Certification Due Date: 12/18/20 Patient Identified by Name and Date of : Yes REHABILITATION AND SPORTS THERAPY PHYSICAL THERAPY TREATMENT NOTE ASSESSMENT: Garth Conley demonstrated improvements in pelvic floor strength/endurance evident [...] education as noted. Billing: Ellie: Neuromuscular Re-education ([id number]): 1:1 time:40 minutes (3 units: 38-52 mins) Total time / Length of visit: 40 minutes Shreyas Garza [facility]05-07-2021 NoteHNO ID: [id number] Author: Shreyas Garza PT Service: ? Author Type: Physical Therapist Type: Progress Notes Filed: 10/24/2020 11:41 AM Note Text: Episode Visit Count: 3 Therapist That Will Oversee The Plan Of Care: Shreyas Garza Start of Care Date: 09/25/20 Onset Date: 09/26/15 Plan of Care Certification Date: 09/25/20 Next Certification Due Date: 12/18/20 Patient Identified by Name and Date of : Yes REHABILITATION AND SPORTS THERAPY PHYSICAL THERAPY TREATMENT NOTE ASSESSMENT: Garth Conley demonstrated improvements in pelvic floor activation coordination [...] education as noted. Billing: Ellie: Neuromuscular Re-education ([id number]): 1:1 time:39 minutes (3 units: 38-52 mins) Total time / Length of visit: 40 minutes Shreyas Garza [facility]04-30-2021 NoteHNO ID: [id number] Author: Shreyas Garza PT Service: ? Author Type: Physical Therapist Type: Progress Notes Filed: 10/17/2020 12:42 PM Note Text: Episode Visit Count: 2 Therapist That Will Oversee The Plan Of Care: Shreyas Garza Start of Care Date: 09/25/20 Onset Date: 09/26/15 Plan of Care Certification Date: 09/25/20 Next Certification Due Date: 12/18/20 Patient Identified by Name and Date of : Yes REHABILITATION AND SPORTS THERAPY PHYSICAL THERAPY TREATMENT NOTE ASSESSMENT: Garth Conley demonstrated improvements in pelvic floor control and [...] past Tuesday she reports a complete blow out, for first time in a year. She [...] education as noted. Billing: Ellie: Manual Therapy (65639): 1:1 time: 15 minutes (1 unit: 8-22 mins) Neuromuscular Re-education (54669): 1:1 time:30 minutes (2 units: 23-37 mins) Total time / Length of visit: 45 minutes Shreyas Garza, [facility]04-08-2021 History of Past illness Narrative* Problem Noted Date Diagnosed Date Resolved Date Incontinence of feces 09/25/20202020 Pelvic floor dysfunction 09/25/202003/2021 documented as of this encounter (statuses as of 10/08/2023) [facility]04-08-2021 NoteHNO ID: [id number] Author: Shreyas (Pt) Gene Service: ? Author Type: Physical Therapist Type: Progress Notes Filed: 09/26/2020 9:58 AM Note Text: Episode Visit Count: 1 Therapist That Will Oversee The Plan Of Care: Shreyas Garza Start of Care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 Provider Active Start: December 06, 2024 End: December 06, 2024 Dr. Max Jernigan MD Referring Provider Active St art: December 06, 2024 End: December 06, 2024 Dr. Vinicius Carter MD Attending Provider Active Start: December 06, 2024 End: December 06, 2024 Team Status: Inactive Member Role Status Dates Dr. Max Jernigan MD Primary Care Provider Active Start: December 04, 2024 End: December 04, 2024 Dr. Max Jernigan MD Attending Provider Active St art: December 04, 2024 End: December 04, 2024 Dr. Max Jernigan MD Referring Provider Active St art: December 04, 2024 End: December 04, 2024 Team Status: Active Member Role/Relationship Status Dates Dr. Max Jernigan MD Primary Care Provider Active Team Status: Inactive Member Role/Relationship Status Dates Dr. Max Jernigan MD Primary Care Provider Active Start: September 04, 2024 End: September 04, 2024 Dr. Max Jernigan MD Attending Provider Active St art: September 04, 2024 End: September 04, 2024 Dr. Max Jernigan MD Referring Provider Active St art: September 04, 2024 End: September 04, 2024 Team Status: Inactive Member Role/Relationship Status Dates Dr. Max Jernigan MD Primary Care Provider Active Start: September 14, 2024 End: September 14, 2024 Dr. Max Jernigan MD Referring Provider Active St art: September 14, 2024 End: September 14, 2024 JOAQUÍN Gould Attending Provider Active Sta rt: September 14, 2024 End: September 14, 2024 Team Status: Inactive Member Role/Relationship Status Dates Dr. Max Jernigan MD Primary Care Provider Active Start: September 14, 2024 End: September 14, 2024 JOAQUÍN Gould Attending Provider Active Sta rt: September 14, 2024 End: September 14, 2024 JOAQUÍN Gould Referring Provider Active Sta rt: September 14, 2024 End: September 14, 2024 Team Status: Inactive Member Role/Relationship Status Dates Dr. Max Jernigan MD Primary Care Provider Active Start: September 14, 2024 End: September 16, 2024 Dr. Zaheer Savage MD Emergency Provider Active S tart: September 14, 2024 End: September 16, 2024 Dr. Sha Yu DO Admit Provider Active Start: September 14, 2024 End: September 16, 2024 Dr. Sha Yu DO Other Provider Active Start: September 14, 2024 End: September 16, 2024 Dr. Max Dixon DO Attending Provider Active Start: September 14, 2024 End: September 16, 2024 Team Status: Active Member Role/Relationship Status Dates Dr. Max Jernigan MD Primary Care Provider Active Start: September 15, 2024 Dr. Zaheer Savage MD Emergency Provider Active S tart: September 15, 2024 Dr. Sha Yu DO Admit Provider Active Start: September 15, 2024 Dr. Sha Yu DO Other Provider Active Start: September 15, 2024 Dr. Max Dixon DO Attending Provider Active Start: September 15, 2024 Dr. Max Dixon DO Other Provider Active Star t: September 15, 2024 Team Status: Active Member Role/Relationship Status Dates Dr. Max Jernigan MD Primary Care Provider Active Start: September 16, 2024 Dr. Zaheer Savage MD Emergency Provider Active S tart: September 16, 2024 Dr. Sha Yu DO Admit Provider Active Start: September 16, 2024 Dr. Sha Yu DO Other Provider Active Start: September 16, 2024 Dr. Max Dixon DO Attending Provider Active Start: September 16, 2024 Dr. Max Dixon DO Other Provider Active Star t: September 16, 2024 Team Status: Inactive Member Role/Relationship Status Dates Dr. Max Jernigan MD Primary Care Provider Active Start: September 20, 2024 End: September 20, 2024 Dr. Max Jernigan MD Attending Provider Active St art: September 20, 2024 End: September 20, 2024 Dr. Max Jernigan MD Referring Provider Active St art: September 20, 2024 End: September 20, 2024 Team Status: Inactive Member Role/Relationship Status Dates Dr. Max Jernigan MD Primary Care Provider Active Start: October 02, 2024 End: October 02, 2024 Dr. Max Jernigan MD Referring Provider Active St art: October 02, 2024 End: October 02, 2024 Janet Fraser FACILITY MAINTENANCE SUPERVISOR, FACILITY MAINTENANCE SUPERVISOR-C Attending Provider Active Start: October 02, 2024 End: October 02, 2024 Team Status: Inactive Member Role/Relationship Status Dates Dr. Max Jernigan MD Primary Care Provider Active Start: December 04, 2024 End: December 04, 2024 Dr. Max Jernigan MD Attending Provider Active St art: December 04, 2024 End: December 04, 2024 Dr. Max Jernigan MD Referring Provider Active St art: December 04, 2024 End: December 04, 2024 Team Status: Inactive Member Role/Relationship Status Dates Dr. Max Jernigan MD Primary Care Provider Active Start: December 06, 2024 End: December 06, 2024 Dr. Max Jernigan MD Referring Provider Active St art: December 06, 2024 End: December 06, 2024 Dr. Vinicius Carter MD Attending Provider Active Start: December 06, 2024 End: December 06, 2024 Team Status: Inactive Member Role/Relationship Status Dates Dr. Max Jernigan MD Primary Care Provider Active Start: December 14, 2024 End: December 14, 2024 Dr. Max Jernigan MD Referring Provider Active St art: December 14, 2024 End: December 14, 2024 Dr. Vinicius Carter MD Attending Provider Active Start: December 14, 2024 End: December 14, 2024 Team Status: Inactive Member Role/Relationship Status Dates Dr. Max Jernigan MD Primary Care Provider Active Start: December 20, 2024 End: December 20, 2024 Dr. Max Jernigan MD Referring Provider Active St art: December 20, 2024 End: December 20, 2024 Dr. Vinicius Carter MD Attending Provider Active Start: December 20, 2024 End: December 20, 2024 Source Comments (unrecognize d section and content) In the event this informatio n is protected by the Federal Confidentiality of Alcohol and Drug Abuse Patient Records regulations: The Federal rules restrict any use of the information to criminally investigate or prosecute any alcohol or drug abuse patient.[facility] CenterIn the event this information is protected by the Federal Confidentiality of Alcohol and Drug Abuse Patient Records regulations: The Federal rules restrict any use of the information to criminally investigate or prosecute any alcohol or drug abuse patient.[facility] Center[facility] the event this information is protected by the Federal Confidentiality of Alcohol and Drug Abuse Patient Records regulations: The Federal rules restrict any use of the information to criminally investigate or prosecute any alcohol or drug abuse patient.[facility] Reason for Visit (unrecogniz ed section and content) Reason Comments Radio Gen RMP Reason Comments Medication Problem Pt states she took h er husbands HS medication, on accident She states she took -Amlodipine 5 mg, Dastaseride 0.5 mg, Atorvastatin 8 mg, Eliquis 2.5 mg, Centrum Silver Specialty Diagnoses / Procedures Referred By Contac t Referred To Contact [facility] Diagnoses took husbands medication Procedures EST SAME DAY Self [facility] [address] [place] [address] Referral ID Status Reason Start Date Expiration Date Visits Requested Visits Authorized [id number] Outside PCP Financial Clearance Required - Self Pay 10/07/2023 01/05/2024 1 1 Reason Comments Urinary Problem FOR RECORDS PERTAINING TO PATIENTS WHO ARE [...] BE BASED ON THE PRIMARY CLINICAL RECORDS. [facility] provides no warranty or guarantee of the accuracy or completeness of information in this document.
== END 2024-12-20 23:59 | disposition home or self-care (01) ==
LOC: LABSPEC 14:07
PROVIDERS: PCP Family Medicine; Referring Provider Surgery Plastic and Reconstructive Surgery; Visit Provider Surgery Plastic and Reconstructive Surgery
DX: L90.5 Scar conditions and fibrosis of skin (principal)
CPT/HCPCS: 88305; 88342

== ENCOUNTER → 2025-01-10 | Outpatient (CLI) | payer MEDICARE, SELFPAY ==
--- NOTE | 2025-01-10 | LES_PTH ---
PATIENT: GARTH REAVES LOC: [facility] U#:[id number] AGE/SX: 84/F ROOM: RE01/10/[address]: Dr. Vinicius Carter MD : 1940 BED: DIS: 01/10/2025 SPEC #: [id number] RECD: 01/11/25 06:08 STATUS: JANET TAVARESLisbet #: [id number] JUNIE: 01/10/25 00:[address]: Vinicius Carter DEPT: SURGICAL PATHOLOGY RECD BY: Macho Perez ENTERED: 01/11/25 09:55 SP TYPE: Lesion OTHR DR: Dr. Roger Jernigan MD Tissues: A - Skin of buttock, NOS B - Skin of buttock, NOS Procedures: Surgery Specimen Level IV HEADER OPERATION: Excision left gluteal calcific lesion x2 PRE-OP DIAGNOSIS: Left gluteal calcific lesion x2 TISSUE SUBMITTED: A- Long- lateral, short - inferior - inferior calcific gluteal lesion, B- Long - lateral, short - superior calcific gluteal lesion MICROSCOPIC DIAGNOSIS A. Gluteus, inferior, calcific lesion, excision: - Focal dystrophic calcification. - Focal dilated superficial dermal lymphatic vessels. - Scar, reactive changes and foreign material consistent with a previous surgical procedure. B. Gluteus, superior, calcific lesion, excision: - Focal dystrophic calcification. - Focal dilated superficial dermal lymphatic vessels. - Scar, reactive changes and foreign material consistent with a previous surgical procedure. MICROSCOPIC DESCRIPTION Slides are reviewed. GROSS DESCRIPTION Received in 2 formalin containers labeled with the patient's name and date of . Designated as: A. Received in formalin labeled with the patient's name and date of . Designated as inferior calcific gluteal lesion is a 3.3 x 1.2 cm slightly irregular, moore to light brown skin ellipse excised to a maximum depth of 0.3 cm and with orientation as follows:Short suture: designated as superior, redesignated as 12:00 per the grossing PA.Long suture: designated as lateral, redesignated as 9:00 per the grossing PA. There is a 0.8 x 0.3 cm moore-yellow to green scab located the following distances from the margins:12:00: 0.9 cm 3:00: 0.5 cm 6:00: 2.4 cm9:00: 0.6 cmDeep: <0.1 cm Ink archibald: 12:00 half (deep): Black3:00 (periphery): Green9:00 (periphery): Blue6:00 half (deep): Vernon The specimen is serially sectioned from 12:00 to 6:00, revealing focally calcified cut surfaces, predominantly underlying the epidermal scab. The specimen is entirely submitted, sequentially in 4 cassettes, following decalcification of cassettes A2-A3. B. Received in formalin labeled with the patient's name and date of . Designated as superior calcific gluteal lesion is a 2.6 x 1.3 cm moore to light brown skin ellipse excised to a maximum depth of 0.3 cm and with orientation as follows:Short suture: designated as superior, redesignated as 12:00 per the grossing PA.Long suture: designated as lateral, redesignated as 9:00 per the grossing PA. There is a 0.9 x 0.3 cm dark brown scab located the following distances from the margins:12:00: 1.1 cm 3:00: 0.5 cm 6:00: 0.7 cm9:00: 0.4 cmDeep: 0.3 cm Ink archibald: 12:00 half (deep): Black3:00 (periphery): Green9:00 (periphery): Blue6:00 half (deep): Vernon The specimen is serially sectioned from 12:00 to 6:00, and entirely submitted, sequentially in 3 cassettes, following decalcification of cassette B2. ND 01/11/2025 CPT:[id number]
--- OUTSIDE RECORDS SUMMARY | 2025-01-11 06:11 | XMS RPT_ITS | CCD ---
Author Organization [facility] [place] Care Team Providers Care Handcrew Foreman Name Role Phone Juan Francisco Driscoll MD [...] Unavailable Dr. Max Jernigan Primary Care Provider [phone] Dr. Max Jernigan Referring Provider Dr. Omid Zhou Attending Provider Dr. Omid Zhou Referring Provider Dr. Omid Zhou Other Provider Dr. Manjit Jackson Attending Provider Dr. Clifton Salas Emergency Provider [phone] Max Dixon Attending Provider [phone] Evelio HISTORY DEPARTMENT CHAIR, HISTORY DEPARTMENT CHAIR-C Janet Attending Provider Dr. Yuliana Rodriguez Attending Provider Dr. Que Farmer Attending Provider [phone] Dr. Max Jernigan Primary Care Provider Dr. Max Jernigan Referring Provider Dr. Omid Zhou Attending Provider Dr. Max Jernigan Primary Care Provider Dr. Omid Zhou Referring Provider Dr. Omid Zhou Other Provider Dr. Manjit Jackson Attending Provider Dr. Max Jernigan Referring Provider Dr. Omid Zhou Attending Provider Dr. Jessica Hanley Attending Provider Delon CADENA, Mxa Bansal Primary Care Provider [phone] Max Jernigan Primary Care Provider [phone] Max Jernigan Referring Provider [phone] Dr. Yuliana Rodriguez Attending Provider Evelio HISTORY DEPARTMENT CHAIR, HISTORY DEPARTMENT CHAIR-C Janet Attending Provider Delon CADENA, Max Bansal Primary Care Provider [phone] RADHA RUIZ Attending Unavailable MAX JERNIGAN Primary Care Unavailable MAX JERNIGAN Primary Care Unavailable Dr. Max Jernigan MD Primary Care Provider Dr. Max Okeefe DO Attending Provider Dr. Max Okeefe DO Emergency Provider Dr. Max Jernigan MD Referring Provider Evelio CLEANING-C, Janet Attending Provider Dr. Max Jernigan MD Attending Provider [phone] Aleksandr Clifford Attending Provider Aleksandr Clifford Referring [...] Jernigan MD Referring Provider [phone] Evelio HISTORY DEPARTMENT CHAIR-C, Janet Attending Provider Raul CADENA, Dr. Colvin Attending Provider Rual CADENA, Dr. Colvin Referring Provider Delon CADENA, Dr. Duran Primary Care Provider Delon CADENA, Dr. Duran Referring Provider Delon CADENA, Dr. Duran Attending Provider Evelio HISTORY DEPARTMENT CHAIR, Janet Referring Unavailable Evelio HISTORY DEPARTMENT CHAIR, Janet Attending Unavailable Jernigan, Max Primary Care Unavailable Jernigan, Max Primary Care Unavailable Jernigan, Max Attending Unavailable Jernigan, Max Referring Unavailable Jernigan, Max Referring Unavailable Isckarus, Babitaour Attending Unavailable Jernigan, Max Primary Care Unavailable Jernigan, Max Attending Unavailable Jernigan, Max Primary Care Unavailable Jernigan, Max Attending Unavailable Jernigan, Max Referring Unavailable Jernigan, Max Primary Care Unavailable Isckarus, Babitaour Attending Unavailable Isckarus, Mansour Referring Unavailable Jernigan, Max Primary Care Unavailable Sha Yu Consulting Unavailable Destiny, Max Attending Unavailable Jernigan, Max Primary Care Unavailable Sha Yu Admitting Unavailable Jernigan, Max Attending Unavailable Jernigan, Max Primary Care Unavailable Siska, Vinicius Attending Unavailable Jernigan, Max Referring Unavailable Jernigan, Max Primary Care Unavailable Siska, Vinicius Attending Unavailable Jernigan, Max Referring Unavailable Jernigan, Max Primary Care Unavailable Siska, Vinicius Attending Unavailable Jernigan, Max Referring Unavailable Jernigan, Max Primary Care Unavailable Siska, Vinicius Attending Unavailable Jernigan, Max Referring Unavailable Jernigan, Max Primary Care Unavailable Schwiger, Max Attending Unavailable Jernigan, Max Primary Care Unavailable Aleksandr Clifford Attending Unavailable Aleksandr Clifford Referring Unavailable Jernigan, Max Primary Care Unavailable Siska, Vinicisu Attending Unavailable Siska, Vinicius Referring Unavailable Jernigan, Max Primary Care Unavailable Jernigan, Max Primary Care Unavailable Jernigan, Max Attending Unavailable Jernigan, Max Referring Unavailable Fraser HISTORY DEPARTMENT CHAIR, Janet Referring Unavailable Evelio HISTORY DEPARTMENT CHAIR, Janet Attending Unavailable Jernigan, Max Primary Care Unavailable Omid Zhou Attending Unavailable Evelio HISTORY DEPARTMENT CHAIR, Janet Referring Unavailable Jernigan, Max Primary Care Unavailable Aleksandr Clifford Attending Unavailable Jernigan, Max Referring Unavailable Jernigan, Max Primary Care Unavailable Jernigan, Max Referring Unavailable Fraser HISTORY DEPARTMENT CHAIR, Janet Attending Unavailable Jernigan, Max Primary Care Unavailable Jernigan, Max Referring Unavailable Fredo Segura Attending Unavailable Jernigan, Max Primary Care Unavailable Vinicius Carter Attending Unavailable Jernigan, Max Referring Unavailable Jernigan, Max Primary Care Unavailable Serena Hagan Attending Unavailable Serena Hagan Referring Unavailable Jernigan, Max Primary Care Unavailable Jernigan, Max Primary Care Unavailable Jernigan, Max Referring Unavailable Evelio HISTORY DEPARTMENT CHAIR, Janet Attending Unavailable Jernigan, Max Referring Unavailable Fraser HISTORY DEPARTMENT CHAIR, Janet Attending Unavailable Jernigan, Max Primary Care Unavailable Manjit Jackson Attending Unavailable Evelio HISTORY DEPARTMENT CHAIR, Janet Referring Unavailable Evelio HISTORY DEPARTMENT CHAIR, Janet Consulting Unavailable Jernigan, Max Primary Care Unavailable Sha Yu Consulting Unavailable Sha Yu Attending Unavailable Jernigan, Max Primary Care Unavailable Sha Yu Admitting Unavailable Max Dixon Attending Unavailable Max Dixon Consulting Unavailable Evelio HISTORY DEPARTMENT CHAIR, Janet Referring Unavailable Evelio HISTORY DEPARTMENT CHAIR, Janet Attending Unavailable Jernigan, Max Primary Care Unavailable Allergies Allergy Classification Reported Allergen(s) Allergy Type Date of Onset Reaction(s) Facility (20 sources) clindamycin; Translations: [CLINDAMYCIN] Drug Allergy 08-08-19 15 Diarrhea [facility] Work Phone: (1 source) levoFLOXacin Drug Allergy 02-11-20 17 left shoulder pain [facility] Work Phone: (4 sources) Dust; Translations: [DUST] Propensity to adverse reactions 11-14-19 08 [facility] (3 sources) soy beans [Other] Propensity to adverse reactions 11-14-19 08 [facility] (1 source) OTHER; Translations: [OTHER] Propensity to adverse reactions (disorder) 11-14-19 08 [facility] Repository (12 sources) Sulfamethoxazole Drug Allergy 09-15-19 25 Shortness of breath [facility] Comment on above: Asthma exacerbation (12 sources) Trimethoprim Drug Allergy 09-15-19 25 Shortness of breath [facility] Comment on above: Asthma exacerbation (1 source) Sulfamethoxazole Drug Allergy 01-05-20 25 [facility] Repository (1 source) Trimethoprim Drug Allergy 01-05-20 25 [facility] Repository Medications Current Medications Medication Drug Class(es) [...] TABS One tablet by mouth daily ACETAMINOPHEN [id number] Austyn Edmonds MD ACETAMINOPHEN (T YLENOL ORAL) Take 650 mg by mouth as needed. Active Comment on above: Take 650 mg by mouth as needed. [id number] actuat albuterol 0.09 mg/actuat metered dose [...] MCG/ACT AERS inhale as needed ALBUTEROL SULFATE [id number] Austyn Edmonds MD Start: 12-06-2014 End: 08-23-2017 [...] Comment on above: 5 Drops once daily. estrogens, conjugated (jail) (5 sources) Estrogen ESTROGENS, CONJU GATED (PREMARIN VAGINAL) Use vaginally twice a week. Active ESTROGENS, CONJU GATED (PREMARIN VAGINAL) Use vaginally twice a week. 0 Active End: 07-13-2016 PREMARIN 0.625 MG/GM CREA Ap ply twice weekly ESTROGENS, CONJUGATED [id number] Ysabel Cornelius LPN Comment on above: Use vaginally twice a week. ferrous sulfate 325 mg oral tablet (13 sources) Start: take 1 tablet by mouth [...] administer into each nostril Start: 07-14-2016 FLUTICASONE MS OPIONATE 50 MCG/ACT SUSP (0.05mg/inh) 2 sprays each nostril once a day FLUTICASONE PROPIONATE [id number] Austyn Edmonds MD FLUTICASONE PROP IONATE (FLUTICASONE [...] MCG NASAL DAILY March 17, 2020 12:00am Rokmcdzjwxk-Lwdgretxz-L ilanter (8 sources) Start: 10-03-2024 Fluticasone-Umeclidin- Vilanter (Trelegy Ellipta) 200-62.5-25 mcg blister with device Active 1 NMA INHALATION daily October 03, 2024 12:00am Ipratropium (4 sources) Anticholinergic Start: 11-23-2022 Ipratropium [place] Active 2 SPRAY INTRANASAL November 22, 2022 [...] th once daily. L. gasseri-B. bifidum-B longum ([employer]) 1.5 billion cell cap (3 sources) L. gasseri-B. bi fidum-B longum ([employer]) 1.5 billion cell cap Take 1 capsule by mouth once daily. Active L. gasseri-B. bi fidum-B longum ([employer]) 1.5 billion cell cap Take 1 capsule by mouth once daily. 0 Active Comment on above: Take 1 capsule by mo uth once daily. Lactobac Acidoph-Fructooligos (17 sources) Start: [...] 50 Plus Probiotic) 4 billion cell capsule (8 sources) Start: 10-02-2024 take 4 capsules by [...] once daily CLARITIN-D 24 HOUR 10-240 MG AL91A-PPN O ne tablet by mouth daily LORATADINE-PSEUDOEPHEDRINE [id number] Ysabel Cornelius LPN Comment on above: Take by mouth once d aily. miSOPROStol 0.1 mg oral tablet (8 sources) Prostaglandin E1 Analog Start: 5 take 1 tablet by mouth three times daily Misoprostol 100 mcg tablet Active 100 ug PO THREE TIMES A DAY October 02, 2024 12:00am Klltnwbx-Krqnctk-Wtc n-Lutein tablet (13 sources) Start: 04-18-202 4 Iqafhusw-Vwofjxz-Yu on-Lutein tablet Active 0 PO DAILY October 06, 2023 12:00am REPLACEMENT orally daily; Start: 10-06-2023 Multivit-[place] dd-Sauj-Sqrsvq tablet Active 0 PO DAILY October 06, 2023 12:00am orally daily; Start: 10-06-2023 Multivit-[place] gh-Byjl-Zbqzwz tablet Active {tbl} PO October 06, 2023 [...] omeprazole 40 mg delayed release oral capsule (14 sources) Proton Pump Inhibitor Start: 03-26-2024 take 1 capsule by mouth once daily Omeprazole 40 mg capsule,delayed release(DR/EC) Active 40 mg PO daily March 26, 2024 12:00am STOMACH Start: 07-14-2016 take 1 tablet by main th once daily OMEPRAZOLE 40 MG CPDR One tablet by mouth daily OMEPRAZOLE [id number] Austyn Edmonds MD Oral appliance (15 sources) Start: 04-26-2023 Oral appliance Active 0 .ROUTE .MEDSUPPLY 1 0 April 26, 2023 1:00am Obstructive sleep apnea syndrome Obstructive sleep apnea (adult) (pediatric) As directed Start: 04-26-2023 Oral appliance Active 0 .ROUTE .MEDSUPPLY April 26, 2023 1:00am As directed Start: 04-26-2023 Oral appliance Active 0 .ROUTE .MEDSUPPLY April 26, 2023 12:00am As directed polyethylene glycol 3350 96770 mg powder for oral solution (2 sources) Osmotic Laxative Start: 05-23-2020 polyethylene glycol 3350 (MIRALAX) 17 gram/dose powder Take 17 g by mouth once daily. 850 g 1 05/23/2020 Active Comment on above: Take 17 g by mouth o nce daily. Psyllium Seed-Sucrose (METAMUCIL, SUGAR,) powd (3 sources) Psyllium Seed-Stein crose (METAMUCIL, SUGAR,) powd Take 1 Tablespoonful by mouth as needed. Active Psyllium Seed-Stein crose (METAMUCIL, SUGAR,) powd Take 1 Tablespoonful by mouth as needed. 0 Active Comment on above: Take 1 Tablespoonful by mouth as needed. solifenacin succinate 10 mg oral tablet (20 [...] One tablet by mouth daily LEVOTHYROXINE SODIUM [id number] Ysabel Cornelius LPN Comment on above: Take [...] twice daily as needed for pain OXYCODONE-ACETAMINOPHEN [id number] Juan Francisco Driscoll MD Start: 12-11-2014 End: 08-19-2015 take 1-2 tablets by mouth four times daily as needed for pain PERCOCET 5-325 MG TABS one to two tablet s by mouth four times daily as needed for pain OXYCODONE-ACETAMINOPHEN [id number] Екатерина Staton LPN amoxicillin (2 sources) Penicillin-class Antibacterial take 1 tablet by mouth four times daily AMOXICILLIN CAPS One tablet by mouth four times daily AMOXICILLIN CAPS [id number] Fabian Isabel End: 07-13-2016 take 1 tablet by mouth four times daily AMOXICILLIN CAPS One tablet by mouth four times daily AMOXICILLIN CAPS [id number] Elisa Shields RN amoxicillin 875 mg / clavulanate 125 mg oral tablet (20 sources) Penicillin-class Antibacterial Start: 09-16-2024 End: 10-02-2024 Amoxicillin-Pot Clavulanate 875-125 mg tablet Discontinued 1 {tbl} PO TWICE A DAY 10 0 September 16, 2024 12:00am October 02, 2024 [...] One tablet by mouth daily ASCORBIC ACID [id number] Wilmar Farr DO azelastine hydrochloride 0.137 mg/actuat [...] each nostril Comment on above: Use 1 [place] in each nostril twice daily. breath-actuated 120 actuat beclomethasone dipropionate 0.08 mg/actuat metered dose inhaler (20 sources) Corticosteroid Start: End: take 80 ug by inhalation every twelve [...] One tablet by mouth twice daily CEFADROXIL [id number] Екатерина Staton LPN cholecalciferol 2000 unt oral tablet (2 sources) Vitamin D End: 07-13-2016 take 1 tablet by mouth once daily VITAMIN D 2000 UNIT CAPS One tablet by mouth daily CHOLECALCIFEROL [id number] Ysabel Cornelius MULTIFOCAL LENS ASSEMBLER diazePAM 5 mg oral tablet (2 sources) Benzodiazepine Start: 12-11-2014 End: 03-06-2015 take 1 tablet by mouth four times daily as needed for muscle spasms VALIUM 5 MG TABS One tablet by mouth four times daily as needed for spasm DIAZEPAM [id number] Wilmar Cathy Farr DO dicyclomine hydrochloride 20 mg oral tablet (17 sources) Anticholinergic Start: 11-26-2022 End: 10-06-2023 take 1 tablet by mouth twice daily 30 minutes before mealtime for pain Dicyclomine 20 mg tablet Discontinued 20 mg PO TWICE A DAY as needed for abdominal pain 20 November 26, 2022 12:00am October 06, 2023 2:53pm take 30 min before meals docusate sodium 100 mg oral capsule (20 sources) Start: 12-11-2014 End: 07-17-2015 take 1 capsule by mouth twice daily Docusate Sodium (Colace) 100 MG capsule Discontinued 100 mg PO TWICE A DAY 20 December 11, 2014 12:00am July 17, 2015 10:03am doxycycline hyclate 100 mg oral capsule (5 sources) Tetracycline-class Drug Start: 12-20-2024 End: 12-25-2024 take 1 capsule by mouth twice daily Doxycycline Hyclate 100 mg capsule Discontinued 100 mg PO TWICE A DAY 10 5 0 December 20, 2024 12:00am December 24, 2024 12:00am December 25, 2024 12:06am 72 hr fentaNYL 0.025 mg/hr transdermal system (2 sources) Opioid Agonist Start: 12-11-2014 End: 03-06-2015 DURAGESIC-25 25 MCG/HR PT72 apply every 72 hours FENTANYL [id number] Wilmar Cathy Farr DO ferrous gluconate 256 mg oral tablet (20 sources) Start: 04-13-2019 End: 03-24-2023 take 1 tablet by mouth once daily Ferrous Gluconate 256 mg (28 mg iron) tablet Discontinued 65 mg PO DAILY April 13, 2019 12:00am March 24, 2023 2:07pm iron Start: 04-13-2019 ferrous glucon ate 256 mg (28 mg iron) tablet Active 28 MG PO [facility] April 13, 2019 12:00am Start: 12-14-2017 End: [...] tablet by mouth daily as needed TRIAMTERENE-HCTZ [id number] Wilmar Farr DO hydrOXYzine pamoate 25 mg oral capsule (2 sources) Antihistamine Start: 09-17-2015 End: 11-12-2015 take 1 tablet by mouth three times daily as needed HYDROXYZINE PAMOATE 25 MG CAPS One tablet by mouth three times daily as needed for itching HYDROXYZINE PAMOATE [id number] Juan Francisco Driscoll MD Ipratropium [place] 21 mcg (0.03 %) spray,non-aerosol (13 sources) Start: 11-23-2022 End: 10-06-2023 Ipratropium [place] 21 mcg (0.03 %) spray,non-aerosol Discontinued 2 NMA INTRANASAL November 23, 2022 12:00am October 06, 2023 2:53pm Lactobac Acidoph-Fructooligos 1 EACH tablet (13 sources) Start: 11-21-2018 End: 04-13-2019 Lactobac Acidoph-Fructooligo s 1 EACH tablet Discontinued 1 NMA PO TWICE A DAY 60 1 November 21, 2018 12:00am April 13, 2019 1:25pm Start: 11-21-2018 End: 04-13-2019 Lactobac Acidoph-Fructooligo s 1 EACH tablet Discontinued 1 NMA PO TWICE A DAY 60 November 21, 2018 12:00am April 13, 2019 1:25pm Skvsfbao-Nogfsurvt-Kgwt Pr Con (Ultra Carla Plus) 15 billion cell-170 mg capsule (13 sources) Start: 10-06-2023 End: 03-26-2024 Kcblbflk-Ztewqqsmq-Ergl Pr Con (Ultra Carla Plus) 15 billion cell-170 mg capsule Discontinued NMA PO October 06, 2023 12:00am March 26, 2024 2:46pm lactobacillus (4 sources) Start: 07-22-2015 End: 08-19-2015 take 1 tablet by mouth twice daily ACIDOPHILUS PROBIOTIC TABS One tablet by mouth twice daily LACTOBACILLUS [id number] Екатерина Delia Staton LPN Start: 07-22-2015 take 1 tablet by main th twice daily ACIDOPHILUS PROBIOTIC TABS One tablet by mouth twice daily LACTOBACILLUS [id number] Juan Francisco Driscoll MD Start: 12-11-2014 take 1 tablet by main th twice daily ACIDOPHILUS PROBIOTIC TABS One tablet by mouth twice daily LACTOBACILLUS [id number] Juan Francisco Driscoll MD Start: 12-11-2014 End: 03-06-2015 take 1 tablet by mouth twice daily ACIDOPHILUS PROBIOTIC TABS One tablet by mouth twice daily LACTOBACILLUS [id number] Wilmar Farr DO lactobacillus acidophilus [id number] unt / pectin 100 mg oral tablet (20 sources) Start: 12-11-2014 End: 07-22-2015 take 1 tablet by mouth twice daily Acidophilus-Pectin, [place] 1 EACH tablet Discontinued 1 NMA PO TWICE A DAY 10 December 11, 2014 12:00am July 22, 2015 9:21am Start: 12-11-2014 End: 07-22-2015 Acidophilus-Pectin, [place] D iscontinued 1 EACH PO TWICE A DAY December 11, 2014 12:00am July 22, 2015 9:21am lansoprazole 30 mg delayed release oral capsule (3 sources) Proton Pump Inhibitor End: 03-05-2016 take 1 tablet by mouth once daily PREVACID 30 MG CPDR One tablet by mouth daily LANSOPRAZOLE [id number] Ysabel Cohnpie MULTIFOCAL LENS ASSEMBLER levoFLOXacin 500 mg oral tablet (20 sources) Quinolone Antimicrobial Start: 12-04-2019 End: 12-19-2019 take 1 tablet by mouth once daily Levofloxacin 500 MG tablet Discontinued 500 mg PO DAILY December 04, 2019 12:00am December 19, 2019 9:36am Start: 10-25-2018 End: 11-21-2018 take 1 tablet by mouth once daily Levofloxacin (Levaquin) 500 mg tablet Discontinued 500 mg PO DAILY 19 07October 25, 2018 12:00am November 21, 2018 10:41am Start: 01-27-2017 take 1 tablet by main th once daily LEVAQUIN 500 MG TABS One tablet by mouth daily LEVOFLOXACIN [id number] Juan Francisco Driscoll MD loratadine 10 mg oral capsule (20 sources) Start: 07-14-2016 take 1 tablet by mouth once daily as needed CLARITIN 10 MG CAPS One tablet by mouth daily as needed LORATADINE [id number] Austyn Edmonds MD Start: 05-21-2016 End: 10-05-2017 [...] One tablet by mouth daily MAGNESIUM CAPS [id number] Austyn Edmonds MD take 1 tablet by main th once daily Magnesium 250 mg tab Take 250 mg by mouth once daily. Active take 1 tablet by main th once daily Magnesium 250 mg tab Take 250 mg by mouth once daily. 0 Active Comment on above: Take 250 mg by mouth once daily. meloxicam 7.5 mg oral tablet (19 sources) Nonsteroidal Anti-inflammatory Drug Start: 05-26-20 End: 10-06-19 24 take 1 tablet by mouth once daily [...] dose inhaler (20 sources) Corticosteroid Start: 06-21-19 18 End: 08-24-19 Mometasone (Asmanex Hfa) 100 mcg/actuation HFA aerosol inhaler Discontinued 2 NMA INHALATION Q12H 13 6 August 01, 2018 1:18pm August 23, 2017 3:02pm Start: 06-21-2017 End: 08-23-2017 take 1 puff(s) by inhalation every twelve hours Mometasone (Asmanex Hfa) 100 mcg/actuation HFA aerosol inhaler Discontinued 2 PUFF INHALATION Q12H August 01, 2017 1:18pm August 23, 2017 3:02pm montelukast 10 mg oral tablet (15 sources) Leukotriene Receptor Antagonist Start: 12-14-2022 End: [...] One tablet by mouth daily MULTIPLE VITAMINS-MINERALS [id number] Austyn Edmonds MD MULTIPLE VITAMINS-MINERALS (2 sources) End: 07-13-2016 take 1 tablet by mouth once daily ONE DAILY MULTIVITAMIN WOMEN TABS One tablet by mouth daily MULTIPLE VITAMINS-MINERALS [id number] Elisa Shields RN take 1 tablet by mouth once bella y ONE DAILY MULTIVITAMIN WOMEN TABS One tablet by mouth daily MULTIPLE VITAMINS-MINERALS [id number] Wilmar Farr DO mupirocin 0.02 mg/mg topical ointment (1 source) RNA Synthetase Inhibitor Antibacterial Start: 01-03-2017 BACTROBAN 2 % OINT apply to suture line daily MUPIROCIN [id number] Juan Francisco Driscoll MD OMEGA-3 FATTY ACIDS (2 sources) End: 03-06-2015 take 1 tablet by mouth once daily OMEGA-3 350 MG CAPS One tablet by mouth daily OMEGA-3 FATTY ACIDS [id number] Wilmar Renteriaarya DO take 1 tablet by mouth once bella y OMEGA-3 350 MG CAPS One tablet by mouth daily OMEGA-3 FATTY ACIDS [id number] Ysabel Cornelius LPN pantoprazole 20 mg delayed release oral tablet (20 sources) Proton Pump Inhibitor Start: 11-05-2019 End: 04-14-2020 take 1 tablet by mouth once daily Pantoprazole 20 mg tablet,delayed release (DR/EC) Discontinued 20 mg PO DAILY 30 1 January 15, 2020 2:53pm April 14, 2020 11:12am Start: 06-11-2019 End: 11-02-2019 take 1 tablet by mouth once daily Pantoprazole 40 mg tablet,delayed release (DR/EC) Discontinued 40 mg PO DAILY 30 2 August 08, 2019 2:38pm November 02, 2019 9:51am GERD pravastatin sodium 20 mg oral tablet (20 sources) HMG-CoA Reductase Inhibitor Start: 03-17-2020 End: 01-10-2025 Pravastatin 20 MG tablet Discontinued 20 mg PO .COMPLEX March 17, 2020 12:00am January 10, 2025 3:16pm cholesterol 20 mg orally 1700; Comment on above: Take 20 mg by mouth once daily. predniSONE 20 mg oral tablet (11 sources) Start: 09-16-2024 End: 10-02-2024 take 2 tablets by mouth once daily Prednisone 20 mg tablet Discontinued 40 mg PO DAILY 10 September 16, 2024 12:00am October 02, 2024 1:25pm PROBIOTIC PRODUCT (1 source) Start: 07-14-2016 take 1 tablet by mouth once daily PROBIOTIC DAILY CAPS One tablet by mouth daily PROBIOTIC PRODUCT [id number] Austyn Edmonds MD promethazine hydrochloride 25 mg oral tablet (4 sources) Phenothiazine Start: 12-11-2014 End: 07-28-2015 take 1 tablet by mouth four times daily as needed for nausea PROMETHAZINE HCL 25 MG TABS One tablet by mouth four times daily as needed for nausea PROMETHAZINE HCL [id number] Екатерина Staton LPN psyllium 520 mg oral capsule (20 sources) [...] METAMUCIL POWD take as directed PSYLLIUM POWD [id number] Austyn Edmonds MD sertraline 100 mg oral tablet (20 sources) Serotonin Reuptake Inhibitor Start: 07-13-2016 SERTRALINE HCL 100 M G TABS One and one halg tablet by mouth daily SERTRALINE HCL [id number] Elisa Shields RN Start: 10-11-2014 End: 01-10-2025 Sertraline 100 mg tablet Discontinued 150 mg PO DAILY April 13, 2019 1:26pm January 10, 2025 3:16pm depression Start: 10-11-2014 End: 04-13-2019 take 150 [...] One tablet by mouth daily SERTRALINE HCL [id number] Fabian Isabel Comment on above: Take 150 mg by mouth once daily. Taking 1 and 1/2 tabs daily sucralfate 1000 mg oral tablet (20 sources) Aluminum Complex Start: 019 End: 020 take 1 tablet by mouth four times daily 1 hour(s) before bedtime Sucralfate 1 GM tablet Discontinued 1 g PO 4 TIMES DAILY 60 0 June 11, 2019 1:00am June 25, 2019 11:22am 1 hour before meals and at bedtime sulfamethoxazole 800 mg / trimethoprim 160 mg oral tablet (13 sources) Dihydrofolate Reductase Inhibitor Antibacterial, Sulfonamide Antimicrobial Start: 025 End: 025 Sulfamethoxazole-Tr imethoprim (Bactrim Ds) 800-160 mg tablet Discontinued 1 {tbl} PO Q12H 14 7 0 September 14, 2024 12:00am September 20, 2024 12:00am September 15, 2024 12:52am Start: 02-10-2017 take 1 tablet by main twice daily BACTRIM DS 800-160 MG TABS One tablet by mouth twice daily SULFAMETHOXAZOLE-TRIMETHOPRIM [id number] Juan Francisco Driscoll MD Turmeric extract (20 sources) Start: 04-13-2019 End: 06-27-2019 Turmeric 400 mg capsule Disc ontinued 400 mg PO NEEDED as needed for Supplement Fire Prevention Captain 0 April 13, 2019 12:00am June 27, 2019 9:57am Start: 04-13-2019 End: 06-27-2019 Turmeric 400 mg capsule Disc ontinued 400 mg PO NEEDED as needed for Supplement Fire Prevention Captain April 13, 2019 12:00am June 27, 2019 [...] February 19, 2022 12:00am Vitamin D3 tablet (13 sources) Start: 02-19-2022 End: 03-24-2023 Vitamin D3 [...] 05-19-2016 Episodic Acute and unspecified renal failure (20 sources) Acute renal failure syndrome; Translations: [Acute [...] E Codes: Adverse effects of medical drugs (20 sources) Adverse reaction to drug; Translations: [Adverse effect of unspecified drugs, medicaments and biological substances, initial encounter] Onset: 5 09-15-2024 Episodic E Codes: Fall (13 sources) Fall; Translations: [Unspecified fall, initial encounter] [...] Onset: 2 Other aftercare (1 source) Other group home (current) drug therapy; Translations: [OTH CUSTODIAL CURRENT DRUG THERAPY] Onset: 2 Episodic Other circulatory disease (20 sources) Low blood pressure; Translations: [Hypotension, unspecified] 02-27-2022 Episodic Other circulatory disease (5 sources)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 Order Info: 0786-1 - CMP Performed By: #### L 100.0100, L500.4050 #### [facility] [address] [place], [address] Urea nitrogen [Mass/Vol] 17 mg/dL Normal 4-19 [facility] Comment on above: Order Comment: Order Date: 12/04/24 Order Info: 0786-1 - CMP Performed By: #### L 100.0100, L500.4050 #### [facility] [place], [address] Eosinophil percentageOrdered By: Max Jernigan on 12-04-2024 Eosinophils/100 WBC (Bld) 5.6 % High 0-5 [facility] Erythrocyte distribution wid th ratioOrdered By: Max Jernigan on 12-04-2024 Erythrocyte distribution width (RBC) [Ratio] 13.9 % 11.6-14.6 [facility] Erythrocyte distribution wid th standard deviationOrdered By: Max Jernigan on 12-04-2024 Erythrocyte distribution width (RBC) [Ratio] 46.8 fl High 35.1-43.9 [facility] Glomerular filtration rate ( GFR) estimation/1.73 sq m using serum, plasma, or whole bOrdered By: Max Jernigan on 12-04-2024 GFR/1.73 sq M.predicted among non-blacks MDRD (S/P/Bld) [Vol rate/Area] 57 mL/min/{1.73_m2} Low >60 [facility] Comment on above: mL/min/1.73m2 CKD-EP I Creatinine Equation (2020) Hematocrit Auto (Bld) [Volum e fraction]Ordered By: Max Jernigan on 12-04-2024 Hematocrit (Bld) [Volume fraction] 42.4 % 37-47 [facility] Hemoglobin measurementOrdere d By: Max Jernigan on 12-04-2024 Hemoglobin (Bld) [Mass/Vol] 13.8 g/dL 12.0-15.0 [facility] Immature granulocytes/100 WB C Auto (Bld)Ordered By: Max Jernigan on 12-04-2024 Immature granulocytes/100 WBC (Bld) 0.400 % 0.0-0.9 [facility] Comment on above: IG% - Immature Granu locytes (promyelocytes, myelocytes and metamyelocytes) > 1% indicates that a LEFT SHIFT is Present. Laboratory - Chemistry and C hemistry - challengeOrdered By: Max Jernigan on 12-04-2024 AST [Catalytic activity/Vol] 21 U/L <32 [facility] MCV (mean corpuscular volume ) determinationOrdered By: Max Jernigan on 12-04-2024 MCV (RBC) [Entitic vol] 90.6 fL 81-99 [facility] Mean corpuscular hemoglobin (MCH) determinationOrdered By: Max Jernigan on 12-04-2024 MCH (RBC) [Entitic mass] 29.5 pg 27.0-32.0 [facility] Mean corpuscular hemoglobin concentration (MCHC) determinationOrdered By: Max Jernigan on 12-04-2024 MCHC (RBC) [Mass/Vol] 32.5 g/dL 32-36 [facility] Mean platelet volume determi nationOrdered By: Max Jernigan on 12-04-2024 Platelet mean volume (Bld) [Entitic vol] 11.4 fL 6.2-12.0 [facility] Monocyte percentageOrdered B y: Max Jernigan on 12-04-2024 Monocytes/100 WBC (Bld) 9.1 % 0-10 [facility] Neutrophil percentageOrdered By: Max Jernigan on 12-04-2024 Neutrophils/100 WBC (Bld) 62.3 % 47-70 [facility] Nucleated red blood cell per centageOrdered By: Max Jernigan on 12-04-2024 Nucleated RBC/100 WBC (Bld) [Ratio] 0 % 0-5 [facility] Platelet countOrdered By: Cameron Jernigan on 12-04-2024 Platelets (Bld) [#/Vol] 227 10*3/uL 150-450 [facility] Potassium measurement (mass/ volume)Ordered By: Max Jernigan on 12-04-2024 Potassium (Unsp spec) [Mass/Vol] 4.4 mmol/L 3.3-5.1 [facility] RBC Auto (Bld) [#/Vol]Ordere d By: Max Jernigan on 12-04-2024 RBC (Bld) [#/Vol] 4.68 10*6/uL 4.2-5.4 [facility] Serum creatinine measurement (mass/volume)Ordered By: Max Jernigan on 12-04-2024 Creatinine [Mass/Vol] 0.97 mg/dL 0.70-1.20 [facility] Serum globulin measurementOr dered By: Max Jernigan on 12-04-2024 Globulin (S) [Mass/Vol] 3.3 g/dL 2.2-4.2 [facility] Serum glucose measurement (m ass/volume)Ordered By: Max Jernigan on 12-04-2024 Glucose [Mass/Vol] 114 mg/dL High 70-99 [facility] Serum or plasma alanine lyon otransferase (ALT) measurementOrdered By: Max Jernigan on 12-04-2024 ALT [Catalytic activity/Vol] 14 U/L <35 [facility] Serum or plasma albumin sonny urement (mass/volume)Ordered By: Max Jernigan on 12-04-2024 Albumin [Mass/Vol] 4.0 g/dL 3.4-4.8 [facility] Serum or plasma albumin/glob ulin mass ratioOrdered By: Max Jernigan on 12-04-2024 Albumin/Globulin [Mass ratio] 1.2 {ratio} 0.9-2.4 [facility] Serum or plasma alkaline anthony sphatase measurementOrdered By: Max Jernigan on 12-04-2024 ALP [Catalytic activity/Vol] 86 U/L 35-104 [facility] Serum or plasma calcium sonny urement (mass/volume)Ordered By: Max Jernigan on 12-04-2024 Calcium [Mass/Vol] 9.2 mg/dL 7.6-11.0 [facility] Serum or plasma urea nitroge n measurement (mass/volume)Ordered By: Max Jernigan on 12-04-2024 Urea nitrogen [Mass/Vol] 17 mg/dL 4-19 [facility] Sodium levelOrdered By: Max Jernigan on 12-04-2024 Sodium [Moles/Vol] 141 mmol/L 133-145 [facility] Total proteinOrdered By: Lesvia Jernigan on 12-04-2024 Protein [Mass/Vol] 7.3 g/dL 5.9-8.4 [facility] White blood cell (WBC) count Ordered By: Max Jernigan on 12-04-2024 WBC (Bld) [#/Vol] 8.6 10*3/uL 4.4-11.0 [facility] CBC W/Diff, Automatedon 04-2 PATH REV Reviewed Normal [facility] Comment on above: Result Comment: SEE REPORT IN PATIENT'S EMR AMENDED REPORT 10/09/24 1130 PATH REV previously reported as: October Performed By: #### L 100.0100 #### [facility] [address] [place], [address] Pulmonary Visit Reporton Pulmonary Visit Report [facility] [place] [address] [place] [address] OFFICE VISIT Date of Service: 10/02/24 MR#: [id number] Acct: [id number] Name: GARTH CONLEY Rep #: [id number] : 1940 Provider: HOA Fraser Age/Sex: 84/F Location: [facility] [place].W Status: Signed Assessment and Plan Assessment and [...] follow-up visit. Plan Details Follow Up: 12/18/24 ([facility]) HPI HPI Comments Details: This patient presents to the office today for follow-up of her obstructive sleep apnea and mild asthma. She is ambulatory and currently on room air. She was hospitalized at [facility] from September 14 through September 16, 2024 [...] Reasons: 3 M FU Chief Complaint: Cystitis [employer] Required: No Accompanied by: Self Allergies clindamycin [...] 10/02/24 R (more content not included)... Normal [facility] Absolute lymphocyte countOrd ered By: Max Jernigan on 09-20-2024 Lymphocytes Auto (Unsp spec) [#/Vol] 1.11 10*3/uL 0.83-4.51 [facility] Absolute neutrophil countOrd ered By: Max Jernigan on 09-20-2024 Neutrophils (Bld) [#/Vol] 15.8 10*3/uL High 2.0-7.7 [facility] Anion gap in Serum or Plasma Ordered By: Max Jernigan on 09-20-2024 Anion gap [Moles/Vol] 11 mmol/L 5-15 [facility] BUN/creatinine ratioOrdered By: Max Jernigan on 09-20-2024 Urea nitrogen/Creatinine [Mass ratio] 19.8 mg/mg 10-20 [facility] Bilirubin, totalOrdered By: Max Jernigan on 09-20-2024 Bilirubin [Mass/Vol] 0.66 mg/dL 0.00-1.30 [facility] Blood eosinophils/100 leukoc ytesOrdered By: Max Jernigan on 09-20-2024 Eosinophils/100 WBC (Bld) 1 % 0-5 [facility] Blood lymphocytes/100 leukoc ytesOrdered By: Max Jernigan on 09-20-2024 Lymphocytes/100 WBC (Bld) 6 % Low 19-41 [facility] Blood metamyelocytes/100 amanad kocytesOrdered By: Max Jernigan on 09-20-2024 Metamyelocytes/100 WBC (Bld) 5 % High 0-1 [facility] Blood monocytes/100 leukocyt esOrdered By: Max Jernigan on 09-20-2024 Monocytes/100 WBC (Bld) 3 % 0-10 [facility] Blood segmented neutrophils/ 100 leukocytesOrdered By: Max Jernigan on 09-20-2024 Segmented neutrophils/100 WBC (Bld) 85 % High 47-70 [facility] Carbon dioxide, total [Moles /volume] in Central venous bloodOrdered By: Max Jernigan on 09-20-2024 CO2 [Moles/Vol] 23.6 mmol/L 21.0-32.0 [facility] Cells counted Molgen (Bld/Ti ss) [#]Ordered By: Max Jernigan on 09-20-2024 Differential Total Cells Counted 100 MANUAL DIFF [facility] Chloride assayOrdered By: Cameron Jernigan on 09-20-2024 Chloride [Moles/Vol] 107 mmol/L 98-108 [facility] Comprehensive Metabolic Prof ilon 09-20-2024 Albumin [Mass/Vol] 3.5 g/dL Normal 3.4-4.8 [facility] Comment on above: Performed By: #### L 100.0100 #### [facility] [address] [place], [address] Albumin/Globulin [Mass ratio] 1.0 {ratio} Normal 0.9-2.4 [facility] Comment on above: Performed By: #### L 100.0100 #### [facility] [address] [place], [address] ALK PHOS 79 U/L Normal 35-104 [facility] Comment on above: Performed By: #### L 100.0100 #### [facility] [address] [place], [address] ALT [Catalytic activity/Vol] 35 U/L Normal <=34 [facility] Comment on above: Performed By: #### L 100.0100 #### [facility] [address] [place], [address] AST [Catalytic activity/Vol] 25 U/L Normal <=31 [facility] Comment on above: Performed By: #### L 100.0100 #### [facility] [address] [place], [address] Bilirubin [Mass/Vol] 0.66 mg/dL Normal 0.00-1.30 [facility] Comment on above: Performed By: #### L 100.0100 #### [facility] [address] [place], [address] BUN/CRE 19.8 RATIO Normal 10-20 [facility] Comment on above: Performed By: #### L 100.0100 #### [facility] [address] [place], [address] Calcium [Mass/Vol] 8.7 mg/dL Normal 7.6-11.0 [facility] Comment on above: Performed By: #### L 100.0100 #### [facility] [address] [place], [address] Chloride [Moles/Vol] 107 mmol/L Normal 98-108 [facility] Comment on above: Performed By: #### L 100.0100 #### [facility] [address] [place], [address] CO2 [Moles/Vol] 23.6 mmol/L Normal 21.0-32.0 [facility] Comment on above: Performed By: #### L 100.0100 #### [facility] [address] [place], [address] Creatinine [Mass/Vol] 1.03 mg/dL Normal 0.70-1.20 [facility] Comment on above: Performed By: #### L 100.0100 #### [facility] [address] [place], [address] GAP 11 Normal 5-15 [facility] Comment on above: Performed By: #### L 100.0100 #### [facility] [address] [place], [address] GFR/1.73 sq M.predicted among non-blacks MDRD (S/P/Bld) [Vol rate/Area] 53 mL/min/{1.73_m2} Low >60 [facility] Comment on above: Result Comment: mL/m in/1.73m2 CKD-EPI Creatinine Equation (2020) Performed By: #### L 100.0100 #### [facility] [address] [place], [address] Globulin (S) [Mass/Vol] 3.5 g/dL Normal 2.2-4.2 [facility] Comment on above: Performed By: #### L 100.0100 #### [facility] [address] [place], [address] Glucose [Mass/Vol] 148 mg/dL High 70-99 [facility] Comment on above: Performed By: #### L 100.0100 #### [facility] [address] [place], [address] Potassium [Moles/Vol] 4.5 mmol/L Normal 3.3-5.1 [facility] Comment on above: Performed By: #### L 100.0100 #### [facility] [address] [place], [address] Sodium [Moles/Vol] 142 mmol/L Normal 133-145 [facility] Comment on above: Performed By: #### L 100.0100 #### [facility] [address] [place], [address] T PROT 7.0 g/dL Normal 5.9-8.4 [facility] Comment on above: Performed By: #### L 100.0100 #### [facility] [address] [place], [address] Urea nitrogen [Mass/Vol] 20 mg/dL High 4-19 [facility] Comment on above: Performed By: #### L 100.0100 #### [facility] [address] [place], [address] Erythrocyte distribution wid th (RBC) [Ratio]Ordered By: Max Jernigan on 09-20-2024 Erythrocyte distribution width (RBC) [Entitic vol] 43.2 fL 35.1-43.9 [facility] Erythrocyte distribution wid th ratioOrdered By: Max Jernigan on 09-20-2024 Erythrocyte distribution width (RBC) [Ratio] 13.5 % 11.6-14.6 [facility] Erythrocyte distribution wid th standard deviationOrdered By: Max Jernigan on 09-20-2024 Erythrocyte distribution width (RBC) [Ratio] 43.2 fl 35.1-43.9 [facility] Ferritinon 09-20-2024 Ferritin [Mass/Vol] 747 ng/mL High 22-378 [facility] Comment on above: Performed By: #### L 100.0100 #### [facility] [address] [place], [place], [address] Folate [Moles/Vol]Ordered By : Max Jernigan on 09-20-2024 Serum Folate 8.14 ng/mL 4.60-34.80 [facility] Folate [Moles/volume] in Ser um or PlasmaOrdered By: Max Jernigan on 09-20-2024 Folate [Moles/Vol] 8.14 ng/mL 4.60-34.80 [facility] Folates,Serum (Folic Acid)on 09-20-2024 FOLATES,SERUM 8.14 ng/mL Normal 4.60-34.80 [facility] Comment on above: Order Comment: N Performed By: #### L 503.0106, L506.0200 #### [facility] [address] [place], [place], [address] GFR/1.73 sq M.predicted shaka g non-blacks MDRD (S/P/Bld) [Vol rate/Area]Ordered By: Max Jernigan on 09-20-2024 Estimated GFR (MDRD) Non-Af Amer 53 Low >60 [facility] Comment on above: mL/min/1.73m2 CKD-EP I Creatinine Equation (2020) Glomerular filtration rate ( GFR) estimation/1.73 sq m using serum, plasma, or whole bOrdered By: Max Jernigan on 09-20-2024 GFR/1.73 sq M.predicted among non-blacks MDRD (S/P/Bld) [Vol rate/Area] 53 mL/min/{1.73_m2} Low >60 [facility] Comment on above: mL/min/1.73m2 CKD-EP I Creatinine Equation (2020) Hematocrit Auto (Bld) [Volum e fraction]Ordered By: Max Jernigan on 09-20-2024 Hematocrit (Bld) [Volume fraction] 45.9 % 37-47 [facility] Hemoglobin measurementOrdere d By: Max Jernigan on 09-20-2024 Hemoglobin (Bld) [Mass/Vol] 15.2 g/dL High 12.0-15.0 [facility] - Chemistry and C hemistry - challengeOrdered By: Max Jernigan on 09-20-2024 AST [Catalytic activity/Vol] 25 U/L <32 [facility] Lymphocytes Auto (Unsp spec) [#/Vol]Ordered By: Max Jernigan on 09-20-2024 Lymphocytes (Bld) [#/Vol] 1.11 10*3/uL 0.83-4.51 [facility] MCV (mean corpuscular volume ) determinationOrdered By: Max Jernigan on 09-20-2024 MCV (RBC) [Entitic vol] 87.8 fL 81-99 [facility] Mean corpuscular hemoglobin (MCH) determinationOrdered By: Max Jernigan on 09-20-2024 MCH (RBC) [Entitic mass] 29.1 pg 27.0-32.0 [facility] Mean corpuscular hemoglobin concentration (MCHC) determinationOrdered By: Max Jernigan on 09-20-2024 MCHC (RBC) [Mass/Vol] 33.1 g/dL 32-36 [facility] Mean platelet volume determi nationOrdered By: Max Jernigan on 09-20-2024 Platelet mean volume (Bld) [Entitic vol] 11.0 fL 6.2-12.0 [facility] Neutrophil percentageOrdered By: Max Jernigan on 09-20-2024 Neutrophils (%) (Auto) Not Reportable [facility] Pathologist review Mathew (Unsp spec) [Interp]Ordered By: Max Jernigan on 09-20-2024 Differential Pathologist's Review October trung [facility] Platelet countOrdered By: Cameron Jernigan on 09-20-2024 Platelets (Bld) [#/Vol] 250 10*3/uL 150-450 [facility] Platelet estimateOrdered By: Max Jernigan on 09-20-2024 Platelets LM Ql (Bld) ADEQUATE ADEQ [facility] Platelet morphologyOrdered B y: Max Jernigan on 09-20-2024 Platelet morphology finding Nom (Bld) LARGE [facility] Platelet morphology finding Nom (Bld)Ordered By: Max Jernigan on 09-20-2024 Platelet Morphology Comment LARGE [facility] Platelets LM Ql (Bld)Ordered By: Max Jernigan on 09-20-2024 Platelet Estimate ADEQUATE ADEQ [facility] Potassium (Unsp spec) [Mass/ Vol]Ordered By: Max Jernigan on 09-20-2024 Potassium [Moles/Vol] 4.5 mmol/L 3.3-5.1 [facility] Potassium measurement (mass/ volume)Ordered By: Max Jernigan on 09-20-2024 Potassium (Unsp spec) [Mass/Vol] 4.5 mmol/L 3.3-5.1 [facility] RBC Auto (Bld) [#/Vol]Ordere d By: Max Jernigan on 09-20-2024 RBC (Bld) [#/Vol] 5.23 10*6/uL 4.2-5.4 [facility] Review by pathologistOrdered By: Max Jernigan on 09-20-2024 Pathologist review Mathew (Unsp spec) [Interp] Reviewed [facility] Comment on above: Previous reported re sult: October trung Edited by: ILIANA on 10/09/24:1130SEE REPORT IN PATIENT'S EMR AMENDED REPORT 10/09/24 1130 PATH REV previously reported as: October foll Segmented neutrophils/100 WB C (Bld)Ordered By: Max Jernigan on 09-20-2024 Neutrophils/100 WBC (Bld) 85 % High 47-70 [facility] Serum creatinine measurement (mass/volume)Ordered By: Max Jernigan on 09-20-2024 Creatinine [Mass/Vol] 1.03 mg/dL 0.70-1.20 [facility] Serum globulin measurementOr dered By: Max Jernigan on 09-20-2024 Globulin (S) [Mass/Vol] 3.5 g/dL 2.2-4.2 [facility] Serum glucose measurement (m ass/volume)Ordered By: Max Jernigan on 09-20-2024 Glucose [Mass/Vol] 148 mg/dL High 70-99 [facility] Serum or plasma alanine lyon otransferase (ALT) measurementOrdered By: Max Jernigan on 09-20-2024 ALT [Catalytic activity/Vol] 35 U/L <35 [facility] Serum or plasma albumin sonny urement (mass/volume)Ordered By: Max Jernigan on 09-20-2024 Albumin [Mass/Vol] 3.5 g/dL 3.4-4.8 [facility] Serum or plasma albumin/glob ulin mass ratioOrdered By: Max Jernigan on 09-20-2024 Albumin/Globulin [Mass ratio] 1.0 {ratio} 0.9-2.4 [facility] Serum or plasma alkaline anthony sphatase measurementOrdered By: Max Jernigan on 09-20-2024 ALP [Catalytic activity/Vol] 79 U/L 35-104 [facility] Serum or plasma calcium sonny urement (mass/volume)Ordered By: Max Jernigan on 09-20-2024 Calcium [Mass/Vol] 8.7 mg/dL 7.6-11.0 [facility] Serum or plasma ferritin reta surement (mass/volume)Ordered By: Max Jernigan on 09-20-2024 Ferritin [Mass/Vol] 747 ng/mL High 22-378 [facility] Serum or plasma urea nitroge n measurement (mass/volume)Ordered By: Max Jernigan on 09-20-2024 Urea nitrogen [Mass/Vol] 20 mg/dL High 4-19 [facility] Sodium levelOrdered By: Max Jernigan on 09-20-2024 Sodium [Moles/Vol] 142 mmol/L 133-145 [facility] Total cell countOrdered By: Max Jernigan on 09-20-2024 Cells counted Molgen (Bld/Tiss) [#] 100 MANUAL DIFF [facility] Total proteinOrdered By: Lesvia Jernigan on 09-20-2024 Protein [Mass/Vol] 7.0 g/dL 5.9-8.4 [facility] Vitamin B12on 09-20-2024 Cobalamin (Vitamin B12) [Mass/Vol] 891 pg/mL Normal 180-914 [facility] Comment on above: Performed By: #### L 503.0106, L506.0200 #### [facility] [place], [address] Vitamin B12 ser/plasOrdered By: Max Jernigan on 09-20-2024 Cobalamin (Vitamin B12) [Mass/Vol] 891 pg/mL 180-914 [facility] White blood cell (WBC) count Ordered By: Max Jernigan on 09-20-2024 WBC (Bld) [#/Vol] 18.6 10*3/uL High 4.4-11.0 [facility] Absolute lymphocyte countOrd ered By: Max Dixon on 09-16-2024 Lymphocytes Auto (Unsp spec) [#/Vol] 0.54 10*3/uL Low 0.83-4.51 [facility] Absolute neutrophil countOrd ered By: Max Dixon on 09-16-2024 Neutrophils (Bld) [#/Vol] 16.6 10*3/uL High 2.0-7.7 [facility] Anion gap in Serum or Plasma Ordered By: Max Dixon on 09-16-2024 Anion gap [Moles/Vol] 10 mmol/L 5-15 [facility] Automated lymphocyte count a s percentage of total leukocytesOrdered By: Max Dixon on 09-16-2024 Lymphocytes/100 WBC Auto (Unsp spec) 3.0 % Low 19-41 [facility] BUN/creatinine ratioOrdered By: Max Dixon on 09-16-2024 Urea nitrogen/Creatinine [Mass ratio] 26.3 mg/mg High 10-20 [facility] Basic Metabolic Profile (BMP )on 09-16-2024 BUN/CRE 26.3 RATIO High 10-20 [facility] Comment on above: Performed By: #### L 500.2500, L501.2300 #### [facility] [address] [place], [address] Calcium [Mass/Vol] 8.8 mg/dL Normal 7.6-11.0 [facility] Comment on above: Performed By: #### L 500.2500, L501.2300 #### [facility] [address] [place], [address] Chloride [Moles/Vol] 111 mmol/L High 98-108 [facility] Comment on above: Performed By: #### L 500.2500, L501.2300 #### [facility] [address] [place], [address] CO2 [Moles/Vol] 18.4 mmol/L Low 21.0-32.0 [facility] Comment on above: Performed By: #### L 500.2500, L501.2300 #### [facility] [address] [place], [address] Creatinine [Mass/Vol] 1.20 mg/dL Normal 0.70-1.20 [facility] Comment on above: Performed By: #### L 500.2500, L501.2300 #### [facility] [address] [place], [address] ECRCL 32.96 ml/min Low 50-250 [facility] Comment on above: Performed By: #### L 500.2500, L501.2300 #### [facility] [address] [place], [address] GAP 10 Normal 5-15 [facility] Comment on above: Performed By: #### L 500.2500, L501.2300 #### [facility] [address] [place], [address] GFR/1.73 sq M.predicted among non-blacks MDRD (S/P/Bld) [Vol rate/Area] 44 mL/min/{1.73_m2} Low >60 [facility] Comment on above: Result Comment: mL/m in/1.73m2 CKD-EPI Creatinine Equation (2020) Performed By: #### L 500.2500, L501.2300 #### [facility] [address] [place], [address] Glucose [Mass/Vol] 166 mg/dL High 70-99 [facility] Comment on above: Performed By: #### L 500.2500, L501.2300 #### [facility] [address] [place], [address] Potassium [Moles/Vol] 5.0 mmol/L Normal 3.3-5.1 [facility] Comment on above: Result Comment: Hemo lysis present, Results??could be affected. ?? Performed By: #### L 500.2500, L501.2300 #### [facility] [address] [place], [address] Sodium [Moles/Vol] 140 mmol/L Normal 133-145 [facility] Comment on above: Performed By: #### L 500.2500, L501.2300 #### [facility] [address] [place], [address] Urea nitrogen [Mass/Vol] 32 mg/dL High 4-19 [facility] Comment on above: Performed By: #### L 500.2500, L501.2300 #### [facility] [address] [place], [address] Basophil percentageOrdered B y: Max Dixon on 09-16-2024 Basophils/100 WBC (Bld) 0.1 % 0-1 [facility] CBC W/Diff, Automatedon 03-3 0-2025 Absolute Lymph 0.54 X10 3/uL Low 0.83-4.51 [facility] Comment on above: Performed By: #### L 100.0100 #### [facility] [address] [place], [address] Absolute Neut 16.6 X10 3/uL High 2.0-7.7 [facility] Comment on above: Performed By: #### L 100.0100 #### [facility] [address] [place], [address] Basophils/100 WBC (Bld) 0.1 % Normal 0-1 [facility] Comment on above: Performed By: #### L 100.0100 #### [facility] [address] [place], [address] Eosinophils/100 WBC (Bld) 0.0 % Normal 0-5 [facility] Comment on above: Performed By: #### L 100.0100 #### [facility] [address] [place], [address] Erythrocyte distribution width (RBC) [Ratio] 13.5 % Normal 11.6-14.6 [facility] Comment on above: Performed By: #### L 100.0100 #### [facility] [address] [place], [address] Hematocrit (Bld) [Volume fraction] 38.1 % Normal 37-47 [facility] Comment on above: Performed By: #### L 100.0100 #### [facility] [address] [place], [address] Hemoglobin (Bld) [Mass/Vol] 12.7 g/dL Normal 12.0-15.0 [facility] Comment on above: Performed By: #### L 100.0100 #### [facility] [address] [place], [address] IG% 0.600 Normal 0.0-0.9 [facility] Comment on above: Result Comment: IG% - Immature Granulocytes (promyelocytes, myelocytes and metamyelocytes) > 1% indicates that a LEFT SHIFT is Present. Performed By: #### L 100.0100 #### [facility] [address] [place], [address] Lymphocytes/100 WBC (Bld) 3.0 % Low 19-41 [facility] Comment on above: Performed By: #### L 100.0100 #### [facility] [address] [place], [address] MCH (RBC) [Entitic mass] 29.8 pg Normal 27.0-32.0 [facility] Comment on above: Performed By: #### L 100.0100 #### [facility] [address] [place], [address] MCHC (RBC) [Mass/Vol] 33.3 g/dL Normal 32-36 [facility] Comment on above: Performed By: #### L 100.0100 #### [facility] [address] [place], [address] MCV (RBC) [Entitic vol] 89.4 fL Normal 81-99 [facility] Comment on above: Performed By: #### L 100.0100 #### [facility] [address] [place], [address] Monocytes/100 WBC (Bld) 5.1 % Normal 0-10 [facility] Comment on above: Performed By: #### L 100.0100 #### [facility] [address] [place], [address] Neutrophils/100 WBC (Bld) 91.2 % High 47-70 [facility] Comment on above: Performed By: #### L 100.0100 #### [facility] [address] [place], [address] Nucleated RBC (Bld) [#/Vol] 0 10*3/uL Normal 0-5 [facility] Comment on above: Performed By: #### L 100.0100 #### [facility] [address] [place], [address] Platelet mean volume (Bld) [Entitic vol] 12.3 fL High 6.2-12.0 [facility] Comment on above: Performed By: #### L 100.0100 #### [facility] [address] [place], [address] Platelets (Bld) [#/Vol] 135 10*3/uL Low 150-450 [facility] Comment on above: Performed By: #### L 100.0100 #### [facility] [address] [place], [address] RBC (Bld) [#/Vol] 4.26 10*6/uL Normal 4.2-5.4 [facility] Comment on above: Performed By: #### L 100.0100 #### [facility] [address] [place], [address] RDW SD 44.2 fl High 35.1-43.9 [facility] Comment on above: Performed By: #### L 100.0100 #### [facility] [address] [place], [address] WBC (Bld) [#/Vol] 18.2 10*3/uL High 4.4-11.0 [facility] Comment on above: Performed By: #### L 100.0100 #### [facility] [address] [place], [address] Carbon dioxide, total [Moles /volume] in Central venous bloodOrdered By: Max Dixon on 09-16-2024 CO2 [Moles/Vol] 18.4 mmol/L Low 21.0-32.0 [facility] Chloride assayOrdered By: Cameron Dixon on 09-16-2024 Chloride [Moles/Vol] 111 mmol/L High 98-108 [facility] Eosinophil percentageOrdered By: Max Dixon on 09-16-2024 Eosinophils/100 WBC (Bld) 0.0 % 0-5 [facility] Erythrocyte distribution wid th ratioOrdered By: Max Dixon on 09-16-2024 Erythrocyte distribution width (RBC) [Ratio] 13.5 % 11.6-14.6 [facility] Erythrocyte distribution wid th standard deviationOrdered By: Max Dixon on 09-16-2024 Erythrocyte distribution width (RBC) [Entitic vol] 44.2 fL High 35.1-43.9 [facility] Erythrocyte distribution width (RBC) [Ratio] 44.2 fl High 35.1-43.9 [facility] Estimation of creatinine erik aranceOrdered By: Max Dixon on 09-16-2024 Estimated Creatinine Clearance Calc 32.96 ml/min Low 50-250 [facility] GFR/1.73 sq M.predicted shaka g non-blacks MDRD (S/P/Bld) [Vol rate/Area]Ordered By: Max Dixon on 09-16-2024 Estimated GFR (MDRD) Non-Af Amer 44 Low >60 [facility] Comment on above: mL/min/1.73m2 CKD-EP I Creatinine Equation (2020) Glomerular filtration rate ( GFR) estimation/1.73 sq m using serum, plasma, or whole bOrdered By: Max Dixon on 09-16-2024 GFR/1.73 sq M.predicted among non-blacks MDRD (S/P/Bld) [Vol rate/Area] 44 mL/min/{1.73_m2} Low >60 [facility] Comment on above: mL/min/1.73m2 CKD-EP I Creatinine Equation (2020) Hematocrit Auto (Bld) [Volum e fraction]Ordered By: Max Dixon on 09-16-2024 Hematocrit (Bld) [Volume fraction] 38.1 % 37-47 [facility] Hemoglobin measurementOrdere d By: Max Dixon on 09-16-2024 Hemoglobin (Bld) [Mass/Vol] 12.7 g/dL 12.0-15.0 [facility] Immature granulocytes/100 WB C Auto (Bld)Ordered By: Max Dixon on 09-16-2024 Immature granulocytes/100 WBC (Bld) 0.600 % 0.0-0.9 [facility] Comment on above: IG% - Immature Granu locytes (promyelocytes, myelocytes and metamyelocytes) > 1% indicates that a LEFT SHIFT is Present. Lymphocytes Auto (Unsp spec) [#/Vol]Ordered By: Max Dixon on 09-16-2024 Lymphocytes (Bld) [#/Vol] 0.54 10*3/uL Low 0.83-4.51 [facility] Lymphocytes/100 WBC Auto (Un sp spec)Ordered By: Max Dixon on 09-16-2024 Lymphocytes/100 WBC (Bld) 3.0 % Low 19-41 [facility] MCV (mean corpuscular volume ) determinationOrdered By: Max Dixon on 09-16-2024 MCV (RBC) [Entitic vol] 89.4 fL 81-99 [facility] Mean corpuscular hemoglobin (MCH) determinationOrdered By: Max Dixon on 09-16-2024 MCH (RBC) [Entitic mass] 29.8 pg 27.0-32.0 [facility] Mean corpuscular hemoglobin concentration (MCHC) determinationOrdered By: Max Dixon on 09-16-2024 MCHC (RBC) [Mass/Vol] 33.3 g/dL 32-36 [facility] Mean platelet volume determi nationOrdered By: Max Dixon on 09-16-2024 Platelet mean volume (Bld) [Entitic vol] 12.3 fL High 6.2-12.0 [facility] Monocyte percentageOrdered B y: Max Dixon on 09-16-2024 Monocytes/100 WBC (Bld) 5.1 % 0-10 [facility] Neutrophil percentageOrdered By: Max Dixon on 09-16-2024 Neutrophils/100 WBC (Bld) 91.2 % High 47-70 [facility] Nucleated red blood cell per centageOrdered By: Max Dixon on 09-16-2024 Nucleated RBC/100 WBC (Bld) [Ratio] 0 % 0-5 [facility] Phosphoruson 09-16-2024 Phosphate [Mass/Vol] 3.9 mg/dL Normal 2.7-4.5 [facility] Comment on above: Performed By: #### L 500.2500, L501.2300 #### [facility] [address] [place], [address] Platelet countOrdered By: Cameron Dixon on 09-16-2024 Platelets (Bld) [#/Vol] 135 10*3/uL Low 150-450 [facility] Potassium (Unsp spec) [Mass/ Vol]Ordered By: Max Dixon on 09-16-2024 Potassium [Moles/Vol] 5.0 mmol/L 3.3-5.1 [facility] Comment on above: Hemolysis present, R esults could be affected. Potassium measurement (mass/ volume)Ordered By: Mxa Dixon on 09-16-2024 Potassium (Unsp spec) [Mass/Vol] 5.0 mmol/L 3.3-5.1 [facility] Comment on above: Hemolysis present, R esults could be affected. RBC Auto (Bld) [#/Vol]Ordere d By: Max Dixon on 09-16-2024 RBC (Bld) [#/Vol] 4.26 10*6/uL 4.2-5.4 [facility] Serum creatinine measurement (mass/volume)Ordered By: Max Dixon on 09-16-2024 Creatinine [Mass/Vol] 1.20 mg/dL 0.70-1.20 [facility] Serum glucose measurement (m ass/volume)Ordered By: Max Dixon on 09-16-2024 Glucose [Mass/Vol] 166 mg/dL High 70-99 [facility] Serum or plasma calcium sonny urement (mass/volume)Ordered By: Max Dixon on 09-16-2024 Calcium [Mass/Vol] 8.8 mg/dL 7.6-11.0 [facility] Serum or plasma urea nitroge n measurement (mass/volume)Ordered By: Max Dixon on 09-16-2024 Urea nitrogen [Mass/Vol] 32 mg/dL High 4-19 [facility] Serum phosphorus measurement Ordered By: Sha Queen on 09-16-2024 Phosphorus Level 3.9 mg/dL 2.7-4.5 [facility] Sodium levelOrdered By: Max Dixon on 09-16-2024 Sodium [Moles/Vol] 140 mmol/L 133-145 [facility] Urine Cultureon 09-16-2024 [facility] Escherichia coli [place] Count >100,000 Escherichia coli: REACTION Ampicillin Islt [...] TMP SMX Islt SUSI <=20 S Normal [facility] Comment on above: Performed By: #### L 501.9520, L506.0400, L3410.2350 #### [facility] [address] [place], [address] White blood cell (WBC) count Ordered By: Max Dixon on 09-16-2024 WBC (Bld) [#/Vol] 18.2 10*3/uL High 4.4-11.0 [facility] Abdomen Single View (Portabl e)on 09-15-2024 Abdomen Single View (Portable) [facility] [address] [place], [place] [id number] Abdomen Single View (Portable) MR#: [id number] Acct: [id number] Name: GARTH CONLEY Rep #: [id number] : 1940 F 84 From: [place], [place] PCP: Dr. Max Jernigan MD Status: ADM IN Study: Abdomen Single View (Portable) Date of Exam: 0 09/15/24 Exam# [id number] Ordering Dr: Max Dixon DO PROCEDURE: ABDOMEN [...] (Portable) IMPRESSION: NO ACUTE FINDINGS Reading Location: [facility] CC: Dr. Max Dixon DO; Dr. Max Jernigan MD [place] Trimmer: Signed Normal [facility] Bilirubin, totalOrdered By: Sha Queen on 09-15-2024 Bilirubin [Mass/Vol] 0.48 mg/dL 0.00-1.30 [facility] CBC W/Diff, Automatedon 08-19 Absolute Lymph 0.45 X10 3/uL Low 0.83-4.51 [facility] Comment on above: Performed By: #### L 100.0100 #### [facility] [address] [place], [address] Absolute Neut 21.3 X10 3/uL High 2.0-7.7 [facility] Comment on above: Performed By: #### L 100.0100 #### [facility] [address] [place], [address] Basophils/100 WBC (Bld) 0.2 % Normal 0-1 [facility] Comment on above: Performed By: #### L 100.0100 #### [facility] [address] [place], [address] Eosinophils/100 WBC (Bld) 0.0 % Normal 0-5 [facility] Comment on above: Performed By: #### L 100.0100 #### [facility] [address] [place], [address] Erythrocyte distribution width (RBC) [Ratio] 13.2 % Normal 11.6-14.6 [facility] Comment on above: Performed By: #### L 100.0100 #### [facility] [address] [place], [address] Hematocrit (Bld) [Volume fraction] 33.5 % Low 37-47 [facility] Comment on above: Performed By: #### L 100.0100 #### [facility] [address] [place], [address] Hemoglobin (Bld) [Mass/Vol] 11.6 g/dL Low 12.0-15.0 [facility] Comment on above: Performed By: #### L 100.0100 #### [facility] [address] [place], [address] IG% 2.600 High 0.0-0.9 [facility] Comment on above: Result Comment: IG% - Immature Granulocytes (promyelocytes, myelocytes and metamyelocytes) > 1% indicates that a LEFT SHIFT is Present. Performed By: #### L 100.0100 #### [facility] [address] [place], [address] Lymphocytes/100 WBC (Bld) 2.0 % Low 19-41 [facility] Comment on above: Performed By: #### L 100.0100 #### [facility] [address] [place], [address] MCH (RBC) [Entitic mass] 30.0 pg Normal 27.0-32.0 [facility] Comment on above: Performed By: #### L 100.0100 #### [facility] [address] [place], [address] MCHC (RBC) [Mass/Vol] 34.6 g/dL Normal 32-36 [facility] Comment on above: Performed By: #### L 100.0100 #### [facility] [address] [place], [address] MCV (RBC) [Entitic vol] 86.6 fL Normal 81-99 [facility] Comment on above: Performed By: #### L 100.0100 #### [facility] [address] [place], [address] Monocytes/100 WBC (Bld) 2.1 % Normal 0-10 [facility] Comment on above: Performed By: #### L 100.0100 #### [facility] [address] [place], [address] Neutrophils/100 WBC (Bld) 93.1 % High 47-70 [facility] Comment on above: Performed By: #### L 100.0100 #### [facility] [address] [place], [address] Nucleated RBC (Bld) [#/Vol] 0 10*3/uL Normal 0-5 [facility] Comment on above: Performed By: #### L 100.0100 #### [facility] [address] [place], [address] Platelet mean volume (Bld) [Entitic vol] 12.1 fL High 6.2-12.0 [facility] Comment on above: Performed By: #### L 100.0100 #### [facility] [address] [place], [address] Platelets (Bld) [#/Vol] 107 10*3/uL Low 150-450 [facility] Comment on above: Performed By: #### L 100.0100 #### [facility] [address] [place], [address] RBC (Bld) [#/Vol] 3.87 10*6/uL Low 4.2-5.4 [facility] Comment on above: Performed By: #### L 100.0100 #### [facility] [address] [place], [address] RDW SD 41.8 fl Normal 35.1-43.9 [facility] Comment on above: Performed By: #### L 100.0100 #### [facility] [address] [place], [address] WBC (Bld) [#/Vol] 22.8 10*3/uL High 4.4-11.0 [facility] Comment on above: Performed By: #### L 100.0100 #### [facility] [address] [place], [address] Calculated very low density lipoprotein (VLDL) cholesterol measurementOrdered By: Sha Queen on 09-15-2024 Calculated very low density lipoprotein (VLDL) cholesterol measurement 23 mg/dL 5-40 [facility] VLDL Cholesterol 23 mg/dL 5-40 [facility] Comprehensive Metabolic Prof ilon 09-15-2024 Albumin [Mass/Vol] 3.2 g/dL Low 3.4-4.8 [facility] Comment on above: Performed By: #### L 501.9520, L506.0400, L3410.2350 #### [facility] [address] [place], [address] Albumin/Globulin [Mass ratio] 1.0 {ratio} Normal 0.9-2.4 [facility] Comment on above: Performed By: #### L 501.9520, L506.0400, L3410.2350 #### [facility] [address] [place], [address] ALK PHOS 84 U/L Normal 35-104 [facility] Comment on above: Performed By: #### L 501.9520, L506.0400, L3410.2350 #### [facility] [address] [place], [address] ALT [Catalytic activity/Vol] 12 U/L Normal <=34 [facility] Comment on above: Performed By: #### L 501.9520, L506.0400, L3410.2350 #### [facility] [address] [place], [address] AST [Catalytic activity/Vol] 22 U/L Normal <=31 [facility] Comment on above: Performed By: #### L 501.9520, L506.0400, L3410.2350 #### [facility] [address] [place], [address] Bilirubin [Mass/Vol] 0.48 mg/dL Normal 0.00-1.30 [facility] Comment on above: Performed By: #### L 501.9520, L506.0400, L3410.2350 #### [facility] [address] [place], [address] BUN/CRE 22.2 RATIO High 10-20 [facility] Comment on above: Performed By: #### L 501.9520, L506.0400, L3410.2350 #### [facility] [address] [place], [address] Calcium [Mass/Vol] 8.3 mg/dL Normal 7.6-11.0 [facility] Comment on above: Performed By: #### L 501.9520, L506.0400, L3410.2350 #### [facility] [address] [place], [address] Chloride [Moles/Vol] 102 mmol/L Normal 98-108 [facility] Comment on above: Performed By: #### L 501.9520, L506.0400, L3410.2350 #### [facility] [address] [place], [address] CO2 [Moles/Vol] 18.1 mmol/L Low 21.0-32.0 [facility] Comment on above: Performed By: #### L 501.9520, L506.0400, L3410.2350 #### [facility] [address] [place], [address] Creatinine [Mass/Vol] 1.51 mg/dL High 0.70-1.20 [facility] Comment on above: Performed By: #### L 501.9520, L506.0400, L3410.2350 #### [facility] [address] [place], [address] ECRCL 25.80 ml/min Low 50-250 [facility] Comment on above: Performed By: #### L 501.9520, L506.0400, L3410.2350 #### [facility] [address] [place], [address] GAP 13 Normal 5-15 [facility] Comment on above: Performed By: #### L 501.9520, L506.0400, L3410.2350 #### [facility] [address] [place], [address] GFR/1.73 sq M.predicted among non-blacks MDRD (S/P/Bld) [Vol rate/Area] 33 mL/min/{1.73_m2} Low >60 [facility] Comment on above: Result Comment: mL/m in/1.73m2 CKD-EPI Creatinine Equation (2020) Performed By: #### L 501.9520, L506.0400, L3410.2350 #### [facility] [address] [place], [address] Globulin (S) [Mass/Vol] 3.2 g/dL Normal 2.2-4.2 [facility] Comment on above: Performed By: #### L 501.9520, L506.0400, L3410.2350 #### [facility] [address] [place], [address] Glucose [Mass/Vol] 202 mg/dL High 70-99 [facility] Comment on above: Performed By: #### L 501.9520, L506.0400, L3410.2350 #### [facility] [address] [place], [address] Potassium [Moles/Vol] 4.1 mmol/L Normal 3.3-5.1 [facility] Comment on above: Performed By: #### L 501.9520, L506.0400, L3410.2350 #### [facility] [address] [place], [address] Sodium [Moles/Vol] 133 mmol/L Normal 133-145 [facility] Comment on above: Performed By: #### L 501.9520, L506.0400, L3410.2350 #### [facility] [address] [place], [address] T PROT 6.4 g/dL Normal 5.9-8.4 [facility] Comment on above: Performed By: #### L 501.9520, L506.0400, L3410.2350 #### [facility] [address] [place], [address] Urea nitrogen [Mass/Vol] 34 mg/dL High 4-19 [facility] Comment on above: Performed By: #### L 501.9520, L506.0400, L3410.2350 #### [facility] [address] [place], [address] LDL calc ser/plasOrdered By: Sha Queen on 09-15-2024 Cholesterol in LDL [Mass/Vol] 47 mg/dL [facility] Comment on above: Ozdlcydoyt=847-209 m g/dL & Higher Qopq=055 mg/dL or greater LDL Cholesterol, Calculated 47 mg/dL [facility] Comment on above: Zjizneyaee=491-653 m g/dL & Higher Uimt=031 mg/dL or greater Laboratory - Chemistry and C hemistry - challengeOrdered By: Sha Queen on 09-15-2024 AST [Catalytic activity/Vol] 22 U/L <32 [facility] Lipid Profileon 09-15-2024 CHOL:HDL 2.72 Normal [facility] Comment on above: Performed By: #### L 501.9520, L506.0400, L3410.2350 #### [facility] [address] [place], [address] Cholesterol [Mass/Vol] 110 mg/dL Normal <=200 [facility] Comment on above: Result Comment: Chol esterol level, Desirable <200 mg/dL Borderline high cholesterol 200-239 mg/dL High cholesterol >=240 mg/dL Recommendations of the NCEP Adult Treatment Panel for the following risk-cutoff thresholds for the [place] population. Performed By: #### L 501.9520, L506.0400, L3410.2350 #### [facility] [address] [place], [address] Cholesterol in HDL [Mass/Vol] 40 mg/dL Normal [facility] Comment on above: Result Comment: Ching onal Cholesterol Education Program (NCEP) guidelines: <40 mg/dL: Low HDL-cholesterol (major risk factor for CHD) >= 60 mg/dL: High HDL-cholesterol (negative risk factor for CHD) HDL-cholesterol is affected by a number of factors, e.g. smoking, exercise, hormones, sex and age. Performed By: #### L 501.9520, L506.0400, L3410.2350 #### [facility] [address] [place], [address] Cholesterol in LDL [Mass/Vol] 47 mg/dL Normal [facility] Comment on above: Result Comment: Bord dxntdv=970-019 mg/dL Higher Tmxv=615 mg/dL or greater Performed By: #### L 501.9520, L506.0400, L3410.2350 #### [facility] [address] [place], [address] Cholesterol in VLDL [Mass/Vol] 23 mg/dL Normal 5-40 [facility] Comment on above: Performed By: #### L 501.9520, L506.0400, L3410.2350 #### [facility] [address] [place], [address] Triglyceride [Mass/Vol] 114 mg/dL Normal [facility] Comment on above: Result Comment: The drugs N-Acetylcysteine and Metamizole may falsely depress this assay. Normal range: <150 mg/dL Borderline High: 150-199 mg/dL High: 200-499 mg/dL Very High: >500 mg/dL Performed By: #### L 501.9520, L506.0400, L3410.2350 #### [facility] [address] [place], [address] Magnesiumon 09-15-2024 Magnesium [Mass/Vol] 1.8 mg/dL Normal 1.5-2.2 [facility] Comment on above: Performed By: #### L 501.9520, L506.0400, L3410.2350 #### [facility] [address] [place], [address] Phosphoruson 09-15-2024 Phosphate [Mass/Vol] 3.5 mg/dL Normal 2.7-4.5 [facility] Comment on above: Performed By: #### L 501.9520, L506.0400, L3410.2350 #### [facility] [address] [place], [address] RESPIRATORY PANEL MOLECULARo n 09-15-2024 RP PANEL ADENOVIRUS Not Detected INFLUENZA A Not Detected INFLUENZA A (SUBTYPE H1) Not Detected INFLUENZA A (SUBTYPE H3) Not Detected INFLUENZA B Not Detected HUMAN METAPHNEUMO Not Detected PARAINFLUENZA 1 Not Detected PARAINFLUENZA 2 Not Detected PARAINFLUENZA 3 Not Detected PARAINFLUENZA 4 Not Detected RHINOVIRUS Not Detected RSV A Not Detected RSV B Not Detected Normal [facility] Comment on above: Performed By: #### L 501.9520, L506.0400, L3410.2350 #### [facility] [place], [address] Screening total cholesterol/ high density lipoprotein (HDL) cholesterol ratioOrdered By: Sha Queen on 09-15-2024 Cholesterol.total/Cho lesterol in HDL [Mass ratio] 2.72 {ratio} [facility] Serum globulin measurementOr dered By: Sha Queen on 09-15-2024 Globulin (S) [Mass/Vol] 3.2 g/dL 2.2-4.2 [facility] Serum or plasma alanine lyon otransferase (ALT) measurementOrdered By: Sha Queen on 09-15-2024 ALT [Catalytic activity/Vol] 12 U/L <35 [facility] Serum or plasma albumin sonny urement (mass/volume)Ordered By: Sha Queen on 09-15-2024 Albumin [Mass/Vol] 3.2 g/dL Low 3.4-4.8 [facility] Serum or plasma albumin/glob ulin mass ratioOrdered By: Sha Queen on 09-15-2024 Albumin/Globulin [Mass ratio] 1.0 {ratio} 0.9-2.4 [facility] Serum or plasma alkaline anthony sphatase measurementOrdered By: Sha Queen on 09-15-2024 ALP [Catalytic activity/Vol] 84 U/L 35-104 [facility] Serum or plasma cholesterol in HDL measurement (mass/volume)Ordered By: Sha Queen on 09-15-2024 Cholesterol in HDL [Mass/Vol] 40 mg/dL >40 [facility] [facility] Comment on above: National Cholesterol Education Program (NCEP) guidelines:<40 mg/dL: Low HDL-cholesterol (major risk factor for CHD)>= 60 mg/dL: High HDL-cholesterol (negative risk factor for CHD)HDL-cholesterol is affected by a number of factors, e.g. smoking, exercise, hormones, sex and age. Serum or plasma cholesterol measurement (mass/volume)Ordered By: Sha Queen on 09-15-2024 Cholesterol [Mass/Vol] 110 mg/dL <201 [facility] Comment on above: Cholesterol level, D esirable <200 mg/dLBorderline high cholesterol 200-239 mg/dLHigh cholesterol >=240 mg/dLRecommendations of the NCEP Adult Treatment Panel for the following risk-cutoff thresholds for the [place] population. TSH DL <= 0.005 mIU/L QnOrde red By: Sha Queen on 09-15-2024 Thyroid Stimulating Hormone (TSH) 1.250 uIU/mL 0.300-4.20 0 [facility] TSH Qn 1.250 uIU/mL 0.300-4.20 0 [facility] Thyroid Stim Hormone (TSH)on 09-15-2024 TSH 1.250 uIU/mL Normal 0.300-4.20 0 [facility] Comment on above: Performed By: #### L 501.9520, L506.0400, L3410.2350 #### [facility] [address] [place], [address] Total proteinOrdered By: Gerald Queen on 09-15-2024 Protein [Mass/Vol] 6.4 g/dL 5.9-8.4 [facility] Triglycerides measurementOrd ered By: Sha Queen on 09-15-2024 Triglyceride [Mass/Vol] 114 mg/dL <199 [facility] Comment on above: The drugs N-Acetylcy steine and Metamizole may falsely depress this assay. Normal range: <150 mg/dLBorderline High: 150-199 mg/dLHigh: 200-499 mg/dLVery High: >500 mg/dL 12 Lead EKGon 09-14-2024 12 Lead EKG [facility] Cardiovascular Services [address] [place] [address] 12 Lead EKG 09/14/241953 MR#: [id number] Acct: [id number] Name: GARTH CONLEY Rep #: [id number] : 1940 84 From: Austyn Edmonds MD Attending Dr: Dr. Max Dixon, DO Status: DIS IN Ordering Dr: Zaheer Savage MD Date: 09/14/24 Location: [facility] Sex: F C Admitted: 09/14/24 Test Reason [...] Abnormal ECG Confirmed by AUSTYN EDMONDS MD ([id number]), web editor BRISEYDA VEGA ([id number]) on 09/17/2024 9:22:22 AM Referred By: Confirmed By: AUSTYN EDMONDS MD 09/17/2422 Date Austyn Edmonds MD CC: Dr. Max Dixon DO; Dr. Max Jernigan MD; Dr. Zaheer Savage MD Signed Normal [facility] Absolute neutrophil countOrd ered By: Zaheer Savage on 09-14-2024 Neutrophils (Bld) [#/Vol] 12.4 10*3/uL High 2.0-7.7 [facility] Anion gap in Serum or Plasma Ordered By: Zaheer Savage on 09-14-2024 Anion gap [Moles/Vol] 15 mmol/L 5-15 [facility] BUN/creatinine ratioOrdered By: Zaheer Savage on 09-14-2024 Urea nitrogen/Creatinine [Mass ratio] 21.6 mg/mg High 10-20 [facility] Basic Metabolic Profile (BMP )on 09-14-2024 BUN/CRE 21.6 RATIO High 10-20 [facility] Comment on above: Performed By: #### L 100.0100 #### [facility] [address] [place], [place], [id number] Calcium [Mass/Vol] 8.6 mg/dL Normal 7.6-11.0 [facility] Comment on above: Performed By: #### L 100.0100 #### [facility] [address] [facility] [place], [address] Chloride [Moles/Vol] 99 mmol/L Normal 98-108 [facility] Comment on above: Performed By: #### L 100.0100 #### [facility] [address] [place], [address] CO2 [Moles/Vol] 17.9 mmol/L Low 21.0-32.0 [facility] Comment on above: Performed By: #### L 100.0100 #### [facility] [address] [place], [address] Creatinine [Mass/Vol] 1.57 mg/dL High 0.70-1.20 [facility] Comment on above: Performed By: #### L 100.0100 #### [facility] [address] [place], [address] GAP 15 Normal 5-15 [facility] Comment on above: Performed By: #### L 100.0100 #### [facility] [address] [place], [address] GFR/1.73 sq M.predicted among non-blacks MDRD (S/P/Bld) [Vol rate/Area] 32 mL/min/{1.73_m2} Low >60 [facility] Comment on above: Result Comment: mL/m in/1.73m2 CKD-EPI Creatinine Equation (2020) Performed By: #### L 100.0100 #### [facility] [address] [place], [address] Glucose [Mass/Vol] 136 mg/dL High 70-99 [facility] Comment on above: Performed By: #### L 100.0100 #### [facility] [address] [place], [address] Potassium [Moles/Vol] 3.1 mmol/L Low 3.3-5.1 [facility] Comment on above: Performed By: #### L 100.0100 #### [facility] [address] [place], [address] Sodium [Moles/Vol] 131 mmol/L Low 133-145 [facility] Comment on above: Performed By: #### L 100.0100 #### [facility] [address] [place], [address] Urea nitrogen [Mass/Vol] 34 mg/dL High 4-19 [facility] Comment on above: Performed By: #### L 100.0100 #### [facility] [address] [place], [address] Basophil percentageOrdered B y: Zaheer Savage on 09-14-2024 Basophils/100 WBC (Bld) 0.2 % 0-1 [facility] CBC W/Diff, Automatedon 08-19 Absolute Lymph 0.20 X10 3/uL Low 0.83-4.51 [facility] Comment on above: Performed By: #### L 100.0100 #### [facility] [address] [place], [address] Absolute Neut 12.4 X10 3/uL High 2.0-7.7 [facility] Comment on above: Performed By: #### L 100.0100 #### [facility] [address] [place], [address] Basophils/100 WBC (Bld) 0.2 % Normal 0-1 [facility] Comment on above: Performed By: #### L 100.0100 #### [facility] [address] [place], [address] Eosinophils/100 WBC (Bld) 0.0 % Normal 0-5 [facility] Comment on above: Performed By: #### L 100.0100 #### [facility] [address] [place], [address] Erythrocyte distribution width (RBC) [Ratio] 13.1 % Normal 11.6-14.6 [facility] Comment on above: Performed By: #### L 100.0100 #### [facility] [address] [place], [address] Hematocrit (Bld) [Volume fraction] 36.8 % Low 37-47 [facility] Comment on above: Performed By: #### L 100.0100 #### [facility] [address] [place], [address] Hemoglobin (Bld) [Mass/Vol] 13.0 g/dL Normal 12.0-15.0 [facility] Comment on above: Performed By: #### L 100.0100 #### [facility] [address] [place], [address] IG% 1.200 High 0.0-0.9 [facility] Comment on above: Result Comment: IG% - Immature Granulocytes (promyelocytes, myelocytes and metamyelocytes) > 1% indicates that a LEFT SHIFT is Present. Performed By: #### L 100.0100 #### [facility] [address] [place], [address] Lymphocytes/100 WBC (Bld) 1.5 % Low 19-41 [facility] Comment on above: Performed By: #### L 100.0100 #### [facility] [address] [place], [address] MCH (RBC) [Entitic mass] 30.0 pg Normal 27.0-32.0 [facility] Comment on above: Performed By: #### L 100.0100 #### [facility] [address] [place], [address] MCHC (RBC) [Mass/Vol] 35.3 g/dL Normal 32-36 [facility] Comment on above: Performed By: #### L 100.0100 #### [facility] [address] [place], [address] MCV (RBC) [Entitic vol] 84.8 fL Normal 81-99 [facility] Comment on above: Performed By: #### L 100.0100 #### [facility] [address] [place], [address] Monocytes/100 WBC (Bld) 2.8 % Normal 0-10 [facility] Comment on above: Performed By: #### L 100.0100 #### [facility] [address] [place], [address] Neutrophils/100 WBC (Bld) 94.3 % High 47-70 [facility] Comment on above: Performed By: #### L 100.0100 #### [facility] [address] [place], [address] Nucleated RBC (Bld) [#/Vol] 0 10*3/uL Normal 0-5 [facility] Comment on above: Performed By: #### L 100.0100 #### [facility] [address] [place], [address] Platelet mean volume (Bld) [Entitic vol] 11.6 fL Normal 6.2-12.0 [facility] Comment on above: Performed By: #### L 100.0100 #### [facility] [address] [place], [address] Platelets (Bld) [#/Vol] 111 10*3/uL Low 150-450 [facility] Comment on above: Performed By: #### L 100.0100 #### [facility] [address] [place], [address] RBC (Bld) [#/Vol] 4.34 10*6/uL Normal 4.2-5.4 [facility] Comment on above: Performed By: #### L 100.0100 #### [facility] [address] [place], [address] RDW SD 40.6 fl Normal 35.1-43.9 [facility] Comment on above: Performed By: #### L 100.0100 #### [facility] [address] [place], [place], [address] WBC (Bld) [#/Vol] 13.2 10*3/uL High 4.4-11.0 [facility] Comment on above: Performed By: #### L 100.0100 #### [facility] [address] [place], [address] Carbon dioxide, total [Moles /volume] in Central venous bloodOrdered By: Zaheer Savage on 09-14-2024 CO2 [Moles/Vol] 17.9 mmol/L Low 21.0-32.0 [facility] Chest PA and Lateralon 09-14 Chest PA and Lateral [facility] Imaging Services [address] [place], [place] [address] Chest PA and Lateral MR#: [id number] Acct: [id number] Name: GARTH CONLEY Rep #: [id number] : 1940 F 84 From: Vinicius Kohli MD PCP: Dr. Max Jernigan MD Status: [facility] ER Study: Chest PA and Lateral Date of Exam: 09/14/24 Exam# [id number] Ordering Dr: Zaheer Savage MD PROCEDURE: CHEST [...] from nasogastric decompression, clinically correlate. Reading Location: [id number] CC: Dr. Max Jernigan MD; Dr. Zaheer Savage MD [place] Trimmer: Signed Normal [facility] Chloride assayOrdered By: Rogelio Savage on 09-14-2024 Chloride [Moles/Vol] 99 mmol/L 98-108 [facility] Emergency Department Summary on 09-14-2024 Emergency Department Summary [facility] Medical Records Department [address] [place] [address] Emergency Department Summary 09/14/24 MR#: [id number] Acct: [id number] Name: GARTH CONLEY Rep #: [id number] : 1940 84 From: Zaheer Savage MD PCP: Dr. Max Jernigan MD Status:ADM IN Location: [facility] [facility] [id number] HPI HPI - URI History of Present [...] 10/06/23 Unknown H istory iron) tablet (Feosol) tbdcveso-bnfczzb-furw-lutein tablet tab PO 10/06/23 Unknown History biotin [...] of jasvir (more content not included)... Normal [facility] Eosinophil percentageOrdered By: Zaheer Savage on 09-14-2024 Eosinophils/100 WBC (Bld) 0.0 % 0-5 [facility] Erythrocyte distribution wid th ratioOrdered By: Zaheer Savage on 09-14-2024 Erythrocyte distribution width (RBC) [Ratio] 13.1 % 11.6-14.6 [facility] Erythrocyte distribution wid th standard deviationOrdered By: Zaheer Savage on 09-14-2024 Erythrocyte distribution width (RBC) [Entitic vol] 40.6 fL 35.1-43.9 [facility] GFR/1.73 sq M.predicted shaka g non-blacks MDRD (S/P/Bld) [Vol rate/Area]Ordered By: Zaheer Savage on 09-14-2024 Estimated GFR (MDRD) Non-Af Amer 32 Low >60 [facility] Comment on above: mL/min/1.73m2 CKD-EP I Creatinine Equation (2020) H AND P Exam - [facility] 09-14-2024 H&P Exam - Hospitalist [facility] Medical Records Department [address] [place] [address] H P Exam - Hospitalist 09/14/24 2250 MR#: [id number] Acct: [id number] Name: GARTH CONLEY Rep #: [id number] : 1940 84 From: Sha Yu DO PCP: Dr. Max Jernigan MD Status:ADM IN Location: [facility] [id number] HPI - General General Date of Admission: [...] on empiric oral Bactrim who presents to [facility] ER complaining of fever, chills, wheezing and [...] is expected to extend beyond 2 midnights. [facility] Medical History (Updated 09/15/24 @ 00:35 [...] DAILY REPLACEMENT Unknown History iron) tablet (Feosol) qofkwncz-ithmvqu-weml-lutein tablet See Rx Instructions PO DAILY Unknown [...] ossification of (more content not included)... Normal [facility] Hematocrit Auto (Bld) [Volum e fraction]Ordered By: Zaheer Savage on 09-14-2024 Hematocrit (Bld) [Volume fraction] 36.8 % Low 37-47 [facility] Hemoglobin measurementOrdere d By: Zaheer Savage on 09-14-2024 Hemoglobin (Bld) [Mass/Vol] 13.0 g/dL 12.0-15.0 [facility] Immature granulocytes/100 WB C Auto (Bld)Ordered By: Zaheer Savage on 09-14-2024 Immature granulocytes/100 WBC (Bld) 1.200 % High 0.0-0.9 [facility] Comment on above: IG% - Immature Granu locytes (promyelocytes, myelocytes and metamyelocytes) > 1% indicates that a LEFT SHIFT is Present. Influenza virus A and B and SARS-CoV-2 (COVID-19) and Respiratory syncytial virus RNAOrdered By: Zaheer Savage on 09-14-2024 SARS-CoV-2 (COVID-19) RNA ROXI+probe Ql (Unsp spec) [facility] - Chemistry and C hemistry - challengeOrdered By: Aleksandr Palencia on 09-14-2024 Bilirubin Ql (U) Moderate (2+) [facility] Glucose Ql (U) Negative [facility] Ketones Ql (U) Trace (5) [facility] pH (U) 6.0 [pH] [facility] Specific gravity (U) [Rel density] 1.005 [facility] Urobilinogen (U) [Mass/Vol] 0.6621359 mg/dL [facility] - Hematology and Cell countsOrdered By: Aleksandr Palencia on 09-14-2024 Hemoglobin Ql (U) Hemolyzed [facility] - Specimen inform ationOrdered By: Aleksandr Palencia on 09-14-2024 Clarity (U) Cloudy [facility] Color (U) DARK YELLOW [facility] - UrinalysisOrder ed By: Aleksandr Palencia on 09-14-2024 Nitrite Ql (U) Negative [facility] Protein Ql (U) 2+ [facility] Lymphocytes Auto (Unsp spec) [#/Vol]Ordered By: Zaheer Savage on 09-14-2024 Lymphocytes (Bld) [#/Vol] 0.20 10*3/uL Low 0.83-4.51 [facility] Lymphocytes/100 WBC Auto (Un sp spec)Ordered By: Zaheer Savage on 09-14-2024 Lymphocytes/100 WBC (Bld) 1.5 % Low 19-41 [facility] M100.678on 09-14-2024 M100.678 Pending SARS-CoV-2 (COVID 19) Negative INFLUENZA A Negative INFLUENZA B Negative RSV PCR Negative Normal [facility] Comment on above: Performed By: #### L 100.0100 #### [facility] [address] [place], [address] MCV (mean corpuscular volume ) determinationOrdered By: Zaheer Savage on 09-14-2024 MCV (RBC) [Entitic vol] 84.8 fL 81-99 [facility] Magnesium (Unsp spec) [Mass/ Vol]Ordered By: Sha Queen on 09-14-2024 Magnesium [Mass/Vol] 1.8 mg/dL 1.5-2.2 [facility] Magnesium measurement (mass/ volume)Ordered By: Sha Queen on 09-14-2024 Magnesium (Unsp spec) [Mass/Vol] 1.8 mg/dL 1.5-2.2 [facility] Mean corpuscular hemoglobin (MCH) determinationOrdered By: Zaheer Savage on 09-14-2024 MCH (RBC) [Entitic mass] 30.0 pg 27.0-32.0 [facility] Mean corpuscular hemoglobin concentration (MCHC) determinationOrdered By: Zaheer Savage on 09-14-2024 MCHC (RBC) [Mass/Vol] 35.3 g/dL 32-36 [facility] Mean platelet volume determi nationOrdered By: Zaheer Savage on 09-14-2024 Platelet mean volume (Bld) [Entitic vol] 11.6 fL 6.2-12.0 [facility] Monocyte percentageOrdered B y: Zaheer Savage on 09-14-2024 Monocytes/100 WBC (Bld) 2.8 % 0-10 [facility] Neutrophil percentageOrdered By: Zaheer Savage on 09-14-2024 Neutrophils/100 WBC (Bld) 94.3 % High 47-70 [facility] No Panel InformationOrdered By: Aleksandr Palencia on 03-28-2025 Urine Leukocytes Positive [facility] Urine Non-Hemolyzed Blood Large [facility] Nucleated red blood cell per centageOrdered By: Zaheer Savage on 09-14-2024 Nucleated RBC/100 WBC (Bld) [Ratio] 0 % 0-5 [facility] Platelet countOrdered By: Rogelio Savage on 09-14-2024 Platelets (Bld) [#/Vol] 111 10*3/uL Low 150-450 [facility] Potassium (Unsp spec) [Mass/ Vol]Ordered By: Zaheer Savage on 09-14-2024 Potassium [Moles/Vol] 3.1 mmol/L Low 3.3-5.1 [facility] RBC Auto (Bld) [#/Vol]Ordere d By: Zaheer Savage on 09-14-2024 RBC (Bld) [#/Vol] 4.34 10*6/uL 4.2-5.4 [facility] Respiratory pathogens DNA an d RNA panel ROXI+probe (Resp)Ordered By: Zaheer Savage on 09-14-2024 Respiratory Panel (PCR) [facility] Respiratory pathogens detect ion panel by molecular detection methodOrdered By: Zaheer Savage on 09-14-2024 Respiratory pathogens DNA and RNA panel ROXI+probe (Resp) [facility] Serum creatinine measurement (mass/volume)Ordered By: Zaheer Savage on 09-14-2024 Creatinine [Mass/Vol] 1.57 mg/dL High 0.70-1.20 [facility] Serum glucose measurement (m ass/volume)Ordered By: Zaheer Savage on 09-14-2024 Glucose [Mass/Vol] 136 mg/dL High 70-99 [facility] Serum or plasma calcium sonny urement (mass/volume)Ordered By: Zaheer Savage on 09-14-2024 Calcium [Mass/Vol] 8.6 mg/dL 7.6-11.0 [facility] Serum or plasma urea nitroge n measurement (mass/volume)Ordered By: Zaheer Savage on 09-14-2024 Urea nitrogen [Mass/Vol] 34 mg/dL High 4-19 [facility] Sodium levelOrdered By: Zaheer Savage on 09-14-2024 Sodium [Moles/Vol] 131 mmol/L Low 133-145 [facility] Urgent Care Visit Reporton 0 09-14-2024 Urgent Care Visit Report [facility] [address], [address] [place] [address] OFFICE VISIT Date of Service: 09/14/24 MR#: [id number] Acct: [id number] Name: GARTH CONLEY Rep #: [id number] : 1940 Provider: JOAQUÍN Jolley Age/Sex: 84/F Location: [facility] Status: Signed Intake Vital Signs 07/20/24 13:30 [...] Reasons: CONCERN FOR UTI Chief Complaint: Cystitis [employer] Required: No Accompanied by: Daughter Is patient in pain?: No Allergies clindamycin Adverse Reaction (Intermediate, Verified 09/14/24 10:30) DIZZY, DIARRHEA Have you fallen in the past year?: No PFSH Medical History (Reviewed 07/20/24 @ 13:35 by Janet Fraser HISTORY DEPARTMENT CHAIR, HISTORY DEPARTMENT CHAIR-C) Seasonal allergies Cancer CPAP (continuous positive airway [...] (Reviewed 07/20/24 @ 13:35 by Janet Fraser HISTORY DEPARTMENT CHAIR, HISTORY DEPARTMENT CHAIR-C) S/P implantation of urinary electronic stimulator device [...] (Reviewed 07/20/24 @ 13:35 by Janet Fraser HISTORY DEPARTMENT CHAIR, HISTORY DEPARTMENT CHAIR-C) Mother Heart disease Father Heart disease Aunt Breast cancer Uncle Esophageal cancer Social History (Reviewed 07/20/24 @ 13:35 by Janet Fraser HISTORY DEPARTMENT CHAIR, HISTORY DEPARTMENT CHAIR-C) household members: spouse Smoking Status: Never smoker [...] Dowling on 09/14/24 10:39 Off Ur Spec [place] 1.005 Last Edit by Rosalva Dowling on 09/14/24 10:39 Office Urine pH 6.0 Last Edit by Rosalva Dowling on 09/14/24 10:39 Office Urine Bilirubin Moderate (2+) Last Edit by Rosalva Dowling on 09/14/24 10:39 Office Urine Urobilinogen 0.2 mg/dL Last Edit by Rosalva Dowlnig on 09/14/24 10:39 Office Urine Blood Hemolyzed Last Edit by Rosalva Dowling on 09/14/24 10:39 Office Urine Blood Hemolyzed Large Last Edit by Rosalva Vera (more content not included)... Normal [facility] Urine cultureOrdered By: Brian Palencia on 09-14-2024 Bacteria identified Cx Nom (U) Escherichia coli Abnormal [facility] White blood cell (WBC) count Ordered By: Zaheer Savage on 09-14-2024 WBC (Bld) [#/Vol] 13.2 10*3/uL High 4.4-11.0 [facility] ANTINUCLEAR ANTIBODIES DIREC Ton 09-06-2024 YENI,DIRECT Negative Normal Negative [facility] Comment on above: Order Comment: N Result Comment: Perf ormed at: [facility] [place] [id number] Medical Office Asst: Trell Treadwell PhD, Phone: [phone] Performed By: #### L 503.0106, L506.0200 #### [facility] [address] [place] [address], [address] YENI serumOrdered By: Max august on 09-04-2024 Anti-Nuclear Antibody Screen Negative Negative [facility] Comment on above: Performed at: [facility] [place] [id number] Director: Trell Treadwell PhD, Phone: [phone] Absolute lymphocyte countOrd ered By: Max Jernigan on 09-04-2024 Lymphocytes Auto (Unsp spec) [#/Vol] 1.87 10*3/uL 0.83-4.51 [facility] Absolute neutrophil countOrd ered By: Max Jernigan on 09-04-2024 Neutrophils (Bld) [#/Vol] 6.0 10*3/uL 2.0-7.7 [facility] Anion gap in Serum or Plasma Ordered By: Max Jernigan on 09-04-2024 Anion gap [Moles/Vol] 9 mmol/L 5-15 [facility] Automated lymphocyte count a s percentage of total leukocytesOrdered By: Max Jernigan on 09-04-2024 Lymphocytes/100 WBC Auto (Unsp spec) 20.5 % - [facility] BUN/creatinine ratioOrdered By: Max Jernigan on 09-04-2024 Urea nitrogen/Creatinine [Mass ratio] 19.3 mg/mg 10-20 [facility] Basophil percentageOrdered B y: Max Jernigan on 09-04-2024 Basophils/100 WBC (Bld) 0.8 % 0-1 [facility] Bilirubin, totalOrdered By: Max Jernigan on 09-04-2024 Bilirubin [Mass/Vol] 0.56 mg/dL 0.00-1.30 [facility] CBC W/Diff, Automatedon 08-18 Absolute Lymph 1.87 X10 3/uL Normal 0.83-4.51 [facility] Comment on above: Order Comment: N Performed By: #### L 503.0106, L506.0200 #### [facility] [address] [place], [address] Absolute Neut 6.0 X10 3/uL Normal 2.0-7.7 [facility] Comment on above: Order Comment: N Performed By: #### L 503.0106, L506.0200 #### [facility] [address] [place], [address] Basophils/100 WBC (Bld) 0.8 % Normal 0-1 [facility] Comment on above: Order Comment: N Performed By: #### L 503.0106, L506.0200 #### [facility] [address] [place], [address] Eosinophils/100 WBC (Bld) 3.6 % Normal 0-5 [facility] Comment on above: Order Comment: N Performed By: #### L 503.0106, L506.0200 #### [facility] [address] [place], [address] Erythrocyte distribution width (RBC) [Ratio] 13.6 % Normal 11.6-14.6 [facility] Comment on above: Order Comment: N Performed By: #### L 503.0106, L506.0200 #### [facility] [address] [place], [address] Hematocrit (Bld) [Volume fraction] 45.0 % Normal 37-47 [facility] Comment on above: Order Comment: N Performed By: #### L 503.0106, L506.0200 #### [facility] [address] [place], [address] Hemoglobin (Bld) [Mass/Vol] 14.7 g/dL Normal 12.0-15.0 [facility] Comment on above: Order Comment: N Performed By: #### L 503.0106, L506.0200 #### [facility] [address] [place], [address] IG% 0.200 Normal 0.0-0.9 [facility] Comment on above: Order Comment: N Result Comment: IG% - Immature Granulocytes (promyelocytes, myelocytes and metamyelocytes) > 1% indicates that a LEFT SHIFT is Present. Performed By: #### L 503.0106, L506.0200 #### [facility] [address] [place], [address] Lymphocytes/100 WBC (Bld) 20.5 % Normal 19-41 [facility] Comment on above: Order Comment: N Performed By: #### L 503.0106, L506.0200 #### [facility] [address] [place], [address] MCH (RBC) [Entitic mass] 29.6 pg Normal 27.0-32.0 [facility] Comment on above: Order Comment: N Performed By: #### L 503.0106, L506.0200 #### [facility] [address] [place], [address] MCHC (RBC) [Mass/Vol] 32.7 g/dL Normal 32-36 [facility] Comment on above: Order Comment: N Performed By: #### L 503.0106, L506.0200 #### [facility] [address] [place], [address] MCV (RBC) [Entitic vol] 90.5 fL Normal 81-99 [facility] Comment on above: Order Comment: N Performed By: #### L 503.0106, L506.0200 #### [facility] [address] [place], [address] Monocytes/100 WBC (Bld) 9.5 % Normal 0-10 [facility] Comment on above: Order Comment: N Performed By: #### L 503.0106, L506.0200 #### [facility] [address] [place], [address] Neutrophils/100 WBC (Bld) 65.4 % Normal 47-70 [facility] Comment on above: Order Comment: N Performed By: #### L 503.0106, L506.0200 #### [facility] [address] [place], [address] Nucleated RBC (Bld) [#/Vol] 0 10*3/uL Normal 0-5 [facility] Comment on above: Order Comment: N Performed By: #### L 503.0106, L506.0200 #### [facility] [address] [place], [address] Platelet mean volume (Bld) [Entitic vol] 11.6 fL Normal 6.2-12.0 [facility] Comment on above: Order Comment: N Performed By: #### L 503.0106, L506.0200 #### [facility] [address] [place], [address] Platelets (Bld) [#/Vol] 196 10*3/uL Normal 150-450 [facility] Comment on above: Order Comment: N Performed By: #### L 503.0106, L506.0200 #### [facility] [address] [place], [address] RBC (Bld) [#/Vol] 4.97 10*6/uL Normal 4.2-5.4 [facility] Comment on above: Order Comment: N Performed By: #### L 503.0106, L506.0200 #### [facility] [address] [place], [address] RDW SD 45.1 fl High 35.1-43.9 [facility] Comment on above: Order Comment: N Performed By: #### L 503.0106, L506.0200 #### [facility] [address] [place], [address] WBC (Bld) [#/Vol] 9.1 10*3/uL Normal 4.4-11.0 [facility] Comment on above: Order Comment: N Performed By: #### L 503.0106, L506.0200 #### [facility] [address] [place], [address] CRPon 09-04-2024 C-REACTIVE PROT < 3.00 Normal 0.0-3.0 [facility] Comment on above: Order Comment: N Performed By: #### L 503.0106, L506.0200 #### [facility] [address] [place], [address] CRP [Mass/Vol]Ordered By: Cameron Jernigan on 09-04-2024 C-Reactive Protein Extended Range < 3.00 mg/L 0.0-3.0 [facility] Calculated total iron bindin g capacityOrdered By: Max Jernigan on 09-04-2024 Total Iron Binding Capacity 246 ug/dL Low 250-450 [facility] Carbon dioxide, total [Moles /volume] in Central venous bloodOrdered By: Max Jernigan on 09-04-2024 CO2 [Moles/Vol] 23.3 mmol/L 21.0-32.0 [facility] Chloride assayOrdered By: Cameron Jernigan on 09-04-2024 Chloride [Moles/Vol] 108 mmol/L 98-108 [facility] Comprehensive Metabolic Prof ilon 09-04-2024 Albumin [Mass/Vol] 4.1 g/dL Normal 3.4-4.8 [facility] Comment on above: Order Comment: N Performed By: #### L 503.0106, L506.0200 #### [facility] [address] [place], [address] Albumin/Globulin [Mass ratio] 1.2 {ratio} Normal 0.9-2.4 [facility] Comment on above: Order Comment: N Performed By: #### L 503.0106, L506.0200 #### [facility] [address] [place], [address] ALK PHOS 78 U/L Normal 35-104 [facility] Comment on above: Order Comment: N Performed By: #### L 503.0106, L506.0200 #### [facility] [address] [place], [address] ALT [Catalytic activity/Vol] 10 U/L Normal <=34 [facility] Comment on above: Order Comment: N Performed By: #### L 503.0106, L506.0200 #### [facility] [address] [place], [address] AST [Catalytic activity/Vol] 18 U/L Normal <=31 [facility] Comment on above: Order Comment: N Performed By: #### L 503.0106, L506.0200 #### [facility] [address] [place], [address] Bilirubin [Mass/Vol] 0.56 mg/dL Normal 0.00-1.30 [facility] Comment on above: Order Comment: N Performed By: #### L 503.0106, L506.0200 #### [facility] [address] [place], [address] BUN/CRE 19.3 RATIO Normal 10-20 [facility] Comment on above: Order Comment: N Performed By: #### L 503.0106, L506.0200 #### [facility] [address] [place], [address] Calcium [Mass/Vol] 9.3 mg/dL Normal 7.6-11.0 [facility] Comment on above: Order Comment: N Performed By: #### L 503.0106, L506.0200 #### [facility] [address] [place], [address] Chloride [Moles/Vol] 108 mmol/L Normal 98-108 [facility] Comment on above: Order Comment: N Performed By: #### L 503.0106, L506.0200 #### [facility] [address] [place], [address] CO2 [Moles/Vol] 23.3 mmol/L Normal 21.0-32.0 [facility] Comment on above: Order Comment: N Performed By: #### L 503.0106, L506.0200 #### [facility] [address] [place], [address] Creatinine [Mass/Vol] 0.91 mg/dL Normal 0.70-1.20 [facility] Comment on above: Order Comment: N Performed By: #### L 503.0106, L506.0200 #### [facility] [address] [place], [address] GAP 9 Normal 5-15 [facility] Comment on above: Order Comment: N Performed By: #### L 503.0106, L506.0200 #### [facility] [address] [place], [address] GFR/1.73 sq M.predicted among non-blacks MDRD (S/P/Bld) [Vol rate/Area] 61 mL/min/{1.73_m2} Normal >60 [facility] Comment on above: Order Comment: N Result Comment: mL/m in/1.73m2 CKD-EPI Creatinine Equation (2020) Performed By: #### L 503.0106, L506.0200 #### [facility] [address] [place], [address] Globulin (S) [Mass/Vol] 3.4 g/dL Normal 2.2-4.2 [facility] Comment on above: Order Comment: N Performed By: #### L 503.0106, L506.0200 #### [facility] [address] [place], [address] Glucose [Mass/Vol] 70 mg/dL Normal 70-99 [facility] Comment on above: Order Comment: N Performed By: #### L 503.0106, L506.0200 #### [facility] [address] [place], [address] Potassium [Moles/Vol] 3.9 mmol/L Normal 3.3-5.1 [facility] Comment on above: Order Comment: N Performed By: #### L 503.0106, L506.0200 #### [facility] [address] [place], [address] Sodium [Moles/Vol] 141 mmol/L Normal 133-145 [facility] Comment on above: Order Comment: N Performed By: #### L 503.0106, L506.0200 #### [facility] [address] [place], [address] T PROT 7.5 g/dL Normal 5.9-8.4 [facility] Comment on above: Order Comment: N Performed By: #### L 503.0106, L506.0200 #### [facility] [address] [place], [place], [address] Urea nitrogen [Mass/Vol] 18 mg/dL Normal 4-19 [facility] Comment on above: Order Comment: N Performed By: #### L 503.0106, L506.0200 #### [facility] [address] [place], [address] Eosinophil percentageOrdered By: Max Jernigan on 09-04-2024 Eosinophils/100 WBC (Bld) 3.6 % 0-5 [facility] Erythrocyte Sed Rateon 09-04 SED RATE 7 mm/hr Normal 0-30 [facility] Comment on above: Order Comment: N Performed By: #### L 503.0106, L506.0200 #### [facility] [address] [place], [place], [address] Erythrocyte distribution wid th ratioOrdered By: Max Jernigan on 09-04-2024 Erythrocyte distribution width (RBC) [Ratio] 13.6 % 11.6-14.6 [facility] Erythrocyte distribution wid th standard deviationOrdered By: Max Jernigan on 09-04-2024 Erythrocyte distribution width (RBC) [Entitic vol] 45.1 fL High 35.1-43.9 [facility] Erythrocyte distribution width (RBC) [Ratio] 45.1 fl High 35.1-43.9 [facility] Erythrocyte sedimentation ra teOrdered By: Max Jernigan on 09-04-2024 ESR (Bld) [Velocity] 7 mm/h 0-30 [facility] FOLATES,SERUM (FOLIC ACID)on 09-04-2024 FOLATES,SERUM 6.14 ng/mL Normal 4.60-34.80 [facility] Comment on above: Order Comment: N Result Comment: Hemo lysis, Results will be affected, Requires Recollection. Performed By: #### L 503.0106, L506.0200 #### [facility] [address] [place], [place], [address] Folate [Mass/Vol]Ordered By: Max Jernigan on 09-04-2024 Serum Folate 6.14 ng/mL 4.60-34.80 [facility] Comment on above: Hemolysis, Results w ill be affected, Requires Recollection. Folate [Mass/volume] in Seru m or PlasmaOrdered By: Max Jernigan on 09-04-2024 Folate [Mass/Vol] 6.14 ng/mL 4.60-34.80 [facility] Comment on above: Hemolysis, Results w ill be affected, Requires Recollection. GFR/1.73 sq M.predicted shaka g non-blacks MDRD (S/P/Bld) [Vol rate/Area]Ordered By: Max Jernigan on 09-04-2024 Estimated GFR (MDRD) Non-Af Amer 61 >60 [facility] Comment on above: mL/min/1.73m2 CKD-EP I Creatinine Equation (2020) Glomerular filtration rate ( GFR) estimation/1.73 sq m using serum, plasma, or whole bOrdered By: Max Jernigan on 09-04-2024 GFR/1.73 sq M.predicted among non-blacks MDRD (S/P/Bld) [Vol rate/Area] 61 mL/min/{1.73_m2} >60 [facility] Comment on above: mL/min/1.73m2 CKD-EP I Creatinine Equation (2020) Hematocrit Auto (Bld) [Volum e fraction]Ordered By: aMx Jernigan on 09-04-2024 Hematocrit (Bld) [Volume fraction] 45.0 % 37-47 [facility] Hemoglobin measurementOrdere d By: Max Jernigan on 09-04-2024 Hemoglobin (Bld) [Mass/Vol] 14.7 g/dL 12.0-15.0 [facility] Immature granulocytes/100 WB C Auto (Bld)Ordered By: Max Jernigan on 09-04-2024 Immature granulocytes/100 WBC (Bld) 0.200 % 0.0-0.9 [facility] Comment on above: IG% - Immature Granu locytes (promyelocytes, myelocytes and metamyelocytes) > 1% indicates that a LEFT SHIFT is Present. Iron (Unsp spec) [Mass/Mass] Ordered By: Max Jernigan on 09-04-2024 Iron [Mass/Vol] 82 ug/dL 50-170 [facility] Iron measurement (mass/mass) Ordered By: Max Jernigan on 09-04-2024 Iron (Unsp spec) [Mass/Mass] 82 ug/dL 50-170 [facility] Iron saturation [Mass fracti on]Ordered By: Max Jernigan on 09-04-2024 Iron Saturation 33.3 % 13-59 [facility] Comment on above: Previous reported re sult: 33.0 %Edited by: FERNANDA on 09/04/24:1915 AMENDED REPORT 09/04/241915 IRON SATURATION previously reported as: 33.0 % Iron+Iron Binding Capacityon 09-04-2024 Iron [Mass/Vol] 82 ug/dL Normal 50-170 [facility] Comment on above: Order Comment: N Performed By: #### L 503.0106, L506.0200 #### [facility] [address] [place], [address] UIBC 164 ug/dL Low 228-428 [facility] Comment on above: Order Comment: N Performed By: #### L 503.0106, L506.0200 #### [facility] [address] [place], [address] L503.0106on 09-04-2024 Cobalamin (Vitamin B12) [Mass/Vol] 485 pg/mL Normal 180-914 [facility] Comment on above: Order Comment: Order Date: 09/04/24 Order Info: 0786-1 - CMP Order Info: [id number] - CRP Order Info: 3016-3 - TSH Order Info: 54770-0 - IBC Order Info: 2284-8 - FOLS Performed By: #### L 503.0106, L506.0200 #### [facility] [address] [place], [address] Laboratory - Chemistry and C hemistry - challengeOrdered By: Max Jernigan on 09-04-2024 AST [Catalytic activity/Vol] 18 U/L <32 [facility] Lymphocytes Auto (Unsp spec) [#/Vol]Ordered By: Max Jernigan on 09-04-2024 Lymphocytes (Bld) [#/Vol] 1.87 10*3/uL 0.83-4.51 [facility] Lymphocytes/100 WBC Auto (Un sp spec)Ordered By: Max Jernigan on 09-04-2024 Lymphocytes/100 WBC (Bld) 20.5 % 19-41 [facility] MCV (mean corpuscular volume ) determinationOrdered By: Max Jernigan on 09-04-2024 MCV (RBC) [Entitic vol] 90.5 fL 81-99 [facility] Mean corpuscular hemoglobin (MCH) determinationOrdered By: Max Jernigan on 09-04-2024 MCH (RBC) [Entitic mass] 29.6 pg 27.0-32.0 [facility] Mean corpuscular hemoglobin concentration (MCHC) determinationOrdered By: Max Jernigan on 09-04-2024 MCHC (RBC) [Mass/Vol] 32.7 g/dL 32-36 [facility] Mean platelet volume determi nationOrdered By: Max Jernigan on 09-04-2024 Platelet mean volume (Bld) [Entitic vol] 11.6 fL 6.2-12.0 [facility] Monocyte percentageOrdered B y: Max Jernigan on 09-04-2024 Monocytes/100 WBC (Bld) 9.5 % 0-10 [facility] Neutrophil percentageOrdered By: Max Jernigan on 09-04-2024 Neutrophils/100 WBC (Bld) 65.4 % 47-70 [facility] No Panel InformationOrdered By: Max Jernigan on 09-04-2024 Unsaturated Iron Binding Capacity 164 ug/dL Low 228-428 [facility] Nucleated red blood cell per centageOrdered By: Max Jernigan on 09-04-2024 Nucleated RBC/100 WBC (Bld) [Ratio] 0 % 0-5 [facility] Platelet countOrdered By: Cameron Jernigan on 09-04-2024 Platelets (Bld) [#/Vol] 196 10*3/uL 150-450 [facility] Potassium (Unsp spec) [Mass/ Vol]Ordered By: Max Jernigan on 09-04-2024 Potassium [Moles/Vol] 3.9 mmol/L 3.3-5.1 [facility] Potassium measurement (mass/ volume)Ordered By: Max Jernigan on 09-04-2024 Potassium (Unsp spec) [Mass/Vol] 3.9 mmol/L 3.3-5.1 [facility] RBC Auto (Bld) [#/Vol]Ordere d By: Max Jernigna on 09-04-2024 RBC (Bld) [#/Vol] 4.97 10*6/uL 4.2-5.4 [facility] Serum creatinine measurement (mass/volume)Ordered By: Max Jernigan on 09-04-2024 Creatinine [Mass/Vol] 0.91 mg/dL 0.70-1.20 [facility] Serum globulin measurementOr dered By: Max Jernigan on 09-04-2024 Globulin (S) [Mass/Vol] 3.4 g/dL 2.2-4.2 [facility] Serum glucose measurement (m ass/volume)Ordered By: Max Jernigan on 09-04-2024 Glucose [Mass/Vol] 70 mg/dL 70-99 [facility] Serum or plasma C reactive p rotein measurement (mass/volume)Ordered By: Max Jernigan on 09-04-2024 CRP [Mass/Vol] mg/L 0.0-3.0 [facility] Serum or plasma alanine lyon otransferase (ALT) measurementOrdered By: Max Jernigan on 09-04-2024 ALT [Catalytic activity/Vol] 10 U/L <35 [facility] Serum or plasma albumin sonny urement (mass/volume)Ordered By: Max Jernigan on 09-04-2024 Albumin [Mass/Vol] 4.1 g/dL 3.4-4.8 [facility] Serum or plasma albumin/glob ulin mass ratioOrdered By: Max Jernigan 09-04-2024 Albumin/Globulin [Mass ratio] 1.2 {ratio} 0.9-2.4 [facility] Serum or plasma alkaline anthony sphatase measurementOrdered By: Max Jernigan on 09-04-2024 ALP [Catalytic activity/Vol] 78 U/L 35-104 [facility] Serum or plasma calcium sonny urement (mass/volume)Ordered By: Max Jernigan on 09-04-2024 Calcium [Mass/Vol] 9.3 mg/dL 7.6-11.0 [facility] Serum or plasma iron saturat ion measurement (mass fraction)Ordered By: Max Jernigan on 09-04-2024 Iron saturation [Mass fraction] 33.3 % 13-59 [facility] Comment on above: Previous reported re sult: 33.0 %Edited by: FERNANDA on 09/04/24:1915 AMENDED REPORT 09/04/241915 IRON SATURATION previously reported as: 33.0 % Serum or plasma urea nitroge n measurement (mass/volume)Ordered By: Max Jernigan on 09-04-2024 Urea nitrogen [Mass/Vol] 18 mg/dL 4-19 [facility] Sodium levelOrdered By: Max Jernigan on 09-04-2024 Sodium [Moles/Vol] 141 mmol/L 133-145 [facility] TSH DL <= 0.005 mIU/L QnOrde red By: Max Jernigan on 09-04-2024 Thyroid Stimulating Hormone (TSH) 1.380 uIU/mL 0.300-4.20 0 [facility] TSH Qn 1.380 uIU/mL 0.300-4.20 0 [facility] Thyroid Stim Hormone (TSH)on 09-04-2024 TSH 1.380 uIU/mL Normal 0.300-4.20 0 [facility] Comment on above: Order Comment: N Performed By: #### L 503.0106, L506.0200 #### [facility] [address] [place] [address], [address] Total proteinOrdered By: Lesvia Jernigan on 09-04-2024 Protein [Mass/Vol] 7.5 g/dL 5.9-8.4 [facility] Vitamin B12 ser/plasOrdered By: Max Jernigan on 09-04-2024 Cobalamin (Vitamin B12) [Mass/Vol] 485 pg/mL 180-914 [facility] White blood cell (WBC) count Ordered By: Max Jernigan on 09-04-2024 WBC (Bld) [#/Vol] 9.1 10*3/uL 4.4-11.0 [facility] Pulmonary Visit Reporton Pulmonary Visit Report [facility] [place] [address] [place] [address] OFFICE VISIT Date of Service: 07/20/24 MR#: [id number] Acct: [id number] Name: GARTH CONLEY Rep #: [id number] : 1940 Provider: HOA Fraser Age/Sex: 84/F Location: [facility] Status: Signed Assessment and Plan Assessment and [...] mg tablet 10 mg PO QPM bladder 02/19/2206/22 History Oral appliance #1 ea 04/26/23 04/23/24 Rx ferrous sulfate 325 mg (65 mg 325 mg PO DAILY 10/06/23 07/20/24 History iron) tablet (Feosol) efrnrsoo-lnemzbe-fmwx-lutein tablet tab PO 10/06/23 07/20/24 Histor y biotin 1 mg capsule 1 mg PO QDAY (more content not included)... Normal [facility] Emergency Department Summary on 06-08-2024 Emergency Department Summary [facility] Medical Records Department [address] [place] [address] Emergency Department Summary 06/08/24 MR#: [id number] Acct: [id number] Name: GARTH CONLEY Rep #: [id number] : 1940 84 From: Max Okeefe DO [...] Patient is unsure of her last tetanus. [facility] Medical History Seasonal allergies Cancer CPAP (continuous [...] DAILY 10/06/23 Unknown History iron) tablet (Feosol) zgvuyycx-bsiovds-lrki-lutein tablet tab PO 10/06/23 Unknown History biotin [...] Abrasions; D (more content not included)... Normal [facility] Chest PA and Lateralon 04-30 Chest PA and Lateral [facility] [address] [place], [place] [address] Chest PA and Lateral MR#: [id number] Acct: [id number] Name: GARTH CONLEY Rep #: [id number] : 1940 F 83 From: Gabriele Muro MD PCP: Dr. Max Jernigan MD Status: REG CLI Study: Chest PA and Lateral Date of Exam: 04/30/24 Exam# [id number] Ordering Dr: Serena Hagan MD [id number] STUDY: X-RAY CHEST REASON FOR EXAM: Female, [...] Serena Hagan MD; Dr. Max Jernigan MD [employer] Trimmer: Signed Normal [facility] Urgent Care Visit Reporton 1 06-23-2023 Urgent Care Visit Report [facility] [address], [address] [place] [address] OFFICE VISIT Date of Service: 04/23/24 MR#: [id number] Acct: [id number] Name: GARTH CONLEY Rep #: [id number] : 1940 Provider: JOAQUÍN Howell Age/Sex: 83/F Location: [facility].NOW Status: Signed Intake Vital Signs 04/19/24 12:56 [...] DAILY 10/06/23 04/23/24 History iron) tablet (Feosol) ilwumwma-ugwjibs-ifgw-lutein tablet tab PO 10/06/23 04/23/24 History biotin [...] that is yellow. Patient has sinus drainage. [facility] Medical History (Updated 03/27/24 @ 13:10 [...] General: cooperati (more content not included)... 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 Status: REG CLI Location: PSN Date: Sex: F C PSN 6 Minute Walk Test 6 Minute Walk Test 6 Minute Walk Test: 6 Minute Walk Test PSN:6-Minute Walk Test Start: 04/19/24 12:55 Freq: Status: Active Protocol: RESP.6MINW Document 04/19/24 12:56 [facility] (Rec: 04/19/24 13:03 [facility] [id number]) 6 Minute Walk Test Date Performed 04/19/24 Time Performed 12:30 Height 5 ft 3 in Weight: 73.936 kg Weight in Pounds 163.[address]: Fraser,Janet HISTORY DEPARTMENT CHAIR Assistive device used: None Pre-test Oxygen Delivery [...] CC: Date Dictated: 04/20/241544 Date Transcribed: 04/20/241544 [facility] Trimmer: Dr. Manjit Jackson MD Signed Normal [facility] Oncology Visit Reporton Oncology Visit Report [facility] [address] [place] [address] OFFICE VISIT Date of Service: 03/27/24 1306 MR#: [id number] Acct: [id number] Name: GARTH CONLEY Rep #: [id number] : 1940 From: Yuliana Rodriguez MD Age/Sex: 83/F Location: 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 Patient is status post partial left mastectomy with sentinel lymph node biopsy followed by adjuvant radiation therapy and hormonal therapy for 5 years (initially tamoxifen then Arimidex) she is now on surveillance [facility] Medical History (Updated 03/27/24 @ 13:10 [...] Allergic/Immunologic Allergic/Immunolo (more content not included)... Normal [facility] Pulmonary Visit Reporton Pulmonary Visit Report [facility] [place] [address] [place] [address] OFFICE VISIT Date of Service: 03/26/24 MR#: [id number] Acct: [id number] Name: GARTH CONLEY Rep #: [id number] : 1940 Provider: HOA Fraser Age/Sex: 83/F Location: [facility] Status: Signed Assessment and Plan Assessment [...] evaluate control. Sending an order to the [facility] to discontinue PAP therapy since the patient [...] breath Plan Details Follow Up: 3 Months ([facility]) HPI 6 M FU Chief Complaint: new [...] FU Chief Complaint: SINUS DRAINAGE AND COUGH [employer] Required: No Accompanied by: Self Allergies clindamycin [...] DAILY 10/06/23 03/26/24 History iron) tablet (Feosol) nnawuumf-zluqhso-hwvz-lutein tablet tab PO 10/06/23 03/26/24 History biotin 1 mg capsule 1 mg PO QDAY 03/26/24 03/26/24 History omeprazole 40 mg capsule,delayed 40 mg PO QDAY 03/26/24 03/26/24 History release Have you fallen in the past year?: No PFSH Medical History Cancer CPAP (continuous positive airway pressure) dependence Irregular heart beat Nonhea (more content not included)... Normal [facility] SCRN MAMM (CAD)W/ANGELA BILATo n 03-22-2024 SCRN MAMM (CAD)W/ANGELA BILAT [facility] Imaging Services [address] [place], [place] [address] SCRN MAMM (CAD)W/ANGELA BILAT MR#: [id number] Acct: [id number] Name: GARTH CONLEY Rep #: [id number] : 1940 F 83 From: Oliverio roa MD PCP: Dr. Max Jernigan MD Status: REG [facility] Study: SCRN MAMM (CAD)W/ANGELA BILAT Date of Exam: 09/10 Exam# [id number] Ordering Dr: Yuliana Rodriguez MD [id number] MAMMOGRAPHY - BILATERAL SCREENING REASON FOR EXAM: [...] delay biopsy of a clinically suspicious abnormality. [id number] Electronically Signed: Oliverio Hung MD at 13:19 EDT , CC: Dr. Max Jernigan MD; Dr. Yuliana Rodriguez MD [employer] Trimmer: Signed Normal [facility] L7000.0750on 03-12-2024 P ELASTASE,FECA 258 Normal >200 [facility] Comment on above: Result Comment: Resu lt Units: ug Elast./g Severe Pancreatic Insufficiency: <100 Moderate Pancreatic Insufficiency: 100 - 200 Normal: >200 Performed at: [facility] [address] [id number] Medical Office Asst: Jonny Gore MD, Phone: [phone] Performed By: #### L 503.0106, L506.0200 #### [facility] [address] [place], [address] Celiac AB,Comprehensiveon ANTIGLIADIN IGA 5 units Normal 0-19 [facility] Comment on above: Order Comment: Order Date: 03/06/24 Order Info: 0751-1 - CELAB Result Comment: Nega tive 0 - 19 Weak Positive 20 - 30 Moderate to Strong Positive >30 Performed By: #### L 501.9520, L506.0400, L3410.2350 #### [facility] [address] [place], [address] ANTIGLIADIN IGG 4 units Normal 0-19 [facility] Comment on above: Order Comment: Order Date: 03/06/24 Order Info: 0751- - CELAB Result Comment: Nega tive 0 - 19 Weak Positive 20 - 30 Moderate to Strong Positive >30 Performed By: #### L 501.9520, L506.0400, L3410.2350 #### [facility] [address] [place], [address] ENDOMYSIAL IGA Negative Normal Negative [facility] Comment on above: Order Comment: Order Date: 03/06/24 Order Info: 075- - CELAB Performed By: #### L 501.9520, L506.0400, L3410.2350 #### [facility] [address] [place], [address] IMMUNOGLOB A QN 156 mg/dL Normal 64-422 [facility] Comment on above: Order Comment: Order Date: 03/06/24 Order Info: 0751-1 - CELAB Result Comment: Perf ormed at: [facility] [address] [id number] Medical Office Asst: Trell Treadwell PhD, Phone: [phone] Performed By: #### L [id number], [id number], [id number] #### [facility] [address] [place], [place], [id number] tTG IGA <2 Normal 0-3 [facility] Comment on above: Order Comment: Order Date: 03/06/24 Order Info: [id number] - CELAB Result Comment: Nega tive 0 - 3 Weak Positive 4 - 10 Positive >10 Tissue Transglutaminase (tTG) has been identified as the endomysial antigen. Studies have demonstr- ated that endomysial IgA antibodies have over 99% specificity for gluten sensitive enteropathy. Performed By: #### L [id number], [id number], [id number] #### [facility] [address] [place], [place], [id number] tTG IGG 3 U/mL Normal 0-5 [facility] Comment on above: Order Comment: Order Date: 03/06/24 Order Info: [id number] - CELAB Result Comment: Nega tive 0 - 5 Weak Positive 6 - 9 Positive >9 Performed By: #### L [id number], [id number], [id number] #### [facility] [address] [place], [place], [address] T4 Free Directon 03-06-2024 T4 FREE DIRECT 1.44 ng/dL Normal 0.76-1.46 [facility] Comment on above: Order Comment: Order Date: 03/06/24 Order Info: [id number] - TSH Order Info: [id number] - T4F Performed By: #### L [id number], [id number], [id number] #### [facility] [address] [place], [address] Thyroid Stim Hormone (TSH)on 03-06-2024 TSH 0.781 uIU/mL Normal 0.358-3.74 0 [facility] Comment on above: Order Comment: Order Date: 03/06/24 Order Info: [id number] - TSH Order Info: [id number] - T4F Performed By: #### L [id number], [id number], [id number] #### [facility] [address] [place], [address] CNOVon 10-07-2023 CNOV Office Visit (UCWSTR ) GARTH CONLEY ([id number]) 1940 [address] [place] Date Time Provider Department 10/07/23 5:30 PM ROSALVA RODRIGUEZ [facility] During your visit today, we recorded the following information about you: Temperature Pulse Respiration Blood pressure 97.9 degrees 68/minute 22/minute 133/84 Weight 79 kg Rosalva Rodriguez APRN.CNP 10/07/2023 6:26 PM Signed This note was created using NoteWriter. Subjective Garth Conley is a 83 year [...] history is provided by the patient. No educational sign language interpreter was used. Illness The current episode [...] azelastine (ASTELIN) 0.1% nasal spray Use 1 [place] in each nostril twice daily. levothyroxine (SYNTHROID) [...] Reported on 10/07/2023) L. gasseri-B. bifidum-B longum ([employer]) 1.5 billion cell cap Take 1 capsule [...] once daily. (more content not included)... Normal [facility] Absolute lymphocyte countOrd ered By: Max Jernigan on 07-04-2023 Lymphocytes Auto (Unsp spec) [#/Vol] 1.47 10*3/uL 0.83-4.51 [facility] Basophil percentageOrdered B y: Max Jernigan on 07-04-2023 Basophils/100 WBC (Bld) 0.9 % 0-1 [facility] Bilirubin [Mass/Vol] 0.60 mg/dL 0.20-1.00 [facility] Comment on above: For patients on eltr ombopag therapy, use of Dimension [place] TBIL is not recommended. Chloride [Moles/Vol] 111 mmol/L 98-107 [facility] Eosinophils/100 WBC (Bld) 8.6 % 0-5 [facility] Glucose [Mass/Vol] 103 mg/dL 74-106 [facility] Comment on above: Fasting Glucose resu lt from 100 to 125 mg/dL suggests IMPAIRED HOMEOSTASIS per A.D.A. criteria. Neutrophils (Bld) [#/Vol] 3.9 10*3/uL 2.0-7.7 [facility] Neutrophils/100 WBC (Bld) 58.3 % 47-70 [facility] Potassium [Moles/Vol] 4.0 mmol/L 3.5-5.1 [facility] Protein [Mass/Vol] 7.4 g/dL 6.4-8.2 [facility] Sodium [Moles/Vol] 143 mmol/L 136-145 [facility] WBC (Bld) [#/Vol] 6.6 10*3/uL 4.4-11.0 [facility] Blood erythrocytes count (nu mber/volume)Ordered By: Max Jernigan on 07-04-2023 RBC (Bld) [#/Vol] 4.88 10*6/uL 4.2-5.4 [facility] Blood hemoglobin measurement (mass/volume)Ordered By: Max Jernigan on 07-04-2023 Hemoglobin (Bld) [Mass/Vol] 14.1 g/dL 12.0-15.0 [facility] Blood lymphocytes/100 leukoc ytesOrdered By: Max Jernigan on 07-04-2023 Lymphocytes/100 WBC (Bld) 22.2 % 19-41 [facility] Blood manual differential co mment interpretation (narrative result)Ordered By: Max Jernigan on 07-04-2023 Manual differential comment Mathew (Bld) [Interp] SCANNED [facility] Blood monocytes/100 leukocyt esOrdered By: Max Jernigan on 07-04-2023 Monocytes/100 WBC (Bld) 9.7 % 0-10 [facility] Blood platelet mean volumeOr dered By: Max Jernigan on 07-04-2023 Platelet mean volume (Bld) [Entitic vol] 11.7 fL 6.2-12.0 [facility] Determination of erythrocyte mean corpuscular volume (MCV)Ordered By: Max Jernigan on 07-04-2023 MCV (RBC) [Entitic vol] 91.6 fL 81-99 [facility] Folic acid serumOrdered By: Max Jernigan on 07-04-2023 Folate [Mass/Vol] 25.10 ng/mL 3.1-55.4 [facility] Comment on above: Slight Hemolysis, Re sult may be falsely increased. Hematocrit Auto (Bld) [Volum e fraction]Ordered By: Max Jernigan on 07-04-2023 Hematocrit (Bld) [Volume fraction] 44.7 % 37-47 [facility] - Chemistry and C hemistry - challengeOrdered By: Max Jernigan on 07-04-2023 ALP [Catalytic activity/Vol] 76 U/L 45-117 [facility] ALT [Catalytic activity/Vol] 24 U/L 13-56 [facility] CO2 [Moles/Vol] 23.0 mmol/L 21.0-32.0 [facility] Cobalamin (Vitamin B12) [Mass/Vol] 388 pg/mL 211-911 [facility] Globulin (S) [Mass/Vol] 4.0 g/dL 2.2-4.2 [facility] Magnesium [Mass/Vol] 2.3 mg/dL 1.6-2.6 [facility] Urea nitrogen/Creatinine [Mass ratio] 18.4 mg/mg 10-20 [facility] - Hematology and Cell countsOrdered By: Max Jernigan on 07-04-2023 Erythrocyte distribution width (RBC) [Entitic vol] 46.2 fL 35.1-43.9 [facility] Erythrocyte distribution width (RBC) [Ratio] 13.6 % 11.6-14.6 [facility] Immature granulocytes/100 WBC (Bld) 0.300 % 0.0-0.9 [facility] Comment on above: IG% - Immature Granu locytes (promyelocytes, myelocytes and metamyelocytes) > 1% indicates that a LEFT SHIFT is Present. MCH (RBC) [Entitic mass] 28.9 pg 27.0-32.0 [facility] Nucleated RBC/100 WBC (Bld) [Ratio] 0 % 0-5 [facility] MCHC Auto (RBC) [Mass/Vol]Or dered By: Max Jernigan on 07-04-2023 MCHC (RBC) [Mass/Vol] 31.5 g/dL 32-36 [facility] No Panel InformationOrdered By: Max Jernigan on 07-04-2023 Estimated GFR (MDRD) Amer 74 mL/min >60 [facility] Comment on above: GFR Calc Estimated GFR (MDRD) Non-Af Amer 61 mL/min >60 [facility] Comment on above: Non- GFR Calc Platelets bldOrdered By: Lesvia Jernigan on 07-04-2023 Platelets (Bld) [#/Vol] 176 10*3/uL 150-450 [facility] Serum or plasma C reactive p rotein measurement (mass/volume)Ordered By: Max Jernigan on 07-04-2023 CRP [Mass/Vol] 3.10 mg/L 0.0-3.0 [facility] Comment on above: C-Reactive Protein ( CRP) provides useful information for thediagnosis, therapy and monitoring of inflammatory processesand associated diseases. For the evaluation of Relative Riskfor Cardiovascular Disease, a High Sensitivity CRP (HSCRP)should be ordered. Serum or plasma albumin sonny urement (mass/volume)Ordered By: Max Jernigan on 07-04-2023 Albumin [Mass/Vol] 3.4 g/dL 3.2-5.0 [facility] Serum or plasma albumin/glob ulin mass ratioOrdered By: Max Jernigan on 07-04-2023 Albumin/Globulin [Mass ratio] 0.8 {ratio} 0.9-2.4 [facility] Serum or plasma calcium sonny urement (mass/volume)Ordered By: Max Jernigan on 07-04-2023 Calcium [Mass/Vol] 8.8 mg/dL 8.5-10.1 [facility] Serum or plasma creatinine m easurement (mass/volume)Ordered By: Max Jernigan on 07-04-2023 Creatinine [Mass/Vol] 0.92 mg/dL 0.55-1.02 [facility] Comment on above: The validity of the calculated GFR & GFRAA in patients over 70 years has not been determined. Clinical correlation is essential. Serum or plasma ferritin reta surement (mass/volume)Ordered By: Max Jernigan on 07-04-2023 Ferritin [Mass/Vol] 326 ng/mL 8 [facility] Serum or plasma urea nitroge n measurement (mass/volume)Ordered By: Max Jernigan on 07-04-2023 Urea nitrogen [Mass/Vol] 17 mg/dL 7-18 [facility] Thin prep Papanicolaou smear with manual screeningOrdered By: Max Jernigan on 07-04-2023 Thin prep Papanicolaou smear with manual screening 22 U/L 15 [facility] Thin prep Papanicolaou smear with manual screening 9 - [facility] Absolute lymphocyte countOrd ered By: Dr. Jernigan on 12-01-2022 Lymphocytes Auto (Unsp spec) [#/Vol] 1.65 10*3/uL 0.83-4.51 [facility] Basophil percentageOrdered B y: Dr. Jernigan on 12-01-2022 Basophils/100 WBC (Bld) 0.9 % 0-1 [facility] Bilirubin [Mass/Vol] 0.80 mg/dL 0.20-1.00 [facility] Comment on above: For patients on eltr ombopag therapy, use of Dimension [place] TBIL is not recommended. Chloride [Moles/Vol] 112 mmol/L 98-107 [facility] Cholesterol [Mass/Vol] 182 mg/dL <200 [facility] Comment on above: <200 mg/dL Desirable 200-240 mg/dL Borderline >240 mg/dL High Risk Eosinophils/100 WBC (Bld) 7.2 % 0-5 [facility] Glucose [Mass/Vol] 123 mg/dL 74-106 [facility] Comment on above: Fasting Glucose resu lt from 100 to 125 mg/dL suggests IMPAIRED HOMEOSTASIS per A.D.A. criteria. Neutrophils (Bld) [#/Vol] 3.8 10*3/uL 2.0-7.7 [facility] Neutrophils/100 WBC (Bld) 57.0 % 47-70 [facility] Potassium [Moles/Vol] 4.5 mmol/L 3.5-5.1 [facility] Protein [Mass/Vol] 7.2 g/dL 6.4-8.2 [facility] Sodium [Moles/Vol] 142 mmol/L 136-145 [facility] Triglyceride [Mass/Vol] 230 mg/dL <199 [facility] Comment on above: The drugs N-Acetylcy steine and Metamizole may falsely depress this assay.Serum Triglycerides Reference Interval Normal <150 mg/dL Borderline high 150 - 199 mg/dL High 200 - 499 mg/dL Very High > or = 500 mg/dL WBC (Bld) [#/Vol] 6.7 10*3/uL 4.4-11.0 [facility] Blood erythrocytes count (nu mber/volume)Ordered By: Dr. Jernigan on 12-01-2022 RBC (Bld) [#/Vol] 4.70 10*6/uL 4.2-5.4 [facility] Blood hemoglobin measurement (mass/volume)Ordered By: Dr. Jernigan on 12-01-2022 Hemoglobin (Bld) [Mass/Vol] 13.8 g/dL 12.0-15.0 [facility] Blood lymphocytes/100 leukoc ytesOrdered By: Dr. Jernigan on 12-01-2022 Lymphocytes/100 WBC (Bld) 24.7 % 19-41 [facility] Blood monocytes/100 leukocyt esOrdered By: Dr. Jernigan on 12-01-2022 Monocytes/100 WBC (Bld) 9.9 % 0-10 [facility] Blood platelet mean volumeOr dered By: Dr. Jernigan on 12-01-2022 Platelet mean volume (Bld) [Entitic vol] 11.5 fL 6.2-12.0 [facility] Determination of erythrocyte mean corpuscular volume (MCV)Ordered By: Dr. Jernigan on 12-01-2022 MCV (RBC) [Entitic vol] 90.4 fL 81-99 [facility] Hematocrit Auto (Bld) [Volum e fraction]Ordered By: Dr. Jernigan on 12-01-2022 Hematocrit (Bld) [Volume fraction] 42.5 % 37-47 [facility] - Chemistry and C hemistry - challengeOrdered By: Dr. Jernigan on 12-01-2022 ALP [Catalytic activity/Vol] 74 U/L 45-117 [facility] ALT [Catalytic activity/Vol] 27 U/L 13-56 [facility] CO2 [Moles/Vol] 24.0 mmol/L 21.0-32.0 [facility] Free T4 [Mass/Vol] 1.17 ng/dL 0.76-1.46 [facility] Globulin (S) [Mass/Vol] 3.7 g/dL 2.2-4.2 [facility] Urea nitrogen/Creatinine [Mass ratio] 18.8 mg/mg 10-20 [facility] - Hematology and Cell countsOrdered By: Dr. Jernigan on 12-01-2022 Erythrocyte distribution width (RBC) [Entitic vol] 43.7 fL 35.1-43.9 [facility] Erythrocyte distribution width (RBC) [Ratio] 13.2 % 11.6-14.6 [facility] Immature granulocytes/100 WBC (Bld) 0.300 % 0.0-0.9 [facility] Comment on above: IG% - Immature Granu locytes (promyelocytes, myelocytes and metamyelocytes) > 1% indicates that a LEFT SHIFT is Present. MCH (RBC) [Entitic mass] 29.4 pg 27.0-32.0 [facility] Nucleated RBC/100 WBC (Bld) [Ratio] 0 % 0-5 [facility] MCHC Auto (RBC) [Mass/Vol]Or dered By: Dr. Jernigan on 12-01-2022 MCHC (RBC) [Mass/Vol] 32.5 g/dL 32-36 [facility] No Panel InformationOrdered By: Dr. Jernigan on 12-01-2022 Estimated GFR (MDRD) Amer 71 mL/min >60 [facility] Comment on above: GFR Calc Estimated GFR (MDRD) Non-Af Amer 59 mL/min >60 [facility] Comment on above: Non- GFR Calc Free Triiodothyronine (T3) pg/dL 2.4 pg/mL 2.18-3.98 [facility] Thyroid Stimulating Hormone (TSH) 1.64 uIU/mL 0.358-3.74 [facility] Vitamin D 25-Hydroxy 33.8 ng/mL [facility] Comment on above: Vitamin D 25(OH) Sta tus Range Deficiency <20 ng/mL (50nmol/L) Insufficiency 20 - 30 ng/mL (50 - 75 nmol/L) Sufficiency 30 - 100 ng/mL (75 - 250 nmol/L) Toxicity >100 ng/mL (>250 nmol/L) Platelets bldOrdered By: Dr. Jernigan on 12-01-2022 Platelets (Bld) [#/Vol] 195 10*3/uL 150-450 [facility] Serum or plasma albumin sonny urement (mass/volume)Ordered By: Dr. Jernigan on 12-01-2022 Albumin [Mass/Vol] 3.5 g/dL 3.2-5.0 [facility] Serum or plasma albumin/glob ulin mass ratioOrdered By: Dr. Jernigan on 12-01-2022 Albumin/Globulin [Mass ratio] 0.9 {ratio} 0.9-2.4 [facility] Serum or plasma calcium sonny urement (mass/volume)Ordered By: Dr. Jernigan on 12-01-2022 Calcium [Mass/Vol] 8.9 mg/dL 8.5-10.1 [facility] Serum or plasma cholesterol in HDL measurement (mass/volume)Ordered By: Dr. Jernigan on 12-01-2022 Cholesterol in HDL [Mass/Vol] 49 mg/dL >40 [facility] Comment on above: The drugs N-Acetylcy steine and Metamizole may falsely depress this assay. Reference Range HDL <40 mg/dL Low HDL Cholesterol HDL >or= 60 mg/dL High HDL Cholesterol Serum or plasma cholesterol in VLDL measurement (mass/volume)Ordered By: Dr. Jernigan on 12-01-2022 Cholesterol in VLDL [Mass/Vol] 46 mg/dL 5-40 [facility] Serum or plasma creatinine m easurement (mass/volume)Ordered By: Dr. Jernigan on 12-01-2022 Creatinine [Mass/Vol] 0.96 mg/dL 0.55-1.02 [facility] Comment on above: The validity of the calculated GFR & GFRAA in patients over 70 years has not been determined. Clinical correlation is essential. Serum or plasma low density lipoprotein (LDL) cholesterol measurement (mass/volume)Ordered By: Dr. Jernigan on 12-01-2022 Cholesterol in LDL [Mass/Vol] 87 mg/dL 0-130 [facility] Serum or plasma urea nitroge n measurement (mass/volume)Ordered By: Dr. Jernigan on 12-01-2022 Urea nitrogen [Mass/Vol] 18 mg/dL 7-18 [facility] Thin prep Papanicolaou smear with manual screeningOrdered By: Dr. Jernigan on 12-01-2022 Thin prep Papanicolaou smear with manual screening 20 U/L 15-37 [facility] Thin prep Papanicolaou smear with manual screening 6 5-15 [facility] Absolute lymphocyte counton 02-19-2022 Lymphocytes Auto (Unsp spec) [#/Vol] 1.80 10*3/uL 0.83-4.51 [facility] Work Phone: Basophil percentageon 2021 Basophils/100 WBC (Bld) 0.6 % 0-1 [facility] Work Phone: Chloride [Moles/Vol] 111 mmol/L 98-107 [facility] Work Phone: Eosinophils/100 WBC (Bld) 3.0 % 0-5 [facility] Work Phone: Glucose [Mass/Vol] 74 mg/dL 74-106 [facility] Work Phone: Neutrophils (Bld) [#/Vol] 5.0 10*3/uL 2.0-7.7 [facility] Work Phone: Neutrophils/100 WBC (Bld) 64.2 % 47-70 [facility] Work Phone: Potassium [Moles/Vol] 3.9 mmol/L 3.5-5.1 [facility] Work Phone: Sodium [Moles/Vol] 143 mmol/L 136-145 [facility] Work Phone: WBC (Bld) [#/Vol] 7.8 10*3/uL 4.4-11.0 [facility] Work Phone: Blood erythrocytes count (nu mber/volume)on 02-19-2022 RBC (Bld) [#/Vol] 4.24 10*6/uL 4.2-5.4 [facility] Work Phone: Blood hemoglobin measurement (mass/volume)on 02-19-2022 Hemoglobin (Bld) [Mass/Vol] 12.7 g/dL 12.0-15.0 [facility] Work Phone: Blood lymphocytes/100 leukoc yteson 02-19-2022 Lymphocytes/100 WBC (Bld) 23.1 % 19-41 [facility] Work Phone: [phone] Blood monocytes/100 leukocyt eson 02-19-2022 Monocytes/100 WBC (Bld) 8.7 % 0-10 [facility] Work Phone: Blood platelet mean volumeon 02-19-2022 Platelet mean volume (Bld) [Entitic vol] 11.7 fL 6.2-12.0 [facility] Work Phone: Determination of erythrocyte mean corpuscular volume (MCV)on 02-19-2022 MCV (RBC) [Entitic vol] 89.4 fL 81-99 [facility] Work Phone: Glucose Glucometer (BldC) [M ass/Vol]on 02-19-2022 Glucose [Mass/Vol] 96 mg/dL 74-106 [facility] Work Phone: Comment on above: MANAGEMENT OF PATIEN T CARE PER NURSING PROTOCOL Glucose [Mass/Vol] 100 mg/dL 74-106 [facility] Work Phone: Comment on above: MANAGEMENT OF PATIEN T CARE PER NURSING PROTOCOL Hematocrit Auto (Bld) [Volum e fraction]on 02-19-2022 Hematocrit (Bld) [Volume fraction] 37.9 % 37-47 [facility] Work Phone: Laboratory - Chemistry and C hemistry - challengeon 02-19-2022 CO2 [Moles/Vol] 26.0 mmol/L 21.0-32.0 [facility] Work Phone: Urea nitrogen/Creatinine [Mass ratio] 20.4 mg/mg 10-20 [facility] Work Phone: Laboratory - Hematology and Cell countson 02-19-2022 Erythrocyte distribution width (RBC) [Entitic vol] 43.8 fL 35.1-43.9 [facility] Work Phone: Erythrocyte distribution width (RBC) [Ratio] 13.4 % 11.6-14.6 [facility] Work Phone: Immature granulocytes/100 WBC (Bld) 0.400 % 0.0-0.9 [facility] Work Phone: Comment on above: IG% - Immature Granu locytes (promyelocytes, myelocytes and metamyelocytes) > 1% indicates that a LEFT SHIFT is Present. MCH (RBC) [Entitic mass] 30.0 pg 27.0-32.0 [facility] Work Phone: Nucleated RBC/100 WBC (Bld) [Ratio] 0 % 0-5 [facility] Work Phone: MCHC Auto (RBC) [Mass/Vol]on 02-19-2022 MCHC (RBC) [Mass/Vol] 33.5 g/dL 32-36 [facility] Work Phone: No Panel Informationon 02-19 Estimated Creatinine Clearance Calc 42.48 ml/min [facility] Work Phone: Estimated GFR (MDRD) Amer 84 mL/min >60 [facility] Work Phone: Comment on above: GFR Calc Estimated GFR (MDRD) Non-Af Amer 69 mL/min >60 [facility] Work Phone: Comment on above: Non- GFR Calc Platelets bldon 02-19-2022 Platelets (Bld) [#/Vol] 157 10*3/uL 150-450 [facility] Work Phone: Serum or plasma calcium sonny urement (mass/volume)on 02-19-2022 Calcium [Mass/Vol] 8.6 mg/dL 8.5-10.1 [facility] Work Phone: Serum or plasma creatinine m easurement (mass/volume)on 02-19-2022 Creatinine [Mass/Vol] 0.83 mg/dL 0.55-1.02 [facility] Work Phone: Comment on above: The validity of the calculated GFR & GFRAA in patients over 70 years has not been determined. Clinical correlation is essential. Serum or plasma urea nitroge n measurement (mass/volume)on 02-19-2022 Urea nitrogen [Mass/Vol] 17 mg/dL 7-18 [facility] Work Phone: Thin prep Papanicolaou smear with manual screeningon 02-19-2022 Thin prep Papanicolaou smear with manual screening 6 5-15 [facility] Work Phone: Absolute lymphocyte counton 02-02-2022 Lymphocytes Auto (Unsp spec) [#/Vol] 1.90 10*3/uL 0.83-4.51 [facility] Work Phone: Basophil percentageon 2021 Basophils/100 WBC (Bld) 0.8 % 0-1 [facility] Work Phone: Bilirubin [Mass/Vol] 0.70 mg/dL 0.20-1.00 [facility] Work Phone: Comment on above: For patients on eltr ombopag therapy, use of Dim[employer] TBIL is not recommended. Chloride [Moles/Vol] 106 mmol/L 98-107 [facility] Work Phone: Cholesterol [Mass/Vol] 202 mg/dL <200 [facility] Work Phone: Comment on above: <200 mg/dL Desirable 200-240 mg/dL Borderline >240 mg/dL High Risk Eosinophils/100 WBC (Bld) 4.0 % 0-5 [facility] Work Phone: Glucose [Mass/Vol] 91 mg/dL 74-106 [facility] Work Phone: [phone] Neutrophils (Bld) [#/Vol] 4.9 10*3/uL 2.0-7.7 [facility] Work Phone: [phone] Neutrophils/100 WBC (Bld) 61.8 % 47-70 [facility] Work Phone: [phone] Potassium [Moles/Vol] 4.0 mmol/L 3.5-5.1 [facility] Work Phone: [phone] Protein [Mass/Vol] 8.1 g/dL 6.4-8.2 [facility] Work Phone: Sodium [Moles/Vol] 139 mmol/L 136-145 [facility] Work Phone: [phone] Triglyceride [Mass/Vol] 225 mg/dL <199 [facility] Work Phone: [phone] Comment on above: The drugs N-Acetylcy steine and Metamizole may falsely depress this assay.Serum Triglycerides Reference Interval Normal <150 mg/dL Borderline high 150 - 199 mg/dL High 200 - 499 mg/dL Very High > or = 500 mg/dL WBC (Bld) [#/Vol] 7.9 10*3/uL 4.4-11.0 [facility] Work Phone: [phone] Blood erythrocytes count (nu mber/volume)on 02-02-2022 RBC (Bld) [#/Vol] 4.75 10*6/uL 4.2-5.4 [facility] Work Phone: Blood hemoglobin measurement (mass/volume)on 02-02-2022 Hemoglobin (Bld) [Mass/Vol] 14.4 g/dL 12.0-15.0 [facility] Work Phone: Blood lymphocytes/100 leukoc yteson 02-02-2022 Lymphocytes/100 WBC (Bld) 24.0 % 19-41 [facility] Work Phone: Blood monocytes/100 leukocyt eson 02-02-2022 Monocytes/100 WBC (Bld) 9.1 % 0-10 [facility] Work Phone: Blood platelet mean volumeon 02-02-2022 Platelet mean volume (Bld) [Entitic vol] 11.5 fL 6.2-12.0 [facility] Work Phone: [phone] Determination of erythrocyte mean corpuscular volume (MCV)on 02-02-2022 MCV (RBC) [Entitic vol] 91.6 fL 81-99 [facility] Work Phone: [phone] Hematocrit Auto (Bld) [Volum e fraction]on 02-02-2022 Hematocrit (Bld) [Volume fraction] 43.5 % 37-47 [facility] Work Phone: [phone] Iron measurement (mass/mass) on 02-02-2022 Iron (Unsp spec) [Mass/Mass] 113 ug/dL 50-170 [facility] Work Phone: [phone] Laboratory - Chemistry and C hemistry - challengeon 02-02-2022 ALP [Catalytic activity/Vol] 89 U/L 45-117 [facility] Work Phone: [phone] ALT [Catalytic activity/Vol] 26 U/L 13-56 [facility] Work Phone: [phone] CO2 [Moles/Vol] 27.0 mmol/L 21.0-32.0 [facility] Work Phone: [phone] Cobalamin (Vitamin B12) [Mass/Vol] 421 pg/mL 211-911 [facility] Work Phone: [phone] Free T4 [Mass/Vol] 1.23 ng/dL 0.76-1.46 [facility] Work Phone: [phone] Globulin (S) [Mass/Vol] 4.3 g/dL 2.2-4.2 [facility] Work Phone: [phone] Urea nitrogen/Creatinine [Mass ratio] 15.4 mg/mg 10-20 [facility] Work Phone: Laboratory - Hematology and Cell countson 02-02-2022 Erythrocyte distribution width (RBC) [Entitic vol] 45.5 fL 35.1-43.9 [facility] Work Phone: Erythrocyte distribution width (RBC) [Ratio] 13.3 % 11.6-14.6 [facility] Work Phone: Immature granulocytes/100 WBC (Bld) 0.300 % 0.0-0.9 [facility] Work Phone: Comment on above: IG% - Immature Granu locytes (promyelocytes, myelocytes and metamyelocytes) > 1% indicates that a LEFT SHIFT is Present. MCH (RBC) [Entitic mass] 30.3 pg 27.0-32.0 [facility] Work Phone: Nucleated RBC/100 WBC (Bld) [Ratio] 0 % 0-5 [facility] Work Phone: MCHC Auto (RBC) [Mass/Vol]on 02-02-2022 MCHC (RBC) [Mass/Vol] 33.1 g/dL 32-36 [facility] Work Phone: No Panel Informationon 02-02 Estimated GFR (MDRD) Amer 76 mL/min >60 [facility] Work Phone: Comment on above: GFR Calc Estimated GFR (MDRD) Non-Af Amer 63 mL/min >60 [facility] Work Phone: Comment on above: Non- GFR Calc Thyroid Stimulating Hormone (TSH) 1.19 uIU/mL 0.358-3.74 [facility] Work Phone: Platelets bldon 02-02-2022 Platelets (Bld) [#/Vol] 191 10*3/uL 150-450 [facility] Work Phone: Serum or plasma albumin sonny urement (mass/volume)on 02-02-2022 Albumin [Mass/Vol] 3.8 g/dL 3.2-5.0 [facility] Work Phone: Serum or plasma albumin/glob ulin mass ratioon 02-02-2022 Albumin/Globulin [Mass ratio] 0.9 {ratio} 0.9-2.4 [facility] Work Phone: Serum or plasma calcium sonny urement (mass/volume)on 02-02-2022 Calcium [Mass/Vol] 8.9 mg/dL 8.5-10.1 [facility] Work Phone: Serum or plasma cholesterol in HDL measurement (mass/volume)on 02-02-2022 Cholesterol in HDL [Mass/Vol] 50 mg/dL >40 [facility] Work Phone: Comment on above: The drugs N-Acetylcy steine and Metamizole may falsely depress this assay. Reference Range HDL <40 mg/dL Low HDL Cholesterol HDL >or= 60 mg/dL High HDL Cholesterol Serum or plasma cholesterol in VLDL measurement (mass/volume)on 02-02-2022 Cholesterol in VLDL [Mass/Vol] 45 mg/dL 5-40 [facility] Work Phone: Serum or plasma creatinine m easurement (mass/volume)on 02-02-2022 Creatinine [Mass/Vol] 0.91 mg/dL 0.55-1.02 [facility] Work Phone: Comment on above: The validity of the calculated GFR & GFRAA in patients over 70 years has not been determined. Clinical correlation is essential. Serum or plasma folate measu rement (mass/volume)on 02-02-2022 Folate [Mass/Vol] 13.00 ng/mL 3.1-55.4 [facility] Work Phone: Comment on above: Slight Hemolysis, Re sult may be falsely increased. Serum or plasma low density lipoprotein (LDL) cholesterol measurement (mass/volume)on 02-02-2022 Cholesterol in LDL [Mass/Vol] 107 mg/dL 0-130 [facility] Work Phone: Serum or plasma urea nitroge n measurement (mass/volume)on 02-02-2022 Urea nitrogen [Mass/Vol] 14 mg/dL 7-18 [facility] Work Phone: Thin prep Papanicolaou smear with manual screeningon 02-02-2022 Thin prep Papanicolaou smear with manual screening 20 U/L 15-37 [facility] Work Phone: Thin prep Papanicolaou smear with manual screening 6 5-15 [facility] Work Phone: Operative Reporton 2 Operative Report [facility] ITAL [address] [place], [place] [address] RECORD OF PROCEDURE PATIENT NAME: GARTH CONLEY DATE OF : 1940 MED REC #: [id number] PT LOCATION: OR PACU PT TYPE: OPS AGE: 81 SEX: F ADMISSION DATE: 11/09/2021 DATE OF SERVICE: 11/09/2021 SURGEON: eKndra García MD ESTIMATED BLOOD LOSS: Minimal. DRAINS: [...] in satisfactory condition. COMPLICATIONS: None. CONDITION: Stable. Kendra García MD [facility]/[id number] SSI File#: [id number] CC: Kendra García MD [facility] Surgical Pathology Department Name GARTH CONLEY Pathologist: BARRY LA M.D. Date of Procedure: 11/09/2021 Date Received: 11/09/2021 Date Reported 11/25/2021 Submitting Physician: KENDRA GARCÍA MD Location: [facility] Copy To/Referring/Attending: MAX JERNIGAN MD Other External # [id number] FINAL DIAGNOSIS A. SKIN. SITE NOT STATED, BIOPSY: -- DERMAL FIBROSIS, CHRONIC INFLAMMATION AND CALCIFICATION, SEE COMMENT COMMENT: The underlying etiology of this process is unclear. Clinical correlation is suggested. tour consultant: Dr. Sammie Godwin. Electronically Signed Out By BARRY LA M.D./Evonne By the signature on this report, the individual or group listed as making the Final Interpretation/Diagnosis certifies that they have reviewed this case. Diagnostic interpretation performed at [facility] [address] [place] [address] Clinical History: skin calcification Specimens Submitted As: A: SKIN CALCIFICATION Other Case Numbers [id number] Gross Description: Received in formalin, labeled with the patient's name and hospital number and skin calcification, consists of multiple yellow-moore, hard and segments of soft tissue aggregating to 1.5 x 1.2 x 0.3 cm. The specimen is submitted in toto in one cassette, following decalcification. MJR mjr/11/11/2021 [facility] Department of Pathology [address] [place] [address] Normal [facility] Comment on above: Performed By: #### U [facility] #### [facility] Surgical Pathology Department [address] [place], [place] [id number] Operative Reporton 2 Operative Report [facility] ITAL [address] [place], [place] [address] RECORD OF PROCEDURE PATIENT NAME: GARTH CONLEY DATE OF : 1940 MED REC #: [id number] PT LOCATION: OR PACU PT TYPE: OPS AGE: 81 SEX: F ADMISSION DATE: 10/26/2021 DATE OF SERVICE: 10/26/2021 SURGEON: Kendra García MD 1ST BENEFIT SPECIALIST: Hieu Montoya ESTIMATED BLOOD LOSS: Minimal. DRAINS: [...] epithelium w (more content not included)... Normal [facility] Basic Metabolic Panelon 05-0 Anion gap [Moles/Vol] 12 mmol/L Normal 8-15 [facility] Comment on above: Performed By: #### B MP #### [facility] [address] [place] [address]150 Calcium [Mass/Vol] 9.7 mg/dL Normal 8.6-10.6 [facility] Comment on above: Performed By: #### B MP #### [facility] [address] [place] [address] 03932 Chloride [Moles/Vol] 106 mmol/L Normal 98-107 [facility] Comment on above: Performed By: #### B MP #### [facility] [address] [place] [address] 92113 CO2 [Moles/Vol] 22 mmol/L Normal 22-29 [facility] Comment on above: Performed By: #### B MP #### [facility] [address] [place] [address] 29547 Creatinine [Mass/Vol] 0.9 mg/dL Normal 0.5-1.2 [facility] Comment on above: Performed By: #### B MP #### [facility] [address] [place] [address] 05435 eGFR -Amer >=60 Normal >=60 [facility] Comment on above: Performed By: #### B MP #### [facility] [address] [place] [address] 31395 GFR/1.73 sq M.predicted among non-blacks MDRD (S/P/Bld) [Vol rate/Area] mL/min/{1.73_m2} Normal >=60 [facility] Comment on above: Performed By: #### B MP #### [facility] [address] [place] [address] 20658 Glucose [Mass/Vol] 79 mg/dL Normal 74-109 [facility] Comment on above: Performed By: #### B MP #### [facility] [address] [place] [address] 8[address]30 Potassium [Moles/Vol] 4.7 mmol/L Normal 3.4-5.1 [facility] Comment on above: Performed By: #### B MP #### [facility] [address] [place] [address] 62914 Sodium [Moles/Vol] 140 mmol/L Normal 136-145 [facility] Comment on above: Performed By: #### B MP #### [facility] [address] [place] [address] 21510 Urea nitrogen [Mass/Vol] 19 mg/dL Normal 6-23 [facility] Comment on above: Performed By: #### B MP #### [facility] [address] [place] [address] 03153 CBC with Diffon 10-21-2021 BA# 0.0 x(10)3/cumm Normal 0.0-0.1 [facility] Comment on above: Performed By: #### C BCDIFF #### [facility] [address] [place] [address] 56092 Basophils/100 WBC (Bld) 0.5 % Normal 0.0-1.0 [facility] Comment on above: Performed By: #### C BCDIFF #### [facility] [address] [place] [address] 42042 EO# 0.3 x(10)3/cumm Normal 0.0-0.4 [facility] Comment on above: Performed By: #### C BCDIFF #### [facility] [address] [place] [address] 78835 Eosinophils/100 WBC (Bld) 3.3 % Normal 0.0-6.1 [facility] Comment on above: Performed By: #### C BCDIFF #### [facility] [address] [place] [address] 69773 Erythrocyte distribution width (RBC) [Ratio] 13.6 % Normal 11.1-15.3 [facility] Comment on above: Performed By: #### C BCDIFF #### [facility] [address] [place] [address] 31743 Hematocrit (Bld) [Volume fraction] 41.6 % Normal 34.6-45.0 [facility] Comment on above: Performed By: #### C BCDIFF #### [facility] [address] [place] [address] 27674 Hemoglobin (Bld) [Mass/Vol] 14.2 g/dL Normal 11.5-15.5 [facility] Comment on above: Performed By: #### C BCDIFF #### [facility] [address] [place] [address] 75955 LY# 1.9 x(10)3/cumm Normal 0.8-2.9 [facility] Comment on above: Performed By: #### C BCDIFF #### [facility] [address] [place] [address] 23140 Lymphocytes/100 WBC (Bld) 22.8 % Normal 12.2-42.6 [facility] Comment on above: Performed By: #### C BCDIFF #### [facility] [address] [place] [address] 52559 MCH (RBC) [Entitic mass] 29.9 pg Normal 27.2-33.6 [facility] Comment on above: Performed By: #### C BCDIFF #### [facility] [address] [place] [address] 02974 MCHC (RBC) [Mass/Vol] 34.2 g/dL Normal 32.9-35.3 [facility] Comment on above: Performed By: #### C BCDIFF #### [facility] [address] [place] [address] 12949 MCV (RBC) [Entitic vol] 87.5 fL Normal 81.3-96.7 [facility] Comment on above: Performed By: #### C BCDIFF #### [facility] [address] [place] [address] 78613 MO# 0.9 x(10)3/cumm High 0.2-0.8 [facility] Comment on above: Performed By: #### C BCDIFF #### [facility] [address] [place] [address] 27292 Monocytes/100 WBC (Bld) 11.0 % Normal 3.3-11.6 [facility] Comment on above: Performed By: #### C BCDIFF #### [facility] [address] [place] [address] 65945 NE# 5.2 x(10)3/cumm Normal 1.3-7.4 [facility] Comment on above: Performed By: #### C BCDIFF #### [facility] [address] [place] [address] 83387 Neutrophils/100 WBC (Bld) 62.4 % Normal 44.9-78.8 [facility] Comment on above: Performed By: #### C BCDIFF #### [facility] [address] [place] [address] 95653 Platelet mean volume (Bld) [Entitic vol] 9.3 fL Normal 6.4-10.0 [facility] Comment on above: Performed By: #### C BCDIFF #### [facility] [address] [place] [address] 26946 PLT 194 x(10)3/cumm Normal 138-367 [facility] Comment on above: Performed By: #### C BCDIFF #### [facility] [address] [place] [address] Plt Morph Normal [facility] Comment on above: Performed By: #### C BCDIFF #### [facility] [address] [place], [place] [phone] RBC 4.75 X(10)6/cumm Normal 3.90-5.10 [facility] Comment on above: Performed By: #### C BCDIFF #### [facility] [address] [place] [address] RBC Morph cont [facility] Comment on above: Performed By: #### C BCDIFF #### [facility] [address] [place] [address] RBC morphology finding Nom (Bld) [facility] Comment on above: Performed By: #### C BCDIFF #### [facility] [address] [place], [place] [id number] WBC 8.3 x(10)3/cumm Normal 3.6-10.3 [facility] Comment on above: Performed By: #### C BCDIFF #### [facility] [address] [place] [address] WBC Morph Normal [facility] Comment on above: Performed By: #### C BCDIFF #### [facility] [address] [place] [address] CNTHERAPYon 01-27-2021 CNTHERAPY OT/PT/Speech Visit ( AKPTB) GARTH CONLEY ([id number]) 1940 [employer] Date Time Provider Department 01/27/21 12:00 PM SHREYAS GARZA AKPTB Date Time Provider Department Center 01/27/2021 12:00 PM [id number] AKPTB AG [facility] Reason for Visit: PT Discharge [752] [...] azelastine (ASTELIN) 0.1% nasal spray Use 1 [place] in each nostril twice daily. - levothyroxine [...] as needed. - L. gasseri-B. bifidum-B longum ([employer]) 1.5 billion cell cap Take 1 capsule [...] treatment included: Neuromuscular re-education, Manual therapy and Self-retirement management. I believe that patient will maintain [...] (more content not included)... Normal [facility] CNTHERAPYon 01-22-2021 CNTHERAPY OT/PT/Speech Visit ( AKPTB) GARTH COLNEY ([id number]) 1940 [employer] Date Time Provider Department 01/22/21 3:30 PM SHREYAS GARZA Date Time Provider Department Center 01/22/2021 3:30 PM [id number], JORDAN AKPTB [facility] Reason for Visit: Physical Therapy [503] [...] azelastine (ASTELIN) 0.1% nasal spray Use 1 [place] in each nostril twice daily. - levothyroxine [...] as needed. - L. gasseri-B. bifidum-B longum ([employer]) 1.5 billion cell cap Take 1 capsule [...] with verbal cueing. Patient education as noted. Self-Fpc Management: 1: patient education on impact of warm fluids and coffee on gastrocolic refle (more content not included)... Normal [facility] CNTHERAPYon 12-30-2020 CNTHERAPY OT/PT/Speech Visit ( AKPTB) GARTH CONLEY ([id number]) 1940 [employer]* Date Time Provider Department 12/30/20 2:45 PM SHREYAS GARZA Date Time Provider Department Center 12/30/2020 2:45 PM [id number] GARZA [facility] Reason for Visit: Physical Therapy [503] [...] azelastine (ASTELIN) 0.1% nasal spray Use 1 [place] in each nostril twice daily. - levothyroxine [...] as needed. - L. gasseri-B. bifidum-B longum ([employer]) 1.5 billion cell cap Take 1 capsule [...] (more content not included)... Normal [facility] CNTHERAPYon 12-23-2020 CNTHERAPY OT/PT/Speech Visit ( AKPTB) GARTH CONLEY ([id number]) 1940 [employer] Date Time Provider Department 12/23/20 2:45 PM SHREYAS GARZA Date Time Provider Department Center 12/23/2020 2:45 PM [id number], JORDAN AKPTB [facility] Reason for Visit: Physical Therapy [503] [...] azelastine (ASTELIN) 0.1% nasal spray Use 1 [place] in each nostril twice daily. - levothyroxine [...] as needed. - L. gasseri-B. bifidum-B longum ([employer]) 1.5 billion cell cap Take 1 capsule [...] (more content not included)... Normal [facility] CNTHERAPYon 12-17-2020 CNTHERAPY OT/PT/Speech Visit ( AKPTB) GARTH CONLEY ([id number]) 1940 [employer] Date Time Provider Department 12/17/20 3:15 PM SHREYAS GARZA Date Time Provider Department Center 12/17/2020 3:15 PM [id number] GARZA [facility] Reason for Visit: PT Progress Note [...] 137 MCG (0.1 %) NA* Use 1 [place] in each nostril t* LEVOTHYROXINE 137 MCG [...] once * Progress Notes: Shreyas Garza, PT 12/17/2020 4:39 PM Signed Episode Visit [...] Patient to be seen for Therapeutic exercise (76169);Neuromusc (more content not included)... Normal [facility] CNTHERAPYon 11-26-2020 CNTHERAPY OT/PT/Speech Visit ( AKPTB) GARTH CONLEY ([id number]) 1940 [employer] Date Time Provider Department 11/26/20 11:00 AM SHREYAS GARZA Date Time Provider Department Center 11/26/2020 11:00 AM [id number] GARZA [facility] Reason for Visit: Physical Therapy [503] [...] 137 MCG (0.1 %) NA* Use 1 [place] in each nostril t* LEVOTHYROXINE 137 MCG [...] education as noted. Billing: Ellie: Neuromuscular Re-education (54444): 1:1 time:40 minutes (3 units: 38-52 mins) Total time / Length of visit: 40 minutes Shreyas Garza, PT Normal [facility] CNTHERAPYon 11-07-2020 CNTHERAPY OT/PT/Speech Visit ( JOSEPTB) GARTH CONLEY ([id number]) 1940 F [employer]* Date Time Provider Department 11/07/20 11:45 AM SHREYAS GARZA Date Time Provider Department Center 11/07/2020 11:45 AM [id number] GARZA [facility] Reason for Visit: Physical Therapy [503] [...] 137 MCG (0.1 %) NA* Use 1 [place] in each nostril t* LEVOTHYROXINE 137 MCG [...] THERAPY PHYSICAL THERAPY TREATMENT NOTE ASSESSMENT: Garth Nielson Jarvis demonstrated improvements in pelvic floor strength/endurance evident [...] education as noted. Billing: Ellie: Neuromuscular Re-education (41534): 1:1 time:40 minutes (3 units: 38-52 mins) Total time / Length of visit: 40 minutes Shreyas Garza PT Normal [facility] CNTHERAPYon 10-24-2020 CNTHERAPY OT/PT/Speech Visit ( JOSEPTB) GARTH CONLEY ([id number]) 1940 [employer] Date Time Provider Department 10/24/20 10:15 AM SHREYAS GARZA Date Time Provider Department Center 10/24/2020 10:15 AM [id number] GARZA [facility] Reason for Visit: Physical Therapy [503] [...] 137 MCG (0.1 %) NA* Use 1 [place] in each nostril t* LEVOTHYROXINE 137 MCG [...] education as noted. Billing: Ellie: Neuromuscular Re-education (15094): 1:1 time:39 minutes (3 units: 38-52 mins) Total time / Length of visit: 40 minutes Shreyas Garza PT Normal [facility] CNTHERAPYon 10-17-2020 CNTHERAPY OT/PT/Speech Visit ( AKPTB) JARIVSGARTH Lex ([id number]) 1940 [employer]* Date Time Provider Department 10/17/20 11:45 AM SHREYAS GARZA Date Time Provider Department Center 10/17/2020 11:45 AM [id number] GARZA [facility] Reason for Visit: Physical Therapy [503] [...] 137 MCG (0.1 %) NA* Use 1 [place] in each nostril t* LEVOTHYROXINE 137 MCG [...] Will Oversee The Plan Of Care: Shreyas Gene Start of Care Date: 09/25/20 Onset Date: [...] education as noted. Billing: Ellie: Manual Therapy (65884): 1:1 time: 15 minutes (1 unit: 8-22 mins) Neuromuscul (more content not included)... Normal [facility] CNTHERAPYon 09-25-2020 CNTHERAPY OT/PT/Speech Visit ( AKPTB) GARTH CONLEY ([id number]) 1940 [employer] Date Time Provider Department 09/25/20 10:15 AM SHREYAS GARZA (PT) AKPTB Date Time Provider Department Center 09/25/2020 10:15 AM [id number], JORDAN (P*AKPTB [facility] Reason for Visit: PT Eval [747] Primary Visit Diagnosis:Pelvic floor dysfunction [M62.89] Other [...] 137 MCG (0.1 %) NA* Use 1 [place] in each nostril t* LEVOTHYROXINE 137 MCG [...] Planned: 12 Planned Treatment Interventions: Therapeutic exercise (79855);Neuromuscular re-education (40918);Manual therapy (47718);Therapeutic activities (01260);Self-retirement management (53795);E-Stim Unattended (38177) PLAN FOR NEXT VISIT: internal manual PRN, focus on PFM coordination and strengthening program progression Patient demonstrates good understanding of plan of care and treatment. The above goals and plan of c (more content not included)... Normal [facility] XR ABDOMEN 1V SUPINEon 05-01 [facility] Office Visit: postop surgery 12/28/16on 03-31-2017 Alcoholism counseling (procedure) no Invalid Interpretation Code [facility] Work Phone: Dietary management education, guidance, and counseling (procedure) yes Invalid Interpretation Code [facility] Work Phone: Documentation of current medications (procedure) Done Invalid Interpretation Code [facility] Work Phone: Fall risk assessment No Invalid Interpretation Code [facility] Work Phone: Tobacco smoking status NHIS Never Invalid Interpretation Code [facility] Work Phone: Tobacco use CPHS Never smoker Invalid Interpretation Code [facility] Work Phone: Microbiology: Culture, Wound on 01-22-2017 CUW Trimethoprim/Sulfame tho $ <=20 S Invalid Interpretation Code [facility] Work Phone: [phone] Clinical Lists Update: Clini lencho Noteon 07-20-2016 Left ventricular Ejection fraction 65 % Invalid Interpretation Code [facility] Work Phone: [phone] Replaced Document: Lucero METZ Observationson 07-14-2016 EKG QRS axis 15 deg Invalid Interpretation Code [facility] Work Phone: [phone] Interpretation Sinus Rhythm -Hugh septal infarct -age undetermined. ABNORMAL Invalid Interpretation Code [facility] Work Phone: P Nikolai 47 deg Invalid Interpretation Code [facility] Work Phone: MS Interval 218 ms Invalid Interpretation Code [facility] Work Phone: Pulse (Heart Rate) 69 /min Invalid Interpretation Code [facility] Work Phone: [phone] QRS Duration 104 ms Invalid Interpretation Code [facility] Work Phone: [phone] QT Interval new path ms Invalid Interpretation Code [facility] Work Phone: [phone] QTc Gutierrez 437 ms Invalid Interpretation Code [facility] Work Phone: [phone] T Nikolai 61 deg Invalid Interpretation Code [facility] Work Phone: [phone] Lab Report: CBC W/Diff, Auto - EPLAB Onlyon 03-05-2016 Basophils/100 WBC Auto (Bld) 1.3 % High 0-1 [facility] Work Phone: [phone] Eosinophils/100 leukocytes 2.5 % Invalid Interpretation Code 0-5 [facility] Work Phone: [phone] Erythrocytes (RBC) 5.07 10*6/uL Invalid Interpretation Code 4.2-5.4 [facility] Work Phone: Hematocrit (HCT) 45.5 % Invalid Interpretation Code 37-47 [facility] Work Phone: [phone] Hemoglobin mass conc (Bld) 15.3 g/dL High 12.0-15.0 [facility] Work Phone: [phone] Lymphocytes/100 leukocytes 24.7 % Invalid Interpretation Code 19-41 [facility] Work Phone: [phone] MCH 30.2 pg Invalid Interpretation Code 27.0-32.0 [facility] Work Phone: [phone] MCHC mass conc (RBC) 33.7 g/dL Invalid Interpretation Code 32-36 [facility] Work Phone: MCV 89.7 fL Invalid Interpretation Code 81-99 [facility] Work Phone: Monocytes/100 leukocytes 11.8 % High 0-10 [facility] Work Phone: Neutrophils/100 WBC Auto (Bld) 59.6 % Invalid Interpretation Code 47-70 [facility] Work Phone: Platelets 265 10*3/mm3 Invalid Interpretation Code 150-450 [facility] Work Phone: [phone] WBC (Leukocytes) 8.3 10*3/uL Invalid Interpretation Code 4.4-11.0 [facility] Work Phone: Absolute Neut 5.0 X10 3/UL Invalid Interpretation Code 2.0-7.7 [facility] Work Phone: [phone] Erythrocyte distribution width Auto Ratio (RBC) 12.7 % Invalid Interpretation Code 11.6-14.6 [facility] Work Phone: Lymphocytes 2.06 X10 3/UL Invalid Interpretation Code 0.83-4.51 [facility] Work Phone: [phone] PMV by Lillian 7.7 fL Invalid Interpretation Code 6.2-12.0 [facility] Work Phone: [phone] Lab Report: Comprehensive [facility] Profil 03-05-2016 Alanine aminotransferase (ALT) 28 U/L Invalid Interpretation Code 12-78 [facility] Work Phone: [phone] Albumin 3.6 g/dL Invalid Interpretation Code 3.4-5.0 [facility] Work Phone: [phone] Albumin/Globulin Ratio 0.9 {ratio} Invalid Interpretation Code 0.9-2.4 [facility] Work Phone: Alkaline phosphatase (ALP) 82 U/L Invalid Interpretation Code 50-136 [facility] Work Phone: [phone] Anion gap 7 mmol/L Invalid Interpretation Code 5-15 [facility] Work Phone: [phone] Aspartate aminotransferase (AST) 21 U/L Invalid Interpretation Code 15-37 [facility] Work Phone: [phone] Bilirubin (total) 0.60 mg/dL Invalid Interpretation Code 0.20-1.00 [facility] Work Phone: [phone] BUN/Creatinine Ratio 19.1 RATIO Invalid Interpretation Code 10-20 [facility] Work Phone: [phone] Calcium 8.7 mg/dL Invalid Interpretation Code 8.5-10.1 [facility] Work Phone: [phone] Chloride 111 mmol/L High 98-107 [facility] Work Phone: [phone] CO2 26.0 mmol/L Invalid Interpretation Code 21.0-32.0 [facility] Work Phone: [phone] Creatinine 0.84 mg/dL Invalid Interpretation Code 0.55-1.20 [facility] Work Phone: [phone] eGFR (non-black) 70 mL/min/{1.73_m2} Invalid Interpretation Code >60 [facility] Work Phone: [phone] eGFR (non-black) 85 mL/min/{1.73_m2} Invalid Interpretation Code >60 [facility] Work Phone: [phone] Globulin 4.0 g/dL High 2.3-3.5 [facility] Work Phone: [phone] Glucose mass conc 74 mg/dL Invalid Interpretation Code 70-110 [facility] Work Phone: [phone] Potassium molar conc 3.9 mmol/L Invalid Interpretation Code 3.5-5.1 [facility] Work Phone: [phone] Protein 7.6 g/dL Invalid Interpretation Code 6.4-8.2 [facility] Work Phone: [phone] Sodium 144 mmol/L Invalid Interpretation Code 136-145 [facility] Work Phone: [phone] Urea nitrogen 16 mg/dL Invalid Interpretation Code 7-18 [facility] Work Phone: [phone] Office Visit: 1 year f/u - H x of Breast Ca - PHQ9 Completeon 03-05-2016 Adult depression screening assessment Adult depression screening assessment Invalid Interpretation Code [facility] Work Phone: [phone] Office Visit: Consult Paraes ophageal herniaon 02-23-2016 Breast Mammogram screening Normal Bilateral Invalid Interpretation Code [facility] Work Phone: [phone] Lab Report: Urinalysis, Rout ine (Dipstick)on 07-22-2015 Bilirubin Ql (U) Negative Invalid Interpretation Code Negative [facility] Work Phone: [phone] NITRITE UR Negative Invalid Interpretation Code Negative [facility] Work Phone: [phone] OCCULT BLOOD-UR 25 High Negative [facility] Work Phone: [phone] specific gravity, urine 1.010 Invalid Interpretation Code 1.002-1.03 0 [facility] Work Phone: [phone] Urine, clarity Sl. Cloudy Invalid Interpretation Code Clear [facility] Work Phone: [phone] Urine, color Yellow Invalid Interpretation Code Yellow [facility] Work Phone: [phone] Urine, glucose presence Normal mg/dl Invalid Interpretation Code Normal [facility] Work Phone: [phone] Urine, ketones presence Negative Invalid Interpretation Code Negative [facility] Work Phone: [phone] Urine, leukocyte esterase presence 100 High Negative [facility] Work Phone: [phone] Urine, pH 7.0 [pH] Invalid Interpretation Code 5.0 - 8.0 [facility] Work Phone: [phone] Urine, protein Negative Invalid Interpretation Code Negative [facility] Work Phone: [phone] UROBILI Normal mg/dl Invalid Interpretation Code Normal [facility] Work Phone: [phone] Lab Report: CBC W/Diff, Auto matedon 03-06-2015 Absolute Neut 3.6 X10 3/UL Invalid Interpretation Code 2.0-7.7 [facility] Work Phone: [phone] Immature granulocytes/100 WBC (Bld) 0.000 % Invalid Interpretation Code 0.0-0.9 [facility] Work Phone: [phone] Lymphocytes 1.90 X10 3/UL Invalid Interpretation Code 0.83-4.51 [facility] Work Phone: [phone] RDW SD 44.7 fL High 35.1-43.9 [facility] Work Phone: [phone] Lab Report: Basic Metabolic Profile (BMP)on 12-10-2014 Creatinine 35.99 mL/min Invalid Interpretation Code [facility] Work Phone: [phone] Lab Report: Prealbuminon Prealbumin 21.3 mg/dL Invalid Interpretation Code 20.0-40.0 [facility] Work Phone: [phone] Office Visit: Consult Paraes ophageal herniaon 06-24-2014 General categories [Interpretation] of Cervical or vaginal smear or scraping by Cyto stain Normal Invalid Interpretation Code [facility] Work Phone: [phone] Lab Report: LIVERon 04-02-20 14 Bilirubin (direct) 0.14 mg/dL Normal 0.00-0.30 [facility] Work Phone: [phone] Lab Report: GAME - copyon IgG 1113 mg/dL Normal 700-1600 [facility] Work Phone: [phone] Lab Report: METHYL - copyon 02-01-2013 METHYL 181 nmol/L Normal 73-376 [facility] Work Phone: [phone] Lab Report: CRPon 01-25-2013 C reactive protein (CRP) 7.52 mg/L High 0.0-3.0 [facility] Work Phone: [phone] Lab Report: SEDon 01-25-2013 Erythrocyte sedimentation rate 10 mm/h Normal 0-30 [facility] Work Phone: [phone] Lab Report: TSHon 01-25-2013 Thyroid stimulating hormone (TSH) 2.34 u[iU]/mL Normal 0.358-3.74 [facility] Work Phone: [phone] Replaced Document: LIPIDon 0 01-25-2013 Cholesterol 265 mg/dL High 200 [facility] Work Phone: [phone] HDL Cholesterol 53 mg/dL Normal [facility] Work Phone: LDL Cholesterol 168 mg/dL High 0-130 [facility] Work Phone: [phone] Triglyceride 220 mg/dL High [facility] Work Phone: [phone] very low density lipoproteins 44 mg/dL High 5-40 [facility] Work Phone: [phone] Replaced Document: PHOSon PHOS 4.0 mg/dL Normal 2.5-4.9 [facility] Work Phone: [phone] Office Visit: Consult Paraes ophageal herniaon 06-22-2004 Colonoscopy (procedure) Colonoscopy (procedure) Invalid Interpretation Code [facility] Work Phone: [phone] Vital Signs Date Time Vital Sign Value Performing Clinician Facility 01-10-2025 15:14-0400 Body height 160.[address] Max Jernigan MD Work Phone: [facility] 01-10-2025 15:14-0400 Body temperature 97.5 [degF] Dr. Max Jernigan MD Work Phone: [facility] 01-10-2025 15:14-0400 Diastolic blood pressure 61 mm[Hg] Dr. Max Jernigan MD Work Phone: [facility] 01-10-2025 15:14-0400 Heart rate 61 /min Dr. Max Jernigan MD Work Phone: [facility] 01-10-2025 15:14-0400 Respiratory rate 18 /min Dr. Max Jernigan MD Work Phone: [facility] 01-10-2025 15:14-0400 SaO2% (BldA) [Mass fraction] 94 % Dr. Max Jernigan MD Work Phone: [facility] 01-10-2025 15:14-0400 Systolic blood pressure 126 mm[Hg] Dr. Max Jernigan MD Work Phone: [facility] 01-04-2025 13:04-0400 Body height 160.[address] Max Jernigan MD Work Phone: [facility] 01-04-2025 13:04-0400 Body mass index (BMI) [Ratio] 28 kg/m2 Dr. Max Jernigan MD Work Phone: [facility] 01-04-2025 13:04-0400 Body temperature 97.6 [degF] Dr. Max Jernigan MD Work Phone: [facility] 01-04-2025 13:04-0400 Body weight 71.[address] Max Jernigan MD Work Phone: [facility] 01-04-2025 13:04-0400 Diastolic blood pressure 71 mm[Hg] Dr. Max Jernigan MD Work Phone: 4(961)348-084984 [address] 01-04-2025 13:04-0400 Heart rate 73 /min Dr. Max Jernigan MD Work Phone: 6(614)944-981084 [address] 01-04-2025 13:04-0400 Respiratory rate 20 /min Dr. Max Jernigan MD Work Phone: 1(627)384-866558 [place] [address] 01-04-2025 13:04-0400 SaO2% (BldA) [Mass fraction] 95 % Dr. Max Jernigan MD Work Phone: 9(701)620-196558 [place] [address] 01-04-2025 13:04-0400 Systolic blood pressure 117 mm[Hg] Dr. Max Jernigan MD Work Phone: [facility] 12-28-2024 14:06-0400 Body height 160.[address] Max Jernigan MD Work Phone: [facility] 12-28-2024 14:06-0400 Body temperature 98.7 [degF] Dr. Max Jernigan MD Work Phone: [facility] 12-28-2024 14:06-0400 Diastolic blood pressure 75 mm[Hg] Dr. Max Jernigan MD Work Phone: [facility] 12-28-2024 14:06-0400 Heart rate 76 /min Dr. Max Jernigan MD Work Phone: [facility] 12-28-2024 14:06-0400 Respiratory rate 18 /min Dr. Max Jernigan MD Work Phone: [facility] 12-28-2024 14:06-0400 SaO2% (BldA) [Mass fraction] 96 % Dr. Max Jernigan MD Work Phone: 9(014)495-496658 [place] [address] 12-28-2024 14:06-0400 Systolic blood pressure 125 mm[Hg] Dr. Max Jernigan MD Work Phone: 1(273)216-959494 [place] [address] 12-20-2024 10:29-0400 Body height 160.[address] Max Jernigan MD Work Phone: 8(212)898-325394 [place] [address] 12-20-2024 10:29-0400 Body temperature 98.4 [degF] Dr. Max Jernigan MD Work Phone: 3(296)975-653294 [place] [address] 12-20-2024 10:29-0400 Diastolic blood pressure 81 mm[Hg] Dr. Max Jernigan MD Work Phone: 5(987)914-579094 [place] [address] 12-20-2024 10:29-0400 Heart rate 62 /min Dr. Max Jernigan MD Work Phone: 0(948)927-361894 [place] [address] 12-20-2024 10:29-0400 Respiratory rate 18 /min Dr. Max Jernigan MD Work Phone: 8(722)423-924294 [place] [address] 12-20-2024 10:29-0400 SaO2% (BldA) [Mass fraction] 92 % Dr. Max Jernigan MD Work Phone: 6(243)267-841484 [address] 12-20-2024 10:29-0400 Systolic blood pressure 140 mm[Hg] Dr. Max Jernigan MD Work Phone: 5(452)473-985358 [place] [address] 12-14-2024 15:17-0400 Diastolic blood pressure 74 mm[Hg] Dr. Max Jernigan MD Work Phone: 6(917)473-002994 [place] [address] 12-14-2024 15:17-0400 Heart rate 70 /min Dr. Max Jernigan MD Work Phone: 3(496)735-672694 [place] [address] 12-14-2024 15:17-0400 Respiratory rate 18 /min Dr. Max Jernigan MD Work Phone: 7(324)394-440794 [place] [address] 12-14-2024 15:17-0400 SaO2% (BldA) [Mass fraction] 90 % Dr. Max Jernigan MD Work Phone: 0(971)390-989494 [place] [address] 12-14-2024 15:17-0400 Systolic blood pressure 110 mm[Hg] Dr. Max Jernigan MD Work Phone: 0(563)242-958994 [place] [address] 12-06-2024 15:11-0400 Diastolic blood pressure 72 mm[Hg] Dr. Max Jernigan MD Work Phone: 1(670)929-854394 [place] [address] 12-06-2024 15:11-0400 Heart rate 69 /min Dr. Max Jernigan MD Work Phone: 7(822)317-205794 [place] [address] 12-06-2024 15:11-0400 Respiratory rate 18 /min Dr. Max Jernigan MD Work Phone: 1(138)282-008594 [place] [address] 12-06-2024 15:11-0400 SaO2% (BldA) [Mass fraction] 89 % Dr. Max Jernigan MD Work Phone: 7(786)919-738094 [place] [address] 12-06-2024 15:11-0400 Systolic blood pressure 124 mm[Hg] Dr. Max Jernigan MD Work Phone: 8(654)112-015294 [place] [address] 10-02-2024 08:07-0400 Body mass index (BMI) [Ratio] 27.8 kg/m2 Dr. Max Jernigan MD Work Phone: 5(893)369-738594 [place] [address] 10-02-2024 08:07-0400 Body temperature 97.1 [degF] Dr. Max Jernigan MD Work Phone: 8(503)442-623694 [place] [address] 10-02-2024 08:07-0400 Body weight 71.[address] Max Jernigan MD Work Phone: 7(843)775-724594 [place] [address] 10-02-2024 08:07-0400 Diastolic blood pressure 62 mm[Hg] Dr. Max Jernigan MD Work Phone: 1(986)619-386794 [place] [address] 10-02-2024 08:07-0400 Heart rate 68 /min Dr. Max Jernigan MD Work Phone: 6(886)781-351394 [place] [address] 10-02-2024 08:07-0400 Respiratory rate 20 /min Dr. Max Jernigan MD Work Phone: 8(435)627-412294 [place] [address] 10-02-2024 08:07-0400 SaO2% (BldA) [Mass fraction] 96 % Dr. Max Jernigan MD Work Phone: 5(278)313-975594 [place] [address] 10-02-2024 08:07-0400 Systolic blood pressure 100 mm[Hg] Dr. Max Jernigan MD Work Phone: 8(941)055-682494 [place] [address] 09-16-2024 15:12-0400 Body temperature 97.4 [degF] Dr. Max Jernigan MD Work Phone: 8(235)559-335694 [place] [address] 09-16-2024 15:12-0400 Diastolic blood pressure 80 mm[Hg] Dr. Max Jernigan MD Work Phone: 6(466)106-245094 [place] [address] 09-16-2024 15:12-0400 Heart rate 68 /min Dr. Max Jernigan MD Work Phone: 4(996)127-479794 [place] [address] 09-16-2024 15:12-0400 Respiratory rate 18 /min Dr. Max Jernigan MD Work Phone: 9(831)761-909294 [place] [address] 09-16-2024 15:12-0400 SaO2% (BldA) [Mass fraction] 94 % Dr. Max Jernigan MD Work Phone: 4(889)920-706994 [place] [address] 09-16-2024 15:12-0400 Systolic blood pressure 147 mm[Hg] Dr. Max Jernigan MD Work Phone: 4(270)865-766594 [place] [address] 09-16-2024 08:30-0400 Inhaled oxygen flow rate 2 L/min Dr. Max Jernigan MD Work Phone: 0(511)986-475294 [place] [address] 09-16-2024 06:00-0400 Body mass index (BMI) [Ratio] 29.9 kg/m2 Dr. Max Jernigan MD Work Phone: 3(207)867-784894 [place] [address] 09-16-2024 06:00-0400 Body weight 76.[address] Max Jernigan MD Work Phone: 3(174)802-145894 [place] [address] 09-15-2024 00:38-0400 Body height 160.[address] Max Jernigan MD Work Phone: 1(597)435-330458 [place] [address] 09-14-2024 23:00-0400 Heart rate 85 /min Dr. Max Jernigan MD Work Phone: 5(863)560-862394 [place] [address] 09-14-2024 23:00-0400 Respiratory rate 36 /min Dr. Max Jernigan MD Work Phone: 4(757)179-241794 [place] [address] 09-14-2024 22:37-0400 Body temperature 99.8 [degF] Dr. Max Jernigan MD Work Phone: 8(748)162-559594 [place] [address] 09-14-2024 22:37-0400 Diastolic blood pressure 64 mm[Hg] Dr. Max Jernigan MD Work Phone: 5(841)017-217394 [place] [address] 09-14-2024 22:37-0400 Systolic blood pressure 118 mm[Hg] Dr. Max Jernigan MD Work Phone: 6(598)530-096894 [place] [address] 09-14-2024 22:00-0400 Inhaled oxygen flow rate 2 L/min Dr. Max Jernigan MD Work Phone: 6(508)156-341594 [place] [address] 09-14-2024 21:29-0400 Body mass index (BMI) [Ratio] 30 kg/m2 Dr. Max Jernigan MD Work Phone: 3(477)186-502094 [place] [address] 09-14-2024 21:29-0400 Body weight [address] Max Jernigan MD Work Phone: 6(171)877-531694 [place] [address] 09-14-2024 18:46-0400 Body height 160.[address] Max Jernigan MD Work Phone: 8(252)484-739494 [place] [address] 09-14-2024 10:29-0400 Body temperature 98.8 [degF] Dr. Max Jernigan MD Work Phone: 0(976)765-276058 [place] [address] 09-14-2024 10:29-0400 Diastolic blood pressure 52 mm[Hg] Dr. Max Jernigan MD Work Phone: 4(639)109-837158 [place] [address] 09-14-2024 10:29-0400 Heart rate 83 /min Dr. Max Jernigan MD Work Phone: [facility] 09-14-2024 10:29-0400 Respiratory rate 30 /min Dr. Max Jernigan MD Work Phone: [facility] 09-14-2024 10:29-0400 SaO2% (BldA) [Mass fraction] 94 % Dr. Max Jernigan MD Work Phone: 3(400)995-084158 [place] [address] 09-14-2024 10:29-0400 Systolic blood pressure 94 mm[Hg] Dr. Max Jernigan MD Work Phone: 6(545)120-290694 [place] [address] 07-20-2024 13:30-0500 Body height 160.[address] Max Jernigan MD Work Phone: 8(300)256-918394 [place] [address] 07-20-2024 13:30-0500 Body mass index (BMI) [Ratio] 29 kg/m2 Dr. Max Jernigan MD Work Phone: 0(370)872-588594 [place] [address] 07-20-2024 13:30-0500 Body temperature 97.4 [degF] Dr. Max Jernigan MD Work Phone: 7(237)855-065094 [place] [address] 07-20-2024 13:30-0500 Body weight 74.[address] Max Jernigan MD Work Phone: 6(658)402-487194 [place] [address] 07-20-2024 13:30-0500 Diastolic blood pressure 90 mm[Hg] Dr. Max Jernigan MD Work Phone: 0(935)229-870084 [address] 07-20-2024 13:30-0500 Heart rate 73 /min Dr. Max Jernigan MD Work Phone: 0(781)250-885358 [place] [address] 07-20-2024 13:30-0500 Respiratory rate 18 /min Dr. Max Jernigan MD Work Phone: 8(254)592-353594 [place] [address] 07-20-2024 13:30-0500 SaO2% (BldA) [Mass fraction] 96 % Dr. Max Jernigan MD Work Phone: 7(029)398-139858 [place] [address] 07-20-2024 13:30-0500 Systolic blood pressure 131 mm[Hg] Dr. Max Jernigan MD Work Phone: [facility] 06-08-2024 15:32-0500 Body temperature 98 [degF] Dr. Max Jernigan MD Work Phone: [facility] 06-08-2024 15:32-0500 Diastolic blood pressure 80 mm[Hg] Dr. Max Jernigan MD Work Phone: [facility] 06-08-2024 15:32-0500 Heart rate 67 /min Dr. Max Jernigan MD Work Phone: [facility] 06-08-2024 15:32-0500 Respiratory rate 16 /min Dr. Max Jernigan MD Work Phone: [facility] 06-08-2024 15:32-0500 SaO2% (BldA) [Mass fraction] 97 % Dr. Max Jernigan MD Work Phone: [facility] 06-08-2024 15:32-0500 Systolic blood pressure 154 mm[Hg] Dr. Max Jernigan MD Work Phone: [facility] 06-08-2024 14:33-0500 Body mass index (BMI) [Ratio] 28.7 kg/m2 Dr. Max Jernigan MD Work Phone: [facility] 06-08-2024 14:33-0500 Body weight 73.[address] Max Jernigan MD Work Phone: [facility] 10-07-2023 17:50-0400 Body temperature 97.9 [degF] Rosalva Rodriguez 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 EXPERIMENTAL.[employer] Work Phone: [facility] 10-07-2023 17:50-0400 Body weight 79 kg Rosalva Rodriguez 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 EXPERIMENTAL.[employer] R[employer] HELPER Work Phone: [facility] 10-07-2023 17:50-0400 Diastolic blood pressure 84 mm[Hg] Rosalva Rodriguez 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 EXPERIMENTAL.[employer] HELPER Work Phone: [facility] 10-07-2023 17:50-0400 Heart rate 68 /min Rosalva Rodriguez 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 EXPERIMENTAL.[employer] HELPER Work Phone: [facility] 10-07-2023 17:50-0400 Respiratory rate 22 /min Rosalva Rodriguez 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 EXPERIMENTAL.[employer] HELPER Work Phone: [facility] 10-07-2023 17:50-0400 SaO2% (BldA) [Mass fraction] 95 % Rosalva Rodriguez 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 EXPERIMENTAL.[employer] HELPER Work Phone: [facility] 10-07-2023 17:50-0400 Systolic blood pressure 133 mm[Hg] Rosalva Rodriguez 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 EXPERIMENTAL.[employer] ROO[employer] HELPER Work Phone: [facility] 04-26-2023 08:05-0500 Body height 160.[address] Max Jernigan Work Phone: [facility] 04-26-2023 08:05-0500 Body mass index (BMI) [Ratio] 31.1 kg/m2 Dr. Max Jernigan Work Phone: [facility] 04-26-2023 08:05-0500 Body temperature 97.3 [degF] Dr. Max Jernigan Work Phone: [facility] 04-26-2023 08:05-0500 Body weight 79.[address] Max Jernigan Work Phone: [facility] 04-26-2023 08:05-0500 Diastolic blood pressure 80 mm[Hg] Dr. Max Jernigan Work Phone: [facility] 04-26-2023 08:05-0500 Heart rate 73 /min Dr. Max Jernigan Work Phone: [facility] 04-26-2023 08:05-0500 SaO2% (BldA) [Mass fraction] 97 % Dr. Max Jernigan Work Phone: [facility] 04-26-2023 08:05-0500 Systolic blood pressure 136 mm[Hg] Dr. Max Jernigan Work Phone: [facility] 03-24-2023 14:03-0400 Body mass index (BMI) [Ratio] 31.6 kg/m2 Dr. Max Jernigan Work Phone: [facility] 03-24-2023 14:03-0400 Body temperature 97.8 [degF] Dr. Max Jernigan Work Phone: [facility] 03-24-2023 14:03-0400 Body weight 80.[address] Max Jernigan Work Phone: [facility] 03-24-2023 14:03-0400 Diastolic blood pressure 70 mm[Hg] Dr. Max Jernigan Work Phone: [facility] 03-24-2023 14:03-0400 Heart rate 77 /min Dr. Max Jernigan Work Phone: [facility] 03-24-2023 14:03-0400 Respiratory rate 18 /min Dr. Max Jernigan Work Phone: 2(263)650-048858 [place] [address] 03-24-2023 14:03-0400 SaO2% (BldA) [Mass fraction] 93 % Dr. Max Jernigan Work Phone: [facility] 03-24-2023 14:03-0400 Systolic blood pressure 109 mm[Hg] Dr. Max Jernigan Work Phone: [facility] 12-07-2022 13:23-0400 Body height 160.[address] Max Jernigan Work Phone: 6(009)408-969184 [address] 11-26-2022 14:27-0400 Body height 160.[address] Max Jernigan Work Phone: [facility] 11-26-2022 14:27-0400 Body mass index (BMI) [Ratio] 31.5 kg/m2 Dr. Max Jernigan Work Phone: [facility] 11-26-2022 14:27-0400 Body weight 80.[address] Max Jernigan Work Phone: [facility] 11-26-2022 14:27-0400 Diastolic blood pressure 66 mm[Hg] Dr. Max Jernigan Work Phone: [facility] 11-26-2022 14:27-0400 Heart rate 67 /min Dr. Max Jernigan Work Phone: [facility] 11-26-2022 14:27-0400 Systolic blood pressure 135 mm[Hg] Dr. Max Jernigan Work Phone: [facility] 11-23-2022 06:34-0400 Body mass index (BMI) [Ratio] 31.1 kg/m2 Dr. Max Jernigan Work Phone: [facility] 11-23-2022 06:34-0400 Body temperature 97.4 [degF] Dr. Max Jernigan Work Phone: [facility] 11-23-2022 06:34-0400 Body weight 79.[address] Max Jernigan Work Phone: [facility] 11-23-2022 06:34-0400 Diastolic blood pressure 56 mm[Hg] Dr. Max Jernigan Work Phone: [facility] 11-23-2022 06:34-0400 Heart rate 88 /min Dr. Max Jernigan Work Phone: [facility] 11-23-2022 06:34-0400 Respiratory rate 20 /min Dr. Max Jernigan Work Phone: [facility] 11-23-2022 06:34-0400 SaO2% (BldA) [Mass fraction] 92 % Dr. Max Jernigan Work Phone: [facility] 11-23-2022 06:34-0400 Systolic blood pressure 124 mm[Hg] Dr. Max Jernigan Work Phone: [facility] 09-29-2022 12:53-0400 Body height 160.[address] Max Jernigan Work Phone: [facility] 09-29-2022 12:53-0400 Body weight 78.[address] Max Jernigan Work Phone: [facility] 09-29-2022 12:53-0400 Heart rate 74 /min Dr. Max Jernigan Work Phone: [facility] 09-29-2022 12:53-0400 SaO2% (BldA) [Mass fraction] 98 % Dr. Max Jernigan Work Phone: [facility] 05-26-2022 13:42-0500 Body height 157.[address] Max Jernigan Work Phone: [facility] 05-26-2022 13:42-0500 Body mass index (BMI) [Ratio] 33.6 kg/m2 Dr. Max Jernigan Work Phone: [facility] 05-26-2022 13:42-0500 Body temperature 95.9 [degF] Dr. Max Jernigan Work Phone: [facility] 05-26-2022 13:42-0500 Body weight 83.[address] Max Jernigan Work Phone: [facility] 05-26-2022 13:42-0500 Diastolic blood pressure 77 mm[Hg] Dr. Max Jernigan Work Phone: [facility] 05-26-2022 13:42-0500 Heart rate 72 /min Dr. Max Jernigan Work Phone: [facility] 05-26-2022 13:42-0500 Respiratory rate 20 /min Dr. Max Jernigan Work Phone: [facility] 05-26-2022 13:42-0500 SaO2% (BldA) [Mass fraction] 92 % Dr. Max Jernigan Work Phone: [facility] 05-26-2022 13:42-0500 Systolic blood pressure 136 mm[Hg] Dr. Max Jernigan Work Phone: [facility] 03-18-2022 11:35-0400 Body height 160.[address] Max Jernigan Work Phone: [facility] Work Phone: 03-18-2022 11:35-0400 Body mass index (BMI) [Ratio] 31.1 kg/m2 Dr. Max Jernigan Work Phone: [facility] Work Phone: 03-18-2022 11:35-0400 Body temperature 97.6 [degF] Dr. Max Jernigan Work Phone: [facility] Work Phone: 03-18-2022 11:35-0400 Body weight 79.[address] Max Jernigan Work Phone: [facility] Work Phone: 03-18-2022 11:35-0400 Diastolic blood pressure 66 mm[Hg] Dr. Max Jernigan Work Phone: [facility] Work Phone: 03-18-2022 11:35-0400 Heart rate 61 /min Dr. Max Jernigan Work Phone: [facility] Work Phone: 03-18-2022 11:35-0400 Respiratory rate 16 /min Dr. Max Jernigan Work Phone: [facility] Work Phone: 03-18-2022 11:35-0400 SaO2% (BldA) [Mass fraction] 96 % Dr. Max Jernigan Work Phone: [facility] Work Phone: 03-18-2022 11:35-0400 Systolic blood pressure 122 mm[Hg] Dr. Max Jernigan Work Phone: [facility] Work Phone: 03-08-2022 13:16-0400 Body mass index (BMI) [Ratio] 31.6 kg/m2 Dr. Max Jernigan Work Phone: [facility] Work Phone: 03-08-2022 13:16-0400 Body temperature 98.6 [degF] Dr. Max Jernigan Work Phone: [facility] Work Phone: 03-08-2022 13:16-0400 Body weight 80.[address] Max Jernigan Work Phone: [facility] Work Phone: 03-08-2022 13:16-0400 Diastolic blood pressure 64 mm[Hg] Dr. Max Jernigan Work Phone: [facility] Work Phone: 03-08-2022 13:16-0400 Heart rate 74 /min Dr. Max Jernigan Work Phone: [facility] Work Phone: 03-08-2022 13:16-0400 Respiratory rate 17 /min Dr. Max Jernigan Work Phone: [facility] Work Phone: 03-08-2022 13:16-0400 SaO2% (BldA) [Mass fraction] 94 % Dr. Max Jernigan Work Phone: [facility] Work Phone: 03-08-2022 13:16-0400 Systolic blood pressure 113 mm[Hg] Dr. Max Jernigan Work Phone: [facility] Work Phone: 02-19-2022 13:30-0400 Body temperature 97.9 [degF] Dr. Max Jernigan Work Phone: [facility] Work Phone: 02-19-2022 13:30-0400 Diastolic blood pressure 51 mm[Hg] Dr. Max Jernigan Work Phone: [facility] Work Phone: 02-19-2022 13:30-0400 Heart rate 72 /min Dr. Max Jernigan Work Phone: [facility] Work Phone: 02-19-2022 13:30-0400 Respiratory rate 18 /min Dr. Max Jernigan Work Phone: [facility] Work Phone: 02-19-2022 13:30-0400 SaO2% (BldA) [Mass fraction] 98 % Dr. Max Jernigan Work Phone: [facility] Work Phone: 02-19-2022 13:30-0400 Systolic blood pressure 105 mm[Hg] Dr. Max Jernigan Work Phone: [facility] Work Phone: 02-19-2022 13:19-0400 Body height 160.[address] Max Jernigan Work Phone: [facility] Work Phone: 02-19-2022 13:19-0400 Body mass index (BMI) [Ratio] 31.5 kg/m2 Dr. Max Jernigan Work Phone: [facility] Work Phone: 02-19-2022 13:19-0400 Body weight 80.[address] Max Jernigan Work Phone: [facility] Work Phone: 02-19-2022 12:35-0400 Body temperature 98 [degF] Dr. Max Jernigan Work Phone: [facility] Work Phone: 02-19-2022 12:35-0400 Diastolic blood pressure 56 mm[Hg] Dr. Max Jernigan Work Phone: [facility] Work Phone: 02-19-2022 12:35-0400 Heart rate 78 /min Dr. Max Jernigan Work Phone: [facility] Work Phone: 02-19-2022 12:35-0400 Respiratory rate 15 /min Dr. Max Jernigan Work Phone: [facility] Work Phone: 02-19-2022 12:35-0400 SaO2% (BldA) [Mass fraction] 98 % Dr. Max Jernigan Work Phone: [facility] Work Phone: 02-19-2022 12:35-0400 Systolic blood pressure 111 mm[Hg] Dr. Max Jernigan Work Phone: [facility] Work Phone: 02-19-2022 08:41-0400 Body height 160.[address] Max Jernigan Work Phone: [facility] Work Phone: 02-19-2022 08:41-0400 Body mass index (BMI) [Ratio] 31.6 kg/m2 Dr. Max Jernigan Work Phone: [facility] Work Phone: 02-19-2022 08:41-0400 Body weight 81.[address] Max Jernigan Work Phone: [facility] Work Phone: 02-09-2022 13:12-0400 Body height 160.[address] Max Jernigan Work Phone: [facility] Work Phone: 02-09-2022 13:12-0400 Body weight 81.[address] Max Jernigan Work Phone: [facility] Work Phone: 02-09-2022 13:12-0400 Heart rate 72 /min Dr. Max Jernigan Work Phone: [facility] Work Phone: 02-09-2022 13:12-0400 SaO2% (BldA) [Mass fraction] 97 % Dr. Max Jernigna Work Phone: [facility] Work Phone: 01-21-2022 10:17-0400 Body height 157.[address] Max Jernigan Work Phone: [facility] Work Phone: 01-21-2022 10:17-0400 Body mass index (BMI) [Ratio] 32.1 kg/m2 Dr. Max Jernigan Work Phone: [facility] Work Phone: 01-21-2022 10:17-0400 Body temperature 97.3 [degF] Dr. Max Jernigan Work Phone: [facility] Work Phone: 01-21-2022 10:17-0400 Body weight 79.[address] Max Jernigan Work Phone: [facility] Work Phone: 01-21-2022 10:17-0400 Diastolic blood pressure 72 mm[Hg] Dr. Max Jernigan Work Phone: [facility] Work Phone: 01-21-2022 10:17-0400 Heart rate 78 /min Dr. Max Jernigan Work Phone: [facility] Work Phone: 01-21-2022 10:17-0400 Respiratory rate 16 /min Dr. Max Jernigan Work Phone: [facility] Work Phone: 01-21-2022 10:17-0400 SaO2% (BldA) [Mass fraction] 92 % Dr. Max Jernigan Work Phone: [facility] Work Phone: 01-21-2022 10:17-0400 Systolic blood pressure 143 mm[Hg] Dr. Max Jernigan Work Phone: [facility] Work Phone: 03-31-2017 14:46-0400 BMI (Body Mass Index) 32.99 kg/m2 Juan Francisco Driscoll MD [facility] Work Phone: 03-31-2017 14:46-0400 Body Temperature 97.4 [degF] Juan Francisco Driscoll MD [facility] Work Phone: 03-31-2017 14:46-0400 BP Diastolic 79 mm[Hg] Juan Francisco Driscoll MD [facility] Work Phone: 03-31-2017 14:46-0400 BP Systolic 143 mm[Hg] Juan Francisco Driscoll MD [facility] Work Phone: 03-31-2017 14:46-0400 BSA (Body Surface Area) 1.9 m2 Juan Francisco Driscoll MD [facility] Work Phone: 03-31-2017 14:46-0400 Height 161.29 cm Juan Francisco Driscoll MD [facility] Work Phone: 03-31-2017 14:46-0400 Pulse (Heart Rate) 71 /min Juan Francisco Driscoll MD [facility] Work Phone: 03-31-2017 14:46-0400 Respiratory Rate 20 /min Juan Francisco Driscoll MD [facility] Work Phone: 03-31-2017 14:46-0400 Weight 85.82 kg Juan Francisco Driscoll MD [facility] Work Phone: 05-19-2016 10:50-0500 Height 161.29 cm Juan Francisco Driscoll MD [facility] Work Phone: 05-19-2016 10:50-0500 Weight 82.73 kg Juan Francisco Driscoll MD [facility] Work Phone: 03-05-2016 12:52-0400 Body Temperature 97.81 [degF] Juan Francisco Driscoll MD [facility] Work Phone: Encounters Encounter Date Encounter Type Care Provider Facility Start: 01-10-2025 End: 01-10-[address] Max Jernigan MD Work Phone: [facility] Start: 01-10-2025 End: 01-10-[address] Vinicius Carter MD [facility] Work Phone: Start: 01-04-2025 End: 01-04-[address] Vinicius Carter MD [facility] Work Phone: Start: 01-04-2025 End: 01-04-[address] Max Jernigan MD Work Phone: [facility] Start: 12-28-2024 End: 12-28-[address] Vinicius Carter MD [facility] Work Phone: Start: 12-28-2024 End: 12-28-[address] Max Jernigan MD Work Phone: -[facility] Start: 12-25-2024 Encounter for genera l adult medical examination without abnormal findings [facility] Start: 12-20-2024 End: 12-20-[address] Max Jernigan MD Work Phone: -Laboratory Specimen Start: 12-20-2024 End: 12-20-[address] Vinicius Carter MD -Laboratory Specimen Work Phone: Start: 12-20-2024 End: 12-20-[address] Vinicius Carter MD -[facility] Work Phone: Start: 12-20-2024 End: 12-20-[address] Max Jernigan MD Work Phone: -[facility] Start: 12-20-2024 End: 12-20-2024 ambulatory [facility] Facility:[facility] Start: 12-14-2024 End: 12-14-[address] Viincius Carter MD -[facility] Work Phone: Start: 12-14-2024 End: 12-14-[address] Max Jernigan MD Work Phone: -[facility] Start: 12-06-2024 End: 12-06-[address] Vinicius Carter MD -[facility] Work Phone: Start: 12-06-2024 End: 12-06-[address] Max Jernigan MD Work Phone: [facility] Work Phone: Start: 12-04-2024 End: 12-04-[address] Max Jernigan MD Work Phone: [facility] Work Phone: Start: 12-04-2024 End: 12-04-[address] Max Jernigan MD -Laboratory [facility] Start: 12-04-2024 End: 12-04-2024 ambulatory [facility] Facility:[facility] Start: 10-02-2024 End: 10-02-2024 Patient encounter procedure Janet Fraser HISTORY DEPARTMENT CHAIR-C -[facility] Work Phone: Start: 10-02-2024 End: 10-02-2024 ambulatory [facility] Facility:[facility] Start: 09-20-2024 End: 09-20-[address] Max Jernigan MD Work Phone: [facility] Work Phone: Start: 09-20-2024 End: 09-20-[address] Max Jernigan MD -Laboratory, [facility] Start: 09-20-2024 End: 09-20-2024 ambulatory Max Jernigan Facility:[facility] Start: 09-16-2024 Non-patient / Non-visit Dr. Max fraga [facility] Work Phone: Start: 09-15-2024 Non-patient / Non-visit Dr. Max fraga [facility] Work Phone: Start: 09-14-2024 ambulatory Sha Galvin ty:[facility] Start: 09-14-2024 End: 09-16-2024 Evaluation and management of inpatient Dr. Sha Yu DO -Medical Surgical 3 Work Phone: Start: 09-14-2024 End: 09-14-[address] Max Jernigan MD Work Phone: [facility] Work Phone: Start: 09-14-2024 End: 09-14-2024 Patient encounter procedure Aleksandr YANES -Laboratory, Specimen Work Phone: Start: 09-14-2024 End: 09-14-2024 Patient encounter procedure Aleksandr YANES -[facility] Work Phone: Start: 09-14-2024 End: 09-14-2024 ambulatory Aleksandr YANES Facility:[facility] Start: 09-14-2024 End: 09-14-2024 ambulatory Aleksandr YANES Facility:[facility] Start: 09-04-2024 End: 09-04-[address] Max Jernigan MD -Laboratory, [facility] Start: 09-04-2024 End: 09-04-[address] Max Jernigan MD Work Phone: [facility] Work Phone: Start: 07-20-2024 End: 07-20-2024 Patient encounter procedure Janet Fraser NP- -[facility] Work Phone: Start: 07-20-2024 End: 07-20-2024 ambulatory Max Jernigan Facility:[facility] Start: 06-08-2024 End: 06-08-2024 Emergency department patient visit Dr. Max Okeefe DO -Emergency Department Work Phone: Start: 04-30-2024 End: 04-30-2024 ambulatory Serena Hagan Facility:[facility] Start: 04-23-2024 End: 04-23-2024 ambulatory Max Jernigan Facility:[facility] Start: 04-20-2024 ambulatory Manjit Jackson Facility:[facility] Start: 04-19-2024 End: 04-19-2024 ambulatory Janet Fraser NP Facility:[facility] Start: 04-16-2024 End: 04-16-2024 ambulatory Radha Ruiz APRN.[employer]ATE R[employer] HELPER Work Phone: [facility] Comment on above: OAB (overactive blad kely) (Primary Dx) Start: 04-16-2024 End: 04-16-2024 Telemedicine consultation with patient Radha Joseph KIMSLATE ROOFER HELPER Work Phone: [facility] Start: 04-16-2024 End: 04-16-2024 ambulatory RADHA RUIZ Facility:[facility] Start: 04-05-2024 End: 04-05-2024 ambulatory Janet Fraser NP Facility:[facility] Start: 04-03-2024 ambulatory Omid Zhou Facility:[facility] Start: 04-03-2024 End: 04-03-2024 ambulatory Janet Fraser HISTORY DEPARTMENT CHAIR Facility:[facility] Start: 03-27-2024 End: 03-27-2024 ambulatory Max Jernigan Facility:[facility] Start: 03-26-2024 End: 03-26-2024 ambulatory Max Jernigan Facility:[facility] Start: 03-22-2024 End: 03-22-2024 ambulatory Yuliana Vilchisjacinto Facility:[facility] Start: 03-08-2024 End: 03-08-2024 ambulatory Max Delon Facility:[facility] Start: 03-06-2024 End: 03-06-2024 ambulatory Max Jernigan Facility:[facility] Start: 10-07-2023 End: 10-07-2023 ambulatory MAX JERNIGAN Facility:[facility] Start: 10-07-2023 End: 10-07-2023 Patient encounter procedure Rosalva Rodriguez APRN.CNP Work Phone: [facility] Comment on above: Accidental medicatio n error, initial encounter (Primary Dx) Start: 09-15-2023 End: 09-15-2023 ambulatory [facility] Work Phone: Start: 09-15-2023 End: 09-15-2023 Patient encounter procedure [facility], [facility] Work Phone: Start: 07-04-2023 End: 07-04-[address] Max Jernigan Work Phone: [facility] Work Phone: Start: 07-04-2023 End: 07-04-[address] Max Jernigan Work Phone: [facility] Start: 04-26-2023 End: 04-26-[address] Max Jernigan Work Phone: [facility]-Pulmonary Medicine [facility] Work Phone: Start: 03-24-2023 End: 03-24-[address] Max Jernigan Work Phone: [facility] Work Phone: Start: 03-17-2023 End: 03-17-[address] Max Jernigan Work Phone: [facility]-Outpatient Breast Imaging Work Phone: Start: 12-07-2022 End: 12-07-[address] Max Jernigan Work Phone: [facility] Work Phone: Start: 12-07-2022 End: 12-07-[address] Max Jernigan Work Phone: [facility]-Outpatient Bone Densitometry Start: 12-01-2022 End: 12-01-[address] Max Jernigan Work Phone: [facility] Work Phone: Start: 12-01-2022 End: 12-01-[address] Max Jernigan Work Phone: [facility] Start: 11-26-2022 End: 11-26-[address] Max Jernigan Work Phone: [facility] Start: 11-23-2022 End: 11-23-[address] Max Jernigan Work Phone: [facility]-Pulmonary Medicine [facility] Start: 09-30-2022 Non-patient / Non-visit Dr. Cameron Jernigan Work Phone: [facility] Start: 09-29-2022 End: 09-29-[address] Max Jernigan Work Phone: [facility]-Pulmonary Services/Neurology Start: 09-28-2022 Non-patient / Non-visit Dr. Cameron Jernigan Work Phone: [facility] Start: 09-27-2022 End: 09-27-[address] Max Jernigan Work Phone: [facility] Work Phone: Start: 09-27-2022 End: 09-27-[address] Max Jernigan Work Phone: [facility]-Pulmonary Services/Neurology Start: 07-19-2022 End: 07-19-[address] Max Jernigan Work Phone: [facility] Work Phone: Start: 07-19-2022 End: 07-19-[address] Max Jernigan Work Phone: [facility] Start: 05-26-2022 End: 05-26-[address] [facility] Start: 03-25-2022 End: 03-25-[address] Max Jernigan Work Phone: [facility] Work Phone: Start: 03-25-2022 End: 03-25-[address] Max Jernigan Work Phone: [facility] Start: 03-19-2022 Non-patient / Non-visit Dr. Cameron Jernigan Work Phone: [facility] Start: 03-19-2022 End: 03-19-[address] Max Jernigan Work Phone: [facility] Work Phone: Start: 03-19-2022 End: 03-19-[address] Max Jernigan Work Phone: [facility]-Cardiovascular Services Start: 03-18-2022 End: 03-18-[address] Max Jernigan Work Phone: [facility] Start: 03-16-2022 End: 03-16-[address] Max Jernigan Work Phone: [facility] Work Phone: Start: 03-16-2022 End: 03-16-[address] Max Jernigan Work Phone: [facility]-Outpatient Breast Imaging Start: 03-08-2022 End: 03-08-[address] [facility] Start: 02-19-2022 Non-patient / Non-visit Dr. Cameron Jernigan Work Phone: [facility] Start: 02-19-2022 End: 02-19-2022 Evaluation and management of inpatient Dr. Max Jernigan Work Phone: [facility]-Medical Surgical 3 Start: 02-19-2022 End: 02-19-[address] Max Jernigan Work Phone: [facility] Work Phone: Start: 02-10-2022 Non-patient / Non-visit Dr. Cameron Jernigan Work Phone: [facility] Start: 02-09-2022 End: 02-09-[address] Max Jernigan Work Phone: [facility] Work Phone: Start: 02-09-2022 End: 02-09-[address] Max Jernigan Work Phone: [facility]-Pulmonary Services/Neurology Start: 02-05-2022 Non-patient / Non-visit Dr. Cameron Jernigan Work Phone: [facility] Start: 02-04-2022 End: 02-04-[address] Max Jernigan Work Phone: [facility] Work Phone: Start: 02-04-2022 End: 02-04-[address] Max Jernigan Work Phone: [facility]-Pulmonary Services/Neurology Start: 02-02-2022 End: 02-02-[address] Max Jernigan Work Phone[facility] Start: 01-21-2022 End: 01-21-[address] Max Jernigan Work Phone: [facility]-Pulmonary Medicine [facility] Start: 11-09-2021 End: 11-09-2021 ambulatory [facility] Start: 10-26-2021 End: 10-26-2021 ambulatory [facility] Start: 10-22-2021 Encounter for other preprocedural examination [facility] Start: 10-21-2021 End: 10-22-2021 ambulatory [facility] Start: 05-01-2020 End: 05-01-2020 Subsequent hospital visit by physician Xr [facility] Comment on above: Fecal incontinence [...] Work Phone: Comment on above: Performed at: [address] [id number] Director: Trell Treadwell PhD, Phone: [phone] Start: 09-04-2024 Total iron binding capacity measurement [...] exam abdo men 1 view Ekta Monisha 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 EXPERIMENTAL.[employer] HELPER Work Phone: Start: 02-10-2017 End: 03-28-2017 Follow [...] Start: 07-14-2016 End: 07-20-2016 Nuclear stress test -Lexiscan Austyn Edmonds MD Start: 05-19-2016 End: 02-03-2017 Follow Up Appt Other Jessica Villatoro Work Phone: Start: 03-09-2016 End: 03-09-2016 *CMP Complete Metabolic Panel Wilmar Cathy Yordan Start: 12-24-2015 End: 02-06-2016 Follow Up Appt Other Juan Francisco Driscoll MD Start: 11-12-2015 End: 12-28-2016 Follow Up Appt 1 month Juan Francisco Driscoll MD Start: 10-27-2015 End: 12-28-2016 Follow up Appt 3 weeks Juan Francisco Driscoll MD Start: 10-06-2015 End: 10-27-2015 Follow up Appt 3 weeks Juan Francisco Dirscoll MD Start: 09-17-2015 End: 10-27-2015 Follow up [...] DTaP,Tdap,Td Vaccine (2 - Td or Tdap) [facility] Start: 09-16-2024 Patient discharge [facility] Start: 09-15-2024 Application of intermittent pneumatic compression device [facility] Start: 09-15-2024 End: 09-15-2024 Following clinical pathway protocol [facility] Start: 09-15-2024 Assessment of risk of venous thromboembolism [facility] Start: 09-15-2024 Inhalation therapy procedure [facility] Start: 09-15-2024 Insertion of catheter into peripheral vein [facility] Start: 09-15-2024 Measuring intake and output [facility] Start: 09-15-2024 Oxygen therapy [facility] Start: 09-15-2024 Providing care according to standard [facility] Start: 09-15-2024 Provision of activity privileges [facility] Start: 09-15-2024 Referral to occupational therapist [facility] Start: 09-15-2024 Referral to service [facility] Start: 09-15-2024 [facility] Start: 09-14-2024 Verification routine [facility] Start: 09-14-2024 Admission procedure [facility] Start: 09-14-2024 Hospital admission, emergency, from emergency room, medical nature [facility] Start: 09-14-2024 Taking nasal swab [facility] Start: 09-14-2024 [facility] Start: 09-14-2024 Bacteria identified in Urine by Culture Urine Culture [facility] Start: 09-14-2024 Respiratory Panel (PCR) Respiratory Panel (PCR) [facility] Start: 09-14-2024 [facility] Start: 06-08-2024 [facility] Start: 02-19-2024 Covid-19 Vaccine () Covid-19 Vaccine () [facility] Start: 06-20-2023 Advance Directive Discussion Advance Directive Discussion [facility] Start: 06-20-2023 Behavioral Health Screening Behavioral Health Screening [facility] Start: 04-26-2023 Patient referral [facility] Work Phone: Start: 02-18-2023 Covid-19 Vaccine () Covid-19 Vaccine () [facility] Start: 02-18-2023 Influenza vaccination Influenza Vaccine (#1) [facility] Start: 12-07-2022 Dual energy X-ray absorptiometry Dexa Bone Density Study [facility] Start: 06-20-2022 Advance Directive Discussion Advance Directive Discussion [facility] Start: 06-20-2022 Depression Assessment Depression Assessment [facility] Start: 02-19-2022 [facility] Work Phone: Start: 02-19-2022 Patient discharge [facility] Work Phone: Start: 02-19-2022 [facility] Work Phone: Start: 02-19-2022 Following clinical pathway protocol [facility] Work Phone: Start: 02-19-2022 Assessment of risk of venous thromboembolism [facility] Work Phone: Start: 02-19-2022 Care regimes management [facility] Work Phone: Start: 02-19-2022 Insertion of catheter into peripheral vein [facility] Work Phone: Start: 02-19-2022 Providing care according to standard [facility] Work Phone: Start: 02-19-2022 Provision of activity privileges [facility] Work Phone: Start: 02-19-2022 End: 02-19-2022 [facility] Work Phone: Start: 02-19-2022 Admission procedure [facility] Work Phone: Start: 07-21-2019 Diabetes Screening Diabetes Screening [facility] Start: 03-31-2017 End: 04-10-2017 Follow Up Appt Other Follow Up Appt Other [facility] Work Phone: Start: 03-18-2017 End: 04-10-2017 Follow Up Appt 2 weeks Follow Up Appt 2 weeks [facility] Work Phone: Start: 03-03-2017 End: 03-08-2016 *CBC with Differential *CBC with Differential [facility] Work Phone: Start: 03-03-2017 End: 03-08-2016 *CMP Complete Metabolic Panel *CMP Complete Metabolic Panel [facility] Work Phone: Start: 02-24-2017 End: 04-10-2017 Follow Up Appt 2 weeks Follow Up Appt 2 weeks [facility] Work Phone: Start: 02-10-2017 End: 03-28-2017 Follow Up Appt 2 weeks Follow Up Appt 2 weeks [facility] Work Phone: Start: 02-01-2017 End: 02-03-2017 Colonoscopy flx dx w/collj spec when pfrmd Colonoscopy [facility] Work Phone: Start: 02-01-2017 End: 02-03-2017 Esophagogastroduodenoscopy transoral diagnostic Upper gastrointestinal endoscopy [facility] Work Phone: Start: 02-01-2017 End: 02-03-2017 Follow Up Appt Other Follow Up Appt Other [facility] Work Phone: Start: 01-27-2017 End: 02-03-2017 Follow Up Appt 2 weeks Follow Up Appt 2 weeks [facility] Work Phone: Start: 01-19-2017 End: 01-19-2017 Bacterica wound culture *CUW - Culture, Wound (Aerobic) [facility] Work Phone: Start: 01-19-2017 End: 02-03-2017 Follow up Appt 1 week Follow up Appt 1 week [facility] Work Phone: Start: 01-10-2017 End: 01-22-2017 Follow up Appt 1 week Follow up Appt 1 week [facility] Work Phone: Start: 01-03-2017 End: 01-22-2017 Follow up Appt 1 week Follow up Appt 1 week [facility] Work Phone: Start: 10-27-2016 End: 12-28-2016 Follow Up Appt Other Follow Up Appt Other [facility] Work Phone: Start: 07-14-2016 End: 07-14-2016 Ecg routine ecg w/least 12 lds w/i&r EKG (In office) [facility] Work Phone: Start: 07-14-2016 End: 07-15-2016 Echocardiography Echocardiogram (complete) [facility] Work Phone: Start: 07-14-2016 End: 07-15-2016 Nuclear stress test -Lexiscan Nuclear stress test -Lexiscan [facility] Work Phone: Start: 05-19-2016 End: 05-19-2016 Esophagogastroduodenoscopy transoral diagnostic Upper gastrointestinal endoscopy [facility] Work Phone: Start: 05-19-2016 End: 02-03-2017 Follow Up Appt Other Follow Up Appt Other [facility] Work Phone: Start: 05-19-2016 End: 06-04-2016 Primary Care Physician Primary Care Physician Max Jernigan, [facility], [address] [place] [address], [place], [address] [facility] Work Phone: Start: 03-09-2016 End: 01-21-2016 *CBC with Differential *CBC with Differential [facility] Work Phone: Start: 03-09-2016 End: 03-09-2016 *CMP Complete Metabolic Panel *CMP Complete Metabolic Panel [facility] Work Phone: Start: 03-01-2016 End: 01-22-2016 Mammogram, screening Mammogram-Bilateral, Screening, Bilateral [facility] Work Phone: Start: 12-24-2015 End: [...] 3 weeks Follow up Appt 3 weeks [facility] Work Phone: Start: 09-03-2015 End: 09-07-2015 Bacterica wound culture *CUW - Culture, Wound (Aerobic) [facility] Work Phone: Start: 09-03-2015 End: 10-27-2015 Follow Up Appt 2 weeks Follow Up Appt 2 weeks [facility] Work Phone: Start: 08-19-2015 End: 10-27-2015 Follow Up Appt 2 weeks Follow Up Appt 2 weeks [facility] Work Phone: Start: 08-07-2015 End: 10-27-2015 Follow Up Appt 2 weeks Follow Up Appt 2 weeks [facility] Work Phone: Start: 07-28-2015 End: 10-27-2015 Follow Up Appt 2 weeks Follow Up Appt 2 weeks [facility] Work Phone: Start: 03-06-2015 End: 01-23-2015 *CBC with Differential *CBC with Differential [facility] Work Phone: Start: 12-19-2014 End: 01-24-2015 Follow up Appt 1 week Follow up Appt 1 week [facility] Work Phone: Start: 12-04-2014 End: 01-24-2015 Follow Up Appt Other Follow Up Appt Other [facility] Work Phone: Start: 2013 RSV Vaccine (1 - 1-dose 75+ series) RSV Vaccine (1 - 1-dose 75+ series) [facility] Start: 2003 Bone Density Screening Bone Density Screening [facility] Start: 2003 Screening for osteoporosis Bone Density Screening [facility] Start: 1998 RSV Vaccine (1 - 1-dose 60+ series) RSV Vaccine (1 - 1-dose 60+ series) [facility] Start: 1957 Urine microalbumin profile DTaP,Tdap,Td Vaccine (1 - Tdap) [facility] Start: 1956 Anxiety Screening Anxiety Screening [facility] Start: 1956 Depression Screening Depression Screening [facility] Start: 1956 Spirometry Spirometry [facility] CT Chest WO contrast [facility] Work Phone: Exercise tolerance test [facility] Work Phone: Exercise tolerance test [facility] Magnesium measurement [facility] Measurement of respi ratory function [facility] Patient Education [facility] Work Phone: Patient referral [facility] Work Phone: Respiratory pathogen s DNA and RNA panel - Respiratory specimen by ROXI with probe detection [facility] Urine culture [facility] Immunizations Immunization Date Immunization Notes Care Provider Fa cili 06-08-2024 tetanus toxoid, redu viviana diphtheria toxoid, and acellular pertussis vaccine, adsorbed Dr. Max Jernigan MD Work Phone: [facility] 03-26-2024 Seasonal trivalent influenza vaccine, adjuvanted, preservative free Dr. Max Jernigan MD Work Phone: [facility] 03-18-2021 influenza virus vaccine, unspecified formulation Xr [facility] 08-14-2020 Covid (Moderna) Dr. Duran [facility] Work Phone: [facility] 07-17-2020 Covid (Moderna) Dr. Max Griffith Work Phone: [facility] 03-13-2020 influenza, injectabl e, quadrivalent, preservative free Dr. Max Jernigan Work Phone: [facility] 03-13-2020 influenza, seasonal, injectable Dr. Max Jernigan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
== END | disposition home or self-care (01) ==
LOC: LABSPEC 01-11 06:08
PROVIDERS: PCP Family Medicine; Referring Provider Surgery Plastic and Reconstructive Surgery; Visit Provider Surgery Plastic and Reconstructive Surgery
DX: M61.452 Other calcification of muscle, left thigh (principal)
CPT/HCPCS: 88305

== ENCOUNTER → 2025-03-25 | Outpatient (CLI) | payer MEDICARE, SELFPAY ==
--- NOTE | 2025-03-25 10:15 | BI_ITS ---
EXAM: SCRN MAMM (CAD)W/ANGELA BILAT DATE: 03/25/2025 CLINICAL HISTORY: F, Age 84 y/o , SCREENING History of left breast cancer which was diagnosed in 2003. She had a lumpectomy with radiation therapy. History of bilateral breast reduction surgery in 1983. TECHNIQUE: Procedure Code: [id number] Modality: MG Procedure: SCRN MAMM (CAD)W/ANGELA BILAT COMPARISON: Prior exam(s) dated 03/22/2024, 03/09/2023, and 03/16/2022. FINDINGS: TISSUE DENSITY: There are scattered areas of fibroglandular density. Bilateral Breast Mammographic Findings: No significant masses, calcifications or other abnormalities are identified. Benign round microcalcifications are seen in both breasts. There is a cluster of stable benign-appearing round and punctate microcalcifications in the medial, middle 3rd aspect of the right breast which have a linear distribution. Subtle architectural distortion is seen in the right breast from her prior breast reduction surgery. This is a stable finding. Architectural distortion and increased density are seen in the superior outer aspect of the left breast at the post lumpectomy and postradiation site. This area appears stable. Very subtle distortion is seen from her prior breast reduction surgery. This area appears stable. Benign-appearing round and punctate calcifications are seen in the left breast. There is no mammographic abnormality in the left breast to suggest new or recurrent malignancy. BI/SCRN MAMM (CAD)W/ANGELA BILAT IMPRESSION: Benign screening mammogram. OVERALL FINAL ASSESSMENT BI-RADS 2: BENIGN RECOMMENDATION: Routine annual follow-up in 1 Year Additional Recommendation none A letter with findings and recommendations will be mailed to the patient. Reading Location: [id number]
== END | disposition home or self-care (01) ==
LOC: OPBI 10:12
PROVIDERS: PCP Family Medicine; Referring Provider Internal Medicine Hematology & Oncology; Visit Provider Internal Medicine Hematology & Oncology
DX: Z12.31 Encounter for screening mammogram for malignant neoplasm of breast (principal)
CPT/HCPCS: 77063; 77067

== ENCOUNTER → 2025-06-04 | Outpatient (CLI) | payer MEDICARE, SELFPAY ==
--- NOTE | 2025-06-04 11:30 | RAD_ITS ---
PROCEDURE: CHEST PA AND LATERAL, 06/04/2025 REASON FOR EXAM: SHORTNESS OF BREATH TECHNIQUE: PA and lateral views of the chest were obtained. COMPARISON: 09/14/2024 FINDINGS: Heart: Partially obscured, size grossly within normal limits. Mediastinum: Partially obscured. Similar fullness in the [id number]-RIGHT hilar regions from at least 07/19/2022, enlargement of the pulmonary arteries versus lymphadenopathy. Lungs/pleura: Redemonstrated chronic interstitial abnormality. Biapical pleural/parenchymal scarring. No definite pleural effusion or visible pneumothorax. Bones: Suspect demineralization. Lumbar dextroscoliosis. Degenerative findings including evidence of rotator cuff pathology. Lines and support devices: None Other: Surgical clips LEFT breast/axilla. RAD/Chest PA and Lateral IMPRESSION: 1. Redemonstrated chronic interstitial abnormality without definite superimpose d acute process. 2. Additional description as above. Reading Location: [id number]
[2025-06-04 12:08] LABS: Anion Gap 10 (5-15); BUN 13 mg/dL (4-19); BUN/Creat Ratio 12.9 RATIO (10-20); Calcium,Total 9.0 mg/dL (7.6-11.0); Carbon Dioxide 23.5 mmol/L (21.0-32.0); Chloride 107 mmol/L (98-108); Glucose 103 mg/dL (70-99); Potassium 4.5 mmol/L (3.3-5.1); Pro- Brain NATRIURETIC PEPTIDE 605 pg/mL (<=1800)
== END | disposition home or self-care (01) ==
LOC: RAD 10:54
PROVIDERS: PCP Family Medicine; Referring Provider Nurse Practitioner Acute Care; Visit Provider Nurse Practitioner Acute Care
DX: R06.02 Shortness of breath (principal)
CPT/HCPCS: 36415; 71046; 80048; 83880